=== PATIENT | male | born 1980 | race Caucasian/White ===

== ENCOUNTER 2018-01-02 22:52 | Observation (INO) | payer SELFPAY ==
[2018-01-02 22:53] VITALS: BP 136/82; PULSE 120; RESP 26; TEMP 35.8; O2SAT 98; BMI 26.6
[2018-01-02 23:03] VITALS: BP 132/86; PULSE 119; RESP 18; O2SAT 100
[2018-01-02 23:06] LABS: Bedside Glucose 116 mg/dL (70-110)
--- NOTE | 2018-01-02 23:07 | CT_ITS ---
STUDY: CT BRAIN WITHOUT CONTRAST REASON FOR EXAM: Male, 37 years old. Weakness, shaking blurred vision. Elevated blood pressure RADIATION DOSAGE (If Supplied By Facility): CTDIvol = ( 44.99 ) mGy, DLP = ( 779.24 ) mGycm TECHNIQUE: Transaxial CT imaging of the brain was performed without administration of intravenous contrast material. Individualized dose optimization techniques were used for this CT. COMPARISON: July 02, 2008 FINDINGS: Normal calvarium. There are scattered scalp trichilemmal cysts that have increased in size and number since the prior examination. Normal size ventricles and extra-axial spaces for the patient's age. Normal white matter tracts of the cerebral hemispheres. Normal basal ganglia and thalami. Normal brainstem. Normal cerebellum. There is no intracranial hemorrhage. There are no findings of an acute ischemic infarction. Normal visualized paranasal sinuses. CT/Brain/Head without Contrast IMPRESSION: No acute intracranial process. N.B. : The above information has been verbally conveyed by Mary Lawler MD to Paola Zhang, Referring Physician, on 01/02/2018 23:36:14 (ET). Electronically Signed: Mary Lawler MD at 23:36 EDT Tel , Service support , N.B. : The above information has been verbally conveyed by Mary Lawler MD to Paola Zhang, Referring Physician, on 01/02/2018 23:36:14 (ET).
--- NOTE | 2018-01-02 23:07 | EKG12_ITS ---
Test Reason : NEURO S/SX Blood Pressure : / mmHG Vent. Rate : 098 BPM Atrial Rate : 098 BPM P-R Int : 156 ms QRS Dur : 088 ms QT Int : 292 ms P-R-T Axes : 047 042 013 degrees QTc Int : 372 ms Normal sinus rhythm Normal ECG Confirmed by MARYANA GRIDER, APRUL ([id number]), commissioning editor KENNETH EGAN ([id number] on 01/04/2018 3:19:43 PM Referred By: SABINO Confirmed By:PARUL MIJARES MD
--- NOTE | 2018-01-02 23:07 | RAD_ITS ---
STUDY: X-RAY CHEST REASON FOR EXAM: Male, 37 years old. Neurological abnormalities TECHNIQUE: Single AP portable view of the chest. COMPARISON: Previous study of 11/07/2014 FINDINGS: air sampling and monitoring leads are present. The lungs are clear and expanded. There is no demonstrated pleural abnormality. Normal size heart. Normal mediastinum and beryl. Normal visualized pulmonary arteries. Normal visualized aortic arch and descending thoracic aorta. Normal visualized thoracic spine. Normal visualized ribs, clavicles, and shoulders. There is no demonstrated abnormality of the visualized soft tissue structures of the upper abdomen. RAD/Chest 1 View (Portable) IMPRESSION: Normal x-ray examination of the chest. Electronically Signed: Antonio Page MD at 23:46 EDT , Service support ,
--- NOTE | 2018-01-02 23:12 | ED.VISSUMM ---
- ER Visit Summary Date of Service: 01/02/18 Chief Complaint: Confusion, difficulty with speech. History of Present Illness: The patient is a 37 M presenting with speech difficulty and confusion. Patient states he knew what he wanted to say but was unable to get words out. This started approximately 1 hour ago. His speech is improving. He also notes blurry vision right greater than left. He states before this started he had an aura. He denies headache. He feels weak all over. He has nausea with no vomiting. He has shortness of breath. Denies chest pain. Denies fever. Denies recent illness. Denies drug use. Physical Examination: Vitals are stable. Patient is afebrile. Alert no acute distress. HEENT exam is unremarkable. Neck is supple. No meningismus Lungs are clear and equal bilaterally. Heart is regular and tachycardic Abdomen is soft nontender nondistended. Extremities are unremarkable. Skin is warm and dry. NIH for 1 LOC questions Remainder of exam is unremarkable. Emergency Department Course and Treatment: EKG is sinus rhythm rate of 98 with no acute ischemic changes. Chest x-ray shows no acute process. CT head shows no acute process. CBC, chemistries unremarkable other than creatinine 1.45. Troponin is negative. Alcohol is negative. Urine tox is pending. Patient given IV fluids. Ativan was ordered. Patient does have a history of headaches and anxiety. This may be a TIA versus atypical migraine versus anxiety. Discussed with Dr. Cuenca and Dr Portillo. Patient will be admitted. Disposition: Admission Impression: TIA versus atypical migraine This note was generated with [employer] dictation software. It may contain incorrect words, spelling, and punctuation that were not noted in review of the chart prior to signing ED Disposition - Plan for ED Patient: Chief Complaint: Neuro S/Sx Referrals: Thiago Li MD [Primary Care Provider] -
[2018-01-02 23:15] LABS: Absolute Lymphocyte Count 5.46 X10^3/ul (0.83-4.51); Absolute Neutrophil Count 3.8 X10^3/uL (2.0-7.7); Basophil# 0.03 X10^3/uL; Basophil% 0.3 % (0-1); Eosinophil# 0.59 X10^3/uL; Eosinophils% 5.6 % (0-5); Hematocrit 46.3 % (40-54); Hemoglobin 16.6 g/dl (13.0-16.5); Lymphocyte # 5.46 X10^3/ul (4.0); Lymphocyte % 51.4 % (19-41); Mean Corp Hgb Conc 35.9 g/gl (32-36); Mean Corpuscular Hgb 31.8 pg (27.0-32.0); Mean Corpuscular Volume 88.7 fL (80-94); Mean Platelet Vol. 9.7 fl (6.2-12.0); Monocyte# 0.73 X10^3/uL; Monocyte% 6.9 % (0-10); Neutrophil # 3.79 X10^3/uL (2.7-7.7); Neutrophil % 35.6 % (47-70); Platelet Count 277 K/mm3 (150-450); RBC Distribution Width SD 38.8 fl (35.1-43.9); Red Blood Count 5.22 M/mm3 (4.6-6.2); White Blood Count 10.6 K/mm3 (4.4-11.0)
[2018-01-02 23:16] LABS: Differential Indicated SCAN CRITERIA MET; POSITIVE COUNT NO; POSITIVE DIFFERENTIAL YES; POSITIVE MORPHOLOGY NO
[2018-01-02 23:35] LABS: Differential Comment SCANNED
[2018-01-02] MEDS: Ondansetron 4 MG/2 ML Vial IV (23:35)
[2018-01-02 23:39] LABS: Alcohol, Blood (Medical)-Serum < 3.0 mg/dL
[2018-01-02 23:41] LABS: Anion Gap 10 (5-15); BUN 15 mg/dL (7-18); BUN/Creat Ratio 10.3 RATIO (10-20); Calcium,Total 8.5 mg/dL (8.5-10.1); Chloride 106 mmol/L (98-107); Creatinine, Serum 1.45 mg/dL (0.70-1.30); EST Glomerular Filtration Rate 59 mL/min (>60); Est Glom Filt Rate - Afr Amer 71 mL/min (>60); Estimated Creatinine Clearance 66.48 ml/min; Glucose 125 mg/dL (74-106); Potassium 3.8 mmol/L (3.5-5.1); Sodium Level 139 mmol/L (136-145)
--- NOTE | 2018-01-02 23:49 | PCM.HP.STD ---
Problem List (1) Sinus arrhythmia Status: Chronic (2) Asthma Status: Chronic Qualifiers: Asthma severity: unspecified severity Asthma persistence: unspecified Asthma complication type: unspecified Qualified Code(s): J45.909 - Unspecified asthma, uncomplicated (3) TIA versus Complex migraine Status: Acute (4) Chronic headaches Status: Chronic Qualifiers: Headache type: unspecified Intractability: not intractable Qualified Code(s): R51 - Headache History of Present Illness Date of Admission: 01/02/18 Chief Complaint: Aphasia, weakness, parethesias, blurred vision R eye. The patient is a 37 y/o M w/ PMHx: Asthma, Sinus arrhythmia, Chronic headaches who presents to the [facility] ED on 01/02/18 with ~ 1 hour prior to arrival onset initial aura followed by expressive aphasia, generalized weakness without focal deficit and R>L blurry vision w/ onset while in the ED of throbbing BL temporal headache similar to his usual with associated photophobia and phonophobia. While in the ED having NIH scale performed patient upon confusion became extremely distressed and anxious and ativan was administered. In the ED work-up included T 98.8, HR 90s, BP 136/75, RR 18, 97% on RA, CBC w/ WBC 10.6, Hgb 16.6, Plts 277 with L increased lymph, eos, BMP w/ BUN/Cr 15/1.45 (prior Cr 1.2), glucose 125, trop < 0.02, unremarkable UTox, unremarkable UA, EtOH unremarkable, CT head unremarkable, CXR unremarkable, EKG w/ SR without acute evidence of ischemia. In the ED patient administered NS, zofran, ativan. Neurology, Dr. Cuenca made aware of patient per ED and he requested work-up for stroke to be continued prior to assess for intractable migraine. Past Medical History Past Medical History (Chronic Problems): Chronic Problems Sinus arrhythmia (Chronic) Asthma (Chronic) Chronic headaches (Chronic) Allergies Penicillins Allergy (Verified 11/07/14 19:02) Unknown Sulfa (Sulfonamide Antibiotics) Allergy (Verified 11/07/14 19:02) Unknown Home Medications: Ambulatory Orders Medication Instructions Recorded Metoprolol Tartrate [Lopressor 50 mg PO BID 01/02/18 (beta alden)] Surgical History: - - T+A Psychiatric History: No pertinent psych hx Lives: Spouse/ Significant Other, With Family Smoking Status: Never smoker Alcohol: None Drugs: None - *Family History Maternal History Items: - - Mother w/ MS. Paternal History Items: Hypertension Review of Systems Constitutional: Reports: Malaise, Weakness, Fatigue. Denies: Chills, Fever, Weight Change HEENT: Reports: Head Aches, Visual Changes. Denies: Sinus Congestion, Sinus Drainage Cardiovascular: Denies: Chest Pain, Palpitations Respiratory: Denies: Cough, Shortness of breath at rest, Sputum production Gastrointestinal: Denies: Abdominal Pain, Nausea, Vomiting Genitourinary: Denies: Dysuria Musculoskeletal: Denies: Joint Pain, Joint Tenderness Skin: Denies: Rash, Wounds Neurological: Reports: Confusion, Headaches. Denies: Focal weakness, Numbness, Tingling Psychiatric: Denies: Anxiety, Depression, Homicidal Ideations, Suicidal Ideations Hematologic/ Lymphatic: Denies: Easy Bruising, Easy Bleeding VTE Information - Inpt Only VTE Present on Admission: No VTE Mechan Device Prophylaxis: SCD's VTE Pharm Prophylaxis ordered?: Yes Patient Problems: Active and Suspected Problems TIA versus Complex migraine (Acute) Subjective: Seated upright in the ED bed, NAD, notes sxs improving. Objective: Physical Examination: General: awake, alert, oriented x 3 and cooperative, seated upright in the ED bed, NAD, uncomfortable appearing, strained. Skin: normal color, turgor, no icterus, cyanosis. HEENT: AT/NC, EOMI, PERRLA, mildly dry MM, scleral injection noted, peripheral vision intact, no carotid bruits or JVD noted. Lungs: CTA bilaterally, moderate effort, mild decrease BL bases, no rales, ronchi or wheezing. Heart: Regular rate and rhythm; no gallop, rub audible. Abdomen: soft, NTTP, ND, normal BS, no HSM. Extremities: no cyanosis, clubbing, or edema. Neurological: patient awake, alert, oriented x 3; cognitive function intact; pupils equally reactive to light and accomodation; cranial nerves II-XII grossly normal, moving all 4 extremities, no focal deficits, strength moderately globally decreased secondary to acute presentation, sensation intact, FTN, HTN intact, peripheral vision intact, negative babinski. Psychiatric: affect appears fatigued, strained, normal, no acute evidence of depressive or anxiety feelings. - Physical Exam Vital Signs Temp Pulse Resp BP Pulse Ox 96.5 F L 119 H 18 132/86 H 100 01/02/18 22:53 01/02/18 23:03 01/02/18 23:03 01/02/18 23:03 01/02/18 23:03 Oxygen Delivery Method Room Air Weight: 170 lb Body Mass Index (BMI) 26.6 Finger Stick Blood Glucose 116 Laboratory Tests Past 24 Hrs 01/02/18 01/02/18 01/02/18 23:05 23:05 23:05 WBC 10.6 RBC 5.22 Hgb 16.6 H Hct 46.3 MCV 88.7 MCH 31.8 MCHC 35.9 RDW 12.0 RDW Differential 38.8 Plt Count 277 MPV 9.7 Immature Gran % (Auto) 0.200 Neut % (Auto) 35.6 L Lymph % (Auto) 51.4 H Warren % (Auto) 6.9 Eos % (Auto) 5.6 H Baso % (Auto) 0.3 Absolute Neuts (auto) 3.8 Absolute Lymphs (auto) 5.46 H Total Counted Not Reportable Differential Comment SCANNED Sodium 139 Potassium 3.8 Chloride 106 Carbon Dioxide 23.0 Anion Gap 10 BUN 15 Creatinine 1.45 H Estim Creat Clear Calc 66.48 Est GFR (MDRD) Af Amer 71 Est GFR (MDRD) Non-Af 59 L BUN/Creatinine Ratio 10.3 Glucose 125 H Calcium 8.5 Troponin I < 0.02 Ethyl Alcohol < 3.0 POC Glucose 01/02/18 22:58 POC Glucose 116 H Assessment/Plan Active and Suspected Problems TIA versus Complex migraine (Acute) The patient is a 37 y/o M w/ PMHx: Asthma, Sinus arrhythmia, Chronic headaches who presents to the [facility] ED on 01/02/18 with ~ 1 hour prior to arrival onset initial aura followed by expressive aphasia, generalized weakness without focal deficit and R>L blurry vision w/ onset while in the ED of throbbing BL temporal headache similar to his usual with associated photophobia and phonophobia. (1) Expressive aphasia, generalized weakness without focal deficit and R>L blurry vision and concurrent Acute on Chronic Headache concerning for Complex Migraine, Less Likely TIA/CVA: In the ED work-up included T 98.8, HR 90s, BP 136/75, RR 18, 97% on RA, CBC w/ WBC 10.6, Hgb 16.6, Plts 277 with L increased lymph, eos, BMP w/ BUN/Cr 15/1.45 (prior Cr 1.2), glucose 125, trop < 0.02, unremarkable UTox, unremarkable UA, EtOH unremarkable, CT head unremarkable, CXR unremarkable, EKG w/ SR without acute evidence of ischemia. Neurology, Dr. Cuenca made aware of patient per ED and he requested work-up for stroke to be continued prior to assess for intractable migraine. Will admit to PCU, will obtain MRI Brain, MRA Head and Neck, ECHO, PT/OT/Speech/Nutrition evaluation per protocol. Will continue consult with Neurology for evaluation. Will maintain on asa, statin w/ AM FLP, fall precautions. Mag, TSH pending. If MRI negative and ongoing sxs with headaches would plan to initiated intractable migraine regimen w/ IV VPA 500mg Q6 hours, IV Decadron 4mg Q6 hours, IV Toradol 30mg Q6 hours prn and PO Neurontin 100mg TID with meals unless otherwise dictated per Neurology. (2) Chronic Asthma: Maintain on HOB, IS, PRN albuterol regimen, primarily childhood. (3) Sinus Arrhythmia: Maintain on telemetry, continue home metoprolol regimen. (4) Mild Renal Insufficiency: Admission BUN/Cr 15/1.45, baseline prior 1.2-1.4, unclear if chronic renal disease, gently hydrating, repeat BMP in AM. (5) DVT Prophylaxis: SCDs, heparin. Code Visit OBSV E&M: 37997 Initial observation care L3
--- NOTE | 2018-01-02 23:52 | HP.PCM_ITS ---
Problem List (1) Sinus arrhythmia Status: Chronic (2) Asthma Status: Chronic Qualifiers: Asthma severity: unspecified severity Asthma persistence: unspecified Asthma complication type: unspecified Qualified Code(s): J45.909 - Unspecified asthma, uncomplicated (3) TIA versus Complex migraine Status: Acute (4) Chronic headaches Status: Chronic Qualifiers: Headache type: unspecified Intractability: not intractable Qualified Code (s): R51 - Headache History of Present Illness Date of Admission: 01/02/18 Chief Complaint: Aphasia, weakness, parethesias, blurred vision R eye. The patient is a 37 y/o M w/ PMHx: Asthma, Sinus arrhythmia, Chronic headaches who presents to the [facility] ED on 01/02/18 with ~ 1 hour prior to arrival onset initial aura followed by expressive aphasia, generalized weakness without focal deficit and R>L blurry vision w/ onset while in the ED of throbbing BL temporal headache similar to his usual with associated photophobia and phonophobia. While in the ED having NIH scale performed patient upon confusion became extremely distressed and anxious and ativan was administered. In the ED work-up included T 98.8, HR 90s, BP 136/75, RR 18, 97% on RA, CBC w/ WBC 10.6, Hgb 16.6 , Plts 277 with L increased lymph, eos, BMP w/ BUN/Cr 15/1.45 (prior Cr 1.2), glucose 125, trop < 0.02, unremarkable UTox, unremarkable UA, EtOH unremarkable , CT head unremarkable, CXR unremarkable, EKG w/ SR without acute evidence of ischemia. In the ED patient administered NS, zofran, ativan. Neurology, Dr. Cuenca made aware of patient per ED and he requested work-up for stroke to be continued prior to assess for intractable migraine. Past Medical History Past Medical History (Chronic Problems): Chronic Problems Sinus arrhythmia (Chronic) Asthma (Chronic) Chronic headaches (Chronic) Allergies Penicillins Allergy (Verified 11/07/14 19:02) Unknown Sulfa (Sulfonamide Antibiotics) Allergy (Verified 11/07/14 19:02) Unknown Home Medications: Ambulatory Orders Medication Instructions Recorded Metoprolol Tartrate [Lopressor 50 mg PO BID 01/02/18 (beta alden)] Surgical History: - - T+A Psychiatric History: No pertinent psych hx Lives: Spouse/ Significant Other, With Family Smoking Status: Never smoker Alcohol: None Drugs: None - *Family History Maternal History Items: - - Mother w/ MS. Paternal History Items: Hypertension Review of Systems Constitutional: Reports: Malaise, Weakness, Fatigue. Denies: Chills, Fever, Weight Change HEENT: Reports: Head Aches, Visual Changes. Denies: Sinus Congestion, Sinus Drainage Cardiovascular: Denies: Chest Pain, Palpitations Respiratory: Denies: Cough, Shortness of breath at rest, Sputum production Gastrointestinal: Denies: Abdominal Pain, Nausea, Vomiting Genitourinary: Denies: Dysuria Musculoskeletal: Denies: Joint Pain, Joint Tenderness Skin: Denies: Rash, Wounds Neurological: Reports: Confusion, Headaches. Denies: Focal weakness, Numbness, Tingling Psychiatric: Denies: Anxiety, Depression, Homicidal Ideations, Suicidal Ideations Hematologic/ Lymphatic: Denies: Easy Bruising, Easy Bleeding VTE Information - Inpt Only VTE Present on Admission: No VTE Mechan Device Prophylaxis: SCD's VTE Pharm Prophylaxis ordered?: Yes Patient Problems: Active and Suspected Problems TIA versus Complex migraine (Acute) Subjective: Seated upright in the ED bed, NAD, notes sxs improving. Objective: Physical Examination: General: awake, alert, oriented x 3 and cooperative, seated upright in the ED bed, NAD, uncomfortable appearing, strained. Skin: normal color, turgor, no icterus, cyanosis. HEENT: AT/NC, EOMI, PERRLA, mildly dry MM, scleral injection noted, peripheral vision intact, no carotid bruits or JVD noted. Lungs: CTA bilaterally, moderate effort, mild decrease BL bases, no rales, ronchi or wheezing. Heart: Regular rate and rhythm; no gallop, rub audible. Abdomen: soft, NTTP, ND, normal BS, no HSM. Extremities: no cyanosis, clubbing, or edema. Neurological: patient awake, alert, oriented x 3; cognitive function intact; pupils equally reactive to light and accomodation; cranial nerves II-XII grossly normal, moving all 4 extremities, no focal deficits, strength moderately globally decreased secondary to acute presentation, sensation intact , FTN, HTN intact, peripheral vision intact, negative babinski. Psychiatric: affect appears fatigued, strained, normal, no acute evidence of depressive or anxiety feelings. - Physical Exam Vital Signs Temp Pulse Resp BP Pulse Ox 96.5 F L 119 H 18 132/86 H 100 01/02/18 22:53 01/02/18 23:03 01/02/18 23:03 01/02/18 23:03 01/02/18 23:03 Oxygen Delivery Method Room Air Weight: 170 lb Body Mass Index (BMI) 26.6 Finger Stick Blood Glucose 116 Laboratory Tests Past 24 Hrs 01/02/18 01/02/18 01/02/18 23:05 23:05 23:05 WBC 10.6 RBC 5.22 Hgb 16.6 H Hct 46.3 MCV 88.7 MCH 31.8 MCHC 35.9 RDW 12.0 RDW Differential 38.8 Plt Count 277 MPV 9.7 Immature Gran % (Auto) 0.200 Neut % (Auto) 35.6 L Lymph % (Auto) 51.4 H Bowman % (Auto) 6.9 Eos % (Auto) 5.6 H Baso % (Auto) 0.3 Absolute Neuts (auto) 3.8 Absolute Lymphs (auto) 5.46 H Total Counted Not Reportable Differential Comment SCANNED Sodium 139 Potassium 3.8 Chloride 106 Carbon Dioxide 23.0 Anion Gap 10 BUN 15 Creatinine 1.45 H Estim Creat Clear Calc 66.48 Est GFR (MDRD) Af Amer 71 Est GFR (MDRD) Non-Af 59 L BUN/Creatinine Ratio 10.3 Glucose 125 H Calcium 8.5 Troponin I < 0.02 Ethyl Alcohol < 3.0 POC Glucose 01/02/18 22:58 POC Glucose 116 H Assessment/Plan Active and Suspected Problems TIA versus Complex migraine (Acute) The patient is a 37 y/o M w/ PMHx: Asthma, Sinus arrhythmia, Chronic headaches who presents to the [facility] ED on 01/02/18 with ~ 1 hour prior to arrival onset initial aura followed by expressive aphasia, generalized weakness without focal deficit and R>L blurry vision w/ onset while in the ED of throbbing BL temporal headache similar to his usual with associated photophobia and phonophobia. (1) Expressive aphasia, generalized weakness without focal deficit and R>L blurry vision and concurrent Acute on Chronic Headache concerning for Complex Migraine, Less Likely TIA/CVA: In the ED work-up included T 98.8, HR 90s, BP 136 /75, RR 18, 97% on RA, CBC w/ WBC 10.6, Hgb 16.6, Plts 277 with L increased lymph, eos, BMP w/ BUN/Cr 15/1.45 (prior Cr 1.2), glucose 125, trop < 0.02, unremarkable UTox, unremarkable UA, EtOH unremarkable, CT head unremarkable, CXR unremarkable, EKG w/ SR without acute evidence of ischemia. Neurology, Dr. Cuenca made aware of patient per ED and he requested work-up for stroke to be continued prior to assess for intractable migraine. Will admit to PCU, will obtain MRI Brain, MRA Head and Neck, ECHO, PT/OT/Speech/Nutrition evaluation per protocol. Will continue consult with Neurology for evaluation. Will maintain on asa, statin w/ AM FLP, fall precautions. Mag, TSH pending. If MRI negative and ongoing sxs with headaches would plan to initiated intractable migraine regimen w/ IV VPA 500mg Q6 hours, IV Decadron 4mg Q6 hours, IV Toradol 30mg Q6 hours prn and PO Neurontin 100mg TID with meals unless otherwise dictated per Neurology. (2) Chronic Asthma: Maintain on HOB, IS, PRN albuterol regimen, primarily childhood. (3) Sinus Arrhythmia: Maintain on telemetry, continue home metoprolol regimen. (4) Mild Renal Insufficiency: Admission BUN/Cr 15/1.45, baseline prior 1.2-1.4, unclear if chronic renal disease, gently hydrating, repeat BMP in AM. (5) DVT Prophylaxis: SCDs, heparin. Code Visit OBSV E&M: 23289 Initial observation care L3
[2018-01-03] VITALS (11 sets, daily range): BP systolic 94–142; BP diastolic 53–83; PULSE 69–103; RESP 12–22; TEMP 35.9–37.2; O2SAT 96–98; BMI 27.8
[2018-01-03] MEDS: LORazepam 2 MG/ML Syringe 1 MG IV (00:08)
[2018-01-03 00:19] LABS: Bacteria 0 SEEN /hpf (None Seen); Mucous, Urine 0 SEEN /hpf (<or=2+); Red Blood Cells-Urine 0 SEEN /hpf (0-5); Squamous Epithelial Cells - UA 0 SEEN /hpf (0-5); White Blood Cells 0 SEEN /hpf (0-5)
[2018-01-03 00:25] LABS: Color, Urine Yellow (Yellow); Glucose, Dipstick Normal (Normal); Ketone-Dipstick Negative (Negative); Leukocyte Esterase-Dipstick Negative /ul (Negative); Nitrite-Dipstick Negative (Negative); Occult Blood-Urine Negative /ul (Negative); Protein-Dipstick Negative (Negative); Urine Bilirubin Dipstick Negative (Negative); Urine Clarity Clear (Clear); Urine Urobilinogen Normal (Normal)
[2018-01-03 00:41] LABS: Amphetamine Urine VISTA NEGATIVE (<1000 ng/mL); Barbiturate Urine VISTA NEGATIVE (< 200 ng/mL); Benzodiazepine Urine VISTA NEGATIVE (< 200 ng/mL); Cocaine Urine VISTA NEGATIVE (< 300 ng/mL); Ecstacy Urine VISTA NEGATIVE (< 500 ng/mL); Methadone Urine VISTA NEGATIVE (< 300 ng/mL); PCP Urine VISTA NEGATIVE (< 25 ng/mL); THC Urine VISTA NEGATIVE (< 50 ng/mL); Vista UDS pH Range 7
[2018-01-03] MEDS: Metoprolol Tartrate 50 MG Tablet PO ×2 (01:36→09:10)
[2018-01-03] MEDS: 0.9% Normal Saline 1,000 ML 999 ML IV (01:37)
[2018-01-03] MEDS: 0.9% NaCl Peripheral Flush Adult/Peds IV (01:54)
[2018-01-03] MEDS: 0.9% Normal Saline 1,000 ML 125 ML IV (02:00)
[2018-01-03 02:03] LABS: Magnesium 2.1 mg/dL (1.6-2.6); Thyroid Stim Hormone (TSH) 1.49 uIU/mL (0.358-3.74)
[2018-01-03 04:27] LABS: Hematocrit 41.4 % (40-54); Hemoglobin 14.4 g/dl (13.0-16.5); Mean Corp Hgb Conc 34.8 g/gl (32-36); Mean Corpuscular Hgb 31.4 pg (27.0-32.0); Mean Corpuscular Volume 90.4 fL (80-94); Mean Platelet Vol. 10.1 fl (6.2-12.0); Platelet Count 197 K/mm3 (150-450); RBC Distribution Width CV 12.2 % (11.6-14.6); RBC Distribution Width SD 39.8 fl (35.1-43.9); Red Blood Count 4.58 M/mm3 (4.6-6.2); White Blood Count 10.5 K/mm3 (4.4-11.0)
[2018-01-03 04:28] LABS: Scan Indicated on CBC? Y/N NO
[2018-01-03 05:47] LABS: BUN 12 mg/dL (7-18); Creatinine, Serum 1.13 mg/dL (0.70-1.30); Estimated Creatinine Clearance 85.31 ml/min; Glucose 91 mg/dL (74-106)
[2018-01-03 05:48] LABS: Anion Gap 9 (5-15); BUN/Creat Ratio 10.6 RATIO (10-20); Calcium,Total 7.6 mg/dL (8.5-10.1); Chloride 111 mmol/L (98-107); Cholesterol 138 mg/dL (200); EST Glomerular Filtration Rate 78 mL/min (>60); Est Glom Filt Rate - Afr Amer 95 mL/min (>60); High Density Lipoprotein 26 mg/dL; Sodium Level 144 mmol/L (136-145); Triglycerides 176 mg/dL; Very Low Density Lipoprotein 35 mg/dL (5-40)
--- NOTE | 2018-01-03 07:34 | PN_ITS ---
Patient Problems: Active and Suspected Problems TIA versus Complex migraine (Acute) Subjective: Patient was seen and examined. His was in the room. States his speech is almost back to normal except he has word finding difficulty and somehow slowness of his speech. He still has a headache, has daily headaches. States that most of the symptoms that he came in with yesterday resolved. Vitals have been reviewed and are stable. He is going for MRI this morning Vitals/I&O's: Vital Signs Temp Pulse Resp BP Pulse Ox 98.2 F 70 12 94/53 L 98 01/03/18 05:00 01/03/18 05:00 01/03/18 05:00 01/03/18 05:00 01/03/18 05:00 Oxygen Delivery Method Room Air Weight: 80.5 kg Body Mass Index (BMI) 27.8 Intake and Output for Last 24 Hours 01/01/18 01/02/18 01/03/18 23:59 23:59 23:59 Intake Total 1545 / 1545 Output Total 1025 / 1025 Balance 520 / 520 General: Alert, Oriented x3, Cooperative, No apparent distress HEENT: Atraumatic, PERRLA, EOMI, Normocephalic Oral: Moist Mucosa Neck: Supple Lungs: Clear to auscultation, Normal air movement Cardiovascular: Regular rate, Regular Rhythm, Normal S1, Normal S2, No murmurs Abdomen: Bowel Sounds Present, Soft, Non Tender, Non-Distended, No Hepato- splenomegaly Extremities: No edema Skin: No rashes, No breakdown Musculoskeletal: No Tenderness to Palpation of Joints or Extremities Lymphatic: No Cervical, Supraclavicular, or Inguinal Adenopathy Neurological: Cranial nerves II-XII grossly intact, Neuro grossly intact, Motor Exam 5/5 strength throughout Psych/Mental Status: Normal Affect, Appropriate Laboratory Results 01/03/18 00:05: Urine Color Yellow, Urine Clarity Clear, Urine pH 7.0, Ur Specific [place] 1.010, Urine Protein Negative, Urine Glucose (UA) Normal, Urine Ketones Negative, Urine Occult Blood Negative, Urine Nitrite Negative, Urine Bilirubin Negative, Urine Urobilinogen Normal, Ur Leukocyte Esterase Negative, Urine RBC 0 SEEN, Urine WBC 0 SEEN, Ur Squamous Epith Cells 0 SEEN, Urine Bacteria 0 SEEN, Urine Mucus 0 SEEN 01/03/18 00:05: Urine Opiates Screen NEGATIVE, Urine Methadone Screen NEGATIVE, Ur Barbiturates Screen NEGATIVE, Ur Phencyclidine Scrn NEGATIVE, Ur Amphetamines Screen NEGATIVE, U Methamphetamin-MDMA NEGATIVE, U Benzodiazepines Scrn NEGATIVE, Urine Cocaine Screen NEGATIVE, U Cannabinoids Screen NEGATIVE, Ur Drug Screen Comment 01/03/18 01:15: Magnesium Cancelled 01/03/18 01:15: TSH Cancelled 01/03/18 04:20: WBC 10.5, RBC 4.58 L, Hgb 14.4, Hct 41.4, MCV 90.4, MCH 31.4, MCHC 34.8, RDW 12.2, RDW Differential 39.8, Plt Count 197, MPV 10.1 01/03/18 04:20: Sodium Cancelled, Potassium Cancelled, Chloride Cancelled, Carbon Dioxide Cancelled, Anion Gap Cancelled, BUN Cancelled, Creatinine Cancelled, Estim Creat Clear Calc Cancelled, Est GFR (MDRD) Af Amer Cancelled, Est GFR (MDRD) Non-Af Cancelled, BUN/Creatinine Ratio Cancelled, Glucose Cancelled, Calcium Cancelled, Triglycerides Cancelled, Cholesterol Cancelled, LDL Cholesterol Cancelled, VLDL Cholesterol Cancelled, HDL Cholesterol Cancelled 01/03/18 05:15: Sodium 144, Potassium 4.0, Chloride 111 H, Carbon Dioxide 24.0, Anion Gap 9, BUN 12, Creatinine 1.13, Estim Creat Clear Calc 85.31, Est GFR ( MDRD) Af Amer 95, Est GFR (MDRD) Non-Af 78, BUN/Creatinine Ratio 10.6, Glucose 91, Calcium 7.6 L, Triglycerides 176, Cholesterol 138, LDL Cholesterol 77, VLDL Cholesterol 35, HDL Cholesterol 26 L Current Medications Acetaminophen (Tylenol) 650 mg PO Q4H PRN PRN PRN Reason: Headache/Temp>99F Acetaminophen (Tylenol) 650 mg RECTAL Q4H PRN PRN PRN Reason: Headache/Temp>99F Acetaminophen (Tylenol Liquid) 650 mg NG Q4H PRN PRN PRN Reason: Headache/Temp>99F Hydrocodone Bitart/Acetaminophen ([place] 5mg-325mg) 1 - 2 tablet PO Q6H PRN PRN PRN Reason: Moderate-severe pain Al Hydroxide/Mg Hydroxide (Mylanta Ii) 30 ml PO Q6H PRN PRN PRN Reason: Gastric burning Albuterol Sulfate (Ventolin Aerosols) 2.5 mg INHALATION Q2H PRN PRN PRN Reason: dyspnea, wheezing Aspirin (Aspirin, Baby) 81 mg PO DAILY@0800 [facility] Atorvastatin Calcium (Lipitor) 80 mg PO QHS [facility] Famotidine (Pepcid) 20 mg PO BID [facility] Heparin Sodium (Porcine) (Heparin Na) 5,000 unit SC BID [facility] Sodium Chloride () 1,000 mls @ 125 mls/hr IV .Q8H [facility] Last Admin: 01/03/18 02:00 Dose: 125 mls/hr Magnesium Hydroxide (Milk Of Magnesia) 30 ml PO DAILY PRN PRN Reason: Constipation Metoprolol Tartrate (Lopressor (Beta Teresa)) 50 mg PO BID [facility] Last Admin: 01/03/18 01:36 Dose: 50 mg Morphine Sulfate () 1 - 2 mg IV Q4H PRN PRN PRN Reason: PAIN Last Admin: 01/03/18 01:54 Dose: 1 mg Ondansetron HCl (Zofran) 4 mg IV Q8H PRN PRN PRN Reason: NAUSEA Promethazine HCl (Phenergan (Ll)) 12.5 mg IV Q6H PRN PRN PRN Reason: NAUSEA/VOMITING Sodium Chloride () 5 - 30 ml IV UD PRN PRN Reason: SALINE FLUSH Last Admin: 01/03/18 01:54 Dose: 10 ml Medical Necessity - Tobacco Use Smoking Status: Never smoker Tobacco Use: Non-smoker Assessment/Plan Active and Suspected Problems TIA versus Complex migraine (Acute) 37-year-old male with history of asthma, chronic daily headaches admitted on with expressive aphasia and blurred vision as well as photophobia and phonophobia. 1. Acute onset of expressive aphasia, blurred vision, photophobia and phonophobia, likely related to aura with migraine, less likely due to TIA, CT scan of the brain has been negative, vitals have remained normal. Lipid profile shows slightly elevation in triglycerides of 176, low HDL of 26, otherwise normal cholesterol panel, neurology consulted, MRI of the brain, MRA head and neck pending, on aspirin and statin for now. Follow-up on results 2. Chronic daily headaches, not on any maintenance medication, neurology consulted, will follow up on recommendations for options for prophylaxis 3. Asthma, stable, on as needed breathing treatment 4. History of sinus arrhythmia, on metoprolol, will continue same 5. Renal insufficiency, mild, improved, at baseline now, will DC IV fluids as patient is able to take a look by mouth. 6. DVT prophylaxis with heparin subcu Code Visit OBSV E&M: 88996 Subsequent observation care L3
[2018-01-03] MEDS: Aspirin 81 MG TAB.CHEW PO (08:28)
[2018-01-03] MEDS: Famotidine 20 MG Tablet PO (09:11)
--- NOTE | 2018-01-03 09:52 | PCM.CONS.GEN ---
Reason for Consult Date of Consultation: 01/03/18 Reason for Consultation: headache History of Present Illness: The patient is a 37 year old M who presented last night with symptoms beginning at 930pm described as flashing lights, similar to migraine aura which he has had x1 in the past although has had frequent migraines for 20 yrs. last night symptoms evolved to language difficulty described as couldnt put together a sentence followed by headache. now has a headache and feels slower than normal. also describes visual distortion described as people having uneven eyes. reports has headache daily, takes goodys powder because cant swallow pills. takes 1-5 packets of goodys powder/day. reports 15 yrs ago was prescribed a med that wasnt effective and caused weight gain. reports average daily headache is 4/10, currently 5/10, can get to 9/10 on a monthly basis. 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 per admit h&p:The patient is a 37 y/o M w/ PMHx: Asthma, Sinus arrhythmia, Chronic headaches who presents to the [facility] ED on 01/02/18 with ~ 1 hour prior to arrival onset initial aura followed by expressive aphasia, generalized weakness without focal deficit and R>L blurry vision w/ onset while in the ED of throbbing BL temporal headache similar to his usual with associated photophobia and phonophobia. While in the ED having NIH scale performed patient upon confusion became extremely distressed and anxious and ativan was administered. In the ED work-up included T 98.8, HR 90s, BP 136/75, RR 18, 97% on RA, CBC w/ WBC 10.6, Hgb 16.6, Plts 277 with L increased lymph, eos, BMP w/ BUN/Cr 15/1.45 (prior Cr 1.2), glucose 125, trop < 0.02, unremarkable UTox, unremarkable UA, EtOH unremarkable, CT head unremarkable, CXR unremarkable, EKG w/ SR without acute evidence of ischemia. In the ED patient administered NS, zofran, ativan. Neurology, Dr. Cuenca made aware of patient per ED and he requested work-up for stroke to be continued prior to assess for intractable migraine. Past Medical History Past Medical History (Chronic Problems): Chronic Problems Sinus arrhythmia (Chronic) Asthma (Chronic) Chronic headaches (Chronic) Allergies Penicillins Allergy (Verified 11/07/14 19:02) Unknown Sulfa (Sulfonamide Antibiotics) Allergy (Verified 11/07/14 19:02) Unknown Home Medications: Ambulatory Orders Medication Instructions Recorded Metoprolol Tartrate [Lopressor 50 mg PO BID 01/02/18 (beta teresa)] Surgical History: - - T+A Psychiatric History: No pertinent psych hx Lives: Spouse/ Significant Other, With Family Smoking Status: Never smoker Alcohol: None Drugs: None - *Family History Maternal History Items: - - Mother w/ MS. Paternal History Items: Hypertension Review of Systems Constitutional: Denies: Chills, Fever, Weight Change HEENT: Denies: Head Aches, Sinus Congestion, Sinus Drainage Cardiovascular: Denies: Chest Pain, Palpitations Respiratory: Denies: Cough, Shortness of breath at rest, Sputum production Gastrointestinal: Denies: Abdominal Pain, Nausea, Vomiting Genitourinary: Denies: Dysuria Musculoskeletal: Denies: Joint Pain, Joint Tenderness Skin: Denies: Rash, Wounds Neurological: Denies: Numbness, Tingling, Focal weakness Psychiatric: Denies: Anxiety, Depression, Homicidal Ideations, Suicidal Ideations Hematologic/ Lymphatic: Denies: Easy Bruising, Easy Bleeding Patient Problems: Active and Suspected Problems TIA versus Complex migraine (Acute) - Physical Exam General: Alert, Oriented x3, Cooperative HEENT: Atraumatic, PERRLA, EOMI, Normocephalic Neck: Supple, No JVD, Negative Carotid Bruits Lungs: Clear to auscultation, Normal air movement Cardiovascular: Regular rate, No murmurs Abdomen: Bowel Sounds Present, Soft, Non Tender Extremities: No edema, Capillary Refill Less than 3 Seconds Skin: No rashes, No breakdown Musculoskeletal: No Tenderness to Palpation of Joints or Extremities Neurological: Cranial nerves II-XII grossly intact Psych/Mental Status: Normal Affect, Appropriate Vital Signs Temp Pulse Resp BP Pulse Ox 35.9 C L 70 13 103/64 96 01/03/18 08:24 01/03/18 09:10 01/03/18 08:24 01/03/18 08:24 01/03/18 08:24 Oxygen Delivery Method Room Air Weight: 80.5 kg Body Mass Index (BMI) 27.8 Intake and Output for Last 24 Hours 01/01/18 01/02/18 01/03/18 23:59 23:59 23:59 Intake Total 1545 / 1545 Output Total 1025 / 1025 Balance 520 / 520 Laboratory Tests Past 24 Hrs 01/03/18 01/03/18 01/03/18 00:05 00:05 01:15 WBC RBC Hgb Hct MCV MCH MCHC RDW RDW Differential Plt Count MPV Sodium Potassium Chloride Carbon Dioxide Anion Gap BUN Creatinine Estim Creat Clear Calc Est GFR (MDRD) Af Amer Est GFR (MDRD) Non-Af BUN/Creatinine Ratio Glucose Calcium Magnesium Cancelled Triglycerides Cholesterol LDL Cholesterol VLDL Cholesterol HDL Cholesterol TSH Urine Color Yellow Urine Clarity Clear Urine pH 7.0 Ur Specific [place] 1.010 Urine Protein Negative Urine Glucose (UA) Normal Urine Ketones Negative Urine Occult Blood Negative Urine Nitrite Negative Urine Bilirubin Negative Urine Urobilinogen Normal Ur Leukocyte Esterase Negative Urine RBC 0 SEEN Urine WBC 0 SEEN Ur Squamous Epith Cells 0 SEEN Urine Bacteria 0 SEEN Urine Mucus 0 SEEN Urine Opiates Screen NEGATIVE Urine Methadone Screen NEGATIVE Ur Barbiturates Screen NEGATIVE Ur Phencyclidine Scrn NEGATIVE Ur Amphetamines Screen NEGATIVE U Methamphetamin-MDMA NEGATIVE U Benzodiazepines Scrn NEGATIVE Urine Cocaine Screen NEGATIVE U Cannabinoids Screen NEGATIVE Ur Drug Screen Comment 01/03/18 01/03/18 01/03/18 01:15 04:20 04:20 WBC 10.5 RBC 4.58 L Hgb 14.4 Hct 41.4 MCV 90.4 MCH 31.4 MCHC 34.8 RDW 12.2 RDW Differential 39.8 Plt Count 197 MPV 10.1 Sodium Cancelled Potassium Cancelled Chloride Cancelled Carbon Dioxide Cancelled Anion Gap Cancelled BUN Cancelled Creatinine Cancelled Estim Creat Clear Calc Cancelled Est GFR (MDRD) Af Amer Cancelled Est GFR (MDRD) Non-Af Cancelled BUN/Creatinine Ratio Cancelled Glucose Cancelled Calcium Cancelled Magnesium Triglycerides Cancelled Cholesterol Cancelled LDL Cholesterol Cancelled VLDL Cholesterol Cancelled HDL Cholesterol Cancelled TSH Cancelled Urine Color Urine Clarity Urine pH Ur Specific [place] Urine Protein Urine Glucose (UA) Urine Ketones Urine Occult Blood Urine Nitrite Urine Bilirubin Urine Urobilinogen Ur Leukocyte Esterase Urine RBC Urine WBC Ur Squamous Epith Cells Urine Bacteria Urine Mucus Urine Opiates Screen Urine Methadone Screen Ur Barbiturates Screen Ur Phencyclidine Scrn Ur Amphetamines Screen U Methamphetamin-MDMA U Benzodiazepines Scrn Urine Cocaine Screen U Cannabinoids Screen Ur Drug Screen Comment 03/19/18 05:15 WBC RBC Hgb Hct MCV MCH MCHC RDW RDW Differential Plt Count MPV Sodium 144 Potassium 4.0 Chloride 111 H Carbon Dioxide 24.0 Anion Gap 9 BUN 12 Creatinine 1.13 Estim Creat Clear Calc 85.31 Est GFR (MDRD) Af Amer 95 Est GFR (MDRD) Non-Af 78 BUN/Creatinine Ratio 10.6 Glucose 91 Calcium 7.6 L Magnesium Triglycerides 176 Cholesterol 138 LDL Cholesterol 77 VLDL Cholesterol 35 HDL Cholesterol 26 L TSH Urine Color Urine Clarity Urine pH Ur Specific [place] Urine Protein Urine Glucose (UA) Urine Ketones Urine Occult Blood Urine Nitrite Urine Bilirubin Urine Urobilinogen Ur Leukocyte Esterase Urine RBC Urine WBC Ur Squamous Epith Cells Urine Bacteria Urine Mucus Urine Opiates Screen Urine Methadone Screen Ur Barbiturates Screen Ur Phencyclidine Scrn Ur Amphetamines Screen U Methamphetamin-MDMA U Benzodiazepines Scrn Urine Cocaine Screen U Cannabinoids Screen Ur Drug Screen Comment Current Home Med List Medication Instructions Recorded Confirmed Type Metoprolol Tartrate [Lopressor 50 mg PO BID 01/02/18 01/02/18 History (beta teresa)] Current Medications Generic Name Dose Route Start Last Admin Trade Name Freq PRN Reason Stop Dose Admin Acetaminophen 650 mg 01/03/18 01:01 Tylenol PO Q4H PRN PRN Headache/Temp>99F Acetaminophen 650 mg 01/03/18 01:01 Tylenol RECTAL Q4H PRN PRN Headache/Temp>99F Acetaminophen 650 mg 01/03/18 01:01 Tylenol Liquid NG Q4H PRN PRN Headache/Temp>99F Hydrocodone Bitart/Acetaminophen 1 - 2 tablet 01/03/18 01:01 [place] 5mg-325mg PO Q6H PRN PRN Moderate-severe pain Al Hydroxide/Mg Hydroxide 30 ml 01/03/18 01:01 Mylanta Ii PO Q6H PRN PRN Gastric burning Albuterol Sulfate 2.5 mg 01/03/18 01:01 Ventolin Aerosols INHALATION Q2H PRN PRN dyspnea, wheezing Aspirin 81 mg 01/03/18 08:00 01/03/18 08:28 Aspirin, Baby PO 81 mg DAILY@0800 [facility] Administration Atorvastatin Calcium 80 mg 01/03/18 22:00 Lipitor PO QHS RAVI Famotidine 20 mg 01/03/18 10:00 01/03/18 09:11 Pepcid PO 20 mg BID RAVI Administration Heparin Sodium (Porcine) 5,000 unit 01/03/18 10:00 01/03/18 09:14 Heparin Na SC 5,000 u BID RAVI Administration Sodium Chloride 1,000 mls @ 125 mls/hr 01/03/18 01:01 01/03/18 02:00 IV 125 mls/hr .Q8H RAVI Administration Magnesium Hydroxide 30 ml 01/03/18 01:01 Milk Of Magnesia PO DAILY PRN Constipation Metoprolol Tartrate 50 mg 01/03/18 01:01 01/03/18 09:10 Lopressor (Beta Teresa) PO 50 mg BID RAVI Administration Morphine Sulfate 1 - 2 mg 01/03/18 01:01 01/03/18 01:54 IV 1 mg Q4H PRN PRN Administration PAIN Ondansetron HCl 4 mg 01/03/18 01:01 Zofran IV Q8H PRN PRN NAUSEA Promethazine HCl 12.5 mg 01/03/18 01:01 Phenergan (Ll) IV Q6H PRN PRN NAUSEA/VOMITING Sodium Chloride 5 - 30 ml 01/03/18 00:43 01/03/18 01:54 IV 10 ml UD PRN Administration SALINE FLUSH mri/a head and neck reviewed, normal Assessment/Plan Active and Suspected Problems TIA versus Complex migraine (Acute) 1. complex migraine, resolved 2. chronic daily headache sleep deprived stress: try ssri 3. rebound headache: recommend discontinue use of goodys and other nsaids ok to dc follow up as op
[2018-01-03] MEDS: Escitalopram Oxalate 10 MG Tablet PO (13:14)
--- NOTE | 2018-01-03 13:39 | PCM.DC ---
- Discharge Diagnoses Current Active Problems: Current Active and Chronic Problems Sinus arrhythmia (Chronic) Asthma (Chronic) TIA versus Complex migraine (Acute) Chronic headaches (Chronic) Reason(s) for Visit for Discharge Instructions: Blurred vision, expressive aphasia You will use the following diet at home:: Regular Your food should be the consistency of: Regular Your liquids should be the consistency of: Regular/Thin Discharge Activity: Return to Normal Activity Additional Instructions: Discontinue use of goodys and other NSAIDS. the neurologist recommended Lexapro. Follow-up with him within 2 weeks with a headache diary noting frequency of headaches and associated symptoms, and factors that seem to trigger the headaches. Allergies/Adverse Reactions: Allergies Penicillins Allergy (Verified 11/07/14 19:02) Unknown Sulfa (Sulfonamide Antibiotics) Allergy (Verified 11/07/14 19:02) Unknown Medications to take at Discharge Metoprolol Tartrate [Lopressor (beta alden)] 50 mg PO BID 01/02/18 Escitalopram Oxalate [Lexapro] 10 mg PO DAILY #30 tab 01/03/18 Tadalafil [Cialis] 10 mg PO PRN 01/03/18 The following prescriptions were given: Escitalopram Oxalate [Lexapro] 10 mg PO DAILY #30 tab Primary Care Physician: Thiago Li MD [Primary Care Provider] - Please follow up with your Primary Care Physician in: within 2 weeks Please Follow Up With: Dalton Cuenca MD When: within 2 weeks Proposed Discharge Date: 01/03/18
--- NOTE | 2018-01-03 13:42 | PCM.DC.SUM ---
Discharge Date and Diagnosis - Problem List Patient Problems: Active and Suspected Problems TIA versus Complex migraine (Acute) Date of Admission: 01/02/18 Date of Discharge: 01/03/18 - Primary Discharge Diagnosis Active and Suspected Problems TIA versus Complex migraine (Acute) - Secondary Discharge Diagnosis Chronic Problems Sinus arrhythmia (Chronic) Asthma (Chronic) Chronic headaches (Chronic) Hospital Course and Treatment Imaging Results: 01/03/18 23:57 Brain without Contrast [MRI] Stat MRA Head ONLY without Contrast [MRI] Stat MRA Neck without Contrast [MRI] Stat Neurology - Dr. Cuenca Operations: None Procedures: 2-D Echocardiogram Summary of Care Provided: 37-year-old male with history of asthma, chronic daily headaches admitted on 01/02/2018 with expressive aphasia and blurred vision as well as photophobia and phonophobia. 1. Acute onset of expressive aphasia, blurred vision, photophobia and phonophobia, secondary to migraine with aura, TIA/CVA was ruled out. CT scan of the brain, MRI and MRA of the head and neck were negative, neurology consulted, advised patient to stop taking Goody's, started on Lexapro and will need to follow-up in the outpatient with neurology 2. Asthma, stable, no signs of acute exacerbation 3. History of sinus arrhythmia, on metoprolol 4. Renal insufficiency, resolved with hydration Discharge Diet: No Restrictions Discharge Activity: Return to Normal Activity Home Medications: Medications to take at Discharge Metoprolol Tartrate [Lopressor (beta alden)] 50 mg PO BID 01/02/18 Escitalopram Oxalate [Lexapro] 10 mg PO DAILY #30 tab 01/03/18 Tadalafil [Cialis] 10 mg PO PRN 01/03/18 Following Prescrptions Were Given to Patient: Escitalopram Oxalate [Lexapro] 10 mg PO DAILY #30 tab Primary Care Physician: Thiago Li MD [Primary Care Provider] - Please follow up with your Primary Care Physician in: within 2 weeks Please Follow Up With: Dalton Cuenca MD When: within 2 weeks Disposition: Home Minutes spent on discharge:: 25 Patient Condition:: Stable Medical Necessity - Tobacco Use Smoking Status: Never smoker Tobacco Use: Non-smoker Meaningful Use Info Meaningful Use Diagnoses (Choose all that apply): None applicable Code Visit OBSV E&M: 49280 Observation care discharge
--- NOTE | 2018-01-03 14:00 | CASEMGMT ---
SW spoke w/pt in room, as pt is self pay. Pt states he does not think he will qualify for Medicaid, did not want the application. SW did give pt information on [employer], [facility] assist, [facility], prescription assist, and food nelson. No further needs at this time, pt will go home today. JOSE Holman, MEDICAL RECORDS ANALYST
--- NOTE | 2018-01-03 23:57 | MRI_ITS ---
STUDY: MRA NECK WITHOUT CONTRAST REASON FOR EXAM: Male, 37 years old. expressive aphasia, blurred vision R>L headaches. TECHNIQUE: Source images were obtained, MIPs were performed. The study was performed unenhanced. COMPARISON: None. FINDINGS: RIGHT CAROTID ARTERIES: Normal right common carotid artery (CCA). Normal right common carotid bulb. Normal origin of the right internal carotid (ICA) artery without a hemodynamically significant stenosis. Normal visualized cervical portion of the right internal carotid artery. Normal origin of the right external carotid artery (ECA). LEFT CAROTID ARTERIES: Normal left common carotid artery (CCA). Normal left common carotid bulb. Normal origin of the left internal carotid (ICA) artery without a hemodynamically significant stenosis. Normal visualized cervical portion of the left internal carotid artery. Normal origin of the left external carotid artery (ECA). VERTEBRAL ARTERIES: Normal antegrade flow within the bilateral vertebral artery without a hemodynamically significant stenosis. MRI/MRA Neck without Contrast IMPRESSION: Unremarkable bilateral cervical carotid and vertebral arteries. Electronically Signed: Rosy Hung MD at 14:21 EDT Tel , Service support ,
--- NOTE | 2018-01-03 23:57 | MRI_ITS ---
STUDY: MRI BRAIN WITHOUT CONTRAST REASON FOR EXAM: Male, 37 years old. cva, expressive aphasia, blurred vision, numbness. TECHNIQUE: Standardized multiplanar fat and water weighted pulse sequences were obtained. COMPARISON: None. FINDINGS: Normal size of the ventricles and extra-axial spaces for the patient's age. Normal white matter tracts of the supratentorial brain. Normal bilateral basal ganglia. Normal thalami. There is no extra-axial fluid accumulation. Normal flow voids within the major intracranial circulation suggesting patency by spin echo criteria. Normal sella turcica, pituitary gland, infundibular stalk, optic chiasm and hypothalamus. Normal tectal plate and pineal gland. Normal midbrain, martir and medulla. There is mild tonsillar ectopia, which is within normal limits, and without distortion of the brainstem. Normal basal cisterns. Normal bilateral temporal bones. Normal bilateral internal auditory canals. No demonstrated orbital abnormality, within the constraints of a routine brain study. Normal visualized paranasal sinuses. There are multiple subcutaneous nodules. Normal visualized soft tissue structures. Normal visualized upper cervical spine. MRI/Brain without Contrast IMPRESSION: No acute intracranial abnormality. Electronically Signed: Rosy Hung MD at 11:56 EDT Tel , Service support ,
--- NOTE | 2018-01-03 23:57 | MRI_ITS ---
STUDY: MRA OF THE HEAD WITHOUT CONTRAST REASON FOR EXAM: Male, 37 years old. cva, expressive aphasia, blurred vision, numbness TECHNIQUE: 3-D sglk-lu-gmeicm (TOF) imaging was performed with MIPs. The study was performed unenhanced. COMPARISON: None. FINDINGS: Normal bilateral petrous carotid arteries. Normal right cavernous carotid artery with a normal supraclinoid bifurcation. Normal left cavernous carotid artery with a normal supraclinoid bifurcation. Normal right A1 segments of the anterior cerebral artery. Normal left A1 segments of the anterior cerebral artery. Normal intact anterior communicating artery (ACOM). Normal bilateral A2 segments of the anterior cerebral arteries. Normal right M1 and M2 segments of the middle cerebral arteries, with a normal M1 bifurcation. Normal left M1 and M2 segments of the middle cerebral arteries, with a normal M1 bifurcation. Normal right posterior communicating artery (PCOM). There is non-visualization of the left posterior communicating artery (PCOM). Normal bilateral vertebral arteries. Normal basilar artery with a normal basilar bifurcation. The visualized bilateral superior cerebellar (SCA) arteries are normal. Normal bilateral P1, P2 and visualized P3 segments of the posterior cerebral arteries. There is no demonstrated aneurysm of the [place] of [place]. There is no major vessel occlusion or hemodynamically significant stenosis. There is no demonstrated abnormality of the visualized brain. MRI/MRA Head ONLY without Contrast IMPRESSION: Normal MRA of the head Electronically Signed: Rosy Hung MD at 12:07 EDT Tel , Service support ,
== END 2018-01-03 14:15 | disposition home or self-care (01) ==
LOC: ED 23:25 → ICU 01-03 00:07
PROVIDERS: Admitting Provider Family Medicine; Emergency Provider Emergency Medicine; Family Provider Family Medicine; PCP Family Medicine; Visit Provider Internal Medicine
DX: G43.109 Migraine with aura, not intractable, without status migrainosus (principal); J45.909 Unspecified asthma, uncomplicated; I49.8 Other specified cardiac arrhythmias; R47.01 Aphasia; H53.8 Other visual disturbances; N28.9 Disorder of kidney and ureter, unspecified; K21.9 Gastro-esophageal reflux disease without esophagitis; Z79.899 Other long term (current) drug therapy
CPT/HCPCS: 70450; 70544; 70547; 70551; 71045; 80048; 80061; 80307; 80320; 81001; 82962; 83735; 84443; 84484; 85025; 85027; 92523; 93005; 96361; 96372; 96374; 96375; 99218; 99282; J7030; J7040; A4216; G0378; G0480; J2405

== ENCOUNTER → 2018-02-03 11:22 | Outpatient (CLI) | payer OTHER, SELFPAY ==
--- NOTE | 2018-02-03 11:28 | RAD_ITS ---
STUDY: X-RAY - ABDOMEN/PELVIS REASON FOR EXAM: Male, 37 years old. Lower abdominal pain. TECHNIQUE: AP supine and upright views of the abdomen and pelvis. COMPARISON: None. FINDINGS: Normal visualized lung bases. There is a moderate amount of colonic fecal material. There is no demonstrated free abdominal air. The visualized liver, spleen and kidneys are grossly normal in size and morphology. There are calcified phleboliths in the pelvis. Normal visualized osseous structures. RAD/Abd Inc Decub and/or Erect IMPRESSION: Moderate amount of fecal material is seen in the colon. Electronically Signed: Aris Rajput MD at 12:28 EDT Tel [phone], Service support ,
== END ==
PROVIDERS: Family Provider Family Medicine; PCP Family Medicine; Visit Provider Family Medicine
DX: R10.30 Lower abdominal pain, unspecified (principal)
CPT/HCPCS: 74019

== ENCOUNTER 2018-03-02 07:27 | Day surgery (SDC) | payer OTHER, SELFPAY ==
[2018-03-02] VITALS (8 sets, daily range): BP systolic 76–118; BP diastolic 47–73; PULSE 80–101; RESP 14–18; TEMP 36.4–36.7; O2SAT 96–100; BMI 27.9
--- NOTE | 2018-03-02 08:45 | EGD_PTH ---
PATIENT: AURELIANO BAKER LOC: EN U#:[id number] AGE/SX: 37/M ROOM: RE03/02/[address]: Dr. Hudson Vazquez MD : 1980 BED: DIS: 03/02/2018 SPEC #: [id number] RECD: 03/02/18 13:00 STATUS: DAMIEN TONI #: [id number] AMOL: 03/02/18 08:[address]: Hudson Vazquez DEPT: SURGICAL PATHOLOGY RECD BY: Dexter Figueroa ENTERED: 03/02/18 13:14 SP TYPE: EGD BIOPSY FELIPA DR: Dr. Thiago Li MD Tissues: A - BOWEL BIOPSY B - COLON BIOPSY Procedures: Surgery Specimen Level IV HEADER OPERATION: EGD with biopsy and colonoscopy PRE-OP DIAGNOSIS: Nausea, epigastric pain with diarrhea TISSUE SUBMITTED: A. Small bowel biopsy, B. Random colon biopsies MICROSCOPIC DIAGNOSIS A. Small bowel, biopsy: Fragments of duodenal mucosa, no pathologic diagnosis. B. Colon, random biopsy: Fragments of colonic mucosa, no pathologic diagnosis. DEXTER:frances 03/03/18 MICROSCOPIC DESCRIPTION Slides are reviewed. GROSS DESCRIPTION A - Received in fixative is one container labeled with the patient's name and designated small bowel biopsy. The specimen consists of two irregular fragments of light duron soft tissue that in aggregate measure 0.4 x 0.3 x 0.1 cm. The specimen is totally submitted in one cassette. B - Received in fixative is one container labeled with the patient's name and designated random colonic biopsy. The specimen consists of multiple irregular fragments of light duron soft tissue that in aggregate measure 2 x 0.5 x 0.1 cm. The specimen is totally submitted in one cassette. / DEXTER:frances 03/02/18 TC:4 CPT: 71287 x2
--- NOTE | 2018-03-02 08:59 | PCM.OPRPT ---
Problem List (1) Nausea Status: Acute (2) Epigastric pain Status: Acute (3) Diarrhea Status: Acute Qualifiers: Diarrhea type: unspecified type Qualified Code(s): R19.7 - Diarrhea, unspecified Report of Operation Date of Procedure: 03/02/18 Pre-Operative Diagnosis: r11.0 nausea. r10.13 epigastric abdominal pain. r19.7 diarrhea unspecified Post-Operative Diagnosis: Same Surgery/Procedure Performed:: 28115 esophagogastroduodenoscopy with biopsies. 09053 colonoscopy with random colonic biopsies Type of Anesthesia:: MAC Anesthesiologist: Adrien Samuel Description of Procedure: Patient was brought into the endoscopy suite. Back of his throat was sprayed with Cetacaine spray. A bite-block was placed. He is placed in the left lateral decubitus position. Graded anesthesia was given. The scope was inserted into the back of the oropharynx and directed down through the esophagus into the stomach and into the duodenum without difficulty. Operative findings: 1. Duodenum: Normal appearance no mass lesions no ulcerations mucosa looked normal but I did obtain a biopsy for celiac sprue. There is no signs of bleeding. 2. Stomach: There was some antral gastritis no obvious ulcers or mass lesions were identified biopsy for H. pylori was obtained. The rest of the stomach did appear normal. Retroflexion did not reveal any signs of a hiatal hernia. 3. Esophagus: Normal appearance no mass lesions Z line was right at 40 cm and was normal there was no erythema or signs of esophagitis. Colonoscope was then inserted into the rectum directed through the sigmoid colon, descending colon, transverse colon, descending colon, to the cecum. Operative findings: 1. Cecum: Normal appearance no mass lesions normal ileocecal valve. 2. Ascending colon: Normal appearance no mass lesions. 3. Transverse colon: Normal appearance no mass lesions. 4. Descending colon: Normal appearance no mass lesions. 5. Sigmoid colon: Normal appearance no mass lesions. 6. Rectum: Normal appearance no mass lesions retroflexion really did not show any signs of significant hemorrhoidal disease there were no mass lesions identified. Random colonic biopsies were done about every 15-20 cm from the cecum all the way to the rectum. The mucosa throughout the colon looked entirely normal there was nothing about it that was suspicious for any signs of colitis. I will see the patient back in 1 week and discuss the pathology reports with him. In the meantime I believe he should be started on some [id number] proton pump inhibitors. - Admit VTE Documentation VTE Present on Admission: No VTE Mechan Device Prophylaxis: None VTE Pharm Prophylaxis ordered?: No Reason prophylaxis not ordered:: Treatment Not Indicated
--- NOTE | 2018-03-02 09:06 | OP.PCM_ITS ---
Problem List (1) Nausea Status: Acute (2) Epigastric pain Status: Acute (3) Diarrhea Status: Acute Qualifiers: Diarrhea type: unspecified type Qualified Code(s): R19.7 - Diarrhea, unspecified Report of Operation Date of Procedure: 03/02/18 Pre-Operative Diagnosis: r11.0 nausea. r10.13 epigastric abdominal pain. r19.7 diarrhea unspecified Post-Operative Diagnosis: Same Surgery/Procedure Performed:: 91257 esophagogastroduodenoscopy with biopsies. 98997 colonoscopy with random colonic biopsies Type of Anesthesia:: MAC Anesthesiologist: Adrien Samuel Description of Procedure: Patient was brought into the endoscopy suite. Back of his throat was sprayed with Cetacaine spray. A bite-block was placed. He is placed in the left lateral decubitus position. Graded anesthesia was given. The scope was inserted into the back of the oropharynx and directed down through the esophagus into the stomach and into the duodenum without difficulty. Operative findings: 1. Duodenum: Normal appearance no mass lesions no ulcerations mucosa looked normal but I did obtain a biopsy for celiac sprue. There is no signs of bleeding. 2. Stomach: There was some antral gastritis no obvious ulcers or mass lesions were identified biopsy for H. pylori was obtained. The rest of the stomach did appear normal. Retroflexion did not reveal any signs of a hiatal hernia. 3. Esophagus: Normal appearance no mass lesions Z line was right at 40 cm and was normal there was no erythema or signs of esophagitis. Colonoscope was then inserted into the rectum directed through the sigmoid colon , descending colon, transverse colon, descending colon, to the cecum. Operative findings: 1. Cecum: Normal appearance no mass lesions normal ileocecal valve. 2. Ascending colon: Normal appearance no mass lesions. 3. Transverse colon: Normal appearance no mass lesions. 4. Descending colon: Normal appearance no mass lesions. 5. Sigmoid colon: Normal appearance no mass lesions. 6. Rectum: Normal appearance no mass lesions retroflexion really did not show any signs of significant hemorrhoidal disease there were no mass lesions identified. Random colonic biopsies were done about every 15-20 cm from the cecum all the way to the rectum. The mucosa throughout the colon looked entirely normal there was nothing about it that was suspicious for any signs of colitis. I will see the patient back in 1 week and discuss the pathology reports with him. In the meantime I believe he should be started on some [id number]-lek-lwxjlli proton pump inhibitors. - Admit VTE Documentation VTE Present on Admission: No VTE Mechan Device Prophylaxis: None VTE Pharm Prophylaxis ordered?: No Reason prophylaxis not ordered:: Treatment Not Indicated
== END 2018-03-02 09:51 | disposition home or self-care (01) ==
LOC: EN 07:27 → AC 07:28
PROVIDERS: Family Provider Family Medicine; PCP Family Medicine; Visit Provider Surgery
PROC: 0DJD8ZZ Inspection of Lower Intestinal Tract, Via Natural or Artificial Opening Endoscopic (ICD-10-PCS; CPT 45378; principal; 2018-03-02 08:25)
DX: R11.0 Nausea (principal); R10.13 Epigastric pain; R19.7 Diarrhea, unspecified; L72.9 Follicular cyst of the skin and subcutaneous tissue, unspecified; Z87.19 Personal history of other diseases of the digestive system; K21.9 Gastro-esophageal reflux disease without esophagitis; I10 Essential (primary) hypertension; F41.9 Anxiety disorder, unspecified; M54.5 Low back pain; G89.29 Other chronic pain; K58.9 Irritable bowel syndrome, unspecified; Z87.891 Personal history of nicotine dependence; Z79.899 Other long term (current) drug therapy
CPT/HCPCS: 43239; 45380; 88305; J7120

== ENCOUNTER → 2018-07-18 09:22 | Outpatient (CLI) | payer OTHER, SELFPAY ==
--- NOTE | 2018-07-18 09:42 | MRI_ITS ---
STUDY: MRI BRAIN WITH AND WITHOUT CONTRAST REASON FOR EXAM: Male, 37 years old. seizure, h/a, MEMORY ISSUES. TECHNIQUE: Standardized multiplanar fat and water weighted pulse sequences were obtained. 17 ml of Dotarem contrast material was administered intravenously for the contrast portion of the examination. COMPARISON: January 03, 2018 FINDINGS: Normal size of the ventricles and extra-axial spaces for the patient's age. Normal white matter tracts of the supratentorial brain. Normal bilateral basal ganglia. Normal thalami. There is no extra-axial fluid accumulation. Normal flow voids within the major intracranial circulation suggesting patency by spin echo criteria. Normal venous enhancement. There is no enhancing intra-axial or extra-axial abnormality. Normal sella turcica, pituitary gland, infundibular stalk, optic chiasm and hypothalamus. Normal tectal plate and pineal gland. Normal midbrain, martir and medulla. Again noted is the mild tonsillar ectopia, which is within normal limits, and without distortion of the brainstem. The findings are not consistent with an Arnold-Chiari type I malformation. Normal basal cisterns. Normal bilateral temporal bones. Normal bilateral internal auditory canals. No demonstrated orbital abnormality, within the constraints of a routine brain study. Normal visualized paranasal sinuses. Normal calvarium and skull base. Normal visualized soft tissue structures. Normal visualized upper cervical spine. MRI/Brain W/WO Contrast IMPRESSION: No acute intracranial abnormality or masses. Stable tonsillar ectopia. Electronically Signed: Rosy Hung MD at 8:17 EDT Tel , Service support ,
--- NOTE | 2018-07-20 10:30 | EEG ---
- Electroencephalogram This is an 18 channel electroencephalogram performed with photic stimulation, hyperventilation and EKG reference leads utilizing the International 10-20 electrode placement protocol on this 37-year-old male with a history of seizures and headache as well as episodic memory loss and vision loss on the right side. Background activity is 10 Hz symmetrically with attenuates with eye-opening. Photic stimulation is performed with normal symmetric driving response in the posterior leads. EKG rhythm strip recording is normal sinus rhythm throughout the recording. Hyperventilation is performed for 2 minutes and 40 seconds with good effort with no lateralizing or epileptiform changes and the post hyperventilatory phase was unremarkable. The patient remained awake throughout the recording with no evidence of lateralizing or epileptiform changes. Impression: Normal awake electroencephalogram
== END ==
PROVIDERS: Family Provider Family Medicine; PCP Family Medicine; Referring Provider Psychiatry & Neurology Neurology; Visit Provider Psychiatry & Neurology Neurology
DX: R56.9 Unspecified convulsions (principal); R51 Headache
CPT/HCPCS: 70553

== ENCOUNTER → 2018-08-17 12:05 | Outpatient (CLI) | payer OTHER, SELFPAY ==
--- NOTE | 2018-08-17 12:07 | RAD_ITS ---
STUDY: X-RAY - LEFT HAND, ATTENTION THIRD FINGER REASON FOR EXAM: Male, 37 years old. Evaluate for foreign body TECHNIQUE: 3 view(s) of the finger were obtained. COMPARISON: None. FINDINGS: Normal metacarpal head. Normal metacarpophalangeal joint. Normal proximal phalanx. Normal middle phalanx. Normal distal phalanx. Normal proximal interphalangeal joint. Normal distal interphalangeal joint. No evidence of soft tissue foreign body RAD/Finger(s) Min 2 Views IMPRESSION: Normal x-ray examination of the finger. Electronically Signed: Chema Sotomayor DO at 11:00 EDT Tel , Service support ,
== END ==
PROVIDERS: Family Provider Family Medicine; PCP Family Medicine; Referring Provider Surgery; Visit Provider Surgery
DX: D49.2 Neoplasm of unspecified behavior of bone, soft tissue, and skin (principal); L92.3 Foreign body granuloma of the skin and subcutaneous tissue
CPT/HCPCS: 73140

== ENCOUNTER 2018-11-05 02:38 | Emergency (ER) | payer OTHER, SELFPAY ==
[2018-11-05 02:39] VITALS: BP 121/86; PULSE 74; RESP 16; TEMP 36.8; O2SAT 99; BMI 29.6
[2018-11-05] MEDS: Dicyclomine 10 MG Capsule 20 MG PO (03:03)
[2018-11-05 03:06] LABS: Bacteria 0 SEEN /hpf (None Seen); Mucous, Urine 0 SEEN /hpf (<or=2+); Red Blood Cells-Urine 0 SEEN /hpf (0-5); Squamous Epithelial Cells - UA 0 SEEN /hpf (0-5); White Blood Cells 0 SEEN /hpf (0-5)
[2018-11-05 03:07] LABS: Color, Urine Yellow (Yellow); Glucose, Dipstick Normal (Normal); Ketone-Dipstick Negative (Negative); Leukocyte Esterase-Dipstick Negative /ul (Negative); Nitrite-Dipstick Negative (Negative); Occult Blood-Urine Negative /ul (Negative); Protein-Dipstick Negative (Negative); Urine Bilirubin Dipstick Negative (Negative); Urine Clarity Clear (Clear); Urine Urobilinogen Normal (Normal)
[2018-11-05 03:10] LABS: Absolute Lymphocyte Count 4.34 X10^3/ul (0.83-4.51); Absolute Neutrophil Count 4.2 X10^3/uL (2.0-7.7); Basophil# 0.03 X10^3/uL; Basophil% 0.3 % (0-1); Eosinophil# 0.28 X10^3/uL; Eosinophils% 2.9 % (0-5); Hematocrit 47.2 % (40-54); Hemoglobin 16.8 g/dl (13.0-16.5); Lymphocyte # 4.34 X10^3/ul (4.0); Lymphocyte % 44.8 % (19-41); Mean Corp Hgb Conc 35.6 g/gl (32-36); Mean Corpuscular Hgb 31.7 pg (27.0-32.0); Mean Corpuscular Volume 89.1 fL (80-94); Mean Platelet Vol. 10.1 fl (6.2-12.0); Monocyte# 0.85 X10^3/uL; Monocyte% 8.8 % (0-10); Neutrophil # 4.18 X10^3/uL (2.7-7.7); Neutrophil % 43.1 % (47-70); POSITIVE COUNT NO; POSITIVE DIFFERENTIAL NO; POSITIVE MORPHOLOGY NO; Platelet Count 281 K/mm3 (150-450); RBC Distribution Width CV 12.2 % (11.6-14.6); RBC Distribution Width SD 39.9 fl (35.1-43.9); White Blood Count 9.7 K/mm3 (4.4-11.0)
[2018-11-05 03:23] LABS: ALB/GLOB Ratio 1.1 RATIO (0.9-2.4); AST(SGOT) 19 U/L (15-37); Alanine Aminotransfer ALT/SGPT 36 U/L (16-61); Albumin, Serum 3.8 g/dL (3.2-5.0); Alkaline Phosphatase 73 U/L (45-117); Anion Gap 8 (5-15); BUN 11 mg/dL (7-18); BUN/Creat Ratio 7.7 RATIO (10-20); Calcium,Total 8.9 mg/dL (8.5-10.1); Chloride 105 mmol/L (98-107); Creatinine, Serum 1.42 mg/dL (0.70-1.30); EST Glomerular Filtration Rate 60 mL/min (>60); Est Glom Filt Rate - Afr Amer 73 mL/min (>60); Estimated Creatinine Clearance 67.24 ml/min; Globulin 3.6 g/dL (2.2-4.2); Glucose 87 mg/dL (74-106); Lipase 207 U/L (73-393); Potassium 3.9 mmol/L (3.5-5.1); Protein, Total 7.4 g/dL (6.4-8.2); Sodium Level 142 mmol/L (136-145)
--- NOTE | 2018-11-05 03:49 | ED.DCSUM_ITS ---
- ER Visit Summary Date of Service: 11/05/18 Chief Complaint: Abdominal pain History of Present Illness: The patient is a 38 M who presents with abdominal pain for about 4-5 weeks. He describes it as dull aching and cramping. It is mostly in the lower abdomen. It began to radiate to the back over the last couple of days. His pain is increased over the last couple of days. He reports nausea for about a month but no vomiting. He had some diarrhea yesterday after taking a laxative as he has been having some chronic constipation as well. Otherwise well no fever chest pain trouble breathing. He has seen his primary care physician who attributed this to constipation about 3 weeks ago and he has been taking MiraLAX. He denies history of abdominal surgery. Physical Examination: Afebrile vitals are normal Moist mucous membranes Heart regular rate and rhythm Lungs are clear to auscultation Abdomen soft nondistended he does have some diffuse mild lower abdominal tenderness without guarding without rebound Test Results: CBC CMP lipase urinalysis unremarkable except creatinine of 1.42 but BUN is 11. Emergency Department Course and Treatment: Patient was given Bentyl for symptomatic relief. Workup as above notable for mild elevation of creatinine but BUN is normal I do not believe this is acute kidney injury or dehydration. He states he had a normal colonoscopy about 4 months ago. He was advised to [facility] as an outpatient. He understands to return for new or worsening symptoms. All questions answered bedside and patient discharged. Treatment Plan: [] Disposition: Discharge Impression: Abdominal pain This note was generated with [employer] dictation software. It may contain incorrect words, spelling, and punctuation that were not noted in review of the chart prior to signing ED Disposition - Plan for ED Patient: Chief Complaint: Abd Pain Referrals: Thiago Li MD [Primary Care Provider] -
--- NOTE | 2018-11-05 03:49 | ED.DEP ---
ED Disposition - Plan for ED Patient: Chief Complaint: Abd Pain Instructions: ED Abdominal Pain Unkn Cause Male Referrals: Thiago Li MD [Primary Care Provider] -
[2018-11-05 03:54] VITALS: BP 119/80; PULSE 75; RESP 16; O2SAT 97
--- OUTSIDE RECORDS SUMMARY | 2019-01-09 09:05 | XMS RPT_ITS ---
:1980 Author Organization OHIP Support Name Relationship Address Phone KRANATZ, AMMERIST Unavailable [address] + [place] [address] S Unavailable Unavailable Unavailable KRANATZ, AMMERIST Unavailable [address] + [place] [address] S Unavailable Unavailable Unavailable KRANATZ, AMMERIST Unavailable [address] + [place] [address] S Unavailable Unavailable Unavailable KRANATZ, AMMERIST Unavailable [address] + [place] [address] S Unavailable Unavailable Unavailable KRANATZ, AMMERIST Unavailable [address] + [place] [address] S Unavailable Unavailable Unavailable KRANATZ, AMMERIST Unavailable [address] + [place] [address] S Unavailable Unavailable Unavailable KRANATZ, AMMERIST Unavailable [address] + [place] [address] S Unavailable Unavailable Unavailable KRANATZ, AMMERIST Unavailable [address] + [place] [address] S Unavailable Unavailable Unavailable KRANATZ, AMMERIST Unavailable [address] + [place] [address] S Unavailable Unavailable Unavailable KRANATZ, AMMERIST Unavailable [address] + [place] [address] S Unavailable Unavailable Unavailable KRANATZ, AMMERIST Unavailable [address] + [place] [address] S Unavailable Unavailable Unavailable KRANATZ, AMMERIST Unavailable [address] + [place] [address] S Unavailable Unavailable Unavailable S Unavailable Unavailable Unavailable KRANATZ, AMMERIST Unavailable [address] + [place] [address] S Unavailable Unavailable Unavailable WAITKUNAS, ADELE Unavailable Unavailable + S Unavailable Unavailable Unavailable WAITKUNAS, AMMERIST Unavailable [address] + [place] [address] WAITKUNAS, ADELE Unavailable Unavailable + S Unavailable Unavailable Unavailable WAITKUNAS, AMMERIST Unavailable [address] + [place] [address] WAITKUNAS, ADELE Unavailable . + ., . . S Unavailable Unavailable Unavailable WAITKUNAS, AMMERIST Unavailable [address] + [place] [address] WAITKUNAS, ADELE Unavailable Unavailable + Care Team Providers Name Role Phone Li, Thiago Primary Care Unavailable Bar Toure Attending Unavailable KADE IRBY Attending Unavailable KADE IRBY Referring Unavailable Li, Thiago Primary Care Unavailable KADE IRBY Consulting Unavailable Li, Thiago Primary Care Unavailable White, Nenita Admitting Unavailable Cuenca, Dalton Consulting Unavailable Paintsil, Marion Attending Unavailable White, Nenita Admitting Unavailable White, Nenita Attending Unavailable Li, Thiago Primary Care Unavailable Cuenca, Dalton Consulting Unavailable White, Nenita Consulting Unavailable White, Nenita Admitting Unavailable Paintsil, Marion Attending Unavailable Li, Thiago Primary Care Unavailable Cuenca, Dalton Consulting Unavailable Paintsil, Marion Consulting Unavailable Li, Thiago Attending Unavailable Li, Thiago Referring Unavailable Li, Thiago Primary Care Unavailable GeorgeHudson Attending Unavailable Li, Thiago Referring Unavailable Li, Thiago Primary Care Unavailable [place], Hudson Attending Unavailable Li, Thiago Referring Unavailable George, Hudson Attending Unavailable [place], Hudson Referring Unavailable Li, Thiago Primary Care Unavailable George, Hudson Attending Unavailable George, Hudson Referring Unavailable Li, Thiago Primary Care Unavailable [place], Hudson Consulting Unavailable [place], Hudson Attending Unavailable Li, Thiago Referring Unavailable Il, Thiago Primary Care Unavailable George, Hudson Attending Unavailable Li, Thiago Referring Unavailable Terese Sol PA-C Attending Unavailable Li, Thiago Referring Unavailable Li, Thiago Primary Care Unavailable Cuenca, Dalton Attending Unavailable Cuenca, Dalton Referring Unavailable Li, Thiago Primary Care Unavailable Ronaldo Ochoa Attending Unavailable Li, Thiago Referring Unavailable Slaby Ronaldo Attending Unavailable Ronaldo Ochoa Referring Unavailable Thiago Li Primary Care Unavailable PROBLEMS PROBLEMS DATE TYPE CONDITION / CODE ATTENDING STATUS SOURCE 08/17/2018 Unknown D49.2 - Neoplasm Ronaldo Ochoa Active [place] of unspecified Community behavior of bone, Hospital soft tissue, and Repository skin / D49.2(ICD-10) 08/17/2018 Unknown L92.3 - Foreign Ronaldo Ochoa Active [place] body granuloma of Community the skin and Hospital subcutaneous Repository tissue / L92.3(ICD-10) 03/07/2018 Unknown L72.9 - Follicular Hudson Vazquez Active [place] cyst of the skin Community and subcutaneous Hospital tissue, Repository unspecified / L72.9(ICD-10) 03/07/2018 Unknown R10.13 - Hudson Vazquez Active [place] Epigastric pain / Community R10.13(ICD-10) Hospital Repository 02/03/2018 Unknown R10.30 - Lower Thiago Li Active [place] abdominal pain, Community unspecified / Hospital R10.30(ICD-10) Repository PROCEDURES PROCEDURES No Procedure Records FoundRESULTS RESULTS EMERGENCY DEPARTMENT Observed: 11/05/2018 Status: F Source: [place] SUMMARY 3:49 AM [facility] Medical Records Department [address] [place] [address] Emergency Department Summary 11/05/18 0347 MR#: [id number] Acct: [id number] Name: AURELIANO BAKER Rep #: [id number] : 1980 38 From: Bar Toure MD PCP: Thiago Li MD Status: REG ER - ER Visit Summary Date of Service: 11/05/18 Chief Complaint: Abdominal pain History of Present Illness: The patient is a 38 M who presents with abdominal pain for about 4-5 weeks. He describes it as dull aching and cramping. It is mostly in the lower abdomen. It began to radiate to the back over the last couple of days. His pain is increased over the last couple of days. He reports nausea for about a month but no vomiting. He had some diarrhea yesterday after taking a laxative as he has been having some chronic constipation as well. Otherwise well no fever chest pain trouble breathing. He has seen his primary care physician who attributed this to constipation about 3 weeks ago and he has been taking MiraLAX. He denies history of abdominal surgery. Physical Examination: Afebrile vitals are normal Moist mucous membranes Heart regular rate and rhythm Lungs are clear to auscultation Abdomen soft nondistended he does have some diffuse mild lower abdominal tenderness without guarding without rebound Test Results: CBC CMP lipase urinalysis unremarkable except creatinine of 1.42 but BUN is 11. Emergency Department Course and Treatment: Patient was given Bentyl for symptomatic relief. Workup as above notable for mild elevation of creatinine but BUN is normal I do not believe this is acute kidney injury or dehydration. He states he had a normal colonoscopy about 4 months ago. He was advised to follow-up as an outpatient. He understands to return for new or worsening symptoms. All questions answered bedside and patient discharged. Treatment Plan: [] Disposition: Discharge Impression: Abdominal pain This note was generated with [employer] dictation software. It may contain incorrect words, spelling, and punctuation that were not noted in review of the chart prior to signing ED Disposition - Plan for ED Patient: Chief Complaint: Abd Pain Referrals: Thiago Li MD [Primary Care Provider] - What to do if you have Problems For any increased pain, shortness of breath, bleeding, nausea or vomiting, chest pain, or any unexpected problems, contact your Primary Care Provider. Call [facility] ([phone]) or report to the closest Emergency Room. Call 911 if necessary. 11/05/18348 <Electronically signed by Bar Toure MD> Date Bar Toure MD Cosigner Signature (If Indicated): Date CC: Thiago Li MD DISCHARGE INSTRUCTION Observed: 11/05/2018 Status: F Source: [place] 3:49 AM [facility] Medical Records Department [address] [place] [address] Discharge Instruction 11/05/18348 MR#: [id number] Acct: [id number] Name: AURELIANO BAKER Rep #: [id number] : 1980 38 From: Bar Toure MD PCP: Thiago Li MD Status: REG ER ED Disposition - Plan for ED Patient: Chief Complaint: Abd Pain Instructions: ED Abdominal Pain Unkn Cause Male Referrals: Thiago Li MD [Primary Care Provider] - What to do if you have Problems For any increased pain, shortness of breath, bleeding, nausea or vomiting, chest pain, or any unexpected problems, contact your Primary Care Provider. Call [facility] ([phone]) or report to the closest Emergency Room. Call 911 if necessary. 11/05/18 0349 <Electronically signed by Bar Toure MD> Date Bar Toure MD Cosigner Signature (If Indicated): Date CC: Thiago Li MD URINALYSIS, COMPLETE Collected: 11/05/2018 Status: F Source: [place] 3:00 AM [facility] Order Comment: Order Date: 11/05/18 How was Urine Obtained? 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 DIPSTX 1.020 LAB L400.3550 5.0 - 8.0 pH UR Normal 6.0 LAB L400.3600 Negative mg/dl PROT Normal DIPSTX Negative LAB L400.3700 Normal mg/dl Normal UROBILI Normal LAB L400.3750 Negative Normal NITRITE UR Negative LAB L400.3780 Negative /ul Normal OCCULT BLOOD-UR Negative LAB L400.3800 Negative /ul LEUK Normal ESTERASE Negative LAB L400.4050 0-5 /hpf WBC 0 Normal SEEN LAB L400.4100 0-5 /hpf 0 Normal RBC-UA SEEN LAB L400.4150 0-5 /hpf SQUAM 0 Normal EPI SEEN LAB L400.4300 None Seen /hpf 0 Normal BACTERIA SEEN LAB L400.4350 <or=2+ /hpf 0 Normal MUCUS, URINE SEEN Performed By: #### L400.0001 #### [facility] [address] [place], [address] CBC W/DIFF, AUTOMATED Collected: 11/05/2018 Status: F Source: [place] 2:50 AM [facility] TYPE CODE TESTS RESULT OUT OF RANGE REFERENCE UNITS LAB L100.1000 4.4-11.0 K/mm3 Normal WBC 9.7 LAB L100.1200 4.6-6.2 M/mm3 Normal RBC 5.30 LAB L100.1300 13.0-16.5 g/dl High HGB 16.8 LAB L100.1400 40-54 % Normal HCT 47.2 LAB L100.1500 80-94 fL Normal MCV 89.1 LAB L100.1600 27.0-32.0 pg Normal MCH 31.7 LAB L100.1700 32-36 g/gl Normal MCHC 35.6 LAB L100.1810 11.6-14.6 % Normal RDW CV 12.2 LAB L100.1820 35.1-43.9 fl Normal RDW SD 39.9 LAB L100.1900 150-450 K/mm3 Normal PLT 281 LAB L100.2000 6.2-12.0 fl Normal MPV 10.1 LAB L100.2100 47-70 % Low NEUT% 43.1 LAB L100.2200 19-41 % High LY% 44.8 LAB L100.2300 0-10 % Normal MONO% 8.8 LAB L100.2400 0-5 % Normal EO% 2.9 LAB L100.2500 0-1 % Normal BASO% 0.3 LAB L100.2550 0.0-0.9 % Normal IM GRAN % 0.100 Result Comment: IG% - Immature Granulocytes (promyelocytes, myelocytes and metamyelocytes) > 1% indicates that a LEFT SHIFT is Present. LAB L100.2620 2.0-7.7 X10 3/uL Normal Absolute Neut 4.2 LAB L100.2720 0.83-4.51 X10 3/ul Normal Absolute Lymph 4.34 Performed By: #### L100.0100 #### [facility] [address] [place], [address] COMPREHENSIVE METABOLIC Collected: 11/05/2018 Status: F Source: [place]LL[place] 2:50 AM [facility] TYPE CODE TESTS RESULT OUT OF RANGE REFERENCE UNITS LAB L501.0100 74-106 mg/dL Normal GLU 87 Result Comment: Please note revised GLUCOSE reference range effective 2017. LAB L501.1000 7-18 mg/dL Normal BUN 11 LAB L501.1100 0.70-1.30 mg/dL High CREAT,SERUM 1.42 Result Comment: The validity of the calculated GFR AND GFRAA in patients over 70 years has not been determined. Clinical correlation is essential. LAB L501.1110 >60 mL/min Normal EST GFR 60 Result Comment: Non- GFR Calc LAB L501.1115 >60 mL/min Normal EST GFR - AA 73 Result Comment: GFR Calc LAB L501.1255 ml/min Normal Estimated CRCL 67.24 LAB L501.1300 10-20 RATIO Low BUN/CRE 7.7 LAB L501.1500 6.4-8. g/dL Normal 2 T PROT 7.4 LAB L501.1800 3.2-5. g/dL Normal 0 ALB 3.8 LAB L501.1950 2.2-4. g/dL Normal 2 GLOB 3.6 LAB L501.2000 0.9-2. RATIO Normal 4 A/G 1.1 LAB L501.2200 8.5-10 mg/dL Normal .1 CA 8.9 LAB L501.4100 15-37 U/L Normal AST 19 Result Comment: Slight Hemolysis, Result may be falsely increased. LAB L501.4305 45-117 U/L Normal ALK P 73 LAB L501.4405 16-61 U/L Normal ALT 36 LAB L501.4600 0.20-1.00 mg/dL Normal T BILI 0.50 LAB L501.5300 136-145 mmol/L Normal NA 142 LAB L501.5600 3.5-5.1 mmol/L Normal K 3.9 Result Comment: Slight Hemolysis, Result may be falsely increased. LAB L501.5900 98-107 mmol/L Normal CL 105 LAB L501.6100 21.0-32.0 mmol/L Normal CO2 29.0 LAB L501.6200 5-15 Normal 8 GAP Performed By: #### L500.4050, L501.2450 #### [facility] [address] [place], [address] LIPASE Collected: 11/05/2018 Status: F Source: [place] 2:50 AM [facility] TYPE CODE TESTS RESULT OUT OF RANGE REFERENCE UNITS LAB L501.2450 73-393 U/L Normal LIPASE 207 Performed By: #### L500.4050, L501.2450 #### [facility] [address] [place], [address] PLASTIC SURGERY Observed: 2018 Status: F Source: [place] VISIT REPORT 12:39 AM [facility] [address] [place] [address] OFFICE VISIT Date of Service: 08/17/18 MR#: [id number] Acct: [id number] Name: AURELIANO BAKER Rep #: [id number] : 1980 Provider: Ronaldo Ochoa MD Age/Sex: 37/M Location: [facility] Status: Signed Intake Vital Signs08/17/18 Height 5 ft 7 in 08/17/18 Weight: 186 lb 4 oz Intake Visit Reasons: evaluation painful foreign body granuloma lesion volar radial aspect left long finger tip Analysis Evaluator Required: No Accompanied by: None Is patient in pain?: Yes (LEFT LONGFINGER PAIN WHEN HE BUMPS IT - STINGING) Pain scale (1-10): 7 Allergies Penicillins Allergy (Verified 08/17/18 11:21) Unknown Sulfa (Sulfonamide Antibiotics) Allergy (Verified 08/17/18 11:21) Unknown Medications Metoprolol Tartrate [Lopressor (beta alden)] 50 mg PO BID 01/02/18 [History Confirmed 03/15/18] pantoprazole 20 mg tablet,delayed release 20 mg PO QDAY 02/10/18 [History Confirmed 03/15/18] tadalafil 10 mg tablet 20 mg PO PRN PRN tab 02/10/18 [History Confirmed 03/15/18] PFSH Medical History Abdominal pain (Acute) Anxiety and depression (Acute) Asthma (Acute) Back problem (Acute) Environmental allergies (Acute) Frequent headaches (Acute) GERD (gastroesophageal reflux disease) (Acute) Hearing problem (Acute) TIA (transient ischemic attack) (Acute) Hypertension (Chronic) Surgical History History of tonsillectomy (Acute) Multiple lipomas (Acute) Family History Sister Asthma Anxiety Father High cholesterol Alcohol abuse Hypertension Asthma Depression (emotion) Social History Smoking Status: Former smoker alcohol intake: current substance use type: former substance user Date of last use: several years ago, marijuana, crack/cocaine additional social history: DOES USE ASPIRIN DOES USE IBUPROFEN HPI evaluation painful foreign body granuloma lesion volar radial aspect left long finger tip: Details: HISTORY OF PRESENT ILLNESS 38 year old man presents with an enlarging painful lesion volar radial aspect left long finger tip that has increased in size over the last several months. He denies any trauma. He denies any fever. He denies any functional problems. Most of the discomfort occurs when he bumps the finger. He uses the computer keyboard a lot at work. He has not had an xray yet. Patient is right hand dominant. He presents at this time for further evaluation and treatment. REVIEW OF SYSTEMS General - Denies fever and weight loss. Has some fatigue. Eyes - Denies cataracts and glaucoma. ENT - Denies nasal congestion and sore throat. Has chronic sinus problems. Endocrine - Denies excessive thirst and urination. Skin - Denies skin cancer. He has a painful foreign body granuloma lesion volar radial aspect left long finger tip. Musculoskeletal - Denies joint pain, joint stiffness, and arthritis. Has weakness of muscles and joints and back pain. Neuro - Has headaches and lightheadedness. Cardiovascular - Denies chest pain and shortness of breath with exertion. Has fatigue and lightheadedness. Psych - Denies anxiety. Has depression. Respiratory - Denies chronic cough. Has shortness of breath. Patient is a former smoker. Gastrointestinal - Denies nausea, vomiting. Has diarrhea and constipation. Hematologic - Denies abnormal bruising and bleeding. Genitourinary - Denies hematuria and urinary frequency. PHYSICAL EXAMINATION General - Alert and Oriented. HEENT - PERRL. EOMI. Throat is clear. No suspicious lesions noted. Neck - Supple and nontender. No cervical adenopathy. No suspicious lesions noted. Lungs - Clear to auscultation. Heart - Regular rate and rhythm. Abdomen - Soft and nondistended. Extremities - Patient is right hand dominant. FROM. No axillary adenopathy. Radial pulses are palpable. On the volar radial aspect of the left long finger tip is a lesion that is nodular. Has irregular borders. Mild tenderness to deep palpation. Measures 6 mm. Some crustiness. No ulceration. Fingers are warm with good capillary refill. No sensory deficits. Neuro - CN II-XII grossly intact. Psych - Normal mood and affect. ASSESSMENT 1. 6 mm painful foreign body granuloma volar radial aspect left long finger tip. 2. Former smoker. PLAN Recommend excision of this nodular lesion and send it to Pathology for analysis to rule out carcinoma. I doubt it extends to the bone. If it does, a partial ostectomy may need to be done to evaluate for osteomyelitis. Will need an xray preoperatively to look for any bony abnormalities. After excision, can leave the wound open and then proceed with daily wound care with Silver dressing changes. Other option is wound closure with an advancement skin flap. Surgery can be done on an outpatient basis under local anesthesia with a digital tourniquet. Patient does not want sedation at this time and does not want general anesthesia either. He is leaning more toward the simpler procedure which is excision with leaving the wound open and starting daily Silver dressing changes. He likes the idea of not needing an IV and will order perioperative oral antibiotics the day of surgery. Patient was informed of the risks and complications of the procedure including alternatives to surgery. These were discussed with the patient personally. Patient voices understanding and wishes to proceed. Some of the risks and complications were included in a form from the [employer]. Assessment AND Plan Problems 1. Neoplasm of unspecified behavior of bone, soft tissue, and skin D49.2 2. Foreign body granuloma of skin and subcutaneous tissue L92.3 3. Former smoker Z87.891 Orders Orders: Coding Level of Care Code Off vis,new,level 3 Diagnoses Neoplasm of unspecified behavior of bone, soft tissue, and skin D49.2 Foreign body granuloma of skin and subcutaneous tissue L92.3 Former smoker Z87.891 08/20/18 0039 <Electronically signed by Ronaldo Ochoa MD> Date Ronaldo Ochoa MD Cosigner Signature: Date (if applicable) CC: Thiago Li MD FINGER(S) MIN 2 VIEWS Observed: 08/17/2018 Status: F Source: [place] 12:08 PM [facility] Imaging Services [address] [place] [address] Finger(s) Min 2 Views MR#: [id number] Acct: [id number] Name: AURELIANO BAKER Rep #: [id number] : 1980 M 37 From[facility] PCP: Thiago Li MD Status: REG CLI Study: Finger(s) Min 2 Views Date of Exam: 08/17/18 Exam# [id number] Ordering Dr: Ronaldo Ochoa MD STUDY: X-RAY - LEFT HAND, ATTENTION THIRD FINGER REASON FOR EXAM: Male, 37 years old. Evaluate for foreign body TECHNIQUE: 3 view(s) of the finger were obtained. COMPARISON: None. FINDINGS: Normal metacarpal head. Normal metacarpophalangeal joint. Normal proximal phalanx. Normal middle phalanx. Normal distal phalanx. Normal proximal interphalangeal joint. Normal distal interphalangeal joint. No evidence of soft tissue foreign body RAD/Finger(s) Min 2 Views IMPRESSION: Normal x-ray examination of the finger. Electronically Signed: Chemakeon oStomayorDO at 11:00 EDT Tel , Service support , CC: [place] Vazquez MD; Ronaldo Ochoa MD; Thiago Li MD District Engineer: Signed ELECTROENCEPHALOGRAM Observed: 07/20/2018 Status: F Source: [place] 10:44 AM [facility] Pulmonary Services/Neurology [address] [address] MR#: [id number] Acct: [id number] Name: AURELIANO BAKER Rep #: [id number] : 1980 37 From: Dalton Cuenca MD Referring Dr: Dalton Cuenca MD Status: REG CLI Ordering Dr: Date: Location: [facility] Sex: M C - Electroencephalogram This is an 18 channel electroencephalogram performed with photic stimulation, hyperventilation and EKG reference leads utilizing the International 10-20 electrode placement protocol on this 37-year-old male with a history of seizures and headache as well as episodic memory loss and vision loss on the right side. Background activity is 10 Hz symmetrically with attenuates with eye-opening. Photic stimulation is performed with normal symmetric driving response in the posterior leads. EKG rhythm strip recording is normal sinus rhythm throughout the recording. Hyperventilation is performed for 2 minutes and 40 seconds with good effort with no lateralizing or epileptiform changes and the post hyperventilatory phase was unremarkable. The patient remained awake throughout the recording with no evidence of lateralizing or epileptiform changes. Impression: Normal awake electroencephalogram 07/20/18 1044 <Electronically signed by Daltno Cuenca MD> Date Dalton Cuenca MD CC: Thiago Li MD; Dalton Cuenca MD Date Dictated: 07/20/181029 Date Transcribed: 07/20/181029 District Engineer: NF Signed BRAIN W/WO CONTRAST Observed: 07/18/2018 Status: F Source: [place] 9:42 AM [facility] Imaging Services [address] [place] [address] Brain W/WO Contrast MR#: [id number] Acct: [id number] Name: AURELIANO BAKER Rep #: [id number] : 1980 M 37 From: Rosy Hung PCP: Thiago Li MD Status: REG CLI Study: Brain W/WO Contrast Date of Exam: 07/18/18 Exam# [id number] Ordering Dr: Dalton Cuenca MD STUDY: MRI BRAIN WITH AND WITHOUT CONTRAST REASON FOR EXAM: Male, 37 years old. seizure, h/a, MEMORY ISSUES. TECHNIQUE: Standardized multiplanar fat and water weighted pulse sequences were obtained. 17 ml of Dotarem contrast material was administered intravenously for the contrast portion of the examination. COMPARISON: January 03, 2018 FINDINGS: Normal size of the ventricles and extra-axial spaces for the patient's age. Normal white matter tracts of the supratentorial brain. Normal bilateral basal ganglia. Normal thalami. There is no extra-axial fluid accumulation. Normal flow voids within the major intracranial circulation suggesting patency by spin echo criteria. Normal venous enhancement. There is no enhancing intra-axial or extra-axial abnormality. Normal sella turcica, pituitary gland, infundibular stalk, optic chiasm and hypothalamus. Normal tectal plate and pineal gland. Normal midbrain, martir and medulla. Again noted is the mild tonsillar ectopia, which is within normal limits, and without distortion of the brainstem. The findings are not consistent with an Arnold- Chiari type I malformation. Normal basal cisterns. Normal bilateral temporal bones. Normal bilateral internal auditory canals. No demonstrated orbital abnormality, within the constraints of a routine brain study. Normal visualized paranasal sinuses. Normal calvarium and skull base. Normal visualized soft tissue structures. Normal visualized upper cervical spine. MRI/Brain W/WO Contrast IMPRESSION: No acute intracranial abnormality or masses. Stable tonsillar ectopia. Electronically Signed: Rosy Hung MD at 8:17 EDT Tel , Service support , CC: Thiago Li MD; Dalton Cuenca MD District Engineer: Signed SURGERY VISIT REPORT Observed: 03/15/2018 Status: F Source: [place] 8:48 AM [facility] [address] [place] [address] OFFICE VISIT Date of Service: 03/15/18 MR#: [id number] Acct: [id number] Name: AURELIANO BAKER Rep #: [id number] : 1980 Provider: Terese Sol PA-C Age/Sex: 37/M Location: [facility] Status: Signed Intake Intake Visit Reasons: F/U Excision Scalp Cyst X 3 DP 03/07/18 Chief Complaint: visual disturbances, difficulty with speech Analysis Evaluator Required: No Is patient in pain?: No Allergies Penicillins Allergy (Verified 03/15/18 08:39) Unknown Sulfa (Sulfonamide Antibiotics) Allergy (Verified 03/15/18 08:39) Unknown Medications Metoprolol Tartrate [Lopressor (beta alden)] 50 mg PO BID 01/02/18 [History Confirmed 03/15/18] pantoprazole 20 mg tablet,delayed release 20 mg PO QDAY 02/10/18 [History Confirmed 03/15/18] tadalafil 10 mg tablet 20 mg PO PRN PRN tab 02/10/18 [History Confirmed 03/15/18] PFSH Medical History Abdominal pain (Acute) GERD (gastroesophageal reflux disease) (Acute) Hypertension (Chronic) Surgical History History of tonsillectomy (Acute) Family History Sister Asthma Father High cholesterol Social History Smoking Status: Former smoker alcohol intake: never substance use type: does not use HPI HPI HPI: AURELIANO BAKER, is a 37 M I am following for multiple scalp wens. Dr. Vazquez performed an excision and removal of scalp wens x 3 on 03/07/2018. Patient tolerated the procedure well. He denies pain/discomfort. He denies drainage. No pathology was obtained. Exam Const General: cooperative, healthy appearing, comfortable, no acute distress HENMT Other: Scalp- removed three sutures. No infection or signs of erythema noted. Assessment AND Plan Problems 1. 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 03/15/18 0848 <Electronically signed by Terese Sol PA-C> Date Terese Sol PA-C Cosigner Signature: Date (if applicable) CC: Thiago Li MD SURGERY VISIT REPORT Observed: 03/07/2018 Status: F Source: OTSE[place] 1:30 PM [facility] [address] [place] [address] [address] [place] [address] OFFICE VISIT Date of Service: 03/07/18 MR#: [id number] Acct: [id number] Name: AURELIANO BAKER Rep #: [id number] : 1980 Provider: Hudson Vazquez MD Age/Sex: 37/M Location: [facility] Status: Signed Intake Intake Visit Reasons: Excision Scalp Cyst X 3 Chief Complaint: visual disturbances, difficulty with speech Analysis Evaluator Required: No Is patient in pain?: No Allergies Penicillins Allergy (Verified 03/07/18 13:06) Unknown Sulfa (Sulfonamide Antibiotics) Allergy (Verified 03/07/18 13:06) Unknown Medications Metoprolol Tartrate [Lopressor (beta alden)] 50 mg PO BID 01/02/18 [History Confirmed 03/07/18] pantoprazole 20 mg tablet,delayed release 20 mg PO QDAY 02/10/18 [History Confirmed 03/07/18] tadalafil 10 mg tablet 20 mg PO PRN PRN tab 02/10/18 [History Confirmed 03/07/18] [facility] Medical History Abdominal pain (Acute) GERD (gastroesophageal reflux disease) (Acute) Hypertension (Chronic) Surgical History History of tonsillectomy (Acute) Family History Sister Asthma Father High cholesterol Social History Smoking Status: Former smoker alcohol intake: never substance use type: does not use HPI HPI HPI: AURELIANO BAKER, is a 37 M who presents to the office today for excision of 3 scalp cyst. I did an upper and lower endoscopy on him he was H. pylori negative his stomach looked entirely normal there is no signs of reflux. I did random colon biopsies on him and this too was negative. At this point I want him did randomly use proton pump inhibitors as he sees fit but at the present time there is no explanation for his occasional abdominal pain. Office Procedures Excision of Skin Provider Documentation Provider Documentation: Preoperative diagnosis: 1.1 cm scalp cyst 3 Postoperative diagnosis: The same Procedure: Excision of 3 1.1 cm scalp cysts Surgeon: George Procedure: The posterior scalp there were 2 scalp cysts each of these were prepped and draped in the usual sterile fashion. 1% lidocaine plain was injected. 1-1/2 cm incision was made. I dissected out the scalp cyst in its entirety I brought the skin together with a simple suture of 4-0 nylon. Just lateral to this was the other scalp cyst it was prepped and draped in the usual fashion. 1% lidocaine plain was injected. 1/2 cm incision was made. I remove the scalp cyst in its entirety. I brought the skin together with a simple suture of 4-0 nylon. On the lateral scalp on the right side cyst was identified. It was prepped and draped in the usual fashion. 1% lidocaine plain was injected. 1/2 cm incision was made. I remove the cyst in its entirety. About the skin together with a simple suture of 4-0 [place] [address] 3 Alert Access Spec Alert Billing: Yes H/F/N/S/G 81252 1.1-2.0cm ( 3) Procedure Time Out Time Out Informed consent given: Yes Consent signed: Yes Time out checklist: patient, procedure, site marked/identified, positioning of patient, supplies available, allergies confirmed, team agrees on procedure Time out staff in room: Yes Time out verified: Yes Time out date: 03/07/18 Time out time: 13:09 Assessment AND Plan Problems 1. Epigastric pain R10.13 Plan I remove 3 scalp cysts. I did not send them to pathology they were all benign appearing. With regards to his abdominal pain I have encouraged him to use proton pump inhibitors as needed but at the present time there is no obvious source of his epigastric abdominal discomfort. If this were to persist and it is not correctable by proton pump inhibitors we may need to do an EGD with 48 hour pH probe and work him up for reflux appropriately. Orders Orders: Coding Level of Care Code No Charge Diagnoses Epigastric pain R10.13 Additional Codes H/F/N/S/G - Benign H/F/N/S/ 1.1-2.0cm (22452) [place] [address] 3 03/07/18 1330 <Electronically signed by Hudson Vazquez MD> Date Hudson Vazquez MD Cosigner Signature: Date (if applicable) CC: Thiago Li MD OPERATIVE REPORT Observed: 03/02/2018 Status: F Source: [place] 9:06 AM [facility] Medical Records Department [address] [place] [id number] Operative Report 03/02/18 0859 MR#: [id number] Acct: [id number] Name: AURELIANO BAKER Rep #: [id number] : 1980 37 From: Hudson Vazquez MD PCP: Thiago Li MD Status: REG [facility] Location: [place] [address] Problem List (1) Nausea Status: Acute (2) Epigastric pain Status: Acute (3) Diarrhea Status: Acute Qualifiers: Diarrhea type: unspecified type Qualified Code(s): R19.7 - Diarrhea, unspecified Report of Operation Date of Procedure: 03/02/18 Pre-Operative Diagnosis: r11.0 nausea. r10.13 epigastric abdominal pain. r19.7 diarrhea unspecified Post-Operative Diagnosis: Same Surgery/Procedure Performed:: 28349 esophagogastroduodenoscopy with biopsies. 51858 colonoscopy with random colonic biopsies Type of Anesthesia:: MAC Anesthesiologist: Adrien Samuel Description of Procedure: Patient was brought into the endoscopy suite. Back of his throat was sprayed with Cetacaine spray. A bite-block was placed. He is placed in the left lateral decubitus position. Graded anesthesia was given. The scope was inserted into the back of the oropharynx and directed down through the esophagus into the stomach and into the duodenum without difficulty. Operative findings: 1. Duodenum: Normal appearance no mass lesions no ulcerations mucosa looked normal but I did obtain a biopsy for celiac sprue. There is no signs of bleeding. 2. Stomach: There was some antral gastritis no obvious ulcers or mass lesions were identified biopsy for H. pylori was obtained. The rest of the stomach did appear normal. Retroflexion did not reveal any signs of a hiatal hernia. 3. Esophagus: Normal appearance no mass lesions Z line was right at 40 cm and was normal there was no erythema or signs of esophagitis. Colonoscope was then inserted into the rectum directed through the sigmoid colon, descending colon, transverse colon, descending colon, to the cecum. Operative findings: 1. Cecum: Normal appearance no mass lesions normal ileocecal valve. 2. Ascending colon: Normal appearance no mass lesions. 3. Transverse colon: Normal appearance no mass lesions. 4. Descending colon: Normal appearance no mass lesions. 5. Sigmoid colon: Normal appearance no mass lesions. 6. Rectum: Normal appearance no mass lesions retroflexion really did not show any signs of significant hemorrhoidal disease there were no mass lesions identified. Random colonic biopsies were done about every 15-20 cm from the cecum all the way to the rectum. The mucosa throughout the colon looked entirely normal there was nothing about it that was suspicious for any signs of colitis. I will see the patient back in 1 week and discuss the pathology reports with him. In the meantime I believe he should be started on some [id number] proton pump inhibitors. - Admit VTE Documentation VTE Present on Admission: No VTE Mechan Device Prophylaxis: None VTE Pharm Prophylaxis ordered?: No Reason prophylaxis not ordered:: Treatment Not Indicated 03/02/18905 <Electronically signed by Hudson Vazquez MD> Date Hudson Vazquez MD CC: Hudson Vazquez MD; Thiago Li MD Signed EGD ([facility]) Observed: 03/02/2018 Status: F Source: [place] 8:45 AM [facility] Patient: AURELIANO BAKER : 1980 (37/M) Acct Num: [id number] Phys: George GRIDER,Hudson Unit Num: [id number] Loc: EN Specimen: Received: 03/02/18 - 1300 Spec Type: EGD BIOPSY TISSUES TISSUES: A. BOWEL BIOPSY B. COLON BIOPSY GROSS DESCRIPTION A - Received in fixative is one container labeled with the patient's name and designated small bowel biopsy. The specimen consists of two irregular fragments of light duron soft tissue that in aggregate measure 0.4 x 0.3 x 0.1 cm. The specimen is totally submitted in one cassette. B - Received in fixative is one container labeled with the patient's name and designated random colonic biopsy. The specimen consists of multiple irregular fragments of light duron soft tissue that in aggregate measure 2 x 0.5 x 0.1 cm. The specimen is totally submitted in one cassette. / SJ:frances 03/02/18 TC:4 CPT: 11853 x2 HEADER OPERATION: EGD with biopsy and colonoscopy PRE-OP DIAGNOSIS: Nausea, epigastric pain with diarrhea TISSUE SUBMITTED: A. Small bowel biopsy, B. Random colon biopsies MICROSCOPIC DESCRIPTION Slides are reviewed. MICROSCOPIC DIAGNOSIS A. Small bowel, biopsy: Fragments of duodenal mucosa, no pathologic diagnosis. B. Colon, random biopsy: Fragments of colonic mucosa, no pathologic diagnosis. DEXTER:frances 03/03/18 Signed Gabriele Greene 03/03/18 <signature on file> Performed By: #### PEGD #### [facility] [address] [place], [address] SURGERY VISIT REPORT Observed: 02/13/2018 Status: F Source: [place]Y 11:59 AM [facility] [address] [place] [address] OFFICE VISIT Date of Service: 02/10/18 MR#: [id number] Acct: [id number] Name: AURELIANO BAKER Rep #: [id number] : 1980 Provider: Hudson Vazquez MD Age/Sex: 37/M Location: [facility] Status: Signed Intake Vital Signs02/10/18 Height 5 ft 7 in 02/10/18 Weight: 181 lb Intake Visit Reasons: Lower abdominal pain, gerd,lipomas and scalp cysts Chief Complaint: visual disturbances, difficulty with speech Analysis Evaluator Required: No Is patient in pain?: No Allergies Penicillins Allergy (Verified 02/10/18 13:16) Unknown Sulfa (Sulfonamide Antibiotics) Allergy (Verified 02/10/18 13:16) Unknown Medications Metoprolol Tartrate [Lopressor (beta alden)] 50 mg PO BID 01/02/18 [History Confirmed 02/10/18] pantoprazole 20 mg tablet,delayed release 20 mg PO QDAY 02/10/18 [History Confirmed 02/10/18] tadalafil 10 mg tablet 20 mg PO PRN tab 02/10/18 [History Confirmed 02/10/18] PFSH Medical History Abdominal pain (Acute) GERD (gastroesophageal reflux disease) (Acute) Hypertension (Chronic) Surgical History History of tonsillectomy (Acute) Family History Sister Asthma Father High cholesterol Social History Smoking Status: Never smoker alcohol intake: never substance use type: does not use HPI HPI HPI: AURELIANO BAKER, is a 37 M who presents to the office today for evaluation of multiple complaints. Patient has 3 scalp cysts that are irritating to him when he underwood his hair and they have been getting larger. They have not been getting infected he is never had them removed in the past. In addition the patient has been noticing some significant nausea and diarrhea with crampy abdominal pains. Happens mostly when he is having fried chicken and occasionally posterior other fast foods. In addition the patient has been having problems with headaches and has been taking a significant amount of NSAIDs. Patient has had abdominal x-ray which was normal except for showing a moderate amount of fecal material seen throughout the colon. ROS General General: Yes fatigue; no weight change, appetite, colon cancer, breast cancer or weakness HEENT HEENT: No difficulty swallowing, eye injury, eye surgery, swollen glands or hoarseness Endo Endocrine: No thyroid disease, diabetes mellitus, thyroid cancer, Hair loss, heat intolerance or cold intolerance Skin Skin: No rash or changing moles Breast Breast: No left breast lump, right breast lump, nipple discharge, breast pain, abnormal mammogram, abnormal US or breast enlargement Musc Musculoskeletal: Yes back problems; no arthritis, rheumatoid arthritis, gout or joint pain Cardio Cardiovascular: Yes high blood pressure; no murmur, pacemaker, heart disease, atrial fibrillation, heart attack, heart stent, palpitations, shortness of breat with exertion or chest pain Psych Psychiatric: Yes depression and anxiety; no hearing voices Resp Respiratory: Yes shortness of breath, No sleep apnea, No cough, No COPD, No asthma, No emphysema, No wheezing Gastro Gastrointestinal: Yes abdominal pain, Yes nausea or vomiting, Yes diarrhea, Yes constipation, No blood in stool, Yes acid reflux, No hemorrhoids, No ulcers, No gallbladder problem, No black,tarry stools Pal Hematologic: No blood thinners, No blood disorders, No bleeding, No anemia, No blood clots Neuro Neurologic: No system reviewed and no additional complaints, except as docu, No as per HPI, No abnormal walking, No abnormal hearing, No abnormal movements, No abnormal speech, No behavioral changes, No burning sensations, No confusion, No seizure-like activity, No unsteadiness, No dizziness, No localized weakness, No frequent falls, No headache(s), No lack of coordination, No loss of vision, No memory loss, Yes numbness, No other visual disturbances, No radiating pain, No restless legs, No sensory deficit, No fainting, Yes tingling, No tremor(s), No weakness, No other (TIA) Exam Const General: well developed, no acute distress, well hydrated Orientation: oriented to person, oriented to place, oriented to time Other: Patient has 3 scalp cyst one on the left or right L1 on the right parietal area and then one on the left lateral aspect of the scalp. They all measure approximately 1 cm in size. There is no cellulitis associated with this. There is no discomfort associated with this. [facility] Head: normocephalic, atraumatic Ears: external ears normal Mouth: moist mucous membranes Eyes Sclera: sclerae normal Pupils: normal by confrontation Neck Neck: no lymphadenopathy noted Neck mass: No Thyroid: symmetrical, thyroid normal Chest Chest palpation AND inspection: normal inspection of the chest Breast Palpation: No nipple discharge Resp Effort AND Inspection: normal respiratory effort Auscultation: clear to auscultation bilaterally Percussion: percussion normal Cardio Rate: regular rate Rhythm: regular rhythm Heart Sounds: no murmurs GI Palpation: soft, no masses, no hepatosplenomegaly, nontender Rectal Exam: other Other: Rectal exam deferred. Extrem General: no clubbing, cyanosis or edema, normal to inspection Assessment AND Plan Problems 1. Scalp cyst L72.9 2. Nausea R11.0 3. Epigastric pain R10.13 4. Diarrhea, unspecified type R19.7 Plan I have discussed the above with the patient. I have offered the patient colonoscopy as well as an esophagogastroduodenoscopy For evaluation. I have explained the risks/benefits of the procedure and described the procedure. I have discussed the risks with the patient, including but not limited to: infection, bleeding, perforation of the GI tract requiring emergency surgery, inability to complete the procedure, injury to any internal organs, complications of anesthesia, etc. - the patient understands and agrees to proceed. I have answered all the patient's questions to the patient's satisfaction and the patient has no further questions. The patient has been given instructions for the colon cleansing preparation. In addition we will remove 3 scalp cysts after we have completed his workup. Medications Discontinued: Coding Level of Care Code Off vis,new,level 3 Diagnoses Scalp cyst L72.9 Nausea R11.0 Epigastric pain R10.13 Diarrhea, unspecified type R19.7 Diarrhea type: unspecified type 02/13/18 1159 <Electronically signed by Hudson Vazquez MD> Date Hudson Vazquez MD Cosigner Signature: Date (if applicable) CC: Thiago Li MD ABD INC DECUB Observed: 02/03/2018 Status: F Source: RANDY AND/OR ERECT 11:28 AM [facility] Imaging Services [address] [place] [address] Abd Inc Decub and/or Erect MR#: [id number] Acct: [id number] Name: AURELIANO BAKER Rep #: [id number] : 1980 M 37 From: Aris Rajput MD PCP: Thiago Li MD Status: REG CLI Study: Abd Inc Decub and/or Erect Date of Exam: 02/03/18 Exam# [id number] Ordering Dr: Thiago Li MD STUDY: X-RAY - ABDOMEN/PELVIS REASON FOR EXAM: Male, 37 years old. Lower abdominal pain. TECHNIQUE: AP supine and upright views of the abdomen and pelvis. COMPARISON: None. FINDINGS: Normal visualized lung bases. There is a moderate amount of colonic fecal material. There is no demonstrated free abdominal air. The visualized liver, spleen and kidneys are grossly normal in size and morphology. There are calcified phleboliths in the pelvis. Normal visualized osseous structures. RAD/Abd Inc Decub and/or Erect IMPRESSION: Moderate amount of fecal material is seen in the colon. Electronically Signed: Aris Rajput MD at 12:28 EDT Tel [phone], Service support , CC: Thiago Li MD District Engineer: Signed CONSULTATION Observed: 01/05/2018 Status: F Source: RANDY 9:20 AM [facility] Medical Records Department [address] [place] [address] Consultation 01/03/18 0952 MR#: [id number] Acct: [id number] Name: AURELIANO BAKER Rep #: [id number] : 1980 37 From: Dalton Cuenca MD PCP: Thiago Li MD Status: DIS DEXTER Y Location: ICU [id number] Reason for Consult Date of Consultation: 01/03/18 Reason for Consultation: headache History of Present Illness: The patient is a 37 year old M who presented last night with symptoms beginning at 930pm described as flashing lights, similar to migraine aura which he has had x1 in the past although has had frequent migraines for 20 yrs. last night symptoms evolved to language difficulty described as couldnt put together a sentence followed by headache. now has a headache and feels slower than normal. also describes visual distortion described as people having uneven eyes. reports has headache daily, takes goodys powder because cant swallow pills. takes 1-5 packets of goodys powder/day. reports 15 yrs ago was prescribed a med that wasnt effective and caused weight gain. reports average daily headache is 4/10, currently 5/10, can get to 9/10 on a monthly basis. 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 per admit h AND p:The patient is a 37 y/o M w/ PMHx: Asthma, Sinus arrhythmia, Chronic headaches who presents to the [facility] ED on 01/02/18 with 1 hour prior to arrival onset initial aura followed by expressive aphasia, generalized weakness without focal deficit and R>L blurry vision w/ onset while in the ED of throbbing BL temporal headache similar to his usual with associated photophobia and phonophobia. While in the ED having NIH scale performed patient upon confusion became extremely distressed and anxious and ativan was administered. In the ED work-up included T 98.8, HR 90s, BP 136/75, RR 18, 97% on RA, CBC w/ WBC 10.6, Hgb 16.6, Plts 277 with L increased lymph, eos, BMP w/ BUN/Cr 15/1.45 (prior Cr 1.2), glucose 125, trop < 0.02, unremarkable UTox, unremarkable UA, EtOH unremarkable, CT head unremarkable, CXR unremarkable, EKG w/ SR without acute evidence of ischemia. In the ED patient administered NS, zofran, ativan. Neurology, Dr. Cuenca made aware of patient per ED and he requested work-up for stroke to be continued prior to assess for intractable migraine. Past Medical History Past Medical History (Chronic Problems): Chronic Problems Sinus arrhythmia (Chronic) Asthma (Chronic) Chronic headaches (Chronic) Allergies Penicillins Allergy (Verified 11/07/14 19:02) Unknown Sulfa (Sulfonamide Antibiotics) Allergy (Verified 11/07/14 19:02) Unknown Home Medications: Ambulatory Orders Medication Instructions Recorded Metoprolol Tartrate [Lopressor 50 mg PO BID 01/02/18 (beta alden)] Surgical History: - - T+A Psychiatric History: No pertinent psych hx Lives: Spouse/ Significant Other, With Family Smoking Status: Never smoker Alcohol: None Drugs: None - *Family History Maternal History Items: - - Mother w/ MS. Paternal History Items: Hypertension Review of Systems Constitutional: Denies: Chills, Fever, Weight Change HEENT: Denies: Head Aches, Sinus Congestion, Sinus Drainage Cardiovascular: Denies: Chest Pain, Palpitations Respiratory: Denies: Cough, Shortness of breath at rest, Sputum production Gastrointestinal: Denies: Abdominal Pain, Nausea, Vomiting Genitourinary: Denies: Dysuria Musculoskeletal: Denies: Joint Pain, Joint Tenderness Skin: Denies: Rash, Wounds Neurological: Denies: Numbness, Tingling, Focal weakness Psychiatric: Denies: Anxiety, Depression, Homicidal Ideations, Suicidal Ideations Hematologic/ Lymphatic: Denies: Easy Bruising, Easy Bleeding Patient Problems: Active and Suspected Problems TIA versus Complex migraine (Acute) - Physical Exam General: Alert, Oriented x3, Cooperative HEENT: Atraumatic, PERRLA, EOMI, Normocephalic Neck: Supple, No JVD, Negative Carotid Bruits Lungs: Clear to auscultation, Normal air movement Cardiovascular: Regular rate, No murmurs Abdomen: Bowel Sounds Present, Soft, Non Tender Extremities: No edema, Capillary Refill Less than 3 Seconds Skin: No rashes, No breakdown Musculoskeletal: No Tenderness to Palpation of Joints or Extremities Neurological: Cranial nerves II-XII grossly intact Psych/Mental Status: Normal Affect, Appropriate Vital Signs Temp Pulse Resp BP Pulse Ox 35.9 C L 70 13 103/64 96 01/03/18 08:24 01/03/18 09:10 01/03/18 08:24 01/03/18 08:24 01/03/18 08:24 Oxygen Delivery Method Room Air Weight: 80.5 kg Body Mass Index (BMI) 27.8 Intake and Output for Last 24 Hours Intake Total 1545 / 1545 Output Total 1025 / 1025 Balance 520 / 520 Laboratory Tests Past 24 Hrs WBC RBC Hgb Hct MCV MCH MCHC RDW RDW Differential Plt Count MPV Sodium WBC 10.5 RBC 4.58 L Hgb 14.4 Hct 41.4 MCV 90.4 MCH 31.4 MCHC 34.8 RDW 12.2 RDW Differential 39.8 Plt Count 197 WBC RBC Hgb Hct MCV MCH MCHC RDW RDW Differential Current Home Med List Medication Instructions Recorded Confirmed Type Metoprolol Tartrate [Lopressor 50 mg PO BID 01/02/18 01/02/18 History (beta alden)] Current Medications Generic Name Dose Route Start Last Admin mri/a head and neck reviewed, normal Assessment/Plan Active and Suspected Problems TIA versus Complex migraine (Acute) 1. complex migraine, resolved 2. chronic daily headache sleep deprived stress: try ssri 3. rebound headache: recommend discontinue use of goodys and other nsaids ok to dc follow up as op 01/05/18 0920 <Electronically signed by Dalton Cuenca MD> Date Dalton Cuenca MD Cosigner Signature (if applicable): Date CC: Thiago Li MD; Dalton Cuenca MD Signed 12 LEAD ELECTROCARDIOGRAM Observed: 01/04/2018 Status: F Source: [place] 3:19 PM [facility] [place] [facility] Cardiovascular Services [address] [place] [address] 12 Lead EKG 01/02/18 2326 MR#: [id number] Acct: [id number] Name: AURELIANO BAKER Rep #: [id number] : 1980 37 From: Ramsey Kim MD Attending Dr: Demetria Singletary MD Status: DIS DEXTER Ordering Dr: Paola Zhang MD Date: 01/02/18 Location: ICU Sex: M C Admitted: 01/02/18 Test Reason : NEURO S/SX Blood Pressure : / mmHG Vent. Rate : 098 BPM Atrial Rate : 098 BPM P-R Int : 156 ms QRS Dur : 088 ms QT Int : 292 ms P-R-T Axes : 047 042 013 degrees QTc Int : 372 ms Normal sinus rhythm Normal ECG Confirmed by MARYANA GRIDER, RAMSEY ([id number]), news videotape editor KENNETH LI ([id number]) on 01/04/2018 3:19:43 PM Referred By: SABINO Confirmed By:RAMSEY KIM MD 01/04/18 1519 Date Ramsey Kim MD CC: Paola Zhang MD; Thiago Li MD Signed DISCHARGE SUMMARY Observed: 01/03/2018 Status: F Source: [place] 1:50 PM [facility] [place] [facility] Medical Records Department [address] [place] [address] Discharge Summary 01/03/18 1342 MR#: [id number] Acct: [id number] Name: AURELIANO BAKER Rep #: [id number] : 1980 37 From: Demetria Singletary MD PCP: Thiago Li MD Status: ADM DEXTER Y Location: ICU [id number] Discharge Date and Diagnosis - Problem List Patient Problems: Active and Suspected Problems TIA versus Complex migraine (Acute) Date of Admission: 01/02/18 Date of Discharge: 01/03/18 - Primary Discharge Diagnosis Active and Suspected Problems TIA versus Complex migraine (Acute) - Secondary Discharge Diagnosis Chronic Problems Sinus arrhythmia (Chronic) Asthma (Chronic) Chronic headaches (Chronic) Hospital Course and Treatment Imaging Results: 01/03/18 23:57 Brain without Contrast [MRI] Stat MRA Head ONLY without Contrast [MRI] Stat MRA Neck without Contrast [MRI] Stat Neurology - Dr. Cuenca Operations: None Procedures: 2-D Echocardiogram Summary of Care Provided: 37-year-old male with history of asthma, chronic daily headaches admitted on 01/02/2018 with expressive aphasia and blurred vision as well as photophobia and phonophobia. 1. Acute onset of expressive aphasia, blurred vision, photophobia and phonophobia, secondary to migraine with aura, TIA/CVA was ruled out. CT scan of the brain, MRI and MRA of the head and neck were negative, neurology consulted, advised patient to stop taking Goody's, started on Lexapro and will need to follow-up in the outpatient with neurology 2. Asthma, stable, no signs of acute exacerbation 3. History of sinus arrhythmia, on metoprolol 4. Renal insufficiency, resolved with hydration Discharge Diet: No Restrictions Discharge Activity: Return to Normal Activity Home Medications: Medications to take at Discharge Metoprolol Tartrate [Lopressor (beta alden)] 50 mg PO BID 01/02/18 Escitalopram Oxalate [Lexapro] 10 mg PO DAILY #30 tab 01/03/18 Tadalafil [Cialis] 10 mg PO PRN 01/03/18 Following Prescrptions Were Given to Patient: Escitalopram Oxalate [Lexapro] 10 mg PO DAILY #30 tab Primary Care Physician: Thiago Li MD [Primary Care Provider] - Please follow up with your Primary Care Physician in: within 2 weeks Please Follow Up With: Dalton Cuenca MD When: within 2 weeks Disposition: Home Minutes spent on discharge:: 25 Patient Condition:: Stable Medical Necessity - Tobacco Use Smoking Status: Never smoker Tobacco Use: Non-smoker Meaningful Use Info Meaningful Use Diagnoses (Choose all that apply): None applicable Code Visit OBSV E AND M: 84521 Observation care discharge 01/03/18 1350 <Electronically signed by Demetria Singletary MD> Date Demetria Singletary MD Cosigner Signature (if applicable): Date CC: Demetria Singletary MD; Thiago Li MD Signed DISCHARGE INSTRUCTION Observed: 01/03/2018 Status: F Source: [place] 1:42 PM [facility] [place] [facility] Medical Records Department [address] [place] [address] Instructions for Home/Discharge Instructions 01/03/18 1339 MR#: [id number] Acct: [id number] Name: AURELIANO BAKER Rep #: [id number] : 1980 37 From: Demetria Singletary MD PCP: Thiago Li MD Status: ADM DEXTER - Discharge Diagnoses Current Active Problems: Current Active and Chronic Problems Sinus arrhythmia (Chronic) Asthma (Chronic) TIA versus Complex migraine (Acute) Chronic headaches (Chronic) Reason(s) for Visit for Discharge Instructions: Blurred vision, expressive aphasia You will use the following diet at home:: Regular Your food should be the consistency of: Regular Your liquids should be the consistency of: Regular/Thin Discharge Activity: Return to Normal Activity Additional Instructions: Discontinue use of goodys and other NSAIDS. the neurologist recommended Lexapro. Follow-up with him within 2 weeks with a headache diary noting frequency of headaches and associated symptoms, and factors that seem to trigger the headaches. Allergies/Adverse Reactions: Allergies Penicillins Allergy (Verified 11/07/14 19:02) Unknown Sulfa (Sulfonamide Antibiotics) Allergy (Verified 11/07/14 19:02) Unknown Medications to take at Discharge Metoprolol Tartrate [Lopressor (beta alden)] 50 mg PO BID 01/02/18 Escitalopram Oxalate [Lexapro] 10 mg PO DAILY #30 tab 01/03/18 Tadalafil [Cialis] 10 mg PO PRN 01/03/18 The following prescriptions were given: Escitalopram Oxalate [Lexapro] 10 mg PO DAILY #30 tab Primary Care Physician: Thiago Li MD [Primary Care Provider] - Please follow up with your Primary Care Physician in: within 2 weeks Please Follow Up With: Dalton Cuenca MD When: within 2 weeks Proposed Discharge Date: 01/03/18 01/03/18 1342 <Electronically signed by Demetria Singletary MD> Date Demetria Singletary MD CC: Thiago Li MD; Dalton Cuenca MD BASIC METABOLIC Collected: 01/03/2018 Status: F Source: [place] PROFILE (BMP) 5:15 AM [facility] Order Comment: REDRAW. PREVIOUS SPECIMEN REJECTED DUE TO HEMOLYSIS. 01/03/18 0446 Lindsay Mckinney. TYPE CODE TESTS RESULT OUT OF RANGE REFERENCE UNITS LAB L501.0100 74-106 mg/dL Normal GLU 91 Result Comment: Please note revised GLUCOSE reference range effective 2017. LAB L501.1000 7-18 mg/dL Normal BUN 12 LAB L501.1100 0.70-1.30 mg/dL Normal CREAT,SERUM 1.13 Result Comment: The validity of the calculated GFR AND GFRAA in patients over 70 years has not been determined. Clinical correlation is essential. LAB L501.1110 >60 mL/min Normal EST GFR 78 Result Comment: Non- GFR Calc LAB L501.1115 >60 mL/min Normal EST GFR - AA 95 Result Comment: GFR Calc LAB L501.1255 ml/min Normal Estimated CRCL 85.31 LAB L501.1300 10-20 RATIO Normal BUN/CRE 10.6 LAB L501.2200 8.5-10 mg/dL Low .1 CA 7.6 LAB L501.5300 136-14 mmol/L Normal 5 NA 144 LAB L501.5600 3.5-5. mmol/L Normal 1 K 4.0 LAB L501.5900 98-107 mmol/L High CL 111 LAB L501.6100 21.0-3 mmol/L Normal 2.0 CO2 24.0 LAB L501.6200 5-15 Normal GAP 9 Performed By: #### L500.2500, L500.4100 #### [facility] [address] [place], [place], [id number] LIPID PROFILE Collected: 01/03/2018 Status: F Source: [place] 5:15 AM [facility] Order Comment: REDRAW. PREVIOUS SPECIMEN REJECTED DUE TO HEMOLYSIS. 01/03/18 0446 Lindsay Mckinney. TYPE CODE TESTS RESULT OUT OF RANGE REFERENCE UNITS LAB L501.4900 200 mg/dL Normal CHOL 138 Result Comment: <200 mg/dL Desirable 200-240 mg/dL Borderline >240 mg/dL High Risk LAB L501.5000 mg/dL Normal TRIG 176 Result Comment: The drugs N-Acetylcysteine and Metamizole may falsely depress this assay. Serum Triglycerides Reference Interval Normal <150 mg/dL Borderline high 150 - 199 mg/dL High 200 - 499 mg/dL Very High > or = 500 mg/dL LAB L501.6400 mg/dL Low HDL 26 Result Comment: The drugs N-Acetylcysteine and Metamizole may falsely depress this assay. Reference Range HDL <40 mg/dL Low HDL Cholesterol HDL >or= 60 mg/dL High HDL Cholesterol LAB L501.6500 0-130 mg/dL Normal LDL 77 LAB L501.6600 5-40 mg/dL Normal VLDL 35 Performed By: #### L500.2500, L500.4100 #### [facility] [address] [place], [address] CBC-COMPLETE BLOOD CNT Collected: 01/03/2018 Status: F Source: [place] NO DIFF 4:20 AM [facility] [facility] TYPE CODE TESTS RESULT OUT OF RANGE REFERENCE UNITS LAB L100.1000 4.4-11.0 K/mm3 Normal WBC 10.5 LAB L100.1200 4.6-6.2 M/mm3 Low RBC 4.58 LAB L100.1300 13.0-16.5 g/dl Normal HGB 14.4 LAB L100.1400 40-54 % Normal HCT 41.4 LAB L100.1500 80-94 fL Normal MCV 90.4 LAB L100.1600 27.0-32.0 pg Normal MCH 31.4 LAB L100.1700 32-36 g/gl Normal MCHC 34.8 LAB L100.1810 11.6-14.6 % Normal RDW CV 12.2 LAB L100.1820 35.1-43.9 fl Normal RDW SD 39.8 LAB L100.1900 150-450 K/mm3 Normal PLT 197 LAB L100.2000 6.2-12.0 fl Normal MPV 10.1 Performed By: #### L100.0500 #### [facility] [address] [place], [address] HISTORY AND PHYSICAL Observed: 01/03/2018 Status: F Source: [place] EXAM 2:44 AM [facility] [place] [facility] Medical Records Department [address] [place] [address] History and Physical 01/02/18 2349 MR#: [id number] Acct: [id number] Name: AURELIANO BAKER Rep #: [id number] : 1980 37 From: Nenita Portillo PCP: Thiago Li MD Status: ADM DEXTER Y Location: ICU [id number] Problem List (1) Sinus arrhythmia Status: Chronic (2) Asthma Status: Chronic Qualifiers: Asthma severity: unspecified severity Asthma persistence: unspecified Asthma complication type: unspecified Qualified Code(s): J45.909 - Unspecified asthma, uncomplicated (3) TIA versus Complex migraine Status: Acute (4) Chronic headaches Status: Chronic Qualifiers: Headache type: unspecified Intractability: not intractable Qualified Code(s): R51 - Headache History of Present Illness Date of Admission: 01/02/18 Chief Complaint: Aphasia, weakness, parethesias, blurred vision R eye. The patient is a 37 y/o M w/ PMHx: Asthma, Sinus arrhythmia, Chronic headaches who presents to the [facility] ED on 01/02/18 with 1 hour prior to arrival onset initial aura followed by expressive aphasia, generalized weakness without focal deficit and R>L blurry vision w/ onset while in the ED of throbbing BL temporal headache similar to his usual with associated photophobia and phonophobia. While in the ED having NIH scale performed patient upon confusion became extremely distressed and anxious and ativan was administered. In the ED work-up included T 98.8, HR 90s, BP 136/75, RR 18, 97% on RA, CBC w/ WBC 10.6, Hgb 16.6, Plts 277 with L increased lymph, eos, BMP w/ BUN/Cr 15/1.45 (prior Cr 1.2), glucose 125, trop < 0.02, unremarkable UTox, unremarkable UA, EtOH unremarkable, CT head unremarkable, CXR unremarkable, EKG w/ SR without acute evidence of ischemia. In the ED patient administered NS, zofran, ativan. Neurology, Dr. Cuenca made aware of patient per ED and he requested work-up for stroke to be continued prior to assess for intractable migraine. Past Medical History Past Medical History (Chronic Problems): Chronic Problems Sinus arrhythmia (Chronic) Asthma (Chronic) Chronic headaches (Chronic) Allergies Penicillins Allergy (Verified 11/07/14 19:02) Unknown Sulfa (Sulfonamide Antibiotics) Allergy (Verified 11/07/14 19:02) Unknown Home Medications: Ambulatory Orders Medication Instructions Recorded Metoprolol Tartrate [Lopressor 50 mg PO BID 01/02/18 (beta alden)] Surgical History: - - T+A Psychiatric History: No pertinent psych hx Lives: Spouse/ Significant Other, With Family Smoking Status: Never smoker Alcohol: None Drugs: None - *Family History Maternal History Items: - - Mother w/ MS. Paternal History Items: Hypertension Review of Systems Constitutional: Reports: Malaise, Weakness, Fatigue. Denies: Chills, Fever, Weight Change HEENT: Reports: Head Aches, Visual Changes. Denies: Sinus Congestion, Sinus Drainage Cardiovascular: Denies: Chest Pain, Palpitations Respiratory: Denies: Cough, Shortness of breath at rest, Sputum production Gastrointestinal: Denies: Abdominal Pain, Nausea, Vomiting Genitourinary: Denies: Dysuria Musculoskeletal: Denies: Joint Pain, Joint Tenderness Skin: Denies: Rash, Wounds Neurological: Reports: Confusion, Headaches. Denies: Focal weakness, Numbness, Tingling Psychiatric: Denies: Anxiety, Depression, Homicidal Ideations, Suicidal Ideations Hematologic/ Lymphatic: Denies: Easy Bruising, Easy Bleeding VTE Information - Inpt Only VTE Present on Admission: No VTE Mechan Device Prophylaxis: SCD's VTE Pharm Prophylaxis ordered?: Yes Patient Problems: Active and Suspected Problems TIA versus Complex migraine (Acute) Subjective: Seated upright in the ED bed, NAD, notes sxs improving. Objective: Physical Examination: General: awake, alert, oriented x 3 and cooperative, seated upright in the ED bed, NAD, uncomfortable appearing, strained. Skin: normal color, turgor, no icterus, cyanosis. HEENT: AT/NC, EOMI, PERRLA, mildly dry MM, scleral injection noted, peripheral vision intact, no carotid bruits or JVD noted. Lungs: CTA bilaterally, moderate effort, mild decrease BL bases, no rales, ronchi or wheezing. Heart: Regular rate and rhythm; no gallop, rub audible. Abdomen: soft, NTTP, ND, normal BS, no HSM. Extremities: no cyanosis, clubbing, or edema. Neurological: patient awake, alert, oriented x 3; cognitive function intact; pupils equally reactive to light and accomodation; cranial nerves II-XII grossly normal, moving all 4 extremities, no focal deficits, strength moderately globally decreased secondary to acute presentation, sensation intact, FTN, HTN intact, peripheral vision intact, negative babinski. Psychiatric: affect appears fatigued, strained, normal, no acute evidence of depressive or anxiety feelings. - Physical Exam Vital Signs Temp Pulse Resp BP Pulse Ox 96.5 F L 119 H 18 132/86 H 100 01/02/18 22:53 01/02/18 23:03 01/02/18 23:03 01/02/18 23:03 01/02/18 23:03 Oxygen Delivery Method Room Air Weight: 170 lb Body Mass Index (BMI) 26.6 Finger Stick Blood Glucose 116 Laboratory Tests Past 24 Hrs WBC 10.6 POC Glucose POC Glucose 116 H Assessment/Plan Active and Suspected Problems TIA versus Complex migraine (Acute) The patient is a 37 y/o M w/ PMHx: Asthma, Sinus arrhythmia, Chronic headaches who presents to the [facility] ED on 01/02/18 with 1 hour prior to arrival onset initial aura followed by expressive aphasia, generalized weakness without focal deficit and R>L blurry vision w/ onset while in the ED of throbbing BL temporal headache similar to his usual with associated photophobia and phonophobia. (1) Expressive aphasia, generalized weakness without focal deficit and R>L blurry vision and concurrent Acute on Chronic Headache concerning for Complex Migraine, Less Likely TIA/CVA: In the ED work-up included T 98.8, HR 90s, BP 136/75, RR 18, 97% on RA, CBC w/ WBC 10.6, Hgb 16.6, Plts 277 with L increased lymph, eos, BMP w/ BUN/Cr 15/1.45 (prior Cr 1.2), glucose 125, trop < 0.02, unremarkable UTox, unremarkable UA, EtOH unremarkable, CT head unremarkable, CXR unremarkable, EKG w/ SR without acute evidence of ischemia. Neurology, Dr. Cuenca made aware of patient per ED and he requested work-up for stroke to be continued prior to assess for intractable migraine. Will admit to PCU, will obtain MRI Brain, MRA Head and Neck, ECHO, PT/OT/Speech/Nutrition evaluation per protocol. Will continue consult with Neurology for evaluation. Will maintain on asa, statin w/ AM FLP, fall precautions. Mag, TSH pending. If MRI negative and ongoing sxs with headaches would plan to initiated intractable migraine regimen w/ IV VPA 500mg Q6 hours, IV Decadron 4mg Q6 hours, IV Toradol 30mg Q6 hours prn and PO Neurontin 100mg TID with meals unless otherwise dictated per Neurology. (2) Chronic Asthma: Maintain on HOB, IS, PRN albuterol regimen, primarily childhood. (3) Sinus Arrhythmia: Maintain on telemetry, continue home metoprolol regimen. (4) Mild Renal Insufficiency: Admission BUN/Cr 15/1.45, baseline prior 1.2-1.4, unclear if chronic renal disease, gently hydrating, repeat BMP in AM. (5) DVT Prophylaxis: SCDs, heparin. Code Visit OBSV E AND M: [id number] Initial observation care L3 01/03/18 0244 <Electronically signed by Nenita Portillo > Date Nenita Portillo Cosigner Signature: Date (if applicable) CC: Nenita Portillo; Thiago Li MD Signed BRAIN WITHOUT Observed: 01/03/2018 Status: F Source: [place] CONTRAST 1:01 AM [facility] [place] [facility] Imaging Services [facility] [place] [address] Brain without Contrast MR#: [id number] Acct: [id number] Name: AURELIANO BAKER Rep #: [id number] : 1980 M 37 From: Rosy Hung PCP: Thiago Li MD Status: ADM DEXTER Study: Brain without Contrast Date of Exam: 01/03/18 Exam# [id number] Ordering Dr: Nenita Portillo STUDY: MRI BRAIN WITHOUT CONTRAST REASON FOR EXAM: Male, 37 years old. cva, expressive aphasia, blurred vision, numbness. TECHNIQUE: Standardized multiplanar fat and water weighted pulse sequences were obtained. COMPARISON: None. FINDINGS: Normal size of the ventricles and extra-axial spaces for the patient's age. Normal white matter tracts of the supratentorial brain. Normal bilateral basal ganglia. Normal thalami. There is no extra-axial fluid accumulation. Normal flow voids within the major intracranial circulation suggesting patency by spin echo criteria. Normal sella turcica, pituitary gland, infundibular stalk, optic chiasm and hypothalamus. Normal tectal plate and pineal gland. Normal midbrain, martir and medulla. There is mild tonsillar ectopia, which is within normal limits, and without distortion of the brainstem. Normal basal cisterns. Normal bilateral temporal bones. Normal bilateral internal auditory canals. No demonstrated orbital abnormality, within the constraints of a routine brain study. Normal visualized paranasal sinuses. There are multiple subcutaneous nodules. Normal visualized soft tissue structures. Normal visualized upper cervical spine. MRI/Brain without Contrast IMPRESSION: No acute intracranial abnormality. Electronically Signed: Rosy Hung MD at 11:56 EDT Tel , Service support , CC: Nenita Portillo; Thiago Li MD District Engineer: Signed MRA HEAD ONLY WITHOUT Observed: 01/03/2018 Status: F Source: [place] CONTRAST 1:01 AM [facility] [place] [facility] Imaging Services [address] [place] [address] MRA Head ONLY without Contrast MR#: [id number] Acct: [id number] Name: AURELIANO BAKER Rep #: [id number] : 1980 M 37 From: Rosy Hung PCP: Thiago Li MD Status: ADM DEXTER Study: MRA Head ONLY without Contrast Date of Exam: 01/03/18 Exam# [id number] Ordering Dr: Nenita Portillo STUDY: MRA OF THE HEAD WITHOUT CONTRAST REASON FOR EXAM: Male, 37 years old. cva, expressive aphasia, blurred vision, numbness TECHNIQUE: 3-D [id number] (TOF) imaging was performed with MIPs. The study was performed unenhanced. COMPARISON: None. FINDINGS: Normal bilateral petrous carotid arteries. Normal right cavernous carotid artery with a normal supraclinoid bifurcation. Normal left cavernous carotid artery with a normal supraclinoid bifurcation. Normal right A1 segments of the anterior cerebral artery. Normal left A1 segments of the anterior cerebral artery. Normal intact anterior communicating artery (ACOM). Normal bilateral A2 segments of the anterior cerebral arteries. Normal right M1 and M2 segments of the middle cerebral arteries, with a normal M1 bifurcation. Normal left M1 and M2 segments of the middle cerebral arteries, with a normal M1 bifurcation. Normal right posterior communicating artery (PCOM). There is non-visualization of the left posterior communicating artery (PCOM). Normal bilateral vertebral arteries. Normal basilar artery with a normal basilar bifurcation. The visualized bilateral superior cerebellar (SCA) arteries are normal. Normal bilateral P1, P2 and visualized P3 segments of the posterior cerebral arteries. There is no demonstrated aneurysm of the [place]. There is no major vessel occlusion or hemodynamically significant stenosis. There is no demonstrated abnormality of the visualized brain. MRI/MRA Head ONLY without Contrast IMPRESSION: Normal MRA of the head Electronically Signed: Rosy Hung MD at 12:07 EDT Tel , Service support , CC: Nenita Portillo; Thiago Li MD District Engineer: Signed MRA NECK WITHOUT Observed: 01/03/2018 Status: F Source: [place] CONTRAST 1:01 AM [facility] [place] [facility] Imaging Services [address] [place] [address] MRA Neck without Contrast MR#: [id number] Acct: [id number] Name: AURELIANO BAKER Rep #: [id number] : 1980 M 37 From: Rosy Hung PCP: Thiago Li MD Status: ADM DEXTER Study: MRA Neck without Contrast Date of Exam: 01/03/18 Exam# [id number] Ordering Dr: Nenita Portillo STUDY: MRA NECK WITHOUT CONTRAST REASON FOR EXAM: Male, 37 years old. expressive aphasia, blurred vision R>L headaches. TECHNIQUE: Source images were obtained, MIPs were performed. The study was performed unenhanced. COMPARISON: None. FINDINGS: RIGHT CAROTID ARTERIES: Normal right common carotid artery (CCA). Normal right common carotid bulb. Normal origin of the right internal carotid (ICA) artery without a hemodynamically significant stenosis. Normal visualized cervical portion of the right internal carotid artery. Normal origin of the right external carotid artery (ECA). LEFT CAROTID ARTERIES: Normal left common carotid artery (CCA). Normal left common carotid bulb. Normal origin of the left internal carotid (ICA) artery without a hemodynamically significant stenosis. Normal visualized cervical portion of the left internal carotid artery. Normal origin of the left external carotid artery (ECA). VERTEBRAL ARTERIES: Normal antegrade flow within the bilateral vertebral artery without a hemodynamically significant stenosis. MRI/MRA Neck without Contrast IMPRESSION: Unremarkable bilateral cervical carotid and vertebral arteries. Electronically Signed: Rosy Hung MD at 14:21 EDT Tel , Service support , CC: Nenita Portillo; Thiago Li MD District Engineer: Signed EMERGENCY DEPARTMENT Observed: 01/03/2018 Status: F Source: [place] SUMMARY 12:33 AM [facility] [place] [facility] Medical Records Department [address] [place] [address] Emergency Department Summary 01/02/18 2312 MR#: [id number] Acct: [id number] Name: AURELIANO BAKER Rep #: [id number] : 1980 37 From: Paola Zhang MD PCP: Thiago Li MD Status: ADM DEXTER - ER Visit Summary Date of Service: 01/02/18 Chief Complaint: Confusion, difficulty with speech. History of Present Illness: The patient is a 37 M presenting with speech difficulty and confusion. Patient states he knew what he wanted to say but was unable to get words out. This started approximately 1 hour ago. His speech is improving. He also notes blurry vision right greater than left. He states before this started he had an aura. He denies headache. He feels weak all over. He has nausea with no vomiting. He has shortness of breath. Denies chest pain. Denies fever. Denies recent illness. Denies drug use. Physical Examination: Vitals are stable. Patient is afebrile. Alert no acute distress. HEENT exam is unremarkable. Neck is supple. No meningismus Lungs are clear and equal bilaterally. Heart is regular and tachycardic Abdomen is soft nontender nondistended. Extremities are unremarkable. Skin is warm and dry. NIH for 1 LOC questions Remainder of exam is unremarkable. Emergency Department Course and Treatment: EKG is sinus rhythm rate of 98 with no acute ischemic changes. Chest x-ray shows no acute process. CT head shows no acute process. CBC, chemistries unremarkable other than creatinine 1.45. Troponin is negative. Alcohol is negative. Urine tox is pending. Patient given IV fluids. Ativan was ordered. Patient does have a history of headaches and anxiety. This may be a TIA versus atypical migraine versus anxiety. Discussed with Dr. Cuenca and Dr Portillo. Patient will be admitted. Disposition: Admission Impression: TIA versus atypical migraine This note was generated with [employer] dictation software. It may contain incorrect words, spelling, and punctuation that were not noted in review of the chart prior to signing ED Disposition - Plan for ED Patient: Chief Complaint: Neuro S/Sx Referrals: Thiago Li MD [Primary Care Provider] - What to do if you have Problems For any increased pain, shortness of breath, bleeding, nausea or vomiting, chest pain, or any unexpected problems, contact your Primary Care Provider. Call [facility] ([phone]) or report to the closest Emergency Room. Call 911 if necessary. 01/03/18 0033 <Electronically signed by Paola Zhang MD> Date Paola Zhang MD Cosigner Signature (If Indicated): Date CC: Thiago Li MD URINE DRUG SCREEN Collected: 01/03/2018 Status: F Source: RANDY (VISTA) 12:05 AM [facility] [place] TYPE CODE TESTS RESULT OUT OF RANGE REFERENCE UNITS LAB L505.0075 TO BE Normal CONFIRMED Result Comment: CONFIRMATORY TESTING FOR ALL POSITIVE URINE DRUG SCREEN RESULTS WILL ONLY BE SENT OUT UPON PHYSICIAN ORDER. VISTA Urine Drug Screen methods provide only preliminary analytical test results. A more specific alternate chemical method must be used in order to obtain a confirmed analytical result. Gas chromatography/mass spectrometery (GC/MS) is the preferred confirmatory method. Clinical consideration and professional judgement should be applied to any drug of abuse test result, particularly when preliminary positive results are used. URINE TCA TESTING MUST BE ORDERED SEPARATELY. USE TEST MNEMONIC: [facility] LAB L505.5005 VISTA UDS PH 7 Normal LAB L505.5015 <1000 ng/mL AMPHETAMINES Normal NEGATIVE LAB L505.5025 < 200 ng/mL BARBITIURATES Normal NEGATIVE LAB L505.5035 < 200 ng/mL BENZODIAZIPINE Normal NEGATIVE LAB L505.5045 < 300 ng/mL COCAINE Normal NEGATIVE LAB L505.5055 < 500 ng/mL ECSTACY Normal NEGATIVE LAB L505.5065 < 300 ng/mL METHADONE Normal NEGATIVE LAB L505.5075 < 300 ng/mL OPIATES Normal NEGATIVE LAB L505.5085 < 25 ng/mL PCP Normal NEGATIVE LAB L505.5095 < 50 ng/mL THC Normal NEGATIVE Performed By: #### L505.5000 #### [facility] [address] [place], [address] URINALYSIS, COMPLETE Collected: 01/03/2018 Status: F Source: RANDY 12:05 AM [facility] [place] Order Comment: How was Urine Obtained? CLEAN CATCH TYPE CODE TESTS RESULT OUT OF RANGE REFERENCE UNITS LAB L400.3000 Yellow COLOR Normal Yellow LAB L400.3050 Clear Normal CLARITY Clear LAB L400.3200 Normal mg/dl Normal GLUCOSE, UR Normal LAB L400.3300 Negative mg/dL Normal BILIRUBIN URINE Negative LAB L400.3400 Negative mg/dl Normal KETONE UR Negative LAB L400.3465 1.002-1.030 Normal SP.GR. DIPSTX 1.010 LAB L400.3550 5.0 - 8.0 pH UR Normal 7.0 LAB L400.3600 Negative mg/dl PROT Normal DIPSTX Negative LAB L400.3700 Normal mg/dl Normal UROBILI Normal LAB L400.3750 Negative Normal NITRITE UR Negative LAB L400.3780 Negative /ul Normal OCCULT BLOOD-UR Negative LAB L400.3800 Negative /ul LEUK Normal ESTERASE Negative LAB L400.4050 0-5 /hpf WBC 0 Normal SEEN LAB L400.4100 0-5 /hpf 0 Normal RBC-UA SEEN LAB L400.4150 0-5 /hpf SQUAM 0 Normal EPI SEEN LAB L400.4300 None Seen /hpf 0 Normal BACTERIA SEEN LAB L400.4350 <or=2+ /hpf 0 Normal MUCUS, URINE SEEN Performed By: #### L400.0001 #### [facility] [address] [place], [place], [address] BRAIN/HEAD WITHOUT Observed: 01/02/2018 Status: F Source: RADNY CONTRAST 11:09 PM [facility] [place] [facility] Imaging Services [address] [place] [address] Brain/Head without Contrast MR#: [id number] Acct: [id number] Name: AURELIANO BAKER Rep #: [id number] : 1980 M 37 From: Mary Lawler MD PCP: Thiago Li MD Status: REG ER Study: Brain/Head without Contrast Date of Exam: 01/02/18 Exam# [id number] Ordering Dr: Paola Zhang MD STUDY: CT BRAIN WITHOUT CONTRAST REASON FOR EXAM: Male, 37 years old. Weakness, shaking blurred vision. Elevated blood pressure RADIATION DOSAGE (If Supplied By Facility): CTDIvol = ( 44.99 ) mGy, DLP = ( 779.24 ) mGycm TECHNIQUE: Transaxial CT imaging of the brain was performed without administration of intravenous contrast material. Individualized dose optimization techniques were used for this CT. COMPARISON: July 02, 2008 FINDINGS: Normal calvarium. There are scattered scalp trichilemmal cysts that have increased in size and number since the prior examination. Normal size ventricles and extra-axial spaces for the patient's age. Normal white matter tracts of the cerebral hemispheres. Normal basal ganglia and thalami. Normal brainstem. Normal cerebellum. There is no intracranial hemorrhage. There are no findings of an acute ischemic infarction. Normal visualized paranasal sinuses. CT/Brain/Head without Contrast IMPRESSION: No acute intracranial process. N.B. : The above information has been verbally conveyed by Mary Lawler MD to Paola Zhang, Referring Physician, on 01/02/2018 23:36:14 (ET). Electronically Signed: Mary Lawler MD at 23:36 EDT Tel , Service support , N.B. : The above information has been verbally conveyed by Mary Lawler MD to Paola Zhang, Referring Physician, on 01/02/2018 23:36:14 (ET). CC: Paola Zhang MD; Thiago Li MD District Engineer: Signed CHEST 1 VIEW Observed: 01/02/2018 Status: F Source: RANDY (PORTABLE) 11:09 PM [facility] [place] [facility] Imaging Services [address] [place] [place] [address] Chest 1 View (Portable) MR#: [id number] Acct: [id number] Name: AURELIANO BAKER Rep #: [id number] : 1980 M 37 From: Antonio Page MD PCP: Thiago Li MD Status: REG ER Study: Chest 1 View (Portable) Date of Exam: 01/02/18 Exam# [id number] Ordering Dr: Paola Zhang MD STUDY: X-RAY CHEST REASON FOR EXAM: Male, 37 years old. Neurological abnormalities TECHNIQUE: Single AP portable view of the chest. COMPARISON: Previous study of 11/07/2014 FINDINGS: environmental monitoring specialist leads are present. The lungs are clear and expanded. There is no demonstrated pleural abnormality. Normal size heart. Normal mediastinum and beryl. Normal visualized pulmonary arteries. Normal visualized aortic arch and descending thoracic aorta. Normal visualized thoracic spine. Normal visualized ribs, clavicles, and shoulders. There is no demonstrated abnormality of the visualized soft tissue structures of the upper abdomen. RAD/Chest 1 View (Portable) IMPRESSION: Normal x-ray examination of the chest. Electronically Signed: Antonio Page MD at 23:46 EDT , Service support , CC: Paola Zhang MD; Thiago Li MD District Engineer: Signed CBC W/DIFF, AUTOMATED Collected: 01/02/2018 Status: F Source: [place] 11:05 PM [facility] [place] TYPE CODE TESTS RESULT OUT OF RANGE REFERENCE UNITS LAB L100.1000 4.4-11.0 K/mm3 Normal WBC 10.6 LAB L100.1200 4.6-6.2 M/mm3 Normal RBC 5.22 LAB L100.1300 13.0-16.5 g/dl High HGB 16.6 LAB L100.1400 40-54 % Normal HCT 46.3 LAB L100.1500 80-94 fL Normal MCV 88.7 LAB L100.1600 27.0-32.0 pg Normal MCH 31.8 LAB L100.1700 32-36 g/gl Normal MCHC 35.9 LAB L100.1810 11.6-14.6 % Normal RDW CV 12.0 LAB L100.1820 35.1-43.9 fl Normal RDW SD 38.8 LAB L100.1900 150-450 K/mm3 Normal PLT 277 LAB L100.2000 6.2-12.0 fl Normal MPV 9.7 LAB L100.2100 47-70 % Low NEUT% 35.6 LAB L100.2200 19-41 % High LY% 51.4 LAB L100.2300 0-10 % Normal MONO% 6.9 LAB L100.2400 0-5 % High EO% 5.6 LAB L100.2500 0-1 % Normal BASO% 0.3 LAB L100.2550 0.0-0.9 % Normal IM GRAN % 0.200 Result Comment: IG% - Immature Granulocytes (promyelocytes, myelocytes and metamyelocytes) > 1% indicates that a LEFT SHIFT is Present. LAB L100.2620 2.0-7.7 X10 3/uL Normal Absolute Neut 3.8 LAB L100.2720 0.83-4.51 X10 3/ul High Absolute Lymph 5.46 LAB L100.4500 Normal SMEAR COMMENT SCANNED Result Comment: LYMPHOCYTOSIS NOTED Performed By: #### L100.0100 #### [facility] [address] [place], [address] ALCOHOL, BLOOD Collected: 01/02/2018 Status: F Source: OTSEGO (MEDICAL)-SERUM 11:05 PM [facility] [place] TYPE CODE TESTS RESULT OUT OF RANGE REFERENCE UNITS LAB L501.9100 mg/dL Normal SERUM < 3.0 ETOH Result Comment: The serum:whole blood ethanol ratio is approximately 1.14 and varies slightly with hematocrit. Medical Alcohol reference interval and critical value in non-tolerant individuals; 50 - 100 Impairment 100 Intoxication 100 - 250 Severe Poisoning 250 - 400 Deep/possible fatal coma Performed By: #### L501.9100 #### [facility] [address] [place], [place], [address] BASIC METABOLIC Collected: 01/02/2018 Status: F Source: RANDY PROFILE (BMP) 11:05 PM [facility] [place] Order Comment: 'TROP' Serial specimen #1, #2, #3, or #4: 1 TYPE CODE TESTS RESULT OUT OF RANGE REFERENCE UNITS LAB L501.0100 74-106 mg/dL High GLU 125 Result Comment: Fasting Glucose result from 100 to 125 mg/dL suggests IMPAIRED HOMEOSTASIS per A.D.A. criteria. Please note revised GLUCOSE reference range effective 2017. LAB L501.1000 7-18 mg/dL Normal BUN 15 LAB L501.1100 0.70-1.30 mg/dL High CREAT,SERUM 1.45 Result Comment: The validity of the calculated GFR AND GFRAA in patients over 70 years has not been determined. Clinical correlation is essential. LAB L501.1110 >60 mL/min Low EST GFR 59 Result Comment: Non- GFR Calc LAB L501.1115 >60 mL/min Normal EST GFR - AA 71 Result Comment: GFR Calc LAB L501.1255 ml/min Normal Estimated CRCL 66.48 LAB L501.1300 10-20 RATIO Normal BUN/CRE 10.3 LAB L501.2200 8.5-10 mg/dL Normal .1 CA 8.5 LAB L501.5300 136-14 mmol/L Normal 5 NA 139 LAB L501.5600 3.5-5. mmol/L Normal 1 K 3.8 Result Comment: Moderate Hemolysis, Result may be falsely increased. LAB L501.5900 98-107 mmol/L Normal CL 106 LAB L501.6100 21.0-32.0 mmol/L Normal CO2 23.0 LAB L501.6200 5-15 Normal GAP 10 Performed By: #### L500.2500, L501.4010 #### [facility] [address] [place], [address] TROPONIN-I Collected: 01/02/2018 Status: F Source: RANDY 11:05 PM [facility] [place] Order Comment: 'TROP' Serial specimen #1, #2, #3, or #4: 1 TYPE CODE TESTS RESULT OUT OF RANGE REFERENCE UNITS LAB L501.4010 <0.06 ng/mL Normal < 0.02 TROPONIN-I Result Comment: TROPONIN-I EXPECTED VALUES <0.05 NEGATIVE 0.06 - 0.59 AT RISK OF PR > OR = 0.60 SUGGEST PR Performed By: #### L500.2500, L501.4010 #### [facility] [address] [place], [address] MAGNESIUM Collected: 01/02/2018 Status: F Source: RANDY 11:05 PM [facility] [place] TYPE CODE TESTS RESULT OUT OF RANGE REFERENCE UNITS LAB L501.5200 1.6-2.6 mg/dL Normal MG 2.1 Result Comment: Please note revised Magnesium reference range effective 2017. Moderate Hemolysis, Result may be falsely increased. Performed By: #### L501.5200, L501.9520 #### [facility] [address] [place], [address] THYROID STIM HORMONE Collected: 01/02/2018 Status: F Source: RANDY (TSH) 11:05 PM [facility] [place] TYPE CODE TESTS RESULT OUT OF RANGE REFERENCE UNITS LAB L501.9520 0.358-3.74 uIU/mL Normal TSH 1.49 Performed By: #### L501.5200, L501.9520 #### [facility] [address] [place], [address] BEDSIDE GLUCOSE Collected: 01/02/2018 Status: F Source: RANDY 10:58 PM [facility] [place] TYPE CODE TESTS RESULT OUT OF REFERENCE UNITS RANGE LAB L501.080 70-110 mg/dL High BEDSIDE GLU 116 Result Comment: MANAGEMENT OF PATIENT CARE PER NURSING PROTOCOL Performed By: #### L501.080 #### [facility] Point of Care [address] [place] [address] ALLERGIES ALLERGIES DATE TYPE / CODE NAME / CODE REACTION SEVERITY SOURCE 08/17/2018 Drug Penicillins/F Unknown Unknown [facility] Allergy/4160 [id number](RXN [facility] 12882(SNOMED ORM) Repository CT) 08/17/2018 Drug Sulfa Unknown Unknown [facility] Allergy/4160 (Sulfon[facility] 66993(SNOMED Antibiotics)/ Repository CT) [id number](RX NORM) ENCOUNTERS ENCOUNTERS ADMIT/DISCHARGE ACCOUNT ADMITTING ENCOUNTER LOCATION SOURCE NUMBER CLASS 11/11/2018 [id number] Ambulatory Warren Randy [address] [facility] ing:SL Repository 11/05/2018/ [id number] Emergency Warren Warren [address] [facility] ing:ED Repository 08/17/2018 [id number] Ambulatory Warren Randy [address] [facility] ing:MTRAD Repository 08/17/2018/ [id number] Ambulatory BMSBuilding:B Warren [address] [facility] Repository 07/18/2018 [id number] Ambulatory Randy Randy [address] [facility] ing:PSN Repository 03/15/2018/ [id number] Ambulatory BMSBuilding:B Randy 8 9 MS.[facility] Repository 03/09/2018 [id number] Ambulatory BMSBuilding:B Randy 4 [facility] Repository 03/07/2018/ [id number] Ambulatory BMSBuilding:B Randy 8 1 MS.[facility] Repository 03/02/2018/ [id number] Ambulatory Randy Warren [address] [facility] ing:EN Repository 03/02/2018 [id number] Ambulatory BMSBuilding:B Randy 6 MS.[facility] Repository 02/26/2018 [id number] Ambulatory BMSBuilding:B Warren 0 MS.[facility] Repository 02/10/2018/ [id number] Ambulatory BMSBuilding:B Warren 8 2 [facility] Repository 02/03/2018 [id number] Ambulatory Warren Randy [address] [facility] ing:MTRAD Repository 01/02/2018/ [id number] Nenita Portillo Ambulatory Warren Warren [address] [facility] ing:ICURoom: Repository [id number]: 1 01/02/2018 [id number] Nenita Portillo Ambulatory [facility]:B [place] 5 [facility] Repository 01/02/2018 [id number] Bandar Nenita Ambulatory BMS[facility]:B [place] 9 [facility] Repository PAYERS PAYERS ENCOUNTER GUARANTOR PAYER SUBSCRIBER SOURCE 11/11/2018 AURELIANO T Primary AURELIANO T Randy [id number] Insurance:MEDICAL WAITKUNASDOB: [facility] [id number] Number: Repository [address]Vcb: 330 [id number] [phone] () Date:7842-02-30ZQ[address] [address]TZ: 11/11/2018 Secondary NOT GIVENUNK Randy Insurance:SELF PAY [facility] Number: Effective Repository Date:2018-11-04 11/05/2018 AURELIANO T Primary AURELIANO T Warren [id number] Insurance:MEDICAL WAITKUNASDOB: [facility] [id number] Number: Repository [address]Zrj: 330 [id number] [phone] () Date:8574-45-02CN[address] [address]N[place]: 11/05/2018 Secondary NOT GIVENUNK Warren Insurance:SELF PAY [facility] Number: Effective Repository Date:2018-11-05 08/17/2018 AURELIANO T Primary AURELIANO T Randy [id number] Insurance:MEDICAL WAITKUNASDOB: [facility] [id number] Number: Repository [address]Htp: 330 [id number] [phone] () Date:6799-35-15EK [address] [address]JR: 08/17/2018 Secondary NOT GIVENUNK Randy Insurance:SELF PAY [facility] Number: Effective Repository Date:2018-08-17 08/17/2018 AURELIANO T Primary AURELIANO T Randy [id number] Insurance:MEDICAL WAITKUNASDOB: [facility] [id number] Number: Repository [address]Cak: 330 [id number] [phone] (HP) Date:7071-26-10ZI [address] [address]WO: 08/17/2018 Secondary NOT GIVENUNK Warren Insurance:SELF PAY [facility] Number: Effective Repository Date:2018-08-17 07/18/2018 AURELIANO T Primary AURELIANO T Randy [id number] Insurance:MEDICAL WAITKUNASDOB: [facility] [id number] Number: Repository [address]Fjq: 330 [id number] [phone] (HP) Date:7338-48-03BO [address] [place] [address]BY: 07/18/2018 Secondary NOT GIVENUNK Warren Insurance:SELF PAY [facility] Number: Effective Repository Date:2018-07-07 03/15/2018 AURELIANO T Primary AURELIANO T Warren [id number] Insurance:MEDICAL WAITKUNASDOB: [facility] [id number] Number: Repository [address]Yec: 330 [id number] [phone] (HP) Date:9145-36-86TC [address] [address]ER: 03/15/2018 Secondary NOT GIVENUNK Warren Insurance:SELF PAY [facility] Number: Effective Repository Date:2018-03-15 03/09/2018 AURELIANO T Primary AURELIANO T Randy [id number] Insurance:MEDICAL WAITKUNASDOB: [facility] [id number] Number: Repository [address]Xdp: 330 [id number] [phone] (HP) Date:7880-37-59TC [address] [place] [address]IP: 03/09/2018 Secondary NOT GIVENUNK Randy Insurance:SELF PAY [facility] Number: Effective Repository Date:2018-03-03 03/07/2018 AURELIANO T Primary AURELIANO T Randy [id number] Insurance:MEDICAL WAITKUNASDOB: [facility] [id number] Number: Repository [address]Zbg: 330 [id number] [phone] (HP) Date:5849-38-71MX [address] [address]FD: 03/07/2018 Secondary NOT GIVENUNK Randy Insurance:SELF PAY [facility] Number: Effective Repository Date:2018-03-07 03/02/2018 AURELIANO T Primary AURELIANO T Randy [id number] Insurance:MEDICAL WAITKUNASDOB: [facility] [id number] Number: Repository [address]Uab: 330 [id number] [phone] () Date:3852-71-59YB[address] [address]VO: 03/02/2018 Secondary NOT GIVENUNK Warren Insurance:SELF PAY [facility] Number: Effective Repository Date:2018-02-10 03/02/2018 AURELIANO T Primary AURELIANO T Warren [id number] Insurance:MEDICAL WAITKUNASDOB: [facility] [id number] Number: Repository [address]Kdu: 330 [id number] [phone] (HP) Date:0167-20-72SQ [address] [address]EX: 03/02/2018 Secondary NOT GIVENUNK Randy Insurance:SELF PAY [facility] Number: Effective Repository Date:2018-03-02 02/26/2018 AURELIANO T Primary AURELIANO T Warren [id number] Insurance:MEDICAL WAITKUNASDOB: [facility] [id number], [place] Number: Repository [address]Vzi: 330 [id number] [phone] (HP) Date:7663-26-48WV [address] [address]QV: 02/26/2018 Secondary NOT GIVENUNK Warren Insurance:SELF PAY [facility] Number: Effective Repository Date:2018-02-10 02/10/2018 AURELIANO T Primary AURELIANO T Randy [id number] Insurance:MEDICAL WAITKUNASDOB: [facility] [id number] Number: Repository [address]Ddi: 330 [id number] [phone] (HP) Date:4755-73-54EY [address] [address]IJ: 02/10/2018 Secondary NOT GIVENUNK Warren Insurance:SELF PAY [facility] Number: Effective Repository Date:2018-02-10 02/03/2018 AURELIANO T Primary AURELIANO T Warren [id number] Insurance:MEDICAL WAITKUNASDOB: [facility] [id number] Number: Repository [address]Elu: 330 [id number] [phone] (HP) Date:7134-14-22ZC [address] [address]JB: 02/03/2018 Secondary NOT GIVENUNK Randy Insurance:SELF PAY [facility] Number: Effective Repository Date:2018-02-03 01/02/2018 Aureliano T Primary NOT GIVENUNK Warren [id number] Insurance:SELF PAY [place] Number: Effective Repository [phone]: 330) Date:2018-01-02 [phone] (HP) 01/02/2018 Aureliano T Primary NOT GIVENUNK Warren [id number] Insurance:SELF [place] Number: Effective Repository [phone]: (330) Date:2018-01-02 [phone] (HP) 01/02/2018 Aureliano Gupta Primary NOT GIVENUNK Randy [id number] Insurance:SELF [place] Number: Effective Repository [phone]: (330) Date:2018-01-02 [phone] ()
== END 2018-11-05 03:55 | disposition home or self-care (01) ==
LOC: ED 03:02
PROVIDERS: Emergency Provider Emergency Medicine; Family Provider Family Medicine; PCP Family Medicine
DX: R10.30 Lower abdominal pain, unspecified (principal); R11.0 Nausea; R19.7 Diarrhea, unspecified; K59.09 Other constipation; M54.9 Dorsalgia, unspecified; K21.9 Gastro-esophageal reflux disease without esophagitis
CPT/HCPCS: 80053; 81001; 83690; 85025; 99283; A4216

== ENCOUNTER → 2018-11-11 | Outpatient (CLI) | payer OTHER, SELFPAY | END | disposition home or self-care (01) | LOC: SL 02-20 15:46 | PROVIDERS: Family Provider Family Medicine; PCP Family Medicine | DX: R06.83 Snoring (principal) | CPT/HCPCS: 95806 ==

== ENCOUNTER → 2019-01-02 17:29 | Outpatient (CLI) | payer OTHER, SELFPAY ==
--- NOTE | 2019-01-02 17:34 | CT_ITS ---
STUDY: CT ABDOMEN AND PELVIS WITH CONTRAST REASON FOR EXAM: Male, 38 years old. Constipation, lower abdominal pain RADIATION DOSAGE (If Supplied By Facility): CTDIvol = ( 12.57 ) mGy, DLP = ( 816.15 ) mGycm TECHNIQUE: Transaxial images were obtained from the dome of the diaphragm to the symphysis pubis without oral contrast. Isovue 300 100cc IV/Oral was administered. Sagittal and coronal images were reconstructed. Individualized dose optimization techniques were used for this CT. COMPARISON: None. FINDINGS: The visualized lung bases are unremarkable. The visualized portions of the heart are within normal limits. Normal liver. Normal gallbladder and extrahepatic biliary system. Normal spleen. Normal pancreas. Normal bilateral adrenal glands. Normal right kidney. Normal left kidney. Normal visualized stomach. Normal small intestine. Normal colon. The appendix is visualized and appears normal. Normal abdominal aorta. Normal inferior vena cava. Normal retroperitoneum. Normal urinary bladder. Normal abdominal wall. Normal osseous structures. CT/Abdomen/Pelvis WITH Contrast IMPRESSION: Normal enhanced CT of the abdomen and pelvis. Electronically Signed: Hair Zamudio DO at 23:36 EDT Tel [phone], Service support ,
== END ==
PROVIDERS: Family Provider Family Medicine; PCP Family Medicine; Referring Provider Family Medicine; Visit Provider Family Medicine
DX: K59.09 Other constipation (principal)
CPT/HCPCS: 74177; Q9967

== ENCOUNTER → 2019-01-31 11:19 | Outpatient (CLI) | payer OTHER, SELFPAY ==
[2019-02-06 03:06] LABS: Beef <0.10 kU/L (Class 0); Clam <0.10 kU/L (Class 0); Codfish <0.10 kU/L (Class 0); Corn <0.10 kU/L (Class 0); Egg, White <0.10 kU/L (Class 0); Garlic <0.10 kU/L (Class 0); Gluten <0.10 kU/L (Class 0); Milk (Cow) <0.10 kU/L (Class 0); Oat <0.10 kU/L (Class 0); Peanut <0.10 kU/L (Class 0); Pork <0.10 kU/L (Class 0); Potato, White <0.10 kU/L (Class 0); SCALLOP <0.10 kU/L (Class 0); SESAME SEED <0.10 kU/L (Class 0); Shrimp <0.10 kU/L (Class 0); Soybean <0.10 kU/L (Class 0); Tomato <0.10 kU/L (Class 0); Walnut, (Food) <0.10 kU/L (Class 0); Wheat <0.10 kU/L (Class 0); Yeast <0.10 kU/L (Class 0)
[2019-02-06 11:13] LABS: Immunoglobulin E 16 IU/mL (6-495)
[2019-02-06 11:14] LABS: Onion <0.10 kU/L (Class 0)
== END ==
PROVIDERS: Family Provider Family Medicine; PCP Family Medicine; Referring Provider Otolaryngology Otolaryngology/Facial Plastic Surgery; Visit Provider Otolaryngology Otolaryngology/Facial Plastic Surgery
DX: T78.40XA Allergy, unspecified, initial encounter (principal)
CPT/HCPCS: 36415; 82785; 86003

== ENCOUNTER → 2019-02-15 | Outpatient (CLI) | payer OTHER, SELFPAY ==
[2019-02-15 09:15] LABS: Vitamin B12 745 pg/mL (211-911); Vitamin D,25 Hydroxy 22.6 ng/mL (29.95-100.01)
[2019-02-15 09:17] LABS: Anion Gap 6 (5-15); BUN 11 mg/dL (7-18); BUN/Creat Ratio 7.5 RATIO (10-20); Calcium,Total 8.8 mg/dL (8.5-10.1); Chloride 106 mmol/L (98-107); Cholesterol 205 mg/dL (200); Creatinine, Serum 1.47 mg/dL (0.70-1.30); EST Glomerular Filtration Rate 58 mL/min (>60); Est Glom Filt Rate - Afr Amer 70 mL/min (>60); Glucose 90 mg/dL (74-106); High Density Lipoprotein 34 mg/dL; Sodium Level 141 mmol/L (136-145); T4 Free Direct 0.86 ng/dL (0.76-1.46); Thyroid Stim Hormone (TSH) 0.82 uIU/mL (0.358-3.74); Triglycerides 254 mg/dL; Very Low Density Lipoprotein 51 mg/dL (5-40)
== END | disposition home or self-care (01) ==
LOC: LAB 07:17
PROVIDERS: Family Provider Family Medicine; PCP Family Medicine
DX: E55.9 Vitamin D deficiency, unspecified (principal); Z79.899 Other long term (current) drug therapy; R53.83 Other fatigue
CPT/HCPCS: 36415; 80048; 80061; 82306; 82607; 82746; 84439; 84443

== ENCOUNTER → 2019-04-12 | Outpatient (CLI) | payer OTHER, SELFPAY ==
[2019-04-15 14:06] LABS: Testosterone, Free 6.34 ng/dL (5.00-21.00)
[2019-04-16 14:12] LABS: Testosterone, % Free 3.56 % (1.50-4.20); Testosterone, Total 178 ng/dL (264-916)
== END | disposition home or self-care (01) ==
LOC: LAB 13:07
PROVIDERS: Family Provider Family Medicine; PCP Family Medicine
DX: Z79.899 Other long term (current) drug therapy (principal)
CPT/HCPCS: 36415; 84402; 84403

== ENCOUNTER → 2019-04-26 | Outpatient (CLI) | payer OTHER, SELFPAY ==
[2019-04-26 10:26] LABS: Anion Gap 4 (5-15); BUN 10 mg/dL (7-18); BUN/Creat Ratio 6.6 RATIO (10-20); Calcium,Total 8.8 mg/dL (8.5-10.1); Chloride 106 mmol/L (98-107); Cholesterol 215 mg/dL (200); Creatinine, Serum 1.51 mg/dL (0.70-1.30); EST Glomerular Filtration Rate 56 mL/min (>60); Est Glom Filt Rate - Afr Amer 67 mL/min (>60); Glucose 85 mg/dL (74-106); High Density Lipoprotein 36 mg/dL; Potassium 3.9 mmol/L (3.5-5.1); Sodium Level 140 mmol/L (136-145); Triglycerides 271 mg/dL; Very Low Density Lipoprotein 54 mg/dL (5-40)
== END | disposition home or self-care (01) ==
LOC: MTLAB 07:23
PROVIDERS: Family Provider Family Medicine; PCP Family Medicine; Referring Provider Family Medicine; Visit Provider Family Medicine
DX: E78.5 Hyperlipidemia, unspecified (principal); R10.30 Lower abdominal pain, unspecified
CPT/HCPCS: 36415; 80048; 80061

== ENCOUNTER → 2019-05-23 | Outpatient (CLI) | payer OTHER, SELFPAY ==
[2019-05-23 12:34] LABS: BUN 12 mg/dL (7-18)
[2019-05-23 14:00] LABS: EST Glomerular Filtration Rate 61 mL/min (>60); Est Glom Filt Rate - Afr Amer 73 mL/min (>60)
== END | disposition home or self-care (01) ==
PROVIDERS: Family Provider Family Medicine; PCP Family Medicine; Referring Provider Family Medicine; Visit Provider Family Medicine
DX: N18.2 Chronic kidney disease, stage 2 (mild) (principal); R79.89 Other specified abnormal findings of blood chemistry
CPT/HCPCS: 36415; 82565; 84403; 84520

== ENCOUNTER → 2019-06-20 | Outpatient (CLI) | payer OTHER, SELFPAY ==
[2019-06-20 08:49] LABS: Bacteria 0 SEEN /hpf (None Seen); Mucous, Urine 0 SEEN /hpf (<or=2+); Red Blood Cells-Urine 0 SEEN /hpf (0-5); Squamous Epithelial Cells - UA 0 SEEN /hpf (0-5); White Blood Cells 0 SEEN /hpf (0-5)
[2019-06-20 10:18] LABS: Color, Urine Yellow (Yellow); Glucose, Dipstick Normal (Normal); Ketone-Dipstick Negative (Negative); Leukocyte Esterase-Dipstick Negative /ul (Negative); Nitrite-Dipstick Negative (Negative); Occult Blood-Urine Negative /ul (Negative); Protein-Dipstick Negative (Negative); Urine Bilirubin Dipstick Negative (Negative); Urine Clarity Clear (Clear); Urine Urobilinogen Normal (Normal); Urine pH 6.5 (5.0 - 8.0)
[2019-06-20 10:22] LABS: Absolute Lymphocyte Count 2.51 X10^3/uL (0.83-4.51); Basophil# 0.05 X10^3/uL; Basophil% 0.8 % (0-1); Eosinophil# 0.33 X10^3/uL; Eosinophils% 5.2 % (0-5); Hematocrit 45.9 % (40-54); Hemoglobin 15.7 g/dL (13.0-16.5); Lymphocyte # 2.51 X10^3/ul (4.0); Lymphocyte % 39.7 % (19-41); Mean Corp Hgb Conc 34.2 g/dL (32-36); Mean Corpuscular Hgb 31.3 pg (27.0-32.0); Mean Corpuscular Volume 91.6 fL (80-94); Mean Platelet Vol. 10.1 fl (6.2-12.0); Monocyte# 0.46 X10^3/uL; Monocyte% 7.3 % (0-10); NRBC Flagged by Analyzer 0 % (0-5); Neutrophil # 2.97 X10^3/uL (2.7-7.7); Neutrophil % 46.8 % (47-70); Platelet Count 252 K/mm3 (150-450); RBC Distribution Width CV 12.4 % (11.6-14.6); RBC Distribution Width SD 41.1 fl (35.1-43.9); Red Blood Count 5.01 M/mm3 (4.6-6.2); White Blood Count 6.3 K/mm3 (4.4-11.0)
[2019-06-20 10:41] LABS: Vitamin B12 1041 pg/mL (211-911); Vitamin D,25 Hydroxy 37.3 ng/mL (29.95-100.01)
[2019-06-20 10:49] LABS: AST(SGOT) 16 U/L (15-37); Alanine Aminotransfer ALT/SGPT 35 U/L (16-61); Albumin, Serum 3.7 g/dL (3.2-5.0); Alkaline Phosphatase 74 U/L (45-117); Anion Gap 8 (5-15); BUN 8 mg/dL (7-18); BUN/Creat Ratio 5.4 RATIO (10-20); Calcium,Total 8.9 mg/dL (8.5-10.1); Chloride 108 mmol/L (98-107); Cholesterol 196 mg/dL (200); Creatinine, Serum 1.49 mg/dL (0.70-1.30); EST Glomerular Filtration Rate 57 mL/min (>60); Est Glom Filt Rate - Afr Amer 68 mL/min (>60); Globulin 3.7 g/dL (2.2-4.2); Glucose 93 mg/dL (74-106); High Density Lipoprotein 36 mg/dL; Potassium 3.9 mmol/L (3.5-5.1); Protein, Total 7.4 g/dL (6.4-8.2); Sodium Level 140 mmol/L (136-145); Thyroid Stim Hormone (TSH) 0.51 uIU/mL (0.358-3.74); Triglycerides 266 mg/dL; Very Low Density Lipoprotein 53 mg/dL (5-40)
[2019-06-23 09:36] LABS: Testosterone, Free 4.99 ng/dL (5.00-21.00)
[2019-06-23 12:09] LABS: Testosterone, % Free 2.87 % (1.50-4.20); Testosterone, Total 174 ng/dL (264-916)
== END | disposition home or self-care (01) ==
LOC: MFPLAB 08:46
PROVIDERS: Family Provider Family Medicine; PCP Family Medicine; Referring Provider Family Medicine; Visit Provider Family Medicine
DX: R53.83 Other fatigue (principal); E55.9 Vitamin D deficiency, unspecified; L65.9 Nonscarring hair loss, unspecified; E78.5 Hyperlipidemia, unspecified; E34.9 Endocrine disorder, unspecified
CPT/HCPCS: 80053; 80061; 81001; 82306; 82607; 84402; 84403; 84439; 84443; 85025

== ENCOUNTER → 2019-07-18 08:44 | Outpatient (CLI) | payer OTHER, SELFPAY ==
--- NOTE | 2019-07-18 08:46 | RDU_ITS ---
Reason For Study: CKD Right Renal Artery Left Renal Artery Right renal artery ostium 86.1/24.6 Left renal artery ostium 88.2/31.2 RSV/EDV. PSV/EDV. Right renal artery proximal Left renal artery proximal PSV/EDV 112.4/42.1 PSV/EDV. 92.6/31.2 . Right renal artery mid 102.4/39.3 Left renal artery mid 105.8/31.2 PSV/EDV. PSV/EDV . Right renal artery distal 116/50.9 Left renal artery distal 136.5/37.7 PSV/EDV. PSV/EDV. Right Renal Parenchyma Left Renal Parenchyma Upper Pole Medula 40.2/13.3 Left upper pole medulla 30.2/13.0 PSV/EDV. PSV/EDV . Right upper pole medulla EDR .33 . Left upper pole medulla EDR .43 . Right upper pole medulla R.I. .67 . Left upper pole medulla R.I. .57 . Upper Arvind Cortx 18.8/8.4 PSV/EDV. UP Cortex 14.9/6.9 PSV/EDV. Right upper pole cortex EDR .44 . Left upper pole cortex EDR .46 . Right upper pole cortex R.I. .56 . Left upper pole cortex R.I. .54 . Right lower Pole medulla 28.1/11.7 Left lower Pole medulla 24.1/12.4 PSV/EDV . PSV/EDV . Right lower pole medulla EDR .41 . Left lower pole medulla EDR .52 . Right lower pole medulla R.I. .59 . Left lower pole medulla R.I. .48 . Lower Pole Cortex 19.9/10.0 Lower Pole Cortx 18.5/7.5 PSV/EDV. PSV/EDV. Left lower pole cortex EDR .4 . Right lower pole cortex EDR .5 . Left lower pole cortex R.I. .6 . Right lower pole cortex R.I. .5 . Left Renal Hilar Right Renal Hilar LT Hilar avg 27.1/813.6 PSV/EDV . Right Hilar avg 43.7/17.9 PSV/EDV. Left hilar acceleration time 40.0 Right hilar acceleration time 40.0 m/sec. m/sec. Left Renal Dimensions Right Renal Dimensions Left kidney size 10.6 cm . Right kidney size 11.5 cm . Left cortical dimension 1.19 cm . Right cortical dimension 1.84 cm . Aorta Proximal abdominal aorta 1.02 x 1.04 cm . Distal abdominal aorta 1.24 x 1.13 cm . Proximal abdominal aorta peak systolic velocity is 109.3 cm/sec . Distal abdominal aorta peak systolic velocity is 111.9 cm/sec . Normal renal veins bilat. Interpretation Summary Dimensions of the intra-abdominal aorta appear normal, without evidence of aneurysmal dilatation. Renal artery velocities are bilaterally normal. Acceleration times are normal bilaterally. There is no evidence of hemodynamically significant renal artery stenosis on either side. Renovascular resistance appears to be bilaterally normal . The right cortical dimension is increased. The left cortical dimension is normal. Kidneys appear normal in size bilaterally. Ordering Physician: Thiago Richter Performed By: João Marsh RVT
--- NOTE | 2019-07-18 09:24 | US_ITS ---
STUDY: RENAL ULTRASOUND - COMPLETE REASON FOR EXAM: Male, 38 years old. Chronic kidney disease TECHNIQUE: Ultrasound evaluation of the kidneys was performed with real-time and static crespo-scale imaging. COMPARISON: None available. FINDINGS: RIGHT KIDNEY: Normal location of the right kidney, which is normal in size. The right kidney measures 10.5 cm. There is a normal cortex of the right kidney. There is no right renal mass or cyst. There are no right renal calculi. There is no right hydronephrosis. DISTAL RIGHT URETER: There is non-visualization of the distal right ureter. There is no demonstrated right ureterovesical junction calculus. There is a visualized right ureteral jet. LEFT KIDNEY: Normal location of the left kidney, which is normal in size. The left kidney measures 10.7 cm. There is a normal cortex of the left kidney. There is no left renal mass or cyst. There are no left renal calculi. There is no left hydronephrosis. DISTAL LEFT URETER: There is non-visualization of the distal left ureter. There is no demonstrated left ureterovesical junction calculus. There is a visualized left ureteral jet. BLADDER: The urinary bladder is partially distended and appears unremarkable. US/Kidney and Bladder IMPRESSION: Normal ultrasound of the kidneys and urinary bladder. Electronically Signed: Seb Aguilar, at 17:07 EDT Tel , Service support ,
== END ==
PROVIDERS: Family Provider Family Medicine; PCP Family Medicine; Referring Provider Family Medicine; Visit Provider Family Medicine
DX: N18.9 Chronic kidney disease, unspecified (principal)
CPT/HCPCS: 76770; 93975

== ENCOUNTER → 2019-07-25 09:36 | Outpatient (CLI) | payer OTHER, SELFPAY ==
[2019-07-25 12:45] LABS: Anion Gap 4 (5-15); BUN 8 mg/dL (7-18); BUN/Creat Ratio 6.2 RATIO (10-20); Calcium,Total 9.2 mg/dL (8.5-10.1); Chloride 104 mmol/L (98-107); EST Glomerular Filtration Rate 66 mL/min (>60); Est Glom Filt Rate - Afr Amer 80 mL/min (>60); Glucose 71 mg/dL (74-106); Potassium 3.8 mmol/L (3.5-5.1); Sodium Level 137 mmol/L (136-145)
== END ==
PROVIDERS: Family Provider Family Medicine; PCP Family Medicine; Referring Provider Family Medicine; Visit Provider Family Medicine
DX: N18.2 Chronic kidney disease, stage 2 (mild) (principal)
CPT/HCPCS: 36415; 80048

== ENCOUNTER → 2019-11-20 08:25 | Outpatient (CLI) | payer OTHER, SELFPAY ==
[2019-11-20 10:29] LABS: Hematocrit 46.2 % (40-54); Hemoglobin 15.9 g/dL (13.0-16.5); Mean Corp Hgb Conc 34.4 g/dL (32-36); Mean Corpuscular Hgb 30.8 pg (27.0-32.0); Mean Corpuscular Volume 89.5 fL (80-94); Mean Platelet Vol. 9.7 fl (6.2-12.0); Platelet Count 269 K/mm3 (150-450); RBC Distribution Width CV 12.1 % (11.6-14.6); RBC Distribution Width SD 39.8 fl (35.1-43.9); Red Blood Count 5.16 M/mm3 (4.6-6.2); White Blood Count 7.5 K/mm3 (4.4-11.0)
[2019-11-20 10:46] LABS: Hemoglobin A1c 5.1 % (4.2-6.3)
[2019-11-20 11:02] LABS: AST(SGOT) 21 U/L (15-37); Alanine Aminotransfer ALT/SGPT 42 U/L (16-61); Anion Gap 6 (5-15); BUN 11 mg/dL (7-18); BUN/Creat Ratio 7.3 RATIO (10-20); Calcium,Total 9.1 mg/dL (8.5-10.1); Chloride 105 mmol/L (98-107); Cholesterol 233 mg/dL (200); EST Glomerular Filtration Rate 56 mL/min (>60); Est Glom Filt Rate - Afr Amer 68 mL/min (>60); Glucose 91 mg/dL (74-106); High Density Lipoprotein 35 mg/dL; Potassium 3.8 mmol/L (3.5-5.1); Sodium Level 139 mmol/L (136-145); Thyroid Stim Hormone (TSH) 0.64 uIU/mL (0.358-3.74); Triglycerides 367 mg/dL; Very Low Density Lipoprotein 73 mg/dL (5-40)
== END ==
PROVIDERS: PCP Family Medicine
DX: Z79.899 Other long term (current) drug therapy (principal)
CPT/HCPCS: 36415; 80048; 80061; 83036; 84443; 84450; 84460; 85027

== ENCOUNTER → 2020-04-15 13:20 | Outpatient (CLI) | payer OTHER, SELFPAY ==
[2020-04-15 16:02] LABS: Absolute Lymphocyte Count 2.94 X10^3/uL (0.83-4.51); Absolute Neutrophil Count 3.2 X10^3/uL (2.0-7.7); Basophil# 0.07 X10^3/uL; Eosinophil# 0.43 X10^3/uL; Hematocrit 46.1 % (40-54); Hemoglobin 15.9 g/dL (13.0-16.5); Lymphocyte # 2.94 X10^3/ul (4.0); Lymphocyte % 40.7 % (19-41); Mean Corp Hgb Conc 34.5 g/dL (32-36); Mean Corpuscular Hgb 31.6 pg (27.0-32.0); Mean Corpuscular Volume 91.7 fL (80-94); Monocyte# 0.53 X10^3/uL; Monocyte% 7.3 % (0-10); NRBC Flagged by Analyzer 0 % (0-5); Neutrophil # 3.23 X10^3/uL (2.7-7.7); Neutrophil % 44.7 % (47-70); Platelet Count 252 K/mm3 (150-450); RBC Distribution Width CV 12.1 % (11.6-14.6); RBC Distribution Width SD 40.2 fl (35.1-43.9); Red Blood Count 5.03 M/mm3 (4.6-6.2); White Blood Count 7.2 K/mm3 (4.4-11.0)
[2020-04-15 16:09] LABS: Vitamin B12 565 pg/mL (211-911); Vitamin D,25 Hydroxy 40.2 ng/mL
[2020-04-15 16:39] LABS: ALB/GLOB Ratio 1.1 RATIO (0.9-2.4); AST(SGOT) 24 U/L (15-37); Alanine Aminotransfer ALT/SGPT 40 U/L (16-61); Albumin, Serum 3.7 g/dL (3.2-5.0); Alkaline Phosphatase 80 U/L (45-117); Anion Gap 8 (5-15); BUN 11 mg/dL (7-18); CPK Total, Creatine Kinase 130 U/L (39-308); Calcium,Total 8.7 mg/dL (8.5-10.1); Chloride 106 mmol/L (98-107); Creatinine, Serum 1.38 mg/dL (0.70-1.30); EST Glomerular Filtration Rate 61 mL/min (>60); Est Glom Filt Rate - Afr Amer 74 mL/min (>60); Ferritin 52 ng/mL (26-388); Globulin 3.5 g/dL (2.2-4.2); Glucose 100 mg/dL (74-106); Magnesium 2.1 mg/dL (1.6-2.6); Potassium 3.5 mmol/L (3.5-5.1); Protein, Total 7.2 g/dL (6.4-8.2); Sodium Level 139 mmol/L (136-145)
[2020-04-15 17:24] LABS: Erythrocyte Sedimentation Rate 13 mm/hr (0-15)
[2020-04-20 17:47] LABS: ANTINUCLEAR ANTIBODIES DIRECT Negative (Negative)
== END ==
PROVIDERS: PCP Family Medicine; Referring Provider Family Medicine; Visit Provider Family Medicine
DX: R10.9 Unspecified abdominal pain (principal); R25.2 Cramp and spasm; R53.83 Other fatigue
CPT/HCPCS: 80053; 82306; 82550; 82607; 82728; 83735; 85025; 85652; 86038

== ENCOUNTER → 2020-05-30 10:56 | Outpatient (CLI) | payer OTHER, SELFPAY ==
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
== END ==
PROVIDERS: PCP Family Medicine; Referring Provider Family Medicine; Visit Provider Family Medicine
DX: R07.81 Pleurodynia (principal)
CPT/HCPCS: 71101

== ENCOUNTER → 2020-06-17 10:28 | Outpatient (CLI) | payer OTHER, SELFPAY ==
[2020-06-17 10:31] LABS: Bacteria 0 SEEN /hpf (None Seen); Mucous, Urine 0 SEEN /hpf (<or=2+); Red Blood Cells-Urine 0 SEEN /hpf (0-5); Squamous Epithelial Cells - UA 0 SEEN /hpf (0-5); White Blood Cells 0 SEEN /hpf (0-5)
[2020-06-17 12:05] LABS: Color, Urine Straw (Yellow); Glucose, Dipstick Normal (Normal); Ketone-Dipstick Negative (Negative); Leukocyte Esterase-Dipstick Negative /ul (Negative); Nitrite-Dipstick Negative (Negative); Occult Blood-Urine Negative /ul (Negative); Protein-Dipstick Negative (Negative); Specific Gravity, Urine 1.005 (1.002-1.030); Urine Bilirubin Dipstick Negative (Negative); Urine Clarity Clear (Clear); Urine Urobilinogen Normal (Normal)
[2020-06-17 12:22] LABS: Hemoglobin A1c 5.2 % (3.8-5.6)
[2020-06-17 12:26] LABS: ALB/GLOB Ratio 0.9 RATIO (0.9-2.4); AST(SGOT) 25 U/L (15-37); Alanine Aminotransfer ALT/SGPT 42 U/L (16-61); Albumin, Serum 3.6 g/dL (3.2-5.0); Alkaline Phosphatase 117 U/L (45-117); Anion Gap 4 (5-15); BUN 11 mg/dL (7-18); BUN/Creat Ratio 7.2 RATIO (10-20); Calcium,Total 8.5 mg/dL (8.5-10.1); Chloride 104 mmol/L (98-107); Creatinine, Serum 1.53 mg/dL (0.70-1.30); EST Glomerular Filtration Rate 55 mL/min (>60); Est Glom Filt Rate - Afr Amer 66 mL/min (>60); Globulin 3.8 g/dL (2.2-4.2); Glucose 87 mg/dL (74-106); Potassium 4.3 mmol/L (3.5-5.1); Protein, Total 7.4 g/dL (6.4-8.2); Sodium Level 137 mmol/L (136-145); Thyroid Stim Hormone (TSH) 0.69 uIU/mL (0.358-3.74)
== END ==
PROVIDERS: PCP Family Medicine; Referring Provider Family Medicine; Visit Provider Family Medicine
DX: R63.5 Abnormal weight gain (principal); R63.1 Polydipsia
CPT/HCPCS: 36415; 80053; 81001; 83036; 84443

== ENCOUNTER → 2020-09-11 | Outpatient (CLI) | payer OTHER, SELFPAY | END | disposition home or self-care (01) | LOC: LABSPEC 09-13 08:30 | PROVIDERS: PCP Family Medicine; Referring Provider Otolaryngology; Visit Provider Otolaryngology | DX: U07.1 COVID-19 (principal) | CPT/HCPCS: 87635; C9803; U0003 ==

== ENCOUNTER → 2020-11-22 08:35 | Outpatient (CLI) | payer OTHER, SELFPAY ==
[2020-11-22 10:39] LABS: Absolute Lymphocyte Count 2.71 X10^3/uL (0.83-4.51); Absolute Neutrophil Count 3.4 X10^3/uL (2.0-7.7); Basophil# 0.04 X10^3/uL; Basophil% 0.6 % (0-1); Color, Urine Yellow (Yellow); Eosinophil# 0.41 X10^3/uL; Eosinophils% 5.8 % (0-5); Glucose, Dipstick Normal (Normal); Hematocrit 49.1 % (40-54); Hemoglobin 16.2 g/dL (13.0-16.5); Ketone-Dipstick Negative (Negative); Leukocyte Esterase-Dipstick Negative /ul (Negative); Lymphocyte # 2.71 X10^3/ul (4.0); Lymphocyte % 38.3 % (19-41); Mean Corpuscular Hgb 30.2 pg (27.0-32.0); Mean Corpuscular Volume 91.6 fL (80-94); Mean Platelet Vol. 10.2 fl (6.2-12.0); Monocyte# 0.49 X10^3/uL; Monocyte% 6.9 % (0-10); NRBC Flagged by Analyzer 0 % (0-5); Neutrophil # 3.41 X10^3/uL (2.7-7.7); Neutrophil % 48.3 % (47-70); Nitrite-Dipstick Negative (Negative); Occult Blood-Urine Negative /ul (Negative); Platelet Count 286 K/mm3 (150-450); Protein-Dipstick Negative (Negative); RBC Distribution Width CV 12.2 % (11.6-14.6); RBC Distribution Width SD 41.2 fl (35.1-43.9); Red Blood Count 5.36 M/mm3 (4.6-6.2); Urine Bilirubin Dipstick Negative (Negative); Urine Clarity Clear (Clear); Urine Urobilinogen Normal (Normal); White Blood Count 7.1 K/mm3 (4.4-11.0)
[2020-11-22 10:53] LABS: Albumin, Serum 3.8 g/dL (3.2-5.0); BUN 9 mg/dL (7-18); BUN/Creat Ratio 6.1 RATIO (10-20); Calcium,Total 9.1 mg/dL (8.5-10.1); Chloride 107 mmol/L (98-107); Creatinine, Serum 1.48 mg/dL (0.70-1.30); EST Glomerular Filtration Rate 57 mL/min (>60); Est Glom Filt Rate - Afr Amer 68 mL/min (>60); Ferritin 57 ng/mL (26-388); Glucose 81 mg/dL (74-106); Iron 72 ug/dL (65-175); Iron Binding Capacity,Total 346 ug/dL (250-450); PERCENT IRON SATURATION 20.8 % (15.0-55.0); Phosphorus 2.4 mg/dL (2.5-4.9); Potassium 3.9 mmol/L (3.5-5.1); Rheumatoid Factor < 10.0 IU/mL (<15); Sodium Level 141 mmol/L (136-145); Uric Acid 7.7 mg/dL (3.5-7.2)
[2020-11-22 10:54] LABS: Vitamin D,25 Hydroxy 29.2 ng/mL
[2020-11-22 10:57] LABS: Protein, Urine (Random) < 6.0 mg/dL (<11.9)
[2020-11-24 14:52] LABS: ANTINUCLEAR ANTIBODIES DIRECT Negative (Negative)
[2020-11-25 20:07] LABS: Cytoplasmic Ab (C-ANCA) <1:20 titer (Neg:<1:20); Immunoglobulin A 253 mg/dL (90-386); Immunoglobulin G 954 mg/dL (603-1613); Immunoglobulin M 59 mg/dL (20-172); PROEL- A/G Ratio 1.2 (0.7-1.7); PROEL- Albumin 3.7 g/dL (2.9-4.4); PROEL- Alpha-1 Globulin 0.2 g/dL (0.0-0.4); PROEL- Alpha-2 Globulin 0.7 g/dL (0.4-1.0); PROEL- Beta Globulin 1.2 g/dL (0.7-1.3); PROEL- Gamma Globulin 0.9 g/dL (0.4-1.8); PROEL- Globulin, Total 3.1 g/dL (2.2-3.9); PROEL- TOTAL PROTEIN 6.8 g/dL (6.0-8.5)
[2020-11-25 21:44] LABS: Complement C3 131 mg/dL (82-167); Perinuclear Ab (P-ANCA) <1:20 titer (Neg:<1:20)
== END ==
PROVIDERS: PCP Family Medicine; Referring Provider Internal Medicine Nephrology; Visit Provider Internal Medicine Nephrology
DX: N18.31 Chronic kidney disease, stage 3a (principal)
CPT/HCPCS: 36415; 80069; 81002; 82306; 82570; 82728; 82784; 83540; 83550; 84156; 84165; 84550; 85025; 86038; 86160; 86256; 86334; 86431

== ENCOUNTER → 2021-02-05 09:18 | Outpatient (CLI) | payer OTHER, SELFPAY ==
[2021-02-05 10:12] LABS: Absolute Lymphocyte Count 2.52 X10^3/uL (0.83-4.51); Absolute Neutrophil Count 3.1 X10^3/uL (2.0-7.7); Basophil# 0.05 X10^3/uL; Basophil% 0.8 % (0-1); Eosinophils% 6.1 % (0-5); Hematocrit 46.7 % (40-54); Lymphocyte # 2.52 X10^3/ul (0.83-4.51); Lymphocyte % 38.2 % (19-41); Mean Corp Hgb Conc 34.3 g/dL (32-36); Mean Corpuscular Hgb 31.1 pg (27.0-32.0); Mean Corpuscular Volume 90.7 fL (80-94); Mean Platelet Vol. 9.6 fl (6.2-12.0); Monocyte% 7.6 % (0-10); NRBC Flagged by Analyzer 0 % (0-5); Neutrophil # 3.11 X10^3/uL (2.7-7.7); Platelet Count 278 K/mm3 (150-450); RBC Distribution Width CV 11.9 % (11.6-14.6); RBC Distribution Width SD 39.6 fl (35.1-43.9); Red Blood Count 5.15 M/mm3 (4.6-6.2); White Blood Count 6.6 K/mm3 (4.4-11.0)
[2021-02-05 10:54] LABS: ALB/GLOB Ratio 1.1 RATIO (0.9-2.4); AST(SGOT) 18 U/L (15-37); Alanine Aminotransfer ALT/SGPT 36 U/L (16-61); Albumin, Serum 3.8 g/dL (3.2-5.0); Alkaline Phosphatase 86 U/L (45-117); Anion Gap 4 (5-15); BUN 12 mg/dL (7-18); BUN/Creat Ratio 8.8 RATIO (10-20); Calcium,Total 9.3 mg/dL (8.5-10.1); Chloride 105 mmol/L (98-107); Creatinine, Serum 1.37 mg/dL (0.70-1.30); EST Glomerular Filtration Rate 62 mL/min (>60); Est Glom Filt Rate - Afr Amer 75 mL/min (>60); Globulin 3.6 g/dL (2.2-4.2); Glucose 87 mg/dL (74-106); Protein, Total 7.4 g/dL (6.4-8.2); Sodium Level 138 mmol/L (136-145)
== END ==
PROVIDERS: PCP Family Medicine; Visit Provider Family Medicine
DX: R41.0 Disorientation, unspecified (principal)
CPT/HCPCS: 36415; 80053; 82140; 85025

== ENCOUNTER → 2021-03-20 | Outpatient (CLI) | payer OTHER, SELFPAY ==
[2021-03-20 14:10] LABS: Chlamydia Trachomatis by PCR Negative (Negative); Neisserai gonorrhoeae by PCR Negative (Negative); Probe Check PASS; Sample Adequacy Control PASS; Specimen Processing Control PASS
== END | disposition home or self-care (01) ==
LOC: LABSPEC 10:41
PROVIDERS: Visit Provider Urology
DX: R36.1 Hematospermia (principal)
CPT/HCPCS: 87491; 87591

== ENCOUNTER → 2021-06-30 07:08 | Outpatient (CLI) | payer OTHER, SELFPAY ==
[2021-06-30 10:38] LABS: Absolute Lymphocyte Count 3.43 X10^3/uL (0.83-4.51); Absolute Neutrophil Count 3.9 X10^3/uL (2.0-7.7); Basophil# 0.09 X10^3/uL; Eosinophil# 0.53 X10^3/uL; Eosinophils% 6.1 % (0-5); Hematocrit 46.8 % (40-54); Hemoglobin 15.9 g/dL (13.0-16.5); Lymphocyte # 3.43 X10^3/ul (0.83-4.51); Lymphocyte % 39.7 % (19-41); Mean Corpuscular Hgb 30.7 pg (27.0-32.0); Mean Corpuscular Volume 90.3 fL (80-94); Mean Platelet Vol. 10.2 fl (6.2-12.0); Monocyte# 0.66 X10^3/uL; Monocyte% 7.6 % (0-10); NRBC Flagged by Analyzer 0 % (0-5); Neutrophil # 3.93 X10^3/uL (2.7-7.7); Neutrophil % 45.5 % (47-70); Platelet Count 301 K/mm3 (150-450); RBC Distribution Width CV 11.9 % (11.6-14.6); RBC Distribution Width SD 39.7 fl (35.1-43.9); Red Blood Count 5.18 M/mm3 (4.6-6.2); White Blood Count 8.7 K/mm3 (4.4-11.0)
[2021-06-30 10:49] LABS: PTHIN 53.5 pg/mL (18.4-80.1)
[2021-06-30 10:54] LABS: Protein, Urine (Random) 10.6 mg/dL (<11.9); Protein:Creat Ratio 85 mg/g CRE (0-200)
[2021-06-30 10:56] LABS: Color, Urine Yellow (Yellow); Glucose, Dipstick Normal (Normal); Ketone-Dipstick Negative (Negative); Leukocyte Esterase-Dipstick Negative /ul (Negative); Nitrite-Dipstick Negative (Negative); Occult Blood-Urine Negative /ul (Negative); Protein-Dipstick Negative (Negative); Specific Gravity, Urine 1.015 (1.002-1.030); Urine Bilirubin Dipstick Negative (Negative); Urine Clarity Clear (Clear); Urine Urobilinogen Normal (Normal)
[2021-06-30 11:05] LABS: Albumin, Serum 3.7 g/dL (3.2-5.0); BUN 11 mg/dL (7-18); BUN/Creat Ratio 7.6 RATIO (10-20); Calcium,Total 9.3 mg/dL (8.5-10.1); Chloride 104 mmol/L (98-107); Creatinine, Serum 1.45 mg/dL (0.70-1.30); EST Glomerular Filtration Rate 58 mL/min (>60); Est Glom Filt Rate - Afr Amer 70 mL/min (>60); Ferritin 86 ng/mL (26-388); Glucose 90 mg/dL (74-106); Iron 74 ug/dL (65-175); Iron Binding Capacity,Total 322 ug/dL (250-450); Phosphorus 3.2 mg/dL (2.5-4.9); Potassium 3.9 mmol/L (3.5-5.1); Sodium Level 140 mmol/L (136-145); Uric Acid 7.1 mg/dL (3.5-7.2)
== END ==
PROVIDERS: PCP Family Medicine; Referring Provider Internal Medicine Nephrology; Visit Provider Internal Medicine Nephrology
DX: N18.31 Chronic kidney disease, stage 3a (principal); D63.1 Anemia in chronic kidney disease
CPT/HCPCS: 36415; 80069; 81002; 82570; 82728; 83540; 83550; 83970; 84156; 84550; 85025

== ENCOUNTER → 2022-04-02 | Outpatient (CLI) | payer OTHER, SELFPAY ==
[2022-04-02 12:20] LABS: Absolute Lymphocyte Count 2.88 X10^3/uL (0.83-4.51); Absolute Neutrophil Count 3.3 X10^3/uL (2.0-7.7); Basophil# 0.05 X10^3/uL; Basophil% 0.7 % (0-1); Eosinophil# 0.43 X10^3/uL; Eosinophils% 5.9 % (0-5); Lymphocyte # 2.88 X10^3/ul (0.83-4.51); Lymphocyte % 39.6 % (19-41); Mean Corpuscular Hgb 31.5 pg (27.0-32.0); Mean Corpuscular Volume 92.5 fL (80-94); Mean Platelet Vol. 9.8 fl (6.2-12.0); Monocyte% 8.2 % (0-10); NRBC Flagged by Analyzer 0 % (0-5); Neutrophil % 45.3 % (47-70); Platelet Count 280 K/mm3 (150-450); RBC Distribution Width CV 11.9 % (11.6-14.6); RBC Distribution Width SD 40.7 fl (35.1-43.9); Red Blood Count 5.08 M/mm3 (4.6-6.2); White Blood Count 7.3 K/mm3 (4.4-11.0)
[2022-04-02 12:49] LABS: ALB/GLOB Ratio 1.1 RATIO (0.9-2.4); AST(SGOT) 21 U/L (15-37); Alanine Aminotransfer ALT/SGPT 41 U/L (16-61); Albumin, Serum 3.8 g/dL (3.2-5.0); Alkaline Phosphatase 75 U/L (45-117); Anion Gap 4 (5-15); BUN 10 mg/dL (7-18); BUN/Creat Ratio 6.8 RATIO (10-20); Calcium,Total 9.2 mg/dL (8.5-10.1); Chloride 109 mmol/L (98-107); Cholesterol 206 mg/dL (200); Creatinine, Serum 1.47 mg/dL (0.70-1.30); EST Glomerular Filtration Rate 57 mL/min (>60); Est Glom Filt Rate - Afr Amer 68 mL/min (>60); Globulin 3.5 g/dL (2.2-4.2); Glucose 85 mg/dL (74-106); High Density Lipoprotein 35 mg/dL; Potassium 4.3 mmol/L (3.5-5.1); Protein, Total 7.3 g/dL (6.4-8.2); Sodium Level 138 mmol/L (136-145); Triglycerides 369 mg/dL; Very Low Density Lipoprotein 74 mg/dL (5-40)
== END | disposition home or self-care (01) ==
LOC: MFPLAB 10:33
PROVIDERS: PCP Family Medicine; Referring Provider Family Medicine; Visit Provider Family Medicine
DX: R07.9 Chest pain, unspecified (principal)
CPT/HCPCS: 36415; 80053; 80061; 85025

== ENCOUNTER → 2022-04-22 | Outpatient (CLI) | payer OTHER, SELFPAY ==
--- NOTE | 2022-04-22 09:52 | EKG12_ITS ---
Test Reason : CHEST PAIN Blood Pressure : / mmHG Vent. Rate : 083 BPM Atrial Rate : 083 BPM P-R Int : 158 ms QRS Dur : 082 ms QT Int : 342 ms P-R-T Axes : 037 024 029 degrees QTc Int : 401 ms Normal sinus rhythm Normal ECG Confirmed by DONTRELL GRIDER, FAISAL ([id number]), supervising film or videotape editor CARMELO FRANK ([id number]) on 04/23/2022 9:11:17 AM Referred By: Thiago Richter Confirmed By:FAISAL JON MD
--- NOTE | 2022-04-22 13:29 | STRESSREP_ITS ---
Stress Test Report Date: 04-22-2022 Procedure: Exercise tolerance test Indications: Chest pain Consent: Per the patient Procedure: The patient exercised on a Jose Luis protocol for 9 minutes completing stage III achieving a peak heart rate of 187 bpm (103% predicted maximal heart rate) with a peak blood pressure 154/76 mmHg and a peak MET capacity of approximately 10 MET's. The baseline ECG demonstrated normal sinus rhythm. The peak exercise ECG demonstrated no obvious ECG changes. There were no cardiac dysrhythmias pretest, during exercise, or recovery. The functional capacity was considered good. The patient had no complaint of chest discomfort during exercise or recovery. The examination was discontinued secondary to fatigue. Impression: 1. Technically adequate (percent predicted maximal heart rate greater than 85%) exercise tolerance test 2. Peak exercise ECG with no obvious ECG changes 3. There were no cardiac dysrhythmias during exercise or recovery This note was generated with [employer] software. It may contain incorrect words, spelling, and punctuation that were not noted in checking the note before signing.
== END | disposition home or self-care (01) ==
LOC: PSN 09:50
PROVIDERS: PCP Family Medicine; Referring Provider Family Medicine; Visit Provider Family Medicine
DX: R07.9 Chest pain, unspecified (principal)
CPT/HCPCS: 93005; 93017

== ENCOUNTER 2022-05-18 10:48 | Outpatient (CLI) | payer OTHER, SELFPAY ==
[2022-05-21 20:34] LABS: Gluten <0.10 kU/L (Class 0); Potato, White <0.10 kU/L (Class 0)
== END 2022-05-18 23:59 | disposition home or self-care (01) ==
PROVIDERS: PCP Family Medicine; Referring Provider Otolaryngology; Visit Provider Otolaryngology
DX: T78.40XA Allergy, unspecified, initial encounter (principal)
CPT/HCPCS: 36415; 86003

== ENCOUNTER → 2022-08-03 | Outpatient (CLI) | payer OTHER, SELFPAY ==
[2022-08-03 15:10] LABS: Absolute Lymphocyte Count 2.57 X10^3/uL (0.83-4.51); Absolute Neutrophil Count 4.8 X10^3/uL (2.0-7.7); Basophil# 0.06 X10^3/uL; Basophil% 0.7 % (0-1); Eosinophil# 0.39 X10^3/uL; Eosinophils% 4.7 % (0-5); Hematocrit 47.2 % (40-54); Hemoglobin 16.2 g/dL (13.0-16.5); Lymphocyte # 2.57 X10^3/ul (0.83-4.51); Lymphocyte % 30.7 % (19-41); Mean Corp Hgb Conc 34.3 g/dL (32-36); Mean Corpuscular Volume 90.4 fL (80-94); Mean Platelet Vol. 9.8 fl (6.2-12.0); Monocyte# 0.56 X10^3/uL; Monocyte% 6.7 % (0-10); NRBC Flagged by Analyzer 0 % (0-5); Neutrophil # 4.77 X10^3/uL (2.7-7.7); Platelet Count 296 K/mm3 (150-450); RBC Distribution Width CV 12.1 % (11.6-14.6); RBC Distribution Width SD 39.9 fl (35.1-43.9); Red Blood Count 5.22 M/mm3 (4.6-6.2); White Blood Count 8.4 K/mm3 (4.4-11.0)
[2022-08-03 15:27] LABS: Anion Gap 6 (5-15); BUN 12 mg/dL (7-18); BUN/Creat Ratio 8.5 RATIO (10-20); Calcium,Total 9.4 mg/dL (8.5-10.1); Chloride 104 mmol/L (98-107); Creatinine, Serum 1.42 mg/dL (0.70-1.30); EST Glomerular Filtration Rate 59 mL/min (>60); Est Glom Filt Rate - Afr Amer 71 mL/min (>60); Glucose 88 mg/dL (74-106); Sodium Level 137 mmol/L (136-145); Thyroid Stim Hormone (TSH) 0.63 uIU/mL (0.358-3.74)
== END | disposition home or self-care (01) ==
LOC: MFPLAB 12:23
PROVIDERS: PCP Family Medicine; Referring Provider Family Medicine; Visit Provider Family Medicine
DX: R53.83 Other fatigue (principal)
CPT/HCPCS: 36415; 80048; 84403; 84443; 85025

== ENCOUNTER → 2022-10-22 | Outpatient (CLI) | payer OTHER, SELFPAY ==
[2022-10-22 08:19] LABS: Bacteria 0 SEEN /hpf (None Seen); Mucous, Urine 0 SEEN /hpf (<or=2+); Red Blood Cells-Urine 0 SEEN /hpf (0-5); Squamous Epithelial Cells - UA 0 SEEN /hpf (0-5)
[2022-10-22 10:26] LABS: Absolute Lymphocyte Count 2.59 X10^3/uL (0.83-4.51); Absolute Neutrophil Count 3.3 X10^3/uL (2.0-7.7); Basophil# 0.05 X10^3/uL; Basophil% 0.7 % (0-1); Eosinophil# 0.31 X10^3/uL; Eosinophils% 4.6 % (0-5); Hematocrit 47.1 % (40-54); Hemoglobin 16.3 g/dL (13.0-16.5); Lymphocyte # 2.59 X10^3/ul (0.83-4.51); Lymphocyte % 38.1 % (19-41); Mean Corp Hgb Conc 34.6 g/dL (32-36); Mean Corpuscular Volume 89.5 fL (80-94); Mean Platelet Vol. 9.9 fl (6.2-12.0); Monocyte# 0.55 X10^3/uL; Monocyte% 8.1 % (0-10); NRBC Flagged by Analyzer 0 % (0-5); Neutrophil # 3.28 X10^3/uL (2.7-7.7); Neutrophil % 48.4 % (47-70); Platelet Count 283 K/mm3 (150-450); RBC Distribution Width SD 39.2 fl (35.1-43.9); Red Blood Count 5.26 M/mm3 (4.6-6.2); White Blood Count 6.8 K/mm3 (4.4-11.0)
[2022-10-22 10:42] LABS: Color, Urine Yellow (Yellow); Glucose, Dipstick Normal (Normal); Ketone-Dipstick Negative (Negative); Leukocyte Esterase-Dipstick 25 /ul (Negative); Nitrite-Dipstick Negative (Negative); Occult Blood-Urine Negative /ul (Negative); Protein-Dipstick 15 mg/dl (Negative); Specific Gravity, Urine 1.015 (1.002-1.030); Urine Bilirubin Dipstick Negative (Negative); Urine Clarity Clear (Clear); Urine Urobilinogen Normal (Normal); Urine pH 6.5 (5.0 - 8.0)
[2022-10-22 10:48] LABS: Anion Gap 7 (5-15); BUN 11 mg/dL (7-18); BUN/Creat Ratio 7.6 RATIO (10-20); Calcium,Total 9.1 mg/dL (8.5-10.1); Chloride 105 mmol/L (98-107); Creatinine, Serum 1.44 mg/dL (0.70-1.30); EST Glomerular Filtration Rate 58 mL/min (>60); Est Glom Filt Rate - Afr Amer 70 mL/min (>60); Glucose 94 mg/dL (74-106); Potassium 4.2 mmol/L (3.5-5.1); Sodium Level 139 mmol/L (136-145)
[2022-10-22 10:55] LABS: Protein, Urine (Random) 14.9 mg/dL (<11.9); Protein:Creat Ratio 63 mg/g CRE (0-200)
[2022-10-22 11:20] LABS: White Blood Cells 0 SEEN /hpf (0-5)
== END | disposition home or self-care (01) ==
LOC: MFPLAB 08:16
PROVIDERS: PCP Family Medicine; Visit Provider Family Medicine
DX: N18.2 Chronic kidney disease, stage 2 (mild) (principal)
CPT/HCPCS: 36415; 80048; 81001; 82570; 84156; 85025

== ENCOUNTER → 2022-11-17 | Outpatient (CLI) | payer OTHER, SELFPAY ==
--- NOTE | 2022-11-17 08:00 | MRI_ITS ---
STUDY: MRI BRAIN WITH AND WITHOUT CONTRAST REASON FOR EXAM: Male, 42 years old. WORST H/A OF LIFE Pt has history of temporal H/As. New onset of H/A''s on top of head and different feel x 1-2 months TECHNIQUE: Standardized multiplanar fat and water weighted pulse sequences were obtained. 19ml Clariscan via IV was administered for the contrast portion of the examination. COMPARISON: MRI of the brain dated July 18, 2018 FINDINGS: Normal size of the ventricles and extra-axial spaces for the patient''s age. Normal white matter tracts of the supratentorial brain. There is no evidence for recent intracranial ischemia or other cause of cytotoxic edema on diffusion weighted imaging (DWI). Normal T2* images of the brain without demonstrated susceptibility artifact. There is no demonstrated hemosiderin stain. There are no white matter hyperintensities. Specifically, there are no focal areas of white matter gliosis which are occasionally associated with vasospastic migraine headaches. No parenchymal masses or abnormally enhancing lesions are present. There is no abnormal thickening or enhancement of meninges or dura. Normal bilateral basal ganglia. Normal thalami. There is no extra-axial fluid accumulation. Normal flow voids within the major intracranial circulation suggesting patency by spin echo criteria. Normal venous enhancement. There is no enhancing intra-axial or extra-axial abnormality. Normal sella turcica, pituitary gland, infundibular stalk, optic chiasm and hypothalamus. Normal tectal plate and pineal gland. Normal midbrain, martir and medulla. Normal cerebellum. Normal basal cisterns. Normal bilateral temporal bones. Normal bilateral internal auditory canals. No demonstrated orbital abnormality, within the constraints of a routine brain study. Normal visualized paranasal sinuses. Normal calvarium and skull base. Normal visualized soft tissue structures. Normal visualized upper cervical spine. MRI/Brain W/WO Contrast IMPRESSION: 1. Normal unenhanced and enhanced MRI of the brain. 2. No parenchymal masses or abnormally enhancing lesions are present. There is no abnormal thickening or enhancement of meninges or dura. Electronically Signed: Manoj Bush MD at 14:53 EST ,
== END | disposition home or self-care (01) ==
PROVIDERS: PCP Family Medicine; Referring Provider Family Medicine; Visit Provider Family Medicine
DX: R51.9 Headache, unspecified (principal)
CPT/HCPCS: 70553; A9575

== ENCOUNTER → 2023-02-04 | Outpatient (CLI) | payer OTHER, SELFPAY ==
[2023-02-04 17:32] LABS: Chlamydia Trachomatis by PCR Negative (Negative); Neisserai gonorrhoeae by PCR Negative (Negative); Probe Check PASS; Sample Adequacy Control PASS; Specimen Processing Control PASS
== END | disposition home or self-care (01) ==
LOC: MFPLAB 11:39
PROVIDERS: PCP Family Medicine; Visit Provider Family Medicine
DX: N45.1 Epididymitis (principal); N50.819 Testicular pain, unspecified; N53.12 Painful ejaculation; E34.9 Endocrine disorder, unspecified
CPT/HCPCS: 87086; 87491; 87591

== ENCOUNTER → 2023-02-08 | Outpatient (CLI) | payer OTHER, SELFPAY ==
--- NOTE | 2023-02-08 11:24 | US_ITS ---
INDICATION: PAIN EXAMINATION: Ultrasound US Scrotum (Contents) TECHNIQUE: Realtime ultrasound of the testicles was performed with grayscale, Color Doppler and spectral Doppler analysis. COMPARISON: None. FINDINGS: RIGHT: TESTIS: 4.2 x 2.7 x 2.2 cm. Normal in size and echotexture, without focal lesion. COLOR DOPPLER: Normal arterial flow present in the testicle with monophasic waveforms. EPIDIDYMIS: Normal in size and echotexture, without focal lesion. [Normal color Doppler flow pattern in the epididymis. HYDROCELE: Small VARICOCELE: None. LEFT: TESTIS: 3.7 x 3.1 x 2.0 cm. Normal in size and echotexture, without focal lesion. COLOR DOPPLER: Normal arterial flow present in the testicle with monophasic waveforms. EPIDIDYMIS: Normal in size and echotexture, without focal lesion. [Normal color Doppler flow pattern in the epididymis. HYDROCELE: Small VARICOCELE: None. US/Testicular with Arterial Flow IMPRESSION: Small bilateral hydroceles. Electronically Signed: Home Santos MD, BIRD at 19:00 EDT ,
== END | disposition home or self-care (01) ==
LOC: US 11:22
PROVIDERS: PCP Family Medicine; Referring Provider Family Medicine; Visit Provider Family Medicine
DX: N50.819 Testicular pain, unspecified (principal)
CPT/HCPCS: 76870; 93976

== ENCOUNTER → 2023-02-19 | Outpatient (CLI) | payer OTHER, SELFPAY ==
[2023-02-19 08:25] LABS: Bacteria 0 SEEN /hpf (None Seen); Mucous, Urine 0 SEEN /hpf (<or=2+); Red Blood Cells-Urine 0 SEEN /hpf (0-5); Squamous Epithelial Cells - UA 0 SEEN /hpf (0-5); White Blood Cells 0 SEEN /hpf (0-5)
[2023-02-19 10:19] LABS: Absolute Lymphocyte Count 2.43 X10^3/uL (0.83-4.51); Absolute Neutrophil Count 3.8 X10^3/uL (2.0-7.7); Basophil# 0.05 X10^3/uL; Basophil% 0.7 % (0-1); Eosinophil# 0.32 X10^3/uL; Eosinophils% 4.4 % (0-5); Hematocrit 48.4 % (40-54); Lymphocyte # 2.43 X10^3/ul (0.83-4.51); Lymphocyte % 33.8 % (19-41); Mean Corp Hgb Conc 33.1 g/dL (32-36); Mean Corpuscular Hgb 30.3 pg (27.0-32.0); Mean Corpuscular Volume 91.7 fL (80-94); Monocyte# 0.58 X10^3/uL; Monocyte% 8.1 % (0-10); NRBC Flagged by Analyzer 0 % (0-5); Neutrophil % 52.7 % (47-70); Platelet Count 288 K/mm3 (150-450); RBC Distribution Width CV 12.1 % (11.6-14.6); RBC Distribution Width SD 40.6 fl (35.1-43.9); Red Blood Count 5.28 M/mm3 (4.6-6.2); White Blood Count 7.2 K/mm3 (4.4-11.0)
[2023-02-19 10:22] LABS: Color, Urine Yellow (Yellow); Glucose, Dipstick Normal (Normal); Ketone-Dipstick Negative (Negative); Leukocyte Esterase-Dipstick Negative /ul (Negative); Nitrite-Dipstick Negative (Negative); Occult Blood-Urine Negative /ul (Negative); Protein-Dipstick Negative (Negative); Specific Gravity, Urine 1.015 (1.002-1.030); Urine Bilirubin Dipstick Negative (Negative); Urine Clarity Clear (Clear); Urine Urobilinogen Normal (Normal)
[2023-02-19 10:35] LABS: Protein, Urine (Random) 6.6 mg/dL (<11.9); Protein:Creat Ratio 86 mg/g CRE (0-200)
[2023-02-19 10:38] LABS: ALB/GLOB Ratio 1.1 RATIO (0.9-2.4); AST(SGOT) 16 U/L (15-37); Alanine Aminotransfer ALT/SGPT 40 U/L (16-61); Albumin, Serum 3.9 g/dL (3.2-5.0); Alkaline Phosphatase 77 U/L (45-117); Anion Gap 6 (5-15); BUN 9 mg/dL (7-18); BUN/Creat Ratio 6.4 RATIO (10-20); Chloride 106 mmol/L (98-107); EST Glomerular Filtration Rate 60 mL/min (>60); Est Glom Filt Rate - Afr Amer 72 mL/min (>60); Globulin 3.6 g/dL (2.2-4.2); Glucose 81 mg/dL (74-106); Protein, Total 7.5 g/dL (6.4-8.2); Sodium Level 141 mmol/L (136-145)
== END | disposition home or self-care (01) ==
LOC: MTLAB 08:19
PROVIDERS: PCP Family Medicine; Referring Provider Family Medicine; Visit Provider Family Medicine
DX: N18.2 Chronic kidney disease, stage 2 (mild) (principal)
CPT/HCPCS: 36415; 80053; 81001; 82570; 84156; 85025

== ENCOUNTER → 2023-07-21 | Outpatient (CLI) | payer OTHER, SELFPAY ==
[2023-07-21 12:33] LABS: Absolute Lymphocyte Count 2.13 X10^3/uL (0.83-4.51); Absolute Neutrophil Count 3.7 X10^3/uL (2.0-7.7); Basophil# 0.05 X10^3/uL; Basophil% 0.7 % (0-1); Eosinophil# 0.35 X10^3/uL; Eosinophils% 5.1 % (0-5); Hematocrit 46.1 % (40-54); Hemoglobin 15.5 g/dL (13.0-16.5); Lymphocyte # 2.13 X10^3/ul (0.83-4.51); Lymphocyte % 31.1 % (19-41); Mean Corp Hgb Conc 33.6 g/dL (32-36); Mean Corpuscular Hgb 31.1 pg (27.0-32.0); Mean Corpuscular Volume 92.6 fL (80-94); Mean Platelet Vol. 9.8 fl (6.2-12.0); Monocyte# 0.58 X10^3/uL; Monocyte% 8.5 % (0-10); NRBC Flagged by Analyzer 0 % (0-5); Neutrophil # 3.71 X10^3/uL (2.7-7.7); Neutrophil % 54.3 % (47-70); Platelet Count 338 K/mm3 (150-450); RBC Distribution Width SD 41.2 fl (35.1-43.9); Red Blood Count 4.98 M/mm3 (4.6-6.2); White Blood Count 6.8 K/mm3 (4.4-11.0)
[2023-07-21 13:41] LABS: ALB/GLOB Ratio 1.2 RATIO (0.9-2.4); AST(SGOT) 16 U/L (15-37); Alanine Aminotransfer ALT/SGPT 29 U/L (16-61); Alkaline Phosphatase 68 U/L (45-117); Anion Gap 6 (5-15); BUN 9 mg/dL (7-18); BUN/Creat Ratio 7.3 RATIO (10-20); Chloride 104 mmol/L (98-107); Creatinine, Serum 1.24 mg/dL (0.70-1.30); EST Glomerular Filtration Rate 68 mL/min (>60); Est Glom Filt Rate - Afr Amer 83 mL/min (>60); Globulin 3.3 g/dL (2.2-4.2); Glucose 87 mg/dL (74-106); Potassium 4.3 mmol/L (3.5-5.1); Protein, Total 7.3 g/dL (6.4-8.2); Sodium Level 135 mmol/L (136-145); Thyroid Stim Hormone (TSH) 0.34 uIU/mL (0.358-3.74)
== END | disposition home or self-care (01) ==
LOC: MFPLAB 10:06
PROVIDERS: PCP Family Medicine; Visit Provider Family Medicine
DX: N18.2 Chronic kidney disease, stage 2 (mild) (principal); F41.9 Anxiety disorder, unspecified
CPT/HCPCS: 36415; 80053; 84439; 84443; 85025

== ENCOUNTER → 2023-11-02 | Outpatient (CLI) | payer OTHER, SELFPAY ==
--- NOTE | 2023-11-02 10:55 | RAD_ITS ---
STUDY: X-RAY - ABDOMEN/PELVIS REASON FOR EXAM: Male, 43 years old. Change in bowel habit TECHNIQUE: Single AP view of the abdomen / pelvis. COMPARISON: None. FINDINGS: Normal visualized lung bases. There is an abundance of fecal material throughout the colon. There is no demonstrated free abdominal air. The visualized liver, spleen and kidneys are grossly normal in size and morphology. Normal soft tissue structures. Normal visualized osseous structures. RAD/Abd Inc Decub and/or Erect IMPRESSION: Large amount of fecal material is seen in the colon. Electronically Signed: Aris Rajput MD at 14:57 EST ,
== END | disposition home or self-care (01) ==
LOC: MTRAD 10:52
PROVIDERS: PCP Family Medicine; Referring Provider Internal Medicine; Visit Provider Internal Medicine
DX: R19.4 Change in bowel habit (principal); R10.84 Generalized abdominal pain
CPT/HCPCS: 74019

== ENCOUNTER → 2023-11-12 | Outpatient (CLI) | payer OTHER, SELFPAY ==
--- OUTSIDE RECORDS SUMMARY | 2023-11-12 12:58 | XMS RPT_ITS | CCD ---
Author Name Unknown Address [address] [place] [address] Organization [facility] Care Team Providers Care Forensic Document Examiner Name Role Phone Mandy CASING BLOWERKaylynn DIAS Primary Care Provider KAYLYNN GALVAN Primary Care Unavailable HUDSON VAZQUEZ Referring Unavailable HUDSON VAZQUEZ Referring Unavailable KAYLYNN GALVAN Primary Care Unavailable HUDSON VAZQUEZ Attending Unavailable KAYLYNN GALVAN Primary Care Unavailable HUDSON VAZQUEZ Attending Unavailable Allergies Allergy Classification Reported Allergen(s) Allergy Type Date of Onset Reaction(s) Facility (3 sources) Cephalosporins (Antibiotic); Translations: [CEPHALOSPORINS] Propensity to adverse reactions 8 [facility] (3 sources) Erythromycin; Translations: [ERYTHROMYCIN] Drug Allergy 8 [facility] (3 sources) Penicillins; Translations: [PENICILLINS] Propensity to adverse reactions 8 [facility] Medications Completed/Discontinued Medications Medication Drug Class(es) Dates Sig (Normalized) Sig (Original) ondansetron 8 mg oral tablet (2 sources) Serotonin-3 Receptor Antagonist take 1 tablet by mouth every eight hours as needed ondansetron (ZOFRAN) 8 mg tablet Take 8 mg by mouth every 8 hours as needed for nausea/vomiting. 0 Active Problems Active Problems Problem Classification Problem Date Documented Da te Episodic/Chronic Other aftercare (1 source) Removal of sutures done; Translations: [Encounter for removal of sutures] Episodic Other aftercare (1 source) Encounter for removal of sutures; Translations: [Visit for suture removal] Onset: 02-16-2023 Episodic Other and unspecified benign neoplasm (1 source) Benign lipomatous neoplasm of skin and subcutaneous tissue of right arm; Translations: [Lipoma of right upper extremity] Onset: 02-09-2023 Episodic Other and unspecified benign neoplasm (1 source) Benign lipomatous neoplasm of skin and subcutaneous tissue of head, face and neck; Translations: [Lipoma of scalp] Onset: 02-09-2023 Episodic Other skin disorders (1 source) Disorder of subcutaneous tissue; Translations: [Disorder of the skin and subcutaneous tissue, unspecified] Episodic Other skin disorders (1 source) Cyst of scalp; Translations: [Follicular cyst of the skin and subcutaneous tissue, unspecified] Episodic Past or Other Problems Problem Classification Problem Date Documented Da te Episodic/Chronic Other and unspecified benign neoplasm (2 sources) Lipoma of skin and subcutaneous tissue; Translations: [Benign lipomatous neoplasm of skin and subcutaneous tissue of unspecified sites] Onset: 09-18-2015 09-18-2015 Episodic Other skin disorders (2 sources) Sebaceous cyst of skin; Translations: [Sebaceous cyst] Onset: 09-26-2015 09-26-2015 Episodic Results Test Name Value Interpretation Reference Range Facil ity Vital Signs Date Time Vital Sign Value Performing Clinician Faci lity 01-29-2023 09:18-0400 Body height 170.2 cm Hudson Vazquez MD Work Phone: [facility] 01-29-2023 09:18-0400 Body temperature 98.2 [degF] Hudson Vazquez MD Work Phone: [facility] 01-29-2023 09:18-0400 Body weight 95.17 kg Hudson Vazquez MD Work Phone: [facility] 01-29-2023 09:18-0400 Diastolic blood pressure 80 mm[Hg] Hudson Vazquez MD Work Phone: [facility] 01-29-2023 09:18-0400 Heart rate 91 /min Hudson Vazquez MD Work Phone: [facility] 01-29-2023 09:18-0400 SaO2% (BldA) [Mass fraction] 96 % Hudson Vazquez MD Work Phone: [facility] 01-29-2023 09:18-0400 Systolic blood pressure 122 mm[Hg] Hudson Vazquez MD Work Phone: [facility] Encounters Encounter Date Encounter Type Care Provider Facility Start: 02-16-2023 End: 02-17-2023 ambulatory KAYLYNN MANDY Facility:[facility] Start: 02-16-2023 End: 02-16-2023 Nursing evaluation of patient and report Nurse [facility] Work Phone: General Surgery Plan of Treatment Date Care Activity Detail Author Start: 06-18-2023 Influenza vaccination INFLUENZA (Sea son Ended) [facility] Start: 10-18-2022 DEPRESSION ASSESSMENT DEPRESSION ASS ESSMENT [facility] Start: 2017 LIPID SCREEN LIPID SCREEN [facility] Start: 2000 HEPATITIS C SCREENING HEPATITIS C SC REENING [facility] Start: 2000 HIV SCREENING HIV SCREENING [facility] Start: 1993 Urine microalbumin profile DTAP,TDAP ,TD (5 - Tdap) [facility] Start: 02-17-1983 COVID-19 VACCINE (#1) COVID-19 VACCI NE (#1) [facility] Start: 1982 HEPATITIS B (1 of 3 - 3-dose series) HEPATITIS B (1 of 3 - 3-dose series) [facility] Immunizations Immunization Date Immunization Notes Care Provider Fa cility 08-24-1985 haemophilus influenz ae type b vaccine, HbOC conjugate Hudson Vazquez MD Work Phone: [facility] 03-09-1984 diphtheria, tetanus toxoids and acellular pertussis vaccine Hudson Vazquez MD Work Phone: [facility] 03-09-1984 trivalent poliovirus vaccine, live, oral Hudson Vazquez MD Work Phone: [facility] 12-18-1983 measles, mumps and rubella virus vaccine Hudson Vazquez MD Work Phone: [facility] 02-17-1983 diphtheria, tetanus toxoids and acellular pertussis vaccine Hudson Vazquez MD Work Phone: [facility] 1982 diphtheria, tetanus toxoids and acellular pertussis vaccine Hudson Vazquez MD Work Phone: [facility] 1982 trivalent poliovirus vaccine, live, oral Hudson Vazquez MD Work Phone: [facility] 1982 diphtheria, tetanus toxoids and acellular pertussis vaccine Hudson Vazquez MD Work Phone: [facility] 1982 trivalent poliovirus vaccine, live, oral Hudson Vazquez MD Work Phone: [facility] Payers Date Payer Category Payer Unknown MMO MMO [employer] PPO [id number] 2022-Present [phone] [address] [place] [address] PPO [id number] 2022 Unknown [id number] Social History Date Type Detail Facility Start: 01-29-2023 Tobacco smoking stat [facility] Ex-smoker [facility] End: 10-18-2005 History of tobacco use Current smoker [facility] End: 10-18-2005 History of tobacco use Cigarette Smoker [facility] Start: 01-29-2023 Cigarettes smoked cu rrent (pack per day) - Reported 1 [facility] Start: 01-29-2023 Tobacco use and exposure Smoke less tobacco non-user [facility] Start: 01-29-2023 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 The wound is well healed without signs of infection. One suture removed. Dr. Vazquez reviewed Path report which was benign. This Nurse communicated that to the patient. He voiced understanding and had no further questions.Yisel Grant RN documented in this encounter [facility] Progress note 02-09-2023 Note Date & Type Note Facility 02-09-2023 Note HNO ID: [id number] Author: Hudson Vazquez MD Service: ? Author Type: Physician Type: Progress Notes Filed: 02/09/2023 4:53 PM Note Text: Preoperative diagnosis: 2-1/2 cm subcutaneous lesion to right arm, to wind cyst to scalp Postoperative diagnosis: The same Procedure: Excision of a 2-1/2 cm subcutaneous lesion to right arm, excision of two 7 mm scalp cyst Surgeon: George Procedure: Posterior arm was sterilely prepped and draped in usual fashion. 1% lidocaine plain was injected. Incision was made. Dissection was carried down. A 2-1/2 cm subcutaneous fatty lesion was removed. It was sent to pathology for permanent sectioning. Deep dermal sutures of 3-0 Vicryl were then placed. Steri-Strips were applied. Sterile dressings were applied. Patient tolerated the procedure well. Anterior scalp was sterilely prepped and draped in usual fashion. 1% lidocaine plain was injected. 2 cm incision was made. Dissection was carried down to 7 mm scalp cyst were removed in their entirety. A single suture of 5-0 nylon was placed into the scalp. The patient got slightly lightheaded I did not want to do any further removal of scalp cyst at that time. We will get him rescheduled to remove further scalp cyst in the near future. [facility] Progress note 01-29-2023 Note Date & Type Note Facility 01-29-2023 Note HNO ID: [id number] Author: Hudson Vazquez MD Service: ? Author Type: Physician Type: Progress Notes Filed: 01/29/2023 9:52 AM Note Text: HISTORY AND PHYSICAL Aureliano Walsh 1980 REFERRING PHYSICIAN: Kaylynn Galvan APRN.MALACHI CHIEF COMPLAINT: Consult (Reeval for lipomas) HPI: The patient is a 42 year old male with a complaint of 4 scalp cysts that have gradually becoming larger. And a painful subcutaneous lesion on his right posterior arm. The wound on his right posterior arm has gradually gotten larger he is noticing it more when he has been working out or having pressure put on it. He has not been complaining of any numbness or tingling.. The patient is being seen by me today at the request of Dr. Kaylynn Galvan APRN.CNP for my opinion and advice regarding Lesion of subcutaneous tissue (primary encounter diagnosis) Scalp cyst. PAST MEDICAL HISTORY Diagnosis Date Anxiety disorder in conditions classified elsewhere Headache(784.0) Lipoma of unspecified site multiple Malaise and fatigue PAST SURGICAL HISTORY Procedure Laterality Date PAST SURGICAL HISTORY OF FOREHEAD LUMP/CYST TONSILLECTOMY HX 01/2015 Current Outpatient Medications Medication Sig vortioxetine (TRINTELLIX) 10 mg tablet Take 10 mg by mouth once daily. ondansetron (ZOFRAN) 8 mg tablet Take 8 mg by mouth every 8 hours as needed for nausea/vomiting. Tadalafil 5 mg tablet Take 5 mg by mouth. No current facility-administered medications for this visit. ALLERGIES: Cephalosporins, Erythromycin, and Penicillins PERSONAL HISTORY: Social History Tobacco Use Smoking status: Former Packs/day: 1.00 Years: 7.00 Pack years: 7.00 Types: Cigarettes Quit date: 10/18/2005 Years since quittin.2 Smokeless tobacco: Never Tobacco comments: 2004 Vaping Use Vaping Use: Never used Substance Use Topics Alcohol use: No Drug use: No FAMILY HISTORY: FAMILY HISTORY Problem Relation Age of Onset Asthma Sister Arthritis Mother Genetic Paternal Grandfather Allergies Father Allergies Sister REVIEW OF SYMPTOMS: The review of systems data was entered by the nurse and reviewed by tn Nursing Notes: Vidhi Jeffery LPN 01/29/2023 9:28 AM Signed REVIEW OF SYSTEMS: General: The patient NOTES fatigue, denies weight loss, NOTES weight gain, NOTES feeling hot, and denies feelings of cold. Eyes: The patient denies glaucoma, denies eye injury/surgery, wears glasses or contacts. Ear/Nose/Throat: The patient denies allergies, denies hayfever, denies ear infections, and denies bloody noses. Cardiovascular: The patient denies chest pain, denies heart disease, denies high blood pressure,denies cardiac stent, denies prior heart attack, denies irregular heart beat, denies high cholesterol, denies poor circulation, denies heart failure, other cardiac issues, denies claudication, NOTES cold feet, denies peripheral arterial stent. Respiratory: The patient denies tuberculosis, denies pneumonia, denies frequent cough, denies pulmonary embolism, NOTES shortness of breath, and denies coughing up blood. Gastrointestinal: The patient denies difficulty swallowing, denies acid reflux, denies ulcers, denies vomiting, denies jaundice/hepatitis, denies gallbladder problems, denies black or tarry stools, denies hemorrhoids, denies bleeding from rectum, denies diverticulitis, NOTES constipation, denies diarrhea, denies loss of stool control, and denies hernias. Kidney/Bladder: The patient denies kidney stones, denies urine infections, and denies bloody urine. Skin: The patient denies a history of skin cancer, denies bleeding/changing moles, and denies a history of skin rash. Neurologic: The patient denies a history of epilepsy/convulsions, NOTES headaches, denies head/spinal injuries, and NOTES stroke/TIA. Psychiatric: The patient NOTES psychiatric medications, NOTES depression, and denies voices, denies substance abuse. Endocrine: The patient denies thyroid disorders, denies diabetes, and denies hormonal problems. Hematologic: The patient denies a history of bruising, denies bleeding, and denies anemia, denies blood clots. Infections: The patient denies a history of measles and mumps, denies rheumatic fever, and denies sexually transmitted diseases. Musculoskeletal: The patient denies back pain/injury, NOTES back problems, denies sciatica, NOTES knee/foot trouble, denies arthritis, or denies gout. When was patient's last Mammogram screening? N/A Last Colonoscopy: NO PRIOR Vidhi Jeffery LPN PHYSICAL EXAMINATION: General: The patient is 42 year old male, well nourished, well hydrated in no acute distress. The patient is oriented to time, place, and person. VITALS: Blood pressure 122/80, pulse 91, temperature 36.8 ?C (98.2 ?F), height 170.2 cm (5' 7 ), weight 95.2 kg (209 lb 12.8 oz), SpO2 96 %. HEENT: Normal cephalic, ataumatic, pupils are equally round, sclera are anicteric, (more content not included)... [facility] History of Present illness Narrative 01-29-2023 Hudson Vazquez MD - 01/29/2023 9:45 AM EDT Note Date & Type Note Facility 01-29-2023 History of Presen t illness Narrative HISTORY AND PHYSICAL Aureliano Walsh 1980 REFERRING PHYSICIAN: Kaylynn Galvan APRN.CNP CHIEF COMPLAINT: Consult (Reeval for lipomas) HPI: The patient is a 42 year old male with a complaint of 4 scalp cysts that have gradually becoming larger. And a painful subcutaneous lesion on his right posterior arm. The wound on his right posterior arm has gradually gotten larger he is noticing it more when he has been working out or having pressure put on it. He has not been complaining of any numbness or tingling.. The patient is being seen by me today at the request of Dr. Kaylynn Galvan APRN.CNP for my opinion and advice regarding Lesion of subcutaneous tissue (primary encounter diagnosis) Scalp cyst. PAST MEDICAL HISTORY Diagnosis Date Anxiety disorder in conditions classified elsewhere Headache(784.0) Lipoma of unspecified site multiple Malaise and fatigue PAST SURGICAL HISTORY Procedure Laterality Date PAST SURGICAL HISTORY OF FOREHEAD LUMP/CYST TONSILLECTOMY HX 01/2015 Current Outpatient Medications Medication Sig vortioxetine (TRINTELLIX) 10 mg tablet Take 10 mg by mouth once daily. ondansetron (ZOFRAN) 8 mg tablet Take 8 mg by mouth every 8 hours as needed for nausea/vomiting. Tadalafil 5 mg tablet Take 5 mg by mouth. No current facility-administered medications for this visit. ALLERGIES: Cephalosporins, Erythromycin, and Penicillins PERSONAL HISTORY: Social History Tobacco Use Smoking status: Former Packs/day: 1.00 Years: 7.00 Pack years: 7.00 Types: Cigarettes Quit date: 10/18/2005 Years since quittin.2 Smokeless tobacco: Never Tobacco comments: 2004 Vaping Use Vaping Use: Never used Substance Use Topics Alcohol use: No Drug use: No FAMILY HISTORY: FAMILY HISTORY Problem Relation Age of Onset Asthma Sister Arthritis Mother Genetic Paternal Grandfather Allergies Father Allergies Sister REVIEW OF SYMPTOMS: The review of systems data was entered by the nurse and reviewed by me Nursing Notes: Vidhi Jeffery LPN 01/29/2023 9:28 AM Signed REVIEW OF SYSTEMS: General: The patient NOTES fatigue, denies weight loss, NOTES weight gain, NOTES feeling hot, and denies feelings of cold. Eyes: The patient denies glaucoma, denies eye injury/surgery, wears glasses or contacts. Ear/Nose/Throat: The patient denies allergies, denies hayfever, denies ear infections, and denies bloody noses. Cardiovascular: The patient denies chest pain, denies heart disease, denies high blood pressure,denies cardiac stent, denies prior heart attack, denies irregular heart beat, denies high cholesterol, denies poor circulation, denies heart failure, other cardiac issues, denies claudication, NOTES cold feet, denies peripheral arterial stent. Respiratory: The patient denies tuberculosis, denies pneumonia, denies frequent cough, denies pulmonary embolism, NOTES shortness of breath, and denies coughing up blood. Gastrointestinal: The patient denies difficulty swallowing, denies acid reflux, denies ulcers, denies vomiting, denies jaundice/hepatitis, denies gallbladder problems, denies black or tarry stools, denies hemorrhoids, denies bleeding from rectum, denies diverticulitis, NOTES constipation, denies diarrhea, denies loss of stool control, and denies hernias. Kidney/Bladder: The patient denies kidney stones, denies urine infections, and denies bloody urine. Skin: The patient denies a history of skin cancer, denies bleeding/changing moles, and denies a history of skin rash. Neurologic: The patient denies a history of epilepsy/convulsions, NOTES headaches, denies head/spinal injuries, and NOTES stroke/TIA. Psychiatric: The patient NOTES psychiatric medications, NOTES depression, and denies voices, denies substance abuse. Endocrine: The patient denies thyroid disorders, denies diabetes, and denies hormonal problems. Hematologic: The patient denies a history of bruising, denies bleeding, and denies anemia, denies blood clots. Infections: The patient denies a history of measles and mumps, denies rheumatic fever, and denies sexually transmitted diseases. Musculoskeletal: The patient denies back pain/injury, NOTES back problems, denies sciatica, NOTES knee/foot trouble, denies arthritis, or denies gout. When was patient's last Mammogram screening? N/A Last Colonoscopy: NO PRIOR Vidhi Jeffery LPN PHYSICAL EXAMINATION: General: The patient is 42 year old male, well nourished, well hydrated in no acute distress. The patient is oriented to time, place, and person. VITALS: Blood pressure 122/80, pulse 91, temperature 36.8 C (98.2 F), height 170.2 cm (5' 7 ), weight 95.2 kg (209 lb 12.8 oz), SpO2 96 %. HEENT: Normal cephalic, ataumatic, pupils are equally round, sclera are anicteric, mucous membranes are moist, oropharynx is clear. Neck has no masses, asymmetry or lymphadenopathy. Thyroid is unremarkable. 3 subcutaneous wind cyst of scalp. 2 are larger than a centimeter and a half 1 is approximately a centimeter in size. None of them appear to be infected. Right posterior arm shows a 2-1/2 cm subcutaneous lesion that is soft most likely going to be a lipoma extremities: no clubbing, cyanosis or edema. No adenopathy. Other: LABORATORY VALUES: As Noted RADIOLOGIC STUDIES: As Noted Assessment IMPRESSION: Lesion of subcutaneous tissue (primary encounter diagnosis) Scalp cyst PLAN: I am going to remove the wind cyst in the office as well as the subcutaneous lesion in the office. Diagnoses: (L98.9) Lesion of subcutaneous tissue (primary encounter diagnosis) (L72.9) Scalp cyst A letter was sent to Dr. Kaylynn Galvan APRN.DESK ASSISTANT indicating the above finding for this patient. Return to Clinic: The patient is instructed to follow-up with me 1 week post operatively. Hudson Vazquez III, MD documented in this encounter [facility] Nurse Note 01-29-2023 Vidhi IBETH Jeffery - 01/29/2023 9:26 AM EDT Note Date & Type Note Facility 01-29-2023 Nurse Note REVIEW OF SYSTEMS: General: The patient NOTES fatigue, denies weight loss, NOTES weight gain, NOTES feeling hot, and denies feelings of cold. Eyes: The patient denies glaucoma, denies eye injury/surgery, wears glasses or contacts. Ear/Nose/Throat: The patient denies allergies, denies hayfever, denies ear infections, and denies bloody noses. Cardiovascular: The patient denies chest pain, denies heart disease, denies high blood pressure,denies cardiac stent, denies prior heart attack, denies irregular heart beat, denies high cholesterol, denies poor circulation, denies heart failure, other cardiac issues, denies claudication, NOTES cold feet, denies peripheral arterial stent. Respiratory: The patient denies tuberculosis, denies pneumonia, denies frequent cough, denies pulmonary embolism, NOTES shortness of breath, and denies coughing up blood. Gastrointestinal: The patient denies difficulty swallowing, denies acid reflux, denies ulcers, denies vomiting, denies jaundice/hepatitis, denies gallbladder problems, denies black or tarry stools, denies hemorrhoids, denies bleeding from rectum, denies diverticulitis, NOTES constipation, denies diarrhea, denies loss of stool control, and denies hernias. Kidney/Bladder: The patient denies kidney stones, denies urine infections, and denies bloody urine. Skin: The patient denies a history of skin cancer, denies bleeding/changing moles, and denies a history of skin rash. Neurologic: The patient denies a history of epilepsy/convulsions, NOTES headaches, denies head/spinal injuries, and NOTES stroke/TIA. Psychiatric: The patient NOTES psychiatric medications, NOTES depression, and denies voices, denies substance abuse. Endocrine: The patient denies thyroid disorders, denies diabetes, and denies hormonal problems. Hematologic: The patient denies a history of bruising, denies bleeding, and denies anemia, denies blood clots. Infections: The patient denies a history of measles and mumps, denies rheumatic fever, and denies sexually transmitted diseases. Musculoskeletal: The patient denies back pain/injury, NOTES back problems, denies sciatica, NOTES knee/foot trouble, denies arthritis, or denies gout. When was patient's last Mammogram screening? N/A Last Colonoscopy: NO PRIOR Vidhi Jeffery LPN documented in this encounter [facility] Evaluation note Note Date & Type Note Facility documented in this encounter [facility] Evaluation note Note Date & Type Note Facility documented in this encounter [facility] Summary Purpose Family History No Family History Records Found Advance Directives No Advanced Directives Records Found Additional Source Comments Source Comments (unrecognize d section and content) In the event this informatio n is protected by the Federal Confidentiality of Alcohol and Drug Abuse Patient Records regulations: The Federal rules restrict any use of the information to criminally investigate or prosecute any alcohol or drug abuse patient.[facility] the event this information is protected by the Federal Confidentiality of Alcohol and Drug Abuse Patient Records regulations: The Federal rules restrict any use of the information to criminally investigate or prosecute any alcohol or drug abuse patient.[facility] Reason for Visit (unrecogniz ed section and content) Care Teams (unrecognized sec tion and content) Forensic Document Examiner Relationship Specialty Start Date End Date Kaylynn Galvan APRN.DESK ASSISTANT [address] [facility] [address] [address] [place] [address] PCP - General 01/28/23 (unrecognized sect ion and content) No Status Records Found INFORMATION SOURCE (unrecogn ized section and content) FOR RECORDS PERTAINING TO PATIENTS WHO ARE OR HAVE BEEN ENROLLED IN A CHEMICAL DEPENDENCY/SUBSTANCEABUSE PROGRAM, SOME INFORMATION MAY BE OMITTED. This clinical summary was aggregated from multiple sources. Caution should be exercised in using it in the provision of clinical care. This summary normalizes information from multiple sources, and as a consequence, information in this document may materially change the coding, format and clinical context of patient data. In addition, data may be omitted in some cases. CLINICAL DECISIONS SHOULD BE BASED ON THE PRIMARY CLINICAL RECORDS. [facility]. provides no warranty or guarantee of the accuracy or completeness of information in this document.
[2023-11-12 15:21] LABS: Absolute Lymphocyte Count 3.04 X10^3/uL (0.83-4.51); Absolute Neutrophil Count 5.3 X10^3/uL (2.0-7.7); Basophil# 0.06 X10^3/uL; Basophil% 0.6 % (0-1); Eosinophil# 0.27 X10^3/uL; Eosinophils% 2.9 % (0-5); Hematocrit 46.8 % (40-54); Hemoglobin 15.9 g/dL (13.0-16.5); Lymphocyte # 3.04 X10^3/ul (0.83-4.51); Lymphocyte % 32.4 % (19-41); Mean Corpuscular Hgb 30.5 pg (27.0-32.0); Mean Corpuscular Volume 89.8 fL (80-94); Mean Platelet Vol. 9.4 fl (6.2-12.0); Monocyte# 0.68 X10^3/uL; Monocyte% 7.2 % (0-10); NRBC Flagged by Analyzer 0 % (0-5); Neutrophil # 5.31 X10^3/uL (2.7-7.7); Neutrophil % 56.7 % (47-70); Platelet Count 339 K/mm3 (150-450); RBC Distribution Width CV 12.3 % (11.6-14.6); RBC Distribution Width SD 39.8 fl (35.1-43.9); Red Blood Count 5.21 M/mm3 (4.6-6.2); White Blood Count 9.4 K/mm3 (4.4-11.0)
[2023-11-12 15:50] LABS: Anion Gap 5 (5-15); BUN 10 mg/dL (7-18); BUN/Creat Ratio 8.1 RATIO (10-20); Calcium,Total 9.2 mg/dL (8.5-10.1); Chloride 103 mmol/L (98-107); Creatinine, Serum 1.23 mg/dL (0.70-1.30); EST Glomerular Filtration Rate 69 mL/min (>60); Est Glom Filt Rate - Afr Amer 83 mL/min (>60); Glucose 86 mg/dL (74-106); Sodium Level 136 mmol/L (136-145)
== END | disposition home or self-care (01) ==
LOC: MTLAB 12:44
PROVIDERS: PCP Family Medicine; Referring Provider Family Medicine; Visit Provider Family Medicine
DX: R00.0 Tachycardia, unspecified (principal)
CPT/HCPCS: 36415; 80048; 85025

== ENCOUNTER → 2024-02-04 | Outpatient (CLI) | payer OTHER, SELFPAY ==
[2024-02-04 11:41] LABS: Hemoglobin A1c 4.9 % (3.8-5.6)
[2024-02-04 11:46] LABS: Vitamin B12 1202 pg/mL (211-911); Vitamin D,25 Hydroxy 41.9 ng/mL
[2024-02-04 12:15] LABS: ALB/GLOB Ratio 1.2 RATIO (0.9-2.4); AST(SGOT) 19 U/L (15-37); Alanine Aminotransfer ALT/SGPT 30 U/L (16-61); Albumin, Serum 4.2 g/dL (3.2-5.0); Alkaline Phosphatase 65 U/L (45-117); Anion Gap 4 (5-15); BUN 9 mg/dL (7-18); BUN/Creat Ratio 6.8 RATIO (10-20); CRP, High Sensitivity Cardiac 0.53 mg/L; Calcium,Total 9.4 mg/dL (8.5-10.1); Chloride 104 mmol/L (98-107); Cholesterol 178 mg/dL (200); Creatinine, Serum 1.33 mg/dL (0.70-1.30); EST Glomerular Filtration Rate 63 mL/min (>60); Est Glom Filt Rate - Afr Amer 76 mL/min (>60); Free T3 2.8 pg/mL (2.18-3.98); Globulin 3.5 g/dL (2.2-4.2); Glucose 92 mg/dL (74-106); High Density Lipoprotein 41 mg/dL; Magnesium 2.2 mg/dL (1.6-2.6); Potassium 4.6 mmol/L (3.5-5.1); Protein, Total 7.7 g/dL (6.4-8.2); Sodium Level 137 mmol/L (136-145); T4 Free Direct 0.93 ng/dL (0.76-1.46); Thyroid Stim Hormone (TSH) 0.55 uIU/mL (0.358-3.74); Triglycerides 181 mg/dL; Very Low Density Lipoprotein 36 mg/dL (5-40)
[2024-02-11 09:09] LABS: Testosterone, % Free 2.96 % (1.50-4.20); Testosterone, Free 14.21 ng/dL (5.00-21.00); Testosterone, Total 480 ng/dL (264-916)
== END | disposition home or self-care (01) ==
LOC: MTLAB 08:23
PROVIDERS: PCP Family Medicine
DX: R53.83 Other fatigue (principal)
CPT/HCPCS: 36415; 80053; 80061; 82306; 82607; 82746; 83036; 83735; 84402; 84403; 84439; 84443; 84481; 84630; 86141

== ENCOUNTER → 2024-02-05 | Outpatient (CLI) | payer OTHER, SELFPAY | END | disposition home or self-care (01) | PROVIDERS: PCP Family Medicine | DX: R53.83 Other fatigue (principal) ==

== ENCOUNTER → 2024-05-05 | Outpatient (CLI) | payer OTHER, SELFPAY ==
--- NOTE | 2024-05-05 09:14 | RAD_ITS ---
INDICATION: hip -- bilateral EXAMINATION/TECHNIQUE: X-RAY - XR Hips Bilateral with Pelvis when performed; 2 Views COMPARISON: No relevant prior comparison study available FINDINGS: PELVIC BONES: No displaced fracture, destructive or sclerotic lesions. Note that overlapping bowel shadows may however obscure fine detail. Sacroiliac joints are unremarkable. No widening of the pubic symphysis. HIPS: The articular structures are unremarkable. No displaced fracture seen in this frontal view. SOFT TISSUES: No soft tissue swelling or gas. RAD/Hips B/L min 2 views w/ Pelvis IMPRESSION: No evidence of displaced pelvic or hip fracture. Electronically Signed: Aris Rajput MD at 13:59 EDT ,
--- NOTE | 2024-05-05 09:20 | RAD_ITS ---
STUDY: X-RAY - LUMBAR SPINE REASON FOR EXAM: Male, 43 years old. Back pain TECHNIQUE: 5 view(s) of the lumbar spine were obtained including oblique views. COMPARISON: None FINDINGS: Normal lumbar lordosis. There is no substantial scoliosis. There is a normal alignment of the vertebrae. Minimal anterior spondylosis at the L1-L2 and L2-L3 levels. Normal disc space heights. Moderate amount of fecal material is seen in the colon. RAD/L/S Spine Min 4 Views IMPRESSION: Degenerative changes of the spine, as detailed above. Electronically Signed: Aris Rajput MD at 14:00 EDT ,
== END | disposition home or self-care (01) ==
LOC: MTRAD 09:14
PROVIDERS: PCP Family Medicine; Referring Provider Family Medicine; Visit Provider Family Medicine
DX: M25.552 Pain in left hip (principal); M54.9 Dorsalgia, unspecified
CPT/HCPCS: 72110; 73521

== ENCOUNTER → 2024-05-19 | Outpatient (CLI) | payer OTHER, SELFPAY ==
[2024-05-19 12:18] LABS: Absolute Lymphocyte Count 1.98 X10^3/uL (0.83-4.51); Absolute Neutrophil Count 3.5 X10^3/uL (2.0-7.7); Basophil# 0.04 X10^3/uL; Basophil% 0.6 % (0-1); Eosinophil# 0.18 X10^3/uL; Eosinophils% 2.9 % (0-5); Hematocrit 46.1 % (40-54); Hemoglobin 15.8 g/dL (13.0-16.5); Lymphocyte # 1.98 X10^3/ul (0.83-4.51); Lymphocyte % 31.4 % (19-41); Mean Corp Hgb Conc 34.3 g/dL (32-36); Mean Corpuscular Hgb 31.5 pg (27.0-32.0); Mean Corpuscular Volume 91.8 fL (80-94); Mean Platelet Vol. 9.6 fl (6.2-12.0); Monocyte# 0.57 X10^3/uL; NRBC Flagged by Analyzer 0 % (0-5); Neutrophil # 3.52 X10^3/uL (2.7-7.7); Neutrophil % 55.9 % (47-70); Platelet Count 262 K/mm3 (150-450); RBC Distribution Width CV 12.3 % (11.6-14.6); RBC Distribution Width SD 41.4 fl (35.1-43.9); Red Blood Count 5.02 M/mm3 (4.6-6.2); White Blood Count 6.3 K/mm3 (4.4-11.0)
[2024-05-19 12:45] LABS: Vitamin D,25 Hydroxy 49.2 ng/mL
[2024-05-19 12:51] LABS: ALB/GLOB Ratio 1.4 RATIO (0.9-2.4); AST(SGOT) 20 U/L (15-37); Alanine Aminotransfer ALT/SGPT 27 U/L (16-61); Albumin, Serum 4.3 g/dL (3.2-5.0); Alkaline Phosphatase 67 U/L (45-117); Anion Gap 5 (5-15); BUN 9 mg/dL (7-18); BUN/Creat Ratio 7.3 RATIO (10-20); Calcium,Total 9.4 mg/dL (8.5-10.1); Chloride 101 mmol/L (98-107); Creatinine, Serum 1.23 mg/dL (0.70-1.30); EST Glomerular Filtration Rate 69 mL/min (>60); Est Glom Filt Rate - Afr Amer 83 mL/min (>60); Globulin 3.1 g/dL (2.2-4.2); Glucose 88 mg/dL (74-106); Potassium 4.6 mmol/L (3.5-5.1); Protein, Total 7.4 g/dL (6.4-8.2); Sodium Level 133 mmol/L (136-145)
== END | disposition home or self-care (01) ==
LOC: MTLAB 11:17
PROVIDERS: PCP Family Medicine; Referring Provider Family Medicine; Visit Provider Family Medicine
DX: N18.2 Chronic kidney disease, stage 2 (mild) (principal)
CPT/HCPCS: 36415; 80053; 82306; 85025

== ENCOUNTER → 2024-07-19 | Outpatient (CLI) | payer OTHER, SELFPAY ==
[2024-07-19 10:22] LABS: Hematocrit 44.8 % (40-54); Hemoglobin 15.1 g/dL (13.0-16.5); Mean Corp Hgb Conc 33.7 g/dL (32-36); Mean Corpuscular Hgb 31.1 pg (27.0-32.0); Mean Corpuscular Volume 92.2 fL (80-94); Mean Platelet Vol. 9.7 fl (6.2-12.0); Platelet Count 273 K/mm3 (150-450); RBC Distribution Width CV 12.2 % (11.6-14.6); RBC Distribution Width SD 41.2 fl (35.1-43.9); Red Blood Count 4.86 M/mm3 (4.6-6.2); White Blood Count 9.5 K/mm3 (4.4-11.0)
[2024-07-19 10:36] LABS: Vitamin B12 1099 pg/mL (211-911)
[2024-07-19 11:13] LABS: ALB/GLOB Ratio 1.1 RATIO (0.9-2.4); AST(SGOT) 17 U/L (15-37); Alanine Aminotransfer ALT/SGPT 33 U/L (16-61); Albumin, Serum 3.9 g/dL (3.2-5.0); Alkaline Phosphatase 64 U/L (45-117); Anion Gap 4 (5-15); BUN 8 mg/dL (7-18); BUN/Creat Ratio 5.7 RATIO (10-20); Calcium,Total 9.1 mg/dL (8.5-10.1); Chloride 105 mmol/L (98-107); EST Glomerular Filtration Rate 59 mL/min (>60); Est Glom Filt Rate - Afr Amer 72 mL/min (>60); Ferritin 61 ng/mL (26-388); Globulin 3.5 g/dL (2.2-4.2); Glucose 94 mg/dL (74-106); Iron 63 ug/dL (65-175); Iron Binding Capacity,Total 358 ug/dL (250-450); PERCENT IRON SATURATION 17.6 % (15.0-55.0); Potassium 4.1 mmol/L (3.5-5.1); Protein, Total 7.4 g/dL (6.4-8.2); Sodium Level 137 mmol/L (136-145); T4 Free Direct 0.85 ng/dL (0.76-1.46); Thyroid Stim Hormone (TSH) 0.728 uIU/mL (0.358-3.740)
[2024-07-21 16:11] LABS: Zinc, Plasma or Serum 68 ug/dL (44-115)
== END | disposition home or self-care (01) ==
LOC: MTLAB 08:27
PROVIDERS: PCP Family Medicine; Referring Provider Internal Medicine; Visit Provider Internal Medicine
DX: D64.9 Anemia, unspecified (principal); R53.83 Other fatigue; E87.8 Other disorders of electrolyte and fluid balance, not elsewhere classified
CPT/HCPCS: 36415; 80053; 82607; 82728; 82746; 83540; 83550; 83735; 84439; 84443; 84630; 85027

== ENCOUNTER → 2024-08-28 | Outpatient (CLI) | payer OTHER, SELFPAY | END | disposition home or self-care (01) | LOC: LABSPEC 15:07 | PROVIDERS: PCP Family Medicine; Referring Provider Otolaryngology; Visit Provider Otolaryngology | DX: L72.9 Follicular cyst of the skin and subcutaneous tissue, unspecified (principal) | CPT/HCPCS: 88304 ==

== ENCOUNTER → 2024-09-06 | Outpatient (CLI) | payer OTHER, SELFPAY ==
--- NOTE | 2024-09-06 08:58 | US_ITS ---
STUDY: ABDOMINAL ULTRASOUND - RIGHT UPPER QUADRANT REASON FOR VISIT: Male, 44 years old right upper quadrant pain/bloating. TECHNIQUE: Ultrasound evaluation of the right upper quadrant was performed with real-time and static sanders-scale imaging. TECHNICAL QUALITY: Adequate. COMPARISON: None. FINDINGS: Liver: The liver measures 12 cm. There is normal echogenicity of the liver. The bile ducts are within normal limits. There is hepatic color flow. The direction of portal flow is hepatopetal. There is no demonstrated mass lesion. Gallbladder: Normal distended gallbladder. The gallbladder wall measures 1.6 mm. There is a negative sonographic Matthews''s sign. There is no pericholecystic fluid. There are no gallstones. Common Bile Duct (C.B.D.): The common bile duct measures 3.0 mm. Pancreas: Normal size of the head, body and tail of the pancreas. There is normal echogenicity of the pancreas. There is no demonstrated pancreatic mass or cyst. Right Kidney: Normal size of the right kidney. The right kidney measures 10.8 cm x 4.9 cm x 4.4 cm. Normal renal cortex. The right cortex measures 1.4 cm. There is no demonstrated renal mass or cyst. There is no right hydronephrosis. US/Abdomen Limited IMPRESSION: Normal right upper quadrant ultrasound examination. Electronically Signed: Aris Rajput MD at 11:50 EST ,
== END | disposition home or self-care (01) ==
LOC: US 08:49
PROVIDERS: PCP Family Medicine; Referring Provider Registered Nurse; Visit Provider Registered Nurse
DX: K21.9 Gastro-esophageal reflux disease without esophagitis (principal); K27.9 Peptic ulcer, site unspecified, unspecified as acute or chronic, without hemorrhage or perforation; K59.00 Constipation, unspecified; E61.1 Iron deficiency; R14.0 Abdominal distension (gaseous); R10.84 Generalized abdominal pain; R11.0 Nausea
CPT/HCPCS: 76705

== ENCOUNTER → 2024-09-12 | Outpatient (CLI) | payer OTHER, SELFPAY ==
[2024-09-12 08:22] LABS: Bacteria 0 SEEN /hpf (None Seen); Mucous, Urine 0 SEEN /hpf (<or=2+); Red Blood Cells-Urine 0 SEEN /hpf (0-5); Squamous Epithelial Cells - UA 0 SEEN /hpf (0-5); White Blood Cells 0 SEEN /hpf (0-5)
[2024-09-12 09:51] LABS: Color, Urine Straw (Yellow); Glucose, Dipstick Normal (Normal); Ketone-Dipstick Negative (Negative); Leukocyte Esterase-Dipstick Negative /ul (Negative); Nitrite-Dipstick Negative (Negative); Occult Blood-Urine Negative /ul (Negative); Protein-Dipstick Negative (Negative); Specific Gravity, Urine 1.005 (1.002-1.030); Urine Bilirubin Dipstick Negative (Negative); Urine Clarity Clear (Clear); Urine Urobilinogen Normal (Normal); Urine pH 6.5 (5.0 - 8.0)
[2024-09-12 10:03] LABS: Protein, Urine (Random) < 6.0 mg/dL (<11.9)
[2024-09-12 10:06] LABS: Absolute Lymphocyte Count 2.49 X10^3/uL (0.83-4.51); Absolute Neutrophil Count 10.6 X10^3/uL (2.0-7.7); Basophil# 0.07 X10^3/uL; Basophil% 0.5 % (0-1); Eosinophil# 0.26 X10^3/uL; Eosinophils% 1.8 % (0-5); Hematocrit 46.3 % (40-54); Hemoglobin 15.7 g/dL (13.0-16.5); Lymphocyte # 2.49 X10^3/ul (0.83-4.51); Lymphocyte % 17.4 % (19-41); Mean Corp Hgb Conc 33.9 g/dL (32-36); Mean Corpuscular Hgb 31.5 pg (27.0-32.0); Mean Corpuscular Volume 92.8 fL (80-94); Mean Platelet Vol. 9.7 fl (6.2-12.0); Monocyte# 0.82 X10^3/uL; Monocyte% 5.7 % (0-10); NRBC Flagged by Analyzer 0 % (0-5); Neutrophil # 10.58 X10^3/uL (2.7-7.7); Neutrophil % 74.2 % (47-70); Platelet Count 309 K/mm3 (150-450); RBC Distribution Width CV 12.1 % (11.6-14.6); RBC Distribution Width SD 41.6 fl (35.1-43.9); Red Blood Count 4.99 M/mm3 (4.6-6.2); White Blood Count 14.3 K/mm3 (4.4-11.0)
[2024-09-12 10:23] LABS: PTHIN 35.6 pg/mL (18.4-80.1)
[2024-09-12 10:27] LABS: Vitamin D,25 Hydroxy 36.6 ng/mL
[2024-09-12 10:37] LABS: AST(SGOT) 14 U/L (15-37); Alanine Aminotransfer ALT/SGPT 27 U/L (16-61); Albumin, Serum 3.8 g/dL (3.2-5.0); Alkaline Phosphatase 78 U/L (45-117); Anion Gap 3 (5-15); BUN 14 mg/dL (7-18); BUN/Creat Ratio 11.5 RATIO (10-20); Calcium,Total 9.1 mg/dL (8.5-10.1); Chloride 106 mmol/L (98-107); Cholesterol 169 mg/dL (200); Creatinine, Serum 1.22 mg/dL (0.70-1.30); EST Glomerular Filtration Rate 69 mL/min (>60); Est Glom Filt Rate - Afr Amer 84 mL/min (>60); Globulin 3.7 g/dL (2.2-4.2); Glucose 82 mg/dL (74-106); High Density Lipoprotein 42 mg/dL; Potassium 4.6 mmol/L (3.5-5.1); Protein, Total 7.5 g/dL (6.4-8.2); Sodium Level 136 mmol/L (136-145); Thyroid Stim Hormone (TSH) 0.575 uIU/mL (0.358-3.740); Triglycerides 214 mg/dL; Very Low Density Lipoprotein 43 mg/dL (5-40)
== END | disposition home or self-care (01) ==
LOC: MFPLAB 08:15
PROVIDERS: PCP Family Medicine; Visit Provider Family Medicine
DX: N18.2 Chronic kidney disease, stage 2 (mild) (principal); R07.9 Chest pain, unspecified; K59.09 Other constipation
CPT/HCPCS: 36415; 80053; 80061; 81001; 82306; 82570; 83970; 84156; 84443; 85025

== ENCOUNTER → 2024-11-13 | Outpatient (CLI) | payer OTHER, SELFPAY ==
[2024-11-13 15:57] LABS: Ferritin 86 ng/mL (26-388); Iron 104 ug/dL (65-175); Iron Binding Capacity,Total 329 ug/dL (250-450)
[2024-11-14 14:44] LABS: PERCENT IRON SATURATION 31.6 % (15.0-55.0)
== END | disposition home or self-care (01) ==
LOC: MTLAB 12:56
PROVIDERS: PCP Family Medicine; Referring Provider Registered Nurse; Visit Provider Registered Nurse
DX: R14.0 Abdominal distension (gaseous) (principal); R10.84 Generalized abdominal pain; R11.0 Nausea; K21.9 Gastro-esophageal reflux disease without esophagitis; K27.9 Peptic ulcer, site unspecified, unspecified as acute or chronic, without hemorrhage or perforation; K59.00 Constipation, unspecified; E61.1 Iron deficiency
CPT/HCPCS: 36415; 82728; 83540; 83550

== ENCOUNTER → 2024-11-15 | Outpatient (CLI) | payer OTHER, SELFPAY ==
--- NOTE | 2024-11-15 09:46 | STE_ITS ---
Reason For Study: Chest Pain Stress Results Protocol: Jose Luis Protocol Maximum Predicted HR: 178 bpm Target HR: 151 bpm % Maximum Predicted HR: 108 % DurationHeart Rate Stage (mm:ss) (bpm) BP Comment Baseline 79 118/80Mild Chest Pressure Jose Luis Protocol Stage I 3:00 105 130/72Mild Chest Pressure Jose Luis Protocol Stage II 3:00 133 144/82Mild Chest Pressure Jose Luis Protocol Stage III 3:00 160 150/80Less Chest Pressure Jose Luis Protocol Stage IV 2:00 193 170/72Less Chest Pressure Recovery 109 124/70No Chest Pain Stress Duration: 11:00 mm:ss Maximum Stress HR: 193 bpm METS: 13 Baseline Echocardiogram Findings The left ventricular ejection fraction is 65 %. Post stress LVEF is estimated at more than 75%. Stress Echo Wall motion Data Resting WM Intermediate WM Stress WM Resting Wall Motion Wall Motion Stress No regional wall motion All segments Hyperkinetic. abnormalities noted. EKG Data Normal baseline electrocardiogram. Stress ECG showed sinus tachycardia with no ischemic changes. ECHO/Stress Test Echo w/o Contrast Interpretation Summary The left ventricular ejection fraction is 65 %. Stress ECG showed sinus tachycardia with no ischemic changes. Patient exercised on the treadmill for 11 minutes achieving 108% of the maximum age-predicted heart rate. 13.4 METS. R are PVC in recovery. Mild chest discomfort reported at baseline. No change during exercise. Peak stress echo images showed hyperdynamic LV wall segments with no regional w all motion abnormality. Negative exercise stress echocardiogram. Ordering Physician: Shiv Rajan Referring Physician: Shiv Rajan Performed By: Mey Tang RDCS
== END | disposition home or self-care (01) ==
LOC: CVS 09:44
PROVIDERS: PCP Family Medicine; Referring Provider Internal Medicine Cardiovascular Disease; Visit Provider Internal Medicine Cardiovascular Disease
DX: R07.89 Other chest pain (principal)
CPT/HCPCS: 93017; 93350

== ENCOUNTER → 2024-11-16 | Outpatient (CLI) | payer OTHER, SELFPAY ==
[2024-11-16 15:32] LABS: Absolute Lymphocyte Count 2.03 X10^3/uL (0.83-4.51); Basophil# 0.04 X10^3/uL; Basophil% 0.5 % (0-1); Eosinophil# 0.22 X10^3/uL; Eosinophils% 2.8 % (0-5); Hemoglobin 15.8 g/dL (13.0-16.5); Lymphocyte # 2.03 X10^3/ul (0.83-4.51); Lymphocyte % 26.1 % (19-41); Mean Corp Hgb Conc 35.1 g/dL (32-36); Mean Corpuscular Hgb 31.5 pg (27.0-32.0); Mean Corpuscular Volume 89.6 fL (80-94); Mean Platelet Vol. 9.6 fl (6.2-12.0); Monocyte# 0.51 X10^3/uL; Monocyte% 6.6 % (0-10); NRBC Flagged by Analyzer 0 % (0-5); Neutrophil # 4.95 X10^3/uL (2.7-7.7); Neutrophil % 63.7 % (47-70); Platelet Count 311 K/mm3 (150-450); Red Blood Count 5.02 M/mm3 (4.6-6.2); White Blood Count 7.8 K/mm3 (4.4-11.0)
== END | disposition home or self-care (01) ==
LOC: MTLAB 11:21
PROVIDERS: PCP Family Medicine; Referring Provider Registered Nurse; Visit Provider Registered Nurse
DX: R14.0 Abdominal distension (gaseous) (principal); R10.84 Generalized abdominal pain; R11.0 Nausea; K21.9 Gastro-esophageal reflux disease without esophagitis; K27.9 Peptic ulcer, site unspecified, unspecified as acute or chronic, without hemorrhage or perforation; K59.00 Constipation, unspecified; E61.1 Iron deficiency
CPT/HCPCS: 85025

== ENCOUNTER → 2024-11-17 | Outpatient (CLI) | payer OTHER, SELFPAY ==
--- NOTE | 2024-11-17 08:53 | ECHOD_ITS ---
Reason For Study: CHEST PAIN Procedure This was a 2D Doppler, Color Flow transthoracic echocardiogram. Exam performed in department. Left Ventricle Normal size and thickness. Apical false tendon noted. The left ventricular ejection fraction is 65 %. Normal diastololic function. Right Ventricle Normal right ventricle. Atria The left and right atria are normal. Mitral Valve Mild (1+) mitral valve insufficiency. Tricuspid Valve Trivial tricuspid valve insufficiency. Normal pulmonary artery pressure. Aortic Valve Trisinus/trileaflet aortic valve. Pulmonic Valve The pulmonic valve is not well visualized. Trivial pulmonic valve insufficiency. Great Vessels Normal sized aortic root. Pericardium/Pleural No pericardial effusion. MMode/2D Measurements & Calculations LVIDd: 4.3 cm IVSd: 1.0 cm Ao root diam: 3.1 cm LVIDs: 2.9 cm LVPWd: 0.89 cm RVDd: 3.2 cm FS: 32.1 % _ LAV(MOD-bp): 21.7 ml LVAd ap4: 23.6 cm2 SV(MOD-sp4): 38.6 ml LAV(MOD-bp) Indexed: 11.6 ml/m2 LVLd ap4: 7.8 cm SI(MOD-sp4): 20.7 ml/m2 LAV(MOD-sp2): 21.3 ml EDV(MOD-sp4): 61.7 ml LAV(MOD-sp4): 22.3 ml EDV(sp4-el): 60.6 ml LVAs ap4: 13.3 cm2 LVLs ap4: 6.8 cm ESV(MOD-sp4): 23.1 ml ESV(sp4-el): 22.1 ml EF(MOD-sp4): 62.6 % EF(sp4-el): 63.6 % _ SV(sp4-el): 38.5 ml LA A4 area: 10.9 cm2 LA dimension(2D): 3.0 cm _ RA A4 area: 11.6 cm2 TAPSE: 1.9 cm Time Measurements MV dec time: 0.19 sec Doppler Measurements & Calculations MV E max tesfaye: 58.4 cm/sec Lat Peak E' Tesfaye: 15.0 cm/sec Med Peak E' Tesfaye: 13.3 cm/sec MV A max tesfaye: 40.9 cm/sec E/E' lat: 3.9 E/E' med: 4.4 MV E/A: 1.4 _ Ao V2 max: 99.8 cm/sec LV V1 max: 83.1 cm/sec PA V2 max: 88.1 cm/sec Ao max P.0 mmHg LV V1 max P.8 mmHg _ TR max tesfaye: 225.3 cm/sec TR max P.3 mmHg ECHO/Echo Complete Interpretation Summary The left ventricular ejection fraction is 65 %. Mild (1+) mitral valve insufficiency. Ordering Physician: Shiv Rajan Referring Physician: DANIEL ROB Performed By: Shruthi Saldana RDCS
== END | disposition home or self-care (01) ==
LOC: CVS 08:52
PROVIDERS: PCP Family Medicine; Referring Provider Internal Medicine Cardiovascular Disease; Visit Provider Internal Medicine Cardiovascular Disease
DX: R07.89 Other chest pain (principal); R00.1 Bradycardia, unspecified; I49.9 Cardiac arrhythmia, unspecified
CPT/HCPCS: 93306

== ENCOUNTER → 2024-12-15 | Outpatient (CLI) | payer OTHER, SELFPAY ==
--- NOTE | 2024-12-15 11:40 | RAD_ITS ---
PROCEDURE: ABD INC DECUB AND/OR ERECT REASON FOR EXAM: Pain TECHNIQUE: Single view abdomen. COMPARISON: 11/02/2023 FINDINGS: Bowel gas pattern is normal. No evidence of bowel obstruction. No suspicious calcifications. The bones are unremarkable. RAD/Abd Inc Decub and/or Erect IMPRESSION: Nonspecific bowel gas pattern. Reading Location: [id number]
== END | disposition home or self-care (01) ==
LOC: MTRAD 11:34
PROVIDERS: PCP Family Medicine; Referring Provider Registered Nurse; Visit Provider Registered Nurse
DX: K21.9 Gastro-esophageal reflux disease without esophagitis (principal); R11.0 Nausea; R10.13 Epigastric pain; R10.32 Left lower quadrant pain; K59.00 Constipation, unspecified; K22.2 Esophageal obstruction; K31.5 Obstruction of duodenum
CPT/HCPCS: 74019

== ENCOUNTER → 2024-12-20 | Outpatient (CLI) | payer OTHER, SELFPAY ==
--- NOTE | 2024-12-20 10:21 | CT_ITS ---
PROCEDURE: ABDOMEN/PELVIS WITH CONTRAST REASON FOR EXAM: Left lower quadrant pain. Nausea. Stage 3 kidney disease. TECHNIQUE: Abdomen and pelvis CT with intravenous contrast. IV CONTRAST: 100 cc of Isovue-300. COMPARISON: None. FINDINGS: Lung bases: Clear Liver: Unremarkable. Gallbladder: Unremarkable. Spleen: Unremarkable. Pancreas: Unremarkable. Adrenals: Unremarkable. Kidneys: Unremarkable. Bladder: Unremarkable. Reproductive Organs: Unremarkable. Bowel: Diverticulosis of the descending colon and sigmoid colon. No evidence of diverticulitis. Appendix: Normal. Lymph nodes: No suspicious lymph node enlargement. Vasculature: Major vascular structures are unremarkable. Peritoneum / Retroperitoneum: No ascites. No free air. Bones: Unremarkable. CT/Abdomen/Pelvis WITH Contrast IMPRESSION: Colonic diverticulosis. No evidence of diverticulitis. One or more dose reduction techniques were used (e.g., Automated exposure contr ol, adjustment of the mA and/or kV according to patient size, use of iterative reconstruction technique). Reading Location: [id number]
[2024-12-20 12:41] LABS: CREATININE FINGERSTICK < 1.0 mg/dL (0.70-1.30); EGFR FINGERSTICK > 60.0000 mL/min (>60)
== END | disposition home or self-care (01) ==
LOC: CT 10:19
PROVIDERS: PCP Family Medicine; Referring Provider Internal Medicine; Visit Provider Internal Medicine
DX: R10.9 Unspecified abdominal pain (principal)
CPT/HCPCS: 74177; Q9967

== ENCOUNTER → 2025-02-13 | Outpatient (CLI) | payer OTHER, SELFPAY ==
[2025-02-13 15:49] LABS: Anion Gap 10 (5-15); BUN 11 mg/dL (4-19); BUN/Creat Ratio 9.7 RATIO (10-20); Calcium,Total 9.7 mg/dL (7.6-11.0); Carbon Dioxide 24.7 mmol/L (21.0-32.0); Chloride 99 mmol/L (98-108); Creatinine, Serum 1.16 mg/dL (0.70-1.20); EST Glomerular Filtration Rate 81 (>60); Glucose 83 mg/dL (70-99); Potassium 4.7 mmol/L (3.3-5.1); Sodium Level 135 mmol/L (133-145)
[2025-02-13 16:05] LABS: Protein, Urine (Random) < 6.0 mg/dL (0.0-12.0); Protein:Creat Ratio UNABLE TO CALCULATE mg/g CRE (0-200)
== END | disposition home or self-care (01) ==
LOC: MTLAB 10:49
PROVIDERS: PCP Family Medicine; Referring Provider Internal Medicine Nephrology; Visit Provider Internal Medicine Nephrology
DX: N18.2 Chronic kidney disease, stage 2 (mild) (principal)
CPT/HCPCS: 36415; 80048; 82570; 84156

== ENCOUNTER → 2025-03-02 | Outpatient (CLI) | payer OTHER, SELFPAY ==
--- NOTE | 2025-03-02 07:15 | NM_ITS ---
PROCEDURE: GASTRIC EMPTYING STUDY - 4 HR 03/02/2025 REASON FOR EXAM: GERD COMPARISON: None TECHNIQUE: The patient ingested a standard meal of 2 eggs, bread and 2 pieces of butter and water. There was no vomiting postprandially. Anterior and posterior planar images of the upper abdomen were obtained for 1 minute immediately following the meal at 1h, 2h and 4h if more than 10% of the activity persisted within the stomach. Regions of interest were drawn, and a geometric mean was used to calculate a [id number]. RADIOPHARMACEUTICAL: Sulfur colloid DOSE 1.2mCi FINDINGS: Percent activity remaining in stomach: 1 hour 80 % (normal 37-90%) 2 hours: 60 % (normal 30-60%) 4 hours: 28 % (normal 0-10%) NM/Gastric Emptying Study - 4 HR IMPRESSION: Delayed gastric emptying. Reading Location: [id number]
== END | disposition home or self-care (01) ==
LOC: NM 07:15
PROVIDERS: PCP Family Medicine; Referring Provider Registered Nurse; Visit Provider Registered Nurse
DX: K21.9 Gastro-esophageal reflux disease without esophagitis (principal); R11.0 Nausea; R14.0 Abdominal distension (gaseous); K59.00 Constipation, unspecified; K22.2 Esophageal obstruction; R07.9 Chest pain, unspecified; K27.9 Peptic ulcer, site unspecified, unspecified as acute or chronic, without hemorrhage or perforation; Z79.1 Long term (current) use of non-steroidal anti-inflammatories (NSAID)
CPT/HCPCS: 78264; A9541

== ENCOUNTER → 2025-05-16 | Outpatient (CLI) | payer OTHER, SELFPAY | END | disposition home or self-care (01) | LOC: PSN 08:43 | PROVIDERS: PCP Family Medicine; Referring Provider Nurse Practitioner Gerontology; Visit Provider Nurse Practitioner Gerontology | DX: R00.1 Bradycardia, unspecified (principal); R07.9 Chest pain, unspecified | CPT/HCPCS: 93225; 93226 ==

== ENCOUNTER → 2025-08-23 | Outpatient (CLI) | payer OTHER, SELFPAY ==
[2025-08-23 13:47] LABS: AST(SGOT) 24 U/L (<=37); Alanine Aminotransfer ALT/SGPT 32 U/L (<=46); Albumin, Serum 4.5 g/dL (3.5-5.0); Alkaline Phosphatase 78 U/L (40-129); Anion Gap 10 (5-15); BUN 7 mg/dL (4-19); BUN/Creat Ratio 6.7 RATIO (10-20); Calcium,Total 9.4 mg/dL (7.6-11.0); Carbon Dioxide 26.9 mmol/L (21.0-32.0); Chloride 96 mmol/L (98-108); Cholesterol 182 mg/dL (<=200); Globulin 2.7 g/dL (2.2-4.2); Glucose 79 mg/dL (70-99); Low Density Lipoprotein Calc. 97 mg/dL; Potassium 3.7 mmol/L (3.3-5.1); Triglycerides 189 mg/dL; Very Low Density Lipoprotein 38 mg/dL (5-40); Vitamin B12 822 pg/mL (180-914); Vitamin D,25 Hydroxy 32.9 ng/mL (30-100); cholesterol:hdl ratio screen 3.43
== END | disposition home or self-care (01) ==
LOC: MFPLAB 08:51
PROVIDERS: PCP Family Medicine; Visit Provider Family Medicine
DX: Z00.00 Encounter for general adult medical examination without abnormal findings (principal); R53.83 Other fatigue
CPT/HCPCS: 36415; 80053; 80061; 82306; 82607; 84439; 84443

== ENCOUNTER → 2025-10-13 | Outpatient (CLI) | payer OTHER, SELFPAY ==
--- OUTSIDE RECORDS SUMMARY | 2025-10-13 08:03 | XMS RPT_ITS | CCD ---
Author Organization [facility] Care Team Providers Care Compliance Technician Name Role Phone Dr. Daniel Rob Primary Care Provider Dr. Daniel Rob Referring Provider Dr. Daniel Rob Other Provider Dr. Oscar Spivey Attending Provider Janelle VICE PRESIDENT SUPPLY CHAINKaylynn DIAS Primary Care Provider [phone] DANIEL ROB Primary Care Unavailable STELLA SOLORZANO Attending Unavailable LUIS ANDRE Referring Unavailable LUIS ANDRE Attending Unavailable DANIEL ROB Primary Care Unavailable Dr. Daniel Rob MD Primary Care Provider [phone] Jamal RN NEW GRAD-C, Oren Attending Provider Jamal RN NEW GRAD-C, Oren Referring Provider Dr. Daniel Rob MD Attending Provider Dr. Daniel Rob MD Referring Provider Dr. Shiv Rajan MD Attending Provider Dr. Shiv Rajan MD Referring Provider [phone] Stella Solorzano MD Attending Provider [phone] Dr. Stella Solorzano MD Referring Provider [phone] Dr. Daniel Rob MD Primary Care Provider Jamal RN NEW GRAD-C, Ali Attending Provider Jamal RN NEW GRAD-C, Ali Referring Provider Dr. Shiv Rajan MD Attending Provider Michell GRIDER, Dr. Godoy Attending Provider Michell GRIDER, Dr. Godoy Referring Provider Neelam GRIDER, Dr. Daniel Pritchett Primary Care Provider Jamal RN NEW GRAD-COren Attending Provider [phone] Jamal RN NEW GRAD-C, Oren Referring Provider [phone] Neelam GRIDER, Dr. Daniel Pritchett Referring Provider [phone] Alex RN NEW GRAD-CSelena Attending Provider [phone] Alex RN NEW GRAD-C, Selena Referring Provider Dr. Shiv Rajan MD Attending Provider [phone] Schamalianer, Daniel E Primary Care Unavailable Satinder, Shiv Attending Unavailable Selena Johnson Referring Unavailable Schinner, Daniel E Primary Care Unavailable Shiv Rajan Attending Unavailable Schinner, Daniel E Primary Care Unavailable SatinderShiv Attending Unavailable Schinner, Daniel E Primary Care Unavailable Selena Johnson Referring Unavailable Selena Johnson Attending Unavailable Schinner, Daniel E Primary Care Unavailable Schinner, Daniel E Referring Unavailable Selena Johnson Attending Unavailable Schinner, Daniel E Primary Care Unavailable Schinner, Daniel E Referring Unavailable SatinderShiv Attending Unavailable Schinner, Daniel E Primary Care Unavailable Stella Solorzano Referring Unavailable Stella Solorzano Attending Unavailable Schinner, Daniel E Primary Care Unavailable Walt Galarza Referring Unavailable Walt Galarza Attending Unavailable Schinner, Daniel E Primary Care Unavailable Oren Berry Attending Unavailable Oren Berry Referring Unavailable Schinner, Daniel E Primary Care Unavailable Adal Lagos Attending Unavailable Adal Lagos Referring Unavailable Schinner, Daniel E Primary Care Unavailable Satinder, Shiv Referring Unavailable Satinder, Shiv Attending Unavailable Schinner, Daniel E Primary Care Unavailable Oren Berry Referring Unavailable Oren Berry Attending Unavailable Schinner, Daniel E Primary Care Unavailable Satinder, Shiv Referring Unavailable Satinder, Shiv Attending Unavailable Schinner, Daniel E Attending Unavailable Schinner, Daniel E Primary Care Unavailable Schinner, Daniel E Primary Care Unavailable Oren Berry Attending Unavailable Oren Berry Referring Unavailable JamalOren rosenbaum Referring Unavailable Jamal, Ali Attending Unavailable Daniel Rob Primary Care Unavailable Daniel Rob Attending Unavailable Daniel Rob Primary Care Unavailable Daniel Rob Primary Care Unavailable Oren Berry Attending Unavailable Oren Berry Referring Unavailable Allergies Allergy Classification Reported Allergen(s) Allergy Type Date of Onset Reaction(s) Facility (20 sources) Penicillins; Translations: [Penicillins] Allergy to substance 8 [facility] (18 sources) Sulfonamides (Antibiotic); Translations: [Sulfa (Sulfonamide Antibiotics)] Allergy to substance 8 Unknown [facility] (2 sources) Cephalosporins (Antibiotic) Propensity to adverse reactions 8 [facility] (7 sources) Erythromycin Drug Allergy 8 [facility] (5 sources) Cephalosporins (Antibiotic) Allergy to substance 5 [facility] (5 sources) Ciprofloxacin Drug Allergy 5 Calf Pain [facility] (5 sources) sildenafil Drug Allergy 5 flushing [facility] (5 sources) topiramate Drug Allergy 5 Anxiety [facility] (5 sources) Verapamil Drug Allergy 5 Drowsiness [facility] (6 sources) atogepant; Translations: [atogepant] Propensity to adverse reactions 5 dizziness [facility] (1 source) Cephalosporins (Antibiotic) Drug allergy (disorder) 5 [facility] (1 source) Ciprofloxacin Drug Allergy 5 [facility] (1 source) Erythromycin Drug Allergy 5 [facility] (1 source) sildenafil Drug Allergy 5 [facility] (1 source) topiramate Drug Allergy 5 [facility] (1 source) Verapamil Drug Allergy 5 [facility] Medications Current Medications Medication Drug Class(es) Dates Sig (Normalized) Sig (Original) ALPRAZolam 0.5 mg oral tablet (5 sources) Benzodiazepine Start: 10-04-2024 take 0.1 tablet by mouth once daily as needed Alprazolam 0.5 mg tablet Active 0.5 mg PO .1-3x Daily as needed October 04, 2024 1:00am busPIRone hydrochloride 15 mg oral tablet (5 sources) Start: 10-26-2024 take 1 tablet by mouth three times daily Buspirone 15 mg tablet Active 15 mg PO THREE TIMES A DAY October 26, 2024 1:00am DULoxetine 20 mg delayed release oral capsule (2 sources) Serotonin and Norepinephrine Reuptake Inhibitor Start: 05-07-2025 take 1 capsule by mouth once Duloxetine (Cymbalta) 20 mg capsule,delayed release(DR/EC) Active 20 mg PO ONCE May 07, 2025 12:00am linaclotide 0.29 mg oral capsule (5 sources) Guanylate Cyclase-C Agonist Start: 10-04-2024 take 1 capsule by mouth once daily Linaclotide (Linzess) 290 mcg capsule Active 290 ug PO daily October 04, 2024 1:00am omeprazole 40 mg delayed release oral capsule (5 sources) Proton Pump Inhibitor Start: 10-04-2024 take 1 capsule by mouth once daily Omeprazole 40 mg capsule,delayed release(DR/EC) Active 40 mg PO daily October 04, 2024 1:00am ondansetron 8 mg disintegrating oral tablet (9 sources) Serotonin-3 Receptor Antagonist Start: 10-04-2024 End: 05-07-2025 take 1 tablet by mouth every eight hours Ondansetron 8 mg tablet,disintegr ating Active 8 mg PO Q8H May 07, 2025 10:53am take 1 tablet by leatha th every eight hours as needed ondansetron (ZOFRAN) 8 mg tablet Take 8 mg by mouth every 8 hours as needed for nausea/vomiting. 0 Active Comment on above: Take 8 mg by mouth e very 8 hours as needed for nausea/vomiting. 24 hr propranolol hydrochloride 60 mg extended release oral capsule (10 sources) beta-Adrenergic Teresa Start: 10-26-19 take 1 capsule by mouth every twenty-four hours as needed Propranolol 60 mg capsule,extended release 24 hr Active 60 mg PO ONCE as needed October 26, 2024 10:32am Start: 10-26-2024 End: 10-26-2024 take 1 capsule by mouth once daily Propranolol 60 mg capsule,extended release 24 hr Discontinued 60 mg PO daily October 26, 2024 1:00am October 26, 2024 10:32am psyllium 3400 mg powder for oral suspension (5 sources) Start: 10-04-2024 Psyllium Husk (Metamucil) 3.4 gram/5.4 gram powder Active 1 tsp PO daily October 04, 2024 1:00am mix into at least 4 oz water or juice before administering tadalafil 10 mg oral tablet (20 sources) Phosphodiesterase 5 Inhibitor Start: 02-10-2018 Tadalafil Active 20 MG PO NEEDED February 10, 2018 1:17pm Start: 01-03-2018 End: 02-10-2018 Tadalafil 10 mg tablet Activ e 20 mg PO NEEDED as needed for erectile dysfunction February 10, 2018 1:17pm Tadalafil 5 mg t ablet Take 5 mg by mouth. 0 Active Comment on above: Take 5 mg by mouth. Completed/Discontinued Medications Medication Drug Class(es) Dates Sig (Normalized) Sig (Original) escitalopram 10 mg oral tablet (17 sources) Serotonin Reuptake Inhibitor Start: 01-03-2018 End: 02-10-2018 take 1 tablet by mouth once daily Escitalopram Oxalate 10 MG tablet Discontinued 10 mg PO DAILY 30 0 January 03, 2018 12:00am February 10, 2018 1:17pm pantoprazole 20 mg delayed release oral tablet (17 sources) Proton Pump Inhibitor Start: 02-10-2018 End: 10-04-2024 take 1 tablet by mouth once daily Pantoprazole (Protonix) 20 mg tablet,delayed release (DR/EC) Discontinued 20 mg PO daily February 10, 2018 12:00am October 04, 2024 4:39pm vortioxetine 10 mg oral tablet (2 sources) take 1 tablet by mouth once daily vortioxetine (TRINTELLIX) 10 mg tablet Take 10 mg by mouth once daily. 0 Active Comment on above: Take 10 mg by mouth once daily. Problems Active Problems Problem Classification Problem Date Documented Da te Episodic/Chronic Anxiety disorders (9 sources) Anxiety disorder; Translations: [Anxiety disorder, unspecified] Onset: 10-26-2024 10-26-2024 Chronic Asthma (17 sources) Asthma; Translations: [Unspecified asthma, uncomplicated] 03-02-2018 Chronic Cardiac dysrhythmias (18 sources) Sebastián rhythm disorder; Translations: [Other specified cardiac arrhythmias] Onset: 10-26-2024 03-02-2018 Chronic Chronic kidney disease (6 sources) Chronic kidney disease stage 2; Translations: [Chronic kidney disease, stage 2 (mild)] Onset: 02-19-2025 10-04-2024 Chronic Esophageal disorders (1 source) Gastro-esophageal reflux disease without esophagitis; Translations: [Gastro-esophageal reflux disease without esophagitis] Onset: 03-06-2025 Chronic Headache; including migraine (17 sources) Chronic headache disorder; Translations: [Chronic headache] 03-02-2018 Episodic Nausea and vomiting (17 sources) Nausea; Translations: [Nausea] 03-02-2018 Episodic Neoplasms of unspecified nature or uncertain behavior (17 sources) Neoplastic disease; Translations: [Neoplasm of unspecified behavior of bone, soft tissue, and skin] 08-17-2018 Episodic Comment on above: 6 mm lesion volar ra dial aspect left long finger tip Other aftercare (1 source) Removal of sutures done; Translations: [Encounter for removal of sutures] Episodic Other gastrointestinal disorders (7 sources) Irritable bowel syndrome; Translations: [Irritable bowel syndrome without diarrhea] 10-26-2024 Chronic Other gastrointestinal disorders (1 source) Irritable bowel syndrome without diarrhea; Translations: [Irritable bowel syndrome, unspecified] Onset: 10-26-2024 Chronic Other gastrointestinal disorders (17 sources) Diarrhea; Translations: [Diarrhea, unspecified] 03-02-2018 Episodic Other skin disorders (17 sources) Foreign body granuloma of skin; Translations: [Foreign body granuloma of the skin and subcutaneous tissue] 08-17-2018 Episodic Other skin disorders (1 source) Disorder of subcutaneous tissue; Translations: [Disorder of the skin and subcutaneous tissue, unspecified] Episodic Other skin disorders (1 source) Cyst of scalp; Translations: [Follicular cyst of the skin and subcutaneous tissue, unspecified] Episodic Screening and history of mental health and substance abuse codes (17 sources) Ex-smoker; Translations: [Personal history of nicotine dependence] 2018 Episodic Substance-related disorders (10 sources) Nicotine dependence; Translations: [Nicotine dependence, unspecified, uncomplicated] Onset: 10-26-2024 10-26-2024 Chronic Past or Other Problems Problem Classification Problem Date Documented Da te Episodic/Chronic Abdominal pain (18 sources) Epigastric pain; Translations: [Epigastric pain] Onset: 01-01-2025 03-02-2018 Episodic Cardiac dysrhythmias (8 sources) Bradycardia; Translations: [Bradycardia, unspecified] Onset: 05-24-2025 10-04-2024 Episodic Nonspecific chest pain (16 sources) Atypical chest pain; Translations: [Other chest pain] Onset: 12-06-2024 10-04-2024 Episodic Other and unspecified benign neoplasm (2 sources) Lipoma of skin and subcutaneous tissue; Translations: [Benign lipomatous neoplasm of skin and subcutaneous tissue of unspecified sites] Onset: 09-18-2015 09-18-2015 Episodic Other gastrointestinal disorders (1 source) Abdominal distension (gaseous); Translations: [Abdominal distension (gaseous)] Onset: 12-06-2024 Episodic Other skin disorders (2 sources) Sebaceous cyst of skin; Translations: [Sebaceous cyst] Onset: 09-26-2015 09-26-2015 Episodic Other skin disorders (1 source) Follicular cyst of the skin and subcutaneous tissue, unspecified; Translations: [Follicular cyst of the skin and subcutaneous tissue, unspecified] Onset: 09-25-2024 Episodic Unclassified (17 sources) TIA versus Complex migraine 07-29-2022 Results Test Name Value Interpretation Reference Range Facility Comprehensive Metabolic Prof [facility] 08-23-2025 Albumin [Mass/Vol] 4.5 g/dL Normal 3.5-5.0 [facility] Comment on above: Order Comment: Order Date: 08/23/25Order Info: [id number] - CMPOrder Info: [id number] - LIPIDOrder Info: [id number] - TSHOrder Info: [id number] - T4F Performed By: #### L 503.6075, L503.6030, L503.6550, L503.6150 #### [facility] [address] [place], [address] Albumin/Globulin [Mass ratio] 1.6 {ratio} Normal 0.9-2.4 [facility] Comment on above: Order Comment: Order Date: 08/23/25Order Info: [id number] - CMPOrder Info: [id number] - LIPIDOrder Info: [id number] - TSHOrder Info: [id number] - T4F Performed By: #### L 503.6075, L503.6030, L503.6550, L503.6150 #### [facility] [address] [place], [address] ALK PHOS 78 U/L Normal 40-129 [facility] Comment on above: Order Comment: Order Date: 08/23/25Order Info: 86-1 - CMPOrder Info: [id number] - LIPIDOrder Info: [id number] - TSHOrder Info: 7 - T4F Performed By: #### L 503.6075, L503.6030, L503.6550, L503.6150 #### [facility] [address] [place], [address] ALT [Catalytic activity/Vol] 32 U/L Normal <=46 [facility] Comment on above: Order Comment: Order Date: 08/23/25Order Info: [id number]- - CMPOrder Info: - LIPIDOrder Info: [id number] - TSHOrder Info: [id number] - T4F Performed By: #### L 503.6075, L503.6030, L503.6550, L503.6150 #### [facility] [address] [place], [address] AST [Catalytic activity/Vol] 24 U/L Normal <=37 [facility] Comment on above: Order Comment: Order Date: 08/23/25Order Info: [id number]- - CMPOrder Info: - LIPIDOrder Info: [id number] - TSHOrder Info: 7 - T4F Performed By: #### L 503.6075, L503.6030, L503.6550, L503.6150 #### [facility] [address] [place], [address] Bilirubin [Mass/Vol] 0.56 mg/dL Normal 0.00-1.30 [facility] Comment on above: Order Comment: Order Date: 08/23/25Order Info: [id number] - CMPOrder Info: [id number] - LIPIDOrder Info: [id number] - TSHOrder Info: [id number] - T4F Performed By: #### L 503.6075, L503.6030, L503.6550, L503.6150 #### [facility] [address] [place], [address] BUN/CRE 6.7 RATIO Low 10-20 [facility] Comment on above: Order Comment: Order Date: 08/23/25Order Info: [id number] - CMPOrder Info: [id number] - LIPIDOrder Info: 3 - TSHOrder Info: [id number] - T4F Performed By: #### L 503.6075, L503.6030, L503.6550, L503.6150 #### [facility] [address] [place], [address] Calcium [Mass/Vol] 9.4 mg/dL Normal 7.6-11.0 [facility] Comment on above: Order Comment: Order Date: 08/23/25Order Info: [id number] - CMPOrder Info: [id number] - LIPIDOrder Info: 3 - TSHOrder Info: [id number] - T4F Performed By: #### L 503.6075, L503.6030, L503.6550, L503.6150 #### [facility] [address] [place], [address] Chloride [Moles/Vol] 96 mmol/L Low 98-108 [facility] Comment on above: Order Comment: Order Date: 08/23/25Order Info: [id number] - CMPOrder Info: [id number] - LIPIDOrder Info: [id number] - TSHOrder Info: [id number] - T4F Performed By: #### L 503.6075, L503.6030, L503.6550, L503.6150 #### [facility] [address] [place], [address] CO2 [Moles/Vol] 26.9 mmol/L Normal 21.0-32.0 [facility] Comment on above: Order Comment: Order Date: 08/23/25Order Info: [id number] - CMPOrder Info: [id number] - LIPIDOrder Info: [id number] - TSHOrder Info: 3027 - T4F Performed By: #### L 503.6075, L503.6030, L503.6550, L503.6150 #### [facility] [address] [place], [address] Creatinine [Mass/Vol] 1.03 mg/dL Normal 0.70-1.20 [facility] Comment on above: Order Comment: Order Date: 08/23/25Order Info: 86-1 - CMPOrder Info: [id number] - LIPIDOrder Info: 3 - TSHOrder Info: 7 - T4F Performed By: #### L 503.6075, L503.6030, L503.6550, L503.6150 #### [facility] [address] [place], [address] GAP 10 Normal 5-15 [facility] Comment on above: Order Comment: Order Date: 08/23/25Order Info: [id number] - CMPOrder Info: [id number] - LIPIDOrder Info: 3 - TSHOrder Info: 7 - T4F Performed By: #### L 503.6075, L503.6030, L503.6550, L503.6150 #### [facility] [address] [place], [address] GFR/1.73 sq M.predicted among non-blacks MDRD (S/P/Bld) [Vol rate/Area] 92 mL/min/{1.73_m2} Normal >60 [facility] Comment on above: Order Comment: Order Date: 08/23/25Order Info: [id number] - CMPOrder Info: [id number] - LIPIDOrder Info: 6-3 - TSHOrder Info: [id number] - T4F Result Comment: mL/m in/1.73m2 CKD-EPI Creatinine Equation (2020) Performed By: #### L 503.6075, L503.6030, L503.6550, L503.6150 #### [facility] [address] [place], [address] Globulin (S) [Mass/Vol] 2.7 g/dL Normal 2.2-4.2 [facility] Comment on above: Order Comment: Order Date: 08/23/25Order Info: [id number] - CMPOrder Info: [id number] - LIPIDOrder Info: [id number] - TSHOrder Info: [id number] - T4F Performed By: #### L 503.6075, L503.6030, L503.6550, L503.6150 #### [facility] [address] [place], [address] Glucose [Mass/Vol] 79 mg/dL Normal 70-99 [facility] Comment on above: Order Comment: Order Date: 08/23/25Order Info: [id number] - CMPOrder Info: [id number] - LIPIDOrder Info: 6-3 - TSHOrder Info: [id number] - T4F Performed By: #### L 503.6075, L503.6030, L503.6550, L503.6150 #### [facility] [address] [place], [address] Potassium [Moles/Vol] 3.7 mmol/L Normal 3.3-5.1 [facility] Comment on above: Order Comment: Order Date: 08/23/25Order Info: [id number] - CMPOrder Info: [id number] - LIPIDOrder Info: [id number] - TSHOrder Info: [id number] - T4F Performed By: #### L 503.6075, L503.6030, L503.6550, L503.6150 #### [facility] [address] [place], [address] Sodium [Moles/Vol] 133 mmol/L Normal 133-145 [facility] Comment on above: Order Comment: Order Date: 08/23/25Order Info: 86-1 - CMPOrder Info: [id number] - LIPIDOrder Info: [id number] - TSHOrder Info: 7 - T4F Performed By: #### L 503.6075, L503.6030, L503.6550, L503.6150 #### [facility] [address] [place], [address] T PROT 7.3 g/dL Normal 5.9-8.4 [facility] Comment on above: Order Comment: Order Date: 08/23/25Order Info: 86-1 - CMPOrder Info: [id number] - LIPIDOrder Info: [id number] - TSHOrder Info: [id number] - T4F Performed By: #### L 503.6075, L503.6030, L503.6550, L503.6150 #### [facility] [address] [place], [address] Urea nitrogen [Mass/Vol] 7 mg/dL Normal 4-19 [facility] Comment on above: Order Comment: Order Date: 08/23/25Order Info: [id number] - CMPOrder Info: [id number] - LIPIDOrder Info: [id number] - TSHOrder Info: [id number] - T4F Performed By: #### L 503.6075, L503.6030, L503.6550, L503.6150 #### [facility] [address] [place], [address] Lipid Profileon 08-23-2025 CHOL:HDL 3.43 Normal [facility] Comment on above: Order Comment: Order Date: 08/23/25Order Info: 86-1 - CMPOrder Info: [id number] - LIPIDOrder Info: [id number] - TSHOrder Info: 7 - T4F Performed By: #### L 503.6075, L503.6030, L503.6550, L503.6150 #### [facility] [address] [place], [address] Cholesterol [Mass/Vol] 182 mg/dL Normal <=200 [facility] Comment on above: Order Comment: Order Date: 08/23/25Order Info: [id number] - CMPOrder Info: [id number] - LIPIDOrder Info: [id number] - TSHOrder Info: 3024-04 T4F Result Comment: Chol esterol level, Desirable <200 mg/dL Borderline high cholesterol 200-239 mg/dL High cholesterol >=240 mg/dL Recommendations of the NCEP Adult Treatment Panel for the following risk-cutoff thresholds for the [place] population. Performed By: #### L 503.6075, L503.6030, L503.6550, L503.6150 #### [facility] [address] [place], [place], [address] (388) Cholesterol in HDL [Mass/Vol] 53 mg/dL Normal [facility] Comment on above: Order Comment: Order Date: 08/23/25Order Info: [id number] - CMPOrder Info: - LIPIDOrder Info: [id number] - TSHOrder Info: [id number] T4 Result Comment: Saundra onal Cholesterol Education Program (NCEP) guidelines: <40 mg/dL: Low HDL-cholesterol (major risk factor for CHD) >= 60 mg/dL: High HDL-cholesterol (negative risk factor for CHD) HDL-cholesterol is affected by a number of factors, e.g. smoking, exercise, hormones, sex and age. Performed By: #### L 503.6075, L503.6030, L503.6550, L503.6150 #### [facility] [address] [place], [address] Cholesterol in LDL [Mass/Vol] 97 mg/dL Normal [facility] Comment on above: Order Comment: Order Date: 08/23/25Order Info: 07-1 - CMPOrder Info: [id number] - LIPIDOrder Info: [id number] - TSHOrder Info: 3024-04 T4F Result Comment: Bord tirocx=698-385 mg/dL Higher Hchi=084 mg/dL or greater Casas Equation 2020 for LDL-C Performed By: #### L 503.6075, L503.6030, L503.6550, L503.6150 #### [facility] [address] [place], [address] Cholesterol in VLDL [Mass/Vol] 38 mg/dL Normal 5-40 [facility] Comment on above: Order Comment: Order Date: 08/23/25Order Info: 86-1 - CMPOrder Info: [id number] - LIPIDOrder Info: 3 - TSHOrder Info: 7 - T4F Performed By: #### L 503.6075, L503.6030, L503.6550, L503.6150 #### [facility] [address] [place], [address] Triglyceride [Mass/Vol] 189 mg/dL Normal [facility] Comment on above: Order Comment: Order Date: 08/23/25Order Info: [id number]- - CMPOrder Info: - LIPIDOrder Info: [id number] - TSHOrder Info: [id number] - T4F Result Comment: The drugs N-Acetylcysteine and Metamizole may falsely depress this assay. Normal range: <150 mg/dL Borderline High: 150-199 mg/dL High: 200-499 mg/dL Very High: >500 mg/dL Performed By: #### L 503.6075, L503.6030, L503.6550, L503.6150 #### [facility] [address] [place], [address] T4 Free Directon 08-23-2025 T4 FREE DIRECT 1.50 ng/dL High 0.76-1.46 [facility] Comment on above: Order Comment: Order Date: 08/23/25Order Info: [id number] - CMPOrder Info: [id number] - LIPIDOrder Info: 3 - TSHOrder Info: 7 - T4F Performed By: #### L 503.6075, L503.6030, L503.6550, L503.6150 #### [facility] [address] [place], [address] Thyroid Stim Hormone (TSH)on 08-23-2025 TSH 0.813 uIU/mL Normal 0.300-4.20 0 [facility] Comment on above: Order Comment: Order Date: 08/23/25Order Info: 86-1 - CMPOrder Info: [id number] - LIPIDOrder Info: [id number] - TSHOrder Info: 7 - T4F Performed By: #### L 503.6075, L503.6036, L503.6550, L503.6150 #### [facility] [address] [place], [address] Vitamin B12on 08-23-2025 Cobalamin (Vitamin B12) [Mass/Vol] 822 pg/mL Normal 180-914 [facility] Comment on above: Order Comment: Order Date: 08/23/25 Order Info: [id number]- - CMP Order Info: - LIPID Order Info: 3 - TSH Order Info: [id number] - T4F Performed By: #### L 503.0106, L506.1001 #### [facility] [address] [place], [place], [id number] Vitamin D,25 Hydroxyon 08-23 Vitamin D 25-OH 32.9 ng/mL Normal 30-100 [facility] Comment on above: Order Comment: Order Date: 08/23/25 Order Info: [id number] - CMP Order Info: 13297-6 - LIPID Order Info: 3 - TSH Order Info: 7 - T4F Result Comment: Verito min D Status Deficiency: <20 ng/mL (50nmol/L) Insufficiency: 20-30 ng/mL (50-75 nmol/L) Sufficiency: 30-100 ng/mL (75-250 nmol/L) Toxicity: >100 ng/mL (>250 nmol/L) Performed By: #### L 503.0106, L506.1001 #### [facility] [address] [place], [place], [id number] Cardiology Visit Reporton Cardiology Visit Report [facility] [address] [place] [address] OFFICE VISIT Date of Service: 05/07/25 MR#: [id number] Acct: [id number] Name: AURELIANO WALSH Rep #: [id number] : 1980 Provider: CHARLENE sweeney Age/Sex: 44/M [place] [facility] [place] Signed HPI HPI History of Present Illness Details: This is a 44 year old gentleman who presents to the office for a cardiovascular follow-up visit. He has history of irritable bowel disease and anxiety disorder. He has been referred to us for evaluation of his chest discomfort. Per patient, for the last 1 year or so, he has been getting intermittent anterior chest discomfort. He perceives it as a pressure sensation. No radiation to the arm neck or jaw. No associated diaphoresis. No shortness of breath. He had per patient, it mostly occurs at rest. He has noticed that his heart rate usually is in the 60s when this happens. According to him, initially if he would get active, the chest discomfort will resolve. From a cardiac standpoint, the patient is doing well. He does have occasional palpitations- fluttering sensation. He does have an occasional midsternal chest pain with lower heart rates. He states this goes away when his heart rate increases. He denies chest pressure or heaviness. He denies SOB, Orthopnea, and PND. He does not have bleeding issues; no blood in urine, stool, or nosebleeds. He denies any decrease in energy level, myalgias, or claudication. He does not have edema, or sudden weight gain. He does acknowledge lightheadedness with quick positional changes. He denies dizziness, syncopal or near syncopal episodes, and headaches. 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: No Is patient in pain?: No Allergies Cephalosporins Allergy (Severe, Verified 05/07/25 12:18) Hives erythromycin base Allergy (Severe, Verified 05/07/25 12:18) Hives Penicillins Allergy (Verified 05/07/25 12:18) Unknown Sulfa (Sulfonamide Antibiotics) Allergy (Verified 05/07/25 12:18) Unknown ciprofloxacin (From Cipro) Adverse Reaction (Intermediate, Verified 05/07/25 12:18) Calf Pain atogepant (From Qulipta) Adverse Reaction (Mild, Verified 05/07/25 12:18) dizziness sildenafil (From Viagra) Adverse Reaction (Mild, Verified 05/07/25 12:18) flushing topiramate (From Topamax) Adverse Reaction (Mild, Verified 05/07/25 12:18) Anxiety verapamil Adverse Reaction (Mild, Verified 05/07/25 12:18) Drowsiness Medications ???Medication ???Instructions ???Recorded ???Confirmed ???Type tadalafil 10 mg tablet 20 mg PO PRN PRN erectile 02/10/18 05/07/25 History dysfunction alprazolam 0.5 mg tablet 0.5 mg PO .1-3x Daily PRN 10/04/24 05/07/25 History linaclotide 290 mcg capsule 290 mcg PO QDAY 10/04/24 05/07/25 History (Linzess) omeprazole 40 mg capsule,delayed 40 mg PO QDAY 10/04/24 05/07/25 Hi story release psyllium husk 3.4 gram/5.4 gram 1 tsp PO QDAY 10/04/24 05/07/25 Hi story oral powder (Metamucil) buspirone 15 mg tablet 15 mg PO TID 10/26/24 05/07/25 His tory propranolol 60 mg capsule,24 60 mg PO ONCE PRN 10/26/24 5 History hr,extended release duloxetine 20 mg capsule,delayed 20 mg PO ONCE 05/07/25 05/07/25 Hi story release (Cymbalta) ondansetron 8 mg disintegrating 8 mg PO Q8H 05/07/25 05/07/25 Hist ory tablet Ejection fraction %: 65 Have you fallen in the past year?: No PFSH Medical History Bradycardia Atypical chest pain Chest pain Chronic kidney disease, stage II (mild) Irritable bowel syndrome with constipation Chronic constipation TIA (transient ischemic attack) Hearing problem Frequent headaches Anxiety and depression Back problem Asthma Environmental allergies GERD (gastroesophageal reflux disease) Abdominal pain Hypertension TIA versus Complex migraine Surgical History History of esophagogastroduodenoscopy (EGD) H/O removal of cyst History of colonoscopy History of wisdom tooth extraction Multiple lipomas History of tonsillectomy Family History Sister Asthma Anxiety Father High cholesterol Alcohol abuse Hypertension Asthma Depression (emotion) Mother Multiple sclerosis Social History household members: spouse and children current occupational status: employed 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 Normal [facility] Gastric Emptying Study - 4 H Mohamud 03-02-2025 Gastric Emptying Study - 4 HR [facility] [address] [place] [address] [id number] Gastric Emptying Study - 4 HR MR#: [id number] Acct: [id number] Name: AURELIANO WALSH Rep #: [id number] : 1980 M 44 From: Aris chopra MD PCP: Dr. Daniel Rob MD Status: REG CLI Study: Gastric Emptying Study - 4 HR Date of Exam: Exam# [id number] Ordering Dr: Oren Berry RN NEW GRAD-C PROCEDURE: GASTRIC EMPTYING STUDY - 4 HR 03/02/2025 REASON FOR EXAM: GERD COMPARISON: None TECHNIQUE: The patient ingested a standard meal of 2 eggs, bread and 2 pieces of butter and water. There was no vomiting postprandially. Anterior and posterior planar images of the upper abdomen were obtained for 1 minute immediately following the meal at 1h, 2h and 4h if more than 10% of the activity persisted within the stomach. Regions of interest were drawn, and a geometric mean was used to calculate a [id number]-fvijd. RADIOPHARMACEUTICAL: Sulfur colloid DOSE 1.2mCi FINDINGS: Percent activity remaining in stomach: 1 hour 80 % (normal 37-90%) 2 hours: 60 % (normal 30-60%) 4 hours: 28 % (normal 0-10%) NM/Gastric Emptying Study - 4 HR IMPRESSION: Delayed gastric emptying. Reading Location: [id number] CC: CHARLENE Berry; Dr. Daniel Rob MD Department Specialist: Signed [facility] 36on 02-22-2025 36 Patient verbalized understanding. [facility] 36on 02-16-2025 36 Records reviewed wit provider, no identifiable surgical issue at present based upon work-up, recommendation is for the patient to seek a second GI opinion. Normal [facility] 36 Patient had contacte d office requesting an appointment with Dr. Stapleton for colon surgery. Patient c/o of lower abdominal pain, and constipation. Patient states his symptoms began about 10 months ago. States he is having to constantly be on laxatives, and stool softeners to have a bowel movement. States his last colonoscopy was normal, polyps removed & diverticulosis. Denies any fam h/o of colorectal cancer. Patient denies any rectal bleeding/blood in stool, rectal pain, or change in bowels. Patient states he currently follows up with GI. States he is a self referral, negative work up with GI. Patient would like to see a colon surgeon, informed patient I would need to obtain records, and review with provider. Patient verbalized understanding, and can be reached at [phone]. Normal [facility] L3410.9992on 02-15-2025 [facility] Misc. COMMENT Normal . [facility] Comment on above: Order Comment: [id number] 1CYSTATIN Result Comment: Test Ordered: [id number] Cystatin C Cystatin C 0.85 mg/L CB Reference Range: 0.60-1.00 Performed at: - [facility] [id number] Other Sales Support Worker: Evan Hickey PhD, Phone: [phone] Performed By: #### L 749.2804, V880.1639, I703.1436, L503.6836 #### [facility] [address] [place], [address] Anion gap in Serum or Plasma Ordered By: Walt Galarza on 02-13-2025 Anion gap [Moles/Vol] 10 mmol/L 5-15 [facility] BUN/creatinine ratioOrdered By: Walt Galarza on 02-13-2025 Urea nitrogen/Creatinine [Mass ratio] 9.7 mg/mg Low 10-20 [facility] Basic Metabolic Profile (BMP )on 02-13-2025 BUN/CRE 9.7 RATIO Low 10-20 [facility] Comment on above: Performed By: #### L 500.2500, L3410.9992, L501.0900 #### [facility] [address] [place], [address] Calcium [Mass/Vol] 9.7 mg/dL Normal 7.6-11.0 [facility] Comment on above: Performed By: #### L 500.2500, L3410.9992, L501.0900 #### [facility] [address] [place], [address] Chloride [Moles/Vol] 99 mmol/L Normal 98-108 [facility] Comment on above: Performed By: #### L 500.2500, L3410.9992, L501.0900 #### [facility] [address] [place], [address] CO2 [Moles/Vol] 24.7 mmol/L Normal 21.0-32.0 [facility] Comment on above: Performed By: #### L 500.2500, L3410.9992, L501.0900 #### [facility] [address] [place], [address] Creatinine [Mass/Vol] 1.16 mg/dL Normal 0.70-1.20 [facility] Comment on above: Performed By: #### L 500.2500, L3410.9992, L501.0900 #### [facility] [address] [place], [address] GAP 10 Normal 5-15 [facility] Comment on above: Performed By: #### L 500.2500, L3410.9992, L501.0900 #### [facility] [address] [place], [address] GFR/1.73 sq M.predicted among non-blacks MDRD (S/P/Bld) [Vol rate/Area] 81 mL/min/{1.73_m2} Normal >60 [facility] Comment on above: Result Comment: mL/m in/1.73m2 CKD-EPI Creatinine Equation (2020) Performed By: #### L 500.2500, L3410.9992, L501.0900 #### [facility] [address] [place], [address] Glucose [Mass/Vol] 83 mg/dL Normal 70-99 [facility] Comment on above: Performed By: #### L 500.2500, L3410.9992, L501.0900 #### [facility] [address] [place], [address] Potassium [Moles/Vol] 4.7 mmol/L Normal 3.3-5.1 [facility] Comment on above: Result Comment: Hemo lysis present, Results??could be affected. ?? Performed By: #### L 500.2500, L3410.9992, L501.0900 #### [facility] [address] [place], [address] Sodium [Moles/Vol] 135 mmol/L Normal 133-145 [facility] Comment on above: Performed By: #### L 500.2500, L3410.9992, L501.0900 #### [facility] [address] [place], [address] Urea nitrogen [Mass/Vol] 11 mg/dL Normal 4-19 [facility] Comment on above: Performed By: #### L 500.2500, L3410.9992, L501.0900 #### [facility] [address] [place], [address] Carbon dioxide, total [Moles /volume] in Central venous bloodOrdered By: Walt Galarza on 02-13-2025 CO2 [Moles/Vol] 24.7 mmol/L 21.0-32.0 [facility] Chloride assayOrdered By: Adán Galarza on 02-13-2025 Chloride [Moles/Vol] 99 mmol/L 98-108 [facility] Glomerular filtration rate ( GFR) estimation/1.73 sq m using serum, plasma, or whole bOrdered By: Walt Galarza on 02-13-2025 GFR/1.73 sq M.predicted among non-blacks MDRD (S/P/Bld) [Vol rate/Area] 81 mL/min/{1.73_m2} >60 [facility] Comment on above: mL/min/1.73m2 CKD-EP I Creatinine Equation (2020) Potassium measurement (mass/ volume)Ordered By: Walt Galarza on 02-13-2025 Potassium (Unsp spec) [Mass/Vol] 4.7 mmol/L 3.3-5.1 [facility] Comment on above: Hemolysis present, R esults could be affected. Protein+Creatinine Ratio,Uri neon 02-13-2025 PROT:CRE RATIO UNABLE TO CALCULATE Normal 0-200 [facility] Comment on above: Performed By: #### L 503.6075, L503.6030, L503.6550, L503.6150 #### [facility] [address] [place], [address] PROTEIN,UR.RAN. < 6.0 Normal 0.0-12.0 [facility] Comment on above: Performed By: #### L 503.6075, L503.6030, L503.6550, L503.6150 #### [facility] [address] [place], [place], [address] UR CREAT 24.00 mg/dL Low 39.00-259. 00 [facility] Comment on above: Performed By: #### L 503.6012, L503.6062, L503.0318, L503.5938 #### [facility] [address] [place], [place], [address] Random urine creatinine mine urement (mass/volume)Ordered By: Walt Galarza on 02-13-2025 Creatinine Unsp time (U) [Mass/Vol] 24.00 mg/dL Low 39.00-259. 00 [facility] Serum creatinine measurement (mass/volume)Ordered By: Walt Galarza on 02-13-2025 Creatinine [Mass/Vol] 1.16 mg/dL 0.70-1.20 [facility] Serum glucose measurement (m ass/volume)Ordered By: Walt Galarza on 02-13-2025 Glucose [Mass/Vol] 83 mg/dL 70-99 [facility] Serum or plasma calcium mine urement (mass/volume)Ordered By: Walt Galarza on 02-13-2025 Calcium [Mass/Vol] 9.7 mg/dL 7.6-11.0 [facility] Serum or plasma urea nitroge n measurement (mass/volume)Ordered By: Walt Galarza on 02-13-2025 Urea nitrogen [Mass/Vol] 11 mg/dL 4-19 [facility] Sodium levelOrdered By: Jarrell Galarza on 02-13-2025 Sodium [Moles/Vol] 135 mmol/L 133-145 [facility] Urine protein measurement (m ass/volume)Ordered By: Walt Galarza on 02-13-2025 Protein (U) [Mass/Vol] mg/dL 0.0-12.0 [facility] Urine protein/creatinine mas s ratioOrdered By: Walt Galarza on 02-13-2025 Protein/Creatinine (U) [Mass ratio] UNABLE TO CALCULATE mg/g CRE 0-200 [facility] Abdomen/Pelvis WITH Contrast on 12-20-2024 Abdomen/Pelvis WITH Contrast [facility] [address] [place], [place] [id number] Abdomen/Pelvis WITH Contrast MR#: [id number] Acct: [id number] Name: AURELIANO WALSH Rep #: [id number] : 1980 M 44 From: Aris chopra MD PCP: Dr. Daniel Rob MD Status: REG CLI Study: Abdomen/Pelvis WITH Contrast Date of Exam: 03/11 Exam# [id number] Ordering Dr: Stella Solorzano MD PROCEDURE: ABDOMEN/PELVIS WITH CONTRAST REASON FOR EXAM: Left lower quadrant pain. Nausea. Stage 3 kidney disease. TECHNIQUE: Abdomen and pelvis CT with intravenous contrast. IV CONTRAST: 100 cc of Isovue-300. COMPARISON: None. FINDINGS: Lung bases: Clear Liver: Unremarkable. Gallbladder: Unremarkable. Spleen: Unremarkable. Pancreas: Unremarkable. Adrenals: Unremarkable. Kidneys: Unremarkable. Bladder: Unremarkable. Reproductive Organs: Unremarkable. Bowel: Diverticulosis of the descending colon and sigmoid colon. No evidence of diverticulitis. Appendix: Normal. Lymph nodes: No suspicious lymph node enlargement. Vasculature: Major vascular structures are unremarkable. Peritoneum / Retroperitoneum: No ascites. No free air. Bones: Unremarkable. CT/Abdomen/Pelvis WITH Contrast IMPRESSION: Colonic diverticulosis. No evidence of diverticulitis. One or more dose reduction techniques were used (e.g., Automated exposure control, adjustment of the mA and/or kV according to patient size, use of iterative reconstruction technique). Reading Location: [id number] CC: Dr. Daniel Rob MD; Dr. Stella Solorzano MD Department Specialist: Signed Normal [facility] CREATININE FINGERSTICKon CREATININE WB < 1.0 Normal 0.70-1.30 [facility] Comment on above: Performed By: #### L 503.9330, L565.7570, L503.0028, L503.6747 #### [facility] [address] [place], [place], [address] EGFR WB > 60.0000 Normal >60 [facility] Comment on above: Performed By: #### L 503.6054, L503.4192, L503.8476, L503.1595 #### [facility] [address] [place], [place], [id number] Creatinine measurement at dsideOrdered By: Stella More on 12-20-2024 Bedside Creatinine < 1.0 mg/dL 0.70-1.30 [facility] EGFROrdered By: Stella More on 12-20-2024 Bedside Estimated GFR (eGFR) > 60.0000 mL/min >60 [facility] GFR/1.73 sq M.predicted among non-blacks MDRD (S/P/Bld) [Vol rate/Area] mL/min/{1.73_m2} >60 [facility] Abd Inc Decub and/or Erecton 12-15-2024 Abd Inc Decub and/or Erect [facility] [address] [place], [place] [address] Abd Inc Decub and/or Erect MR#: [id number] Acct: [id number] Name: AURELIANO WALSH Rep #: [id number] : 1980 M 44 From: Oscar Caceres MD PCP: Dr. Daniel Rob MD Status: REG CLI Study: Abd Inc Decub and/or Erect Date of Exam: 12/15 Exam# [id number] Ordering Dr: Oren Berry PROCEDURE: ABD INC DECUB AND/OR ERECT REASON FOR EXAM: Pain TECHNIQUE: Single view abdomen. COMPARISON: 11/02/2023 FINDINGS: Bowel gas pattern is normal. No evidence of bowel obstruction. No suspicious calcifications. The bones are unremarkable. RAD/Abd Inc Decub and/or Erect IMPRESSION: Nonspecific bowel gas pattern. Reading Location: [id number] CC: RN NEW GRAD-America Berry; Dr. Daniel Rob MD Department Specialist: Signed Normal [facility] LIPASEon 11-24-2024 Lipase [Catalytic activity/Vol] 44 U/L Normal 7-60 [facility] Comment on above: Order Comment: FASTI NG:NO FASTING: NO Performed By: #### 6 06 #### [facility] [address] [facility], [address] [place] [address] Air/Ocean Export Clerk: Elmo Alvarez MD Echo Completeon 11-17-2024 Echo Complete [facility] [address] [place] [address] Echo Complete 11/17/24 0904 MR#: [id number] Acct: [id number] Name: AURELIANO WALSH Rep #: [id number] : 1980 44 From: Shiv Rajan MD Attending Dr: Dr. Shiv Rajan MD Status: REG CLI Ordering Dr: Shiv Rajan MD Date: 11/17/24 Location: [facility] Sex: M C Admitted: Reason For Study: CHEST PAIN Procedure This was a 2D Doppler, Color Flow transthoracic echocardiogram. Exam performed in department. Left Ventricle Normal size and thickness. Apical false tendon noted. The left ventricular ejection fraction is 65 %. Normal diastololic function. Right Ventricle Normal right ventricle. Atria The left and right atria are normal. Mitral Valve Mild (1+) mitral valve insufficiency. Tricuspid Valve Trivial tricuspid valve insufficiency. Normal pulmonary artery pressure. Aortic Valve Trisinus/trileaflet aortic valve. Pulmonic Valve The pulmonic valve is not well visualized. Trivial pulmonic valve insufficiency. Great Vessels Normal sized aortic root. Pericardium/Pleural No pericardial effusion. MMode/2D Measurements Calculations LVIDd: 4.3 cm IVSd: 1.0 cm Ao root diam: 3.1 cm LVIDs: 2.9 cm LVPWd: 0.89 cm RVDd: 3.2 cm FS: 32.1 % LAV(MOD-bp): 21.7 ml LVAd ap4: 23.6 cm2 SV(MOD-sp4): 38.6 ml LAV(MOD-bp) Indexed: 11.6 ml/m2 LVLd ap4: 7.8 cm SI(MOD-sp4): 20.7 ml/m2 LAV(MOD-sp2): 21.3 ml EDV(MOD-sp4): 61.7 ml LAV(MOD-sp4): 22.3 ml EDV(sp4-el): 60.6 ml LVAs ap4: 13.3 cm2 LVLs ap4: 6.8 cm ESV(MOD-sp4): 23.1 ml ESV(sp4-el): 22.1 ml EF(MOD-sp4): 62.6 % EF(sp4-el): 63.6 % SV(sp4-el): 38.5 ml LA A4 area: 10.9 cm2 LA dimension(2D): 3.0 cm RA A4 area: 11.6 cm2 TAPSE: 1.9 cm Time Measurements MV dec time: 0.19 sec Doppler Measurements Calculations MV E max maria eugenia: 58.4 cm/sec Lat Peak E' Maria Eugenia: 15.0 cm/sec Med Peak E' Maria Eugenia: 13.3 cm/sec MV A max maria eugenia: 40.9 cm/sec E/E' lat: 3.9 E/E' med: 4.4 MV E/A: 1.4 Ao V2 max: 99.8 cm/sec LV V1 max: 83.1 cm/sec PA V2 max: 88.1 cm/sec Ao max P.0 mmHg LV V1 max P.8 mmHg TR max maria eugenia: 225.3 cm/sec TR max P.3 mmHg ECHO/Echo Complete Interpretation Summary The left ventricular ejection fraction is 65 %. Mild (1+) mitral valve insufficiency. Ordering Physician: Shiv Rajan Referring Physician: DANIEL ROB Performed By: Shruthi Saldana RDCS 11/20/24904 Date Shiv Rajan MD CC: Dr. Shiv Rajan MD; Dr. Daniel Rob MD Date Dictated: 11/17/24903 Date Transcribed: 11/20/24904 Department Specialist: Signed [facility] Absolute lymphocyte countOrd ered By: Oren Berry on 11-16-2024 Lymphocytes Auto (Unsp spec) [#/Vol] 2.03 10*3/uL 0.83-4.51 [facility] Absolute neutrophil countOrd ered By: Oren Berry on 11-16-2024 Neutrophils (Bld) [#/Vol] 5.0 10*3/uL 2.0-7.7 [facility] Automated lymphocyte count a s percentage of total leukocytesOrdered By: Oren Michaelsker on 11-16-2024 Lymphocytes/100 WBC Auto (Unsp spec) 26.1 % 19-41 [facility] Basophil percentageOrdered B y: Oren Berry on 11-16-2024 Basophils/100 WBC (Bld) 0.5 % 0-1 [facility] CBC W/Diff, Automatedon 10-20 Absolute Lymph 2.03 X10 3/uL Normal 0.83-4.51 [facility] Comment on above: Order Comment: REDRA W NO VRO CHARGE Performed By: #### L 503.6075, L503.6030, L503.6550, L503.6150 #### [facility] [address] [place], [address] Absolute Neut 5.0 X10 3/uL Normal 2.0-7.7 [facility] Comment on above: Order Comment: REDRA W NO VRO CHARGE Performed By: #### L 503.6075, L503.6030, L503.6550, L503.6150 #### [facility] [address] [place], [address] Basophils/100 WBC (Bld) 0.5 % Normal 0-1 [facility] Comment on above: Order Comment: REDRA W NO VRO CHARGE Performed By: #### L 503.6075, L503.6030, L503.6550, L503.6150 #### [facility] [address] [place], [address] Eosinophils/100 WBC (Bld) 2.8 % Normal 0-5 [facility] Comment on above: Order Comment: REDRA W NO VRO CHARGE Performed By: #### L 503.6075, L503.6030, L503.6550, L503.6150 #### [facility] [address] [place], [address] Erythrocyte distribution width (RBC) [Ratio] 12.0 % Normal 11.6-14.6 [facility] Comment on above: Order Comment: REDRA W NO VRO CHARGE Performed By: #### L 503.6075, L503.6030, L503.6550, L503.6150 #### [facility] [address] [place], [address] Hematocrit (Bld) [Volume fraction] 45.0 % Normal 40-54 [facility] Comment on above: Order Comment: REDRA W NO VRO CHARGE Performed By: #### L 503.6075, L503.6030, L503.6550, L503.6150 #### [facility] [address] [place], [address] Hemoglobin (Bld) [Mass/Vol] 15.8 g/dL Normal 13.0-16.5 [facility] Comment on above: Order Comment: REDRA W NO VRO CHARGE Performed By: #### L 503.6075, L503.6030, L503.6550, L503.6150 #### [facility] [address] [place], [address] IG% 0.300 Normal 0.0-0.9 [facility] Comment on above: Order Comment: REDRA W NO VRO CHARGE Result Comment: IG% - Immature Granulocytes (promyelocytes, myelocytes and metamyelocytes) > 1% indicates that a LEFT SHIFT is Present. Performed By: #### L 503.6075, L503.6030, L503.6550, L503.6150 #### [facility] [address] [place], [address] Lymphocytes/100 WBC (Bld) 26.1 % Normal 19-41 [facility] Comment on above: Order Comment: REDRA W NO VRO CHARGE Performed By: #### L 503.6075, L503.6030, L503.6550, L503.6150 #### [facility] [address] [place], [address] MCH (RBC) [Entitic mass] 31.5 pg Normal 27.0-32.0 [facility] Comment on above: Order Comment: REDRA W NO VRO CHARGE Performed By: #### L 503.6075, L503.6030, L503.6550, L503.6150 #### [facility] [address] [place], [address] MCHC (RBC) [Mass/Vol] 35.1 g/dL Normal 32-36 [facility] Comment on above: Order Comment: REDRA W NO VRO CHARGE Performed By: #### L 503.6075, L503.6030, L503.6550, L503.6150 #### [facility] [address] [place], [address] MCV (RBC) [Entitic vol] 89.6 fL Normal 80-94 [facility] Comment on above: Order Comment: REDRA W NO VRO CHARGE Performed By: #### L 503.6075, L503.6030, L503.6550, L503.6150 #### [facility] [address] [place], [address] Monocytes/100 WBC (Bld) 6.6 % Normal 0-10 [facility] Comment on above: Order Comment: REDRA W NO VRO CHARGE Performed By: #### L 503.6075, L503.6030, L503.6550, L503.6150 #### [facility] [address] [place], [address] Neutrophils/100 WBC (Bld) 63.7 % Normal 47-70 [facility] Comment on above: Order Comment: REDRA W NO VRO CHARGE Performed By: #### L 503.6075, L503.6030, L503.6550, L503.6150 #### [facility] [address] [place], [address] Nucleated RBC (Bld) [#/Vol] 0 10*3/uL Normal 0-5 [facility] Comment on above: Order Comment: REDRA W NO VRO CHARGE Performed By: #### L 503.6075, L503.6030, L503.6550, L503.6150 #### [facility] [address] [place], [address] Platelet mean volume (Bld) [Entitic vol] 9.6 fL Normal 6.2-12.0 [facility] Comment on above: Order Comment: REDRA W NO VRO CHARGE Performed By: #### L 503.6075, L503.6030, L503.6550, L503.6150 #### [facility] [address] [place], [address] Platelets (Bld) [#/Vol] 311 10*3/uL Normal 150-450 [facility] Comment on above: Order Comment: REDRA W NO VRO CHARGE Performed By: #### L 503.6075, L503.6030, L503.6550, L503.6150 #### [facility] [address] [place], [address] RBC (Bld) [#/Vol] 5.02 10*6/uL Normal 4.6-6.2 [facility] Comment on above: Order Comment: REDRA W NO VRO CHARGE Performed By: #### L 503.6075, L503.6030, L503.6550, L503.6150 #### [facility] [address] [place], [address] RDW SD 39.0 fl Normal 35.1-43.9 [facility] Comment on above: Order Comment: REDRA W NO VRO CHARGE Performed By: #### L 503.6075, L503.6030, L503.6550, L503.6150 #### [facility] [address] [place], [place], [address] (570) WBC (Bld) [#/Vol] 7.8 10*3/uL Normal 4.4-11.0 [facility] Comment on above: Order Comment: REDRA W NO VRO CHARGE Performed By: #### L 503.6075, L503.6030, L503.6550, L503.6150 #### [facility] [address] [place], [address] Eosinophil percentageOrdered By: Oren Berry on 11-16-2024 Eosinophils/100 WBC (Bld) 2.8 % 0-5 [facility] Erythrocyte distribution wid th ratioOrdered By: Oren Berry on 11-16-2024 Erythrocyte distribution width (RBC) [Ratio] 12.0 % 11.6-14.6 [facility] Erythrocyte distribution wid th standard deviationOrdered By: Oren Berry on 11-16-2024 Erythrocyte distribution width (RBC) [Entitic vol] 39.0 fL 35.1-43.9 [facility] Erythrocyte distribution width (RBC) [Ratio] 39.0 fl 35.1-43.9 [facility] Hematocrit Auto (Bld) [Volum e fraction]Ordered By: Oren Berry on 11-16-2024 Hematocrit (Bld) [Volume fraction] 45.0 % 40-54 [facility] Hemoglobin measurementOrdere d By: Oren Berry on 11-16-2024 Hemoglobin (Bld) [Mass/Vol] 15.8 g/dL 13.0-16.5 [facility] Immature granulocytes/100 WB C Auto (Bld)Ordered By: Oren Berry on 11-16-2024 Immature granulocytes/100 WBC (Bld) 0.300 % 0.0-0.9 [facility] Comment on above: IG% - Immature Granu locytes (promyelocytes, myelocytes and metamyelocytes) > 1% indicates that a LEFT SHIFT is Present. Lymphocytes Auto (Unsp spec) [#/Vol]Ordered By: Oren Berry on 11-16-2024 Lymphocytes (Bld) [#/Vol] 2.03 10*3/uL 0.83-4.51 [facility] Lymphocytes/100 WBC Auto (Un sp spec)Ordered By: Oren Berry on 11-16-2024 Lymphocytes/100 WBC (Bld) 26.1 % 19-41 [facility] MCV (mean corpuscular volume ) determinationOrdered By: Oren Berry on 11-16-2024 MCV (RBC) [Entitic vol] 89.6 fL 80-94 [facility] Mean corpuscular hemoglobin (MCH) determinationOrdered By: Oren Berry on 11-16-2024 MCH (RBC) [Entitic mass] 31.5 pg 27.0-32.0 [facility] Mean corpuscular hemoglobin concentration (MCHC) determinationOrdered By: Oren Berry on 11-16-2024 MCHC (RBC) [Mass/Vol] 35.1 g/dL 32-36 [facility] Mean platelet volume determi nationOrdered By: Oren Berry on 11-16-2024 Platelet mean volume (Bld) [Entitic vol] 9.6 fL 6.2-12.0 [facility] Monocyte percentageOrdered B y: Oren Berry on 11-16-2024 Monocytes/100 WBC (Bld) 6.6 % 0-10 [facility] Neutrophil percentageOrdered By: Oren Berry on 11-16-2024 Neutrophils/100 WBC (Bld) 63.7 % 47-70 [facility] Nucleated red blood cell per centageOrdered By: Oren Berry on 11-16-2024 Nucleated RBC/100 WBC (Bld) [Ratio] 0 % 0-5 [facility] Platelet countOrdered By: Choco Berry on 11-16-2024 Platelets (Bld) [#/Vol] 311 10*3/uL 150-450 [facility] RBC Auto (Bld) [#/Vol]Ordere d By: Oren Berry on 11-16-2024 RBC (Bld) [#/Vol] 5.02 10*6/uL 4.6-6.2 [facility] White blood cell (WBC) count Ordered By: Oren Berry on 11-16-2024 WBC (Bld) [#/Vol] 7.8 10*3/uL 4.4-11.0 [facility] Stress Test Echo w/o Contras ton 11-15-2024 Stress Test Echo w/o Contrast [facility] [address] [place] [address] Stress Test Echo w/o Contrast MR#: [id number] Acct: [id number] Name: AURELIANO WALSH Rep #: [id number] : 1980 44 From: Shiv Rajan MD Primary Care: Dr. Daniel Rob MD Status: REG I Ordering Dr: Shiv Rajan MD Sex: M C Reason For Study: Chest Pain Stress Results Protocol: Jose Luis Protocol Maximum Predicted HR: 178 bpm Target HR: 151 bpm % Maximum Predicted HR: 108 % DurationHeart Rate Stage (mm:ss) (bpm) BP Comment Baseline 79 118/80Mild Chest Pressure Jose Luis Protocol Stage I 3:00 105 130/72Mild Chest Pressure Jose Luis Protocol Stage II 3:00 133 144/82Mild Chest Pressure Jose Luis Protocol Stage III 3:00 160 150/80Less Chest Pressure Jose Luis Protocol Stage IV 2:00 193 170/72Less Chest Pressure Recovery 109 124/70No Chest Pain Stress Duration: 11:00 mm:ss Maximum Stress HR: 193 bpm METS: 13 Baseline Echocardiogram Findings The left ventricular ejection fraction is 65 %. Post stress LVEF is estimated at more than 75%. Stress Echo Wall motion Data Resting WM Intermediate WM Stress WM Resting Wall Motion Wall Motion Stress No regional wall motion All segments Hyperkinetic. abnormalities noted. EKG Data Normal baseline electrocardiogram. Stress ECG showed sinus tachycardia with no ischemic changes. ECHO/Stress Test Echo w/o Contrast Interpretation Summary The left ventricular ejection fraction is 65 %. Stress ECG showed sinus tachycardia with no ischemic changes. Patient exercised on the treadmill for 11 minutes achieving 108% of the maximum age-predicted heart rate. 13.4 METS. Rare PVC in recovery. Mild chest discomfort reported at baseline. No change during exercise. Peak stress echo images showed hyperdynamic LV wall segments with no regional wall motion abnormality. Negative exercise stress echocardiogram. Ordering Physician: Shiv Rajan Referring Physician: Shiv Rajan Performed By: Mey Tang RDCS 11/15/24 1156 Date Shiv Rajan MD CC: Dr. Shiv Rajan MD; Dr. Daniel Rob MD Date Dictated: 11/15/24953 Date Transcribed: 11/15/241155 Department Specialist: Signed Normal [facility] Iron+Iron Binding Capacityon 11-14-2024 IRON SATURATION 31.6 Normal 15.0-55.0 [facility] Comment on above: Performed By: #### L 503.6075, L503.6030, L503.6550, L503.6150 #### [facility] [address] [place], [address] Ferritin measurementOrdered By: Oren Berry on 11-13-2024 Ferritin [Mass/Vol] 86 ng/mL Normal 26-388 [facility] Comment on above: Performed By: #### L 503.6075, L503.6030, L503.6550, L503.6150 #### [facility] [address] [place], [address] Iron Binding Capacity,Totalo n 11-13-2024 TIBC 329 ug/dL Normal 250-450 [facility] Comment on above: Performed By: #### L 503.6075, L503.6030, L503.6550, L503.6150 #### [facility] [address] [place], [address] Iron measurement (mass/mass) Ordered By: Oren Berry on 11-13-2024 Iron [Mass/Vol] 104 ug/dL Normal 65-175 [facility] Comment on above: Performed By: #### L 503.6075, L503.6098, L503.6550, L503.6150 #### [facility] [address] [place], [address] Iron (Unsp spec) [Mass/Mass] 104 ug/dL 65-175 [facility] Iron saturation [Mass fracti on]Ordered By: Oren Berry on 11-13-2024 Iron Saturation 31.6 % 15.0-55.0 [facility] Serum or plasma iron saturat ion measurement (mass fraction)Ordered By: Oren Berry on 11-13-2024 Iron saturation [Mass fraction] 31.6 % 15.0-55.0 [facility] TIBCOrdered By: Oren Berry on 11-13-2024 Total Iron Binding Capacity 329 ug/dL 250-450 [facility] 12 Lead EKG performed by [facility] [place] on 10-26-2024 12 Lead EKG performed by [facility] [address] [place] [address] 12 Lead EKG performed by [facility] [place] 10/26/24 0834 MR#: [id number] Acct: [id number] Name: AURELIANO WALSH Rep #: [id number] : 1980 44 From: Shiv Rajan MD Attending Dr: Dr. Shiv Rajan MD Status: DEP AMB Ordering Dr: Shiv Rajan MD Date: 10/26/24 [place] [facility] [place] C Ad[place]: [facility] [place]/12 Lead EKG performed by [facility] [place] ECG Report Interpretation S inus Rhythm -Anterolateral ST-elevation -repolarization variant. PROBABLY NORMALElectronically signed on 11/13/2024 at 11:[address] Shiv Rajan [employer] Version 8610 11/13/24 1135 Date Shiv Rajan MD CC: Dr. Daniel Rob MD Date Dictated: 10/26/24833 Date Transcribed: 10/26/24833 Department Specialist: HELEN Signed Normal [facility] Cardiology Visit Reporton Cardiology Visit Report [facility] [address] [place] [address] OFFICE VISIT Date of Service: 10/26/24 MR#: [id number] Acct: [id number] Name: AURELIANO WALSH Rep #: [id number] : 1980 Provider: Dr. Shiv Rajan MD Age/Sex: 44/M Location: [facility] [place] Status: Signed HPI HPI History of Present Illness Details: This gentleman has history of irritable bowel disease and anxiety disorder. He has been referred to us for evaluation of his chest discomfort. Per patient, for the last 1 year or so, he has been getting intermittent anterior chest discomfort. He perceives it as a pressure sensation. No radiation to the arm neck or jaw. No associated di aphoresis. No shortness of breath. He had per patient, it mostly occurs at rest. He has noticed that his heart rate usually is in the 60s when this happens. According to him, initially if he would get active, the chest discomfort will resolve. However for the last 2 to 3 months, it does not resolve with activity. The discomfort lasts about 30 minutes and then resolve on its own. Again, patient denies any chest discomfort or shortness of breath with exertion. No orthopnea. No PND. No ankle edema. Denies any palpitations. No lightheadedness or dizziness. No syncope or presyncope. Intake Vital Signs 10/04/24 15:47 10/26/24 08:35 Height 5 ft 8.5 in 5 ft 8.5 in Weight: 165 lb 162 lb BMI 24.7 24.3 BP 121/79 H Blood Pressure Location Rt brachial Position Sitting Respiration 18 Pulse 77 Pulse Source NIBP Intake Visit Reasons: CP (NEELAM) Accompanied by: Significant Other Is patient in pain?: Yes (chest pressure) Allergies Cephalosporins Allergy (Severe, Verified 01/09/25 09:30) Hives erythromycin base Allergy (Severe, Verified 10/26/24 09:30) Hives Penicillins Allergy (Verified 10/26/24 09:30) Unknown Sulfa (Sulfonamide Antibiotics) Allergy (Verified 10/26/24 09:30) Unknown ciprofloxacin (From Cipro) Adverse Reaction (Intermediate, Verified 10/26/24 09:30) Calf Pain atogepant (From Qulipta) Adverse Reaction (Mild, Verified 10/26/24 09:30) dizziness sildenafil (From Viagra) Adverse Reaction (Mild, Verified 10/26/24 09:30) flushing topiramate (From Topamax) Adverse Reaction (Mild, Verified 10/26/24 09:30) Anxiety verapamil Adverse Reaction (Mild, Verified 10/26/24 09:30) Drowsiness Medications ???Medication ???Instructions ???Recorded ???Confirmed ???Type tadalafil 10 mg tablet 20 mg PO PRN PRN erectile 02/10/18 10/26/24 History dysfunction alprazolam 0.5 mg tablet 0.5 mg PO .1-3x Daily PRN 10/04/24 10/26/24 History linaclotide 290 mcg capsule 290 mcg PO QDAY 10/04/24 10/26/24 History (Linzess) omeprazole 40 mg capsule,delayed 40 mg PO QDAY 10/04/24 10/26/24 History release ondansetron 8 mg disintegrating 8 mg PO Q8H PRN 10/04/24 10/26/24 History tablet psyllium husk 3.4 gram/5.4 gram 1 tsp PO QDAY 10/04/24 10/26/24 History oral powder (Metamucil) buspirone 15 mg tablet 15 mg PO TID 10/26/24 10/26/24 History propranolol 60 mg capsule,24 60 mg PO ONCE PRN 10/26/24 10/26/24 History hr,extended release Have you fallen in the past year?: No PFSH Medical History (Updated 10/26/24 @ 09:[address] Shiv Rajan MD) Bradycardia Atypical chest pain Chest pain Chronic kidney disease, stage II (mild) Irritable bowel syndrome with constipation Chronic constipation TIA (transient ischemic attack) Hearing problem Frequent headaches Anxiety and depression Back problem Asthma Environmental allergies GERD (gastroesophageal reflux disease) Abdominal pain Hypertension TIA versus Complex migraine Surgical History (Updated 10/26/24 @ 09:33 by Hudson Jordan, RN) History of esophagogastroduodenoscopy (EGD) H/O removal of cyst History of colonoscopy History of wisdom tooth extraction Multiple lipomas History of tonsillectomy Family History Sister Asthma Anxiety Father High cholesterol Alcohol abuse Hypertension Asthma Depression (emotion) Mother Multiple sclerosis Social History household members: spouse and children current occupational status: employed and other 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 Normal [facility] 45-AP-Vaemzxm DOrdered By: Bhaskar Rob on 09-12-2024 Vitamin D 25-Hydroxy 36.6 ng/mL [facility] Comment on above: Vitamin D 25(OH) Sta tus Range Deficiency <20 ng/mL (50nmol/L) Insufficiency 20 - 30 ng/mL (50 - 75 nmol/L) Sufficiency 30 - 100 ng/mL (75 - 250 nmol/L) Toxicity >100 ng/mL (>250 nmol/L) Absolute neutrophil countOrd ered By: Daniel Rob on 09-12-2024 Neutrophils (Bld) [#/Vol] 10.6 10*3/uL High 2.0-7.7 [facility] Albumin to globulin ratioOrd ered By: Daniel Rob on 09-12-2024 Albumin/Globulin [Mass ratio] 1.0 {ratio} 0.9-2.4 [facility] Basophil percentageOrdered B y: Daniel Rob on 09-12-2024 Basophils/100 WBC (Bld) 0.5 % 0-1 [facility] Bilirubin Test strip Ql (U)O rdered By: Daniel Rob on 09-12-2024 Bilirubin Ql (U) Negative Negative [facility] Bilirubin, totalOrdered By: Daniel Rob on 09-12-2024 Bilirubin [Mass/Vol] 0.50 mg/dL 0.20-1.00 [facility] Comment on above: For patients on eltr ombopag therapy, use of Dim[facility] [place] TBIL is not recommended. Blood urea nitrogen (BUN)/cr eatinine ratioOrdered By: Daniel Rob on 09-12-2024 Urea nitrogen/Creatinine [Mass ratio] 11.5 mg/mg - [facility] CBC W/Diff, Automatedon 08-19 Absolute Lymph 2.49 X10 3/uL Normal 0.83-4.51 [facility] Comment on above: Order Comment: Order Date: 09/12/24Order Info: [id number] - CBCD Performed By: #### L 503.6075, L503.6030, L503.6550, L503.6150 #### [facility] [address] [place], [address] Absolute Neut 10.6 X10 3/uL High 2.0-7.7 [facility] Comment on above: Order Comment: Order Date: 09/12/24Order Info: 0184-1 - CBCD Performed By: #### L 503.6075, L503.6030, L503.6550, L503.6150 #### [facility] [address] [place], [address] Basophils/100 WBC (Bld) 0.5 % Normal 0-1 [facility] Comment on above: Order Comment: Order Date: 09/12/24Order Info: 0184-1 - CBCD Performed By: #### L 503.6075, L503.6030, L503.6550, L503.6150 #### [facility] [address] [place], [address] Eosinophils/100 WBC (Bld) 1.8 % Normal 0-5 [facility] Comment on above: Order Comment: Order Date: 09/12/24Order Info: 018- - CBCD Performed By: #### L 503.6075, L503.6030, L503.6550, L503.6150 #### [facility] [address] [place], [address] Erythrocyte distribution width (RBC) [Ratio] 12.1 % Normal 11.6-14.6 [facility] Comment on above: Order Comment: Order Date: 09/12/24Order Info: 018- - CBCD Performed By: #### L 503.6075, L503.6030, L503.6550, L503.6150 #### [facility] [address] [place], [address] Hematocrit (Bld) [Volume fraction] 46.3 % Normal 40-54 [facility] Comment on above: Order Comment: Order Date: 09/12/24Order Info: 018- - CBCD Performed By: #### L 503.6075, L503.6030, L503.6550, L503.6150 #### [facility] [address] [place], [address] Hemoglobin (Bld) [Mass/Vol] 15.7 g/dL Normal 13.0-16.5 [facility] Comment on above: Order Comment: Order Date: 09/12/24Order Info: 018- - CBCD Performed By: #### L 503.6075, L503.6030, L503.6550, L503.6150 #### [facility] [address] [place], [address] IG% 0.400 Normal 0.0-0.9 [facility] Comment on above: Order Comment: Order Date: 09/12/24Order Info: 018-1 - CBCD Result Comment: IG% - Immature Granulocytes (promyelocytes, myelocytes and metamyelocytes) > 1% indicates that a LEFT SHIFT is Present. Performed By: #### L 503.6075, L503.6030, L503.6550, L503.6150 #### [facility] [address] [place], [address] Lymphocytes/100 WBC (Bld) 17.4 % Low 19-41 [facility] Comment on above: Order Comment: Order Date: 09/12/24Order Info: 0184-1 - CBCD Performed By: #### L 503.6075, L503.6030, L503.6550, L503.6150 #### [facility] [address] [place], [address] MCH (RBC) [Entitic mass] 31.5 pg Normal 27.0-32.0 [facility] Comment on above: Order Comment: Order Date: 09/12/24Order Info: 018- - CBCD Performed By: #### L 503.6075, L503.6030, L503.6550, L503.6150 #### [facility] [address] [place], [address] MCHC (RBC) [Mass/Vol] 33.9 g/dL Normal 32-36 [facility] Comment on above: Order Comment: Order Date: 09/12/24Order Info: 018- - CBCD Performed By: #### L 503.6075, L503.6030, L503.6550, L503.6150 #### [facility] [address] [place], [address] MCV (RBC) [Entitic vol] 92.8 fL Normal 80-94 [facility] Comment on above: Order Comment: Order Date: 09/12/24Order Info: 0184-1 - CBCD Performed By: #### L 503.6075, L503.6030, L503.6550, L503.6150 #### [facility] [address] [place], [address] Monocytes/100 WBC (Bld) 5.7 % Normal 0-10 [facility] Comment on above: Order Comment: Order Date: 09/12/24Order Info: 0184-1 - CBCD Performed By: #### L 503.6075, L503.6030, L503.6550, L503.6150 #### [facility] [address] [place], [address] Neutrophils/100 WBC (Bld) 74.2 % High 47-70 [facility] Comment on above: Order Comment: Order Date: 09/12/24Order Info: 0184-1 - CBCD Performed By: #### L 503.6075, L503.6030, L503.6550, L503.6150 #### [facility] [address] [place], [address] Nucleated RBC (Bld) [#/Vol] 0 10*3/uL Normal 0-5 [facility] Comment on above: Order Comment: Order Date: 09/12/24Order Info: 018- - CBCD Performed By: #### L 503.6075, L503.6030, L503.6550, L503.6150 #### [facility] [address] [place], [address] Platelet mean volume (Bld) [Entitic vol] 9.7 fL Normal 6.2-12.0 [facility] Comment on above: Order Comment: Order Date: 09/12/24Order Info: 0184-1 - CBCD Performed By: #### L 503.6075, L503.6030, L503.6550, L503.6150 #### [facility] [address] [place], [address] Platelets (Bld) [#/Vol] 309 10*3/uL Normal 150-450 [facility] Comment on above: Order Comment: Order Date: 09/12/24Order Info: 0184-1 - CBCD Performed By: #### L 503.6075, L503.6030, L503.6550, L503.6150 #### [facility] [address] [place], [address] RBC (Bld) [#/Vol] 4.99 10*6/uL Normal 4.6-6.2 [facility] Comment on above: Order Comment: Order Date: 09/12/24Order Info: 018- - CBCD Performed By: #### L 503.6075, L503.6030, L503.6550, L503.6150 #### [facility] [address] [place], [address] RDW SD 41.6 fl Normal 35.1-43.9 [facility] Comment on above: Order Comment: Order Date: 09/12/24Order Info: 018- - CBCD Performed By: #### L 503.6075, L503.6030, L503.6550, L503.6150 #### [facility] [address] [place], [address] WBC (Bld) [#/Vol] 14.3 10*3/uL High 4.4-11.0 [facility] Comment on above: Order Comment: Order Date: 09/12/24Order Info: 018- - CBCD Performed By: #### L 503.6075, L503.6030, L503.6550, L503.6150 #### [facility] [address] [place], [address] Carbon dioxide measurementOr dered By: Daniel Rob on 09-12-2024 CO2 [Moles/Vol] 27.0 mmol/L 21.0-32.0 [facility] Chloride measurementOrdered By: Daniel Rob on 09-12-2024 Chloride [Moles/Vol] 106 mmol/L 98-107 [facility] Comprehensive Metabolic Prof ilon 09-12-2024 Albumin [Mass/Vol] 3.8 g/dL Normal 3.2-5.0 [facility] Comment on above: Order Comment: Order Date: 09/12/24Order Info: 86-1 - CMPOrder Info: [id number] - LIPIDOrder Info: [id number] - TSH Performed By: #### L 503.6075, L503.6030, L503.6550, L503.6150 #### [facility] [address] [place], [address] Albumin/Globulin [Mass ratio] 1.0 {ratio} Normal 0.9-2.4 [facility] Comment on above: Order Comment: Order Date: 09/12/24Order Info: [id number] - CMPOrder Info: [id number] - LIPIDOrder Info: [id number] - TSH Performed By: #### L 503.6075, L503.6030, L503.6550, L503.6150 #### [facility] [address] [place], [address] ALK P 78 U/L Normal 45-117 [facility] Comment on above: Order Comment: Order Date: 09/12/24Order Info: [id number] - CMPOrder Info: [id number] - LIPIDOrder Info: [id number] - TSH Performed By: #### L 503.6075, L503.6030, L503.6550, L503.6150 #### [facility] [address] [place], [address] ALT [Catalytic activity/Vol] 27 U/L Normal 16-61 [facility] Comment on above: Order Comment: Order Date: 09/12/24Order Info: [id number] - CMPOrder Info: [id number] - LIPIDOrder Info: [id number] - TSH Performed By: #### L 503.6075, L503.6030, L503.6550, L503.6150 #### [facility] [address] [place], [address] AST [Catalytic activity/Vol] 14 U/L Low 15-37 [facility] Comment on above: Order Comment: Order Date: 09/12/24Order Info: [id number] - CMPOrder Info: - LIPIDOrder Info: 3 - TSH Performed By: #### L 503.6075, L503.6030, L503.6550, L503.6150 #### [facility] [address] [place], [address] Bilirubin [Mass/Vol] 0.50 mg/dL Normal 0.20-1.00 [facility] Comment on above: Order Comment: Order Date: 09/12/24Order Info: [id number] - CMPOrder Info: [id number] - LIPIDOrder Info: [id number] - TSH Result Comment: For patients on eltrombopag therapy, use of [employer] [place] TBIL is not recommended. Performed By: #### L 503.6075, L503.6030, L503.6550, L503.6150 #### [facility] [address] [place], [address] BUN/CRE 11.5 RATIO Normal 10-20 [facility] Comment on above: Order Comment: Order Date: 09/12/24Order Info: [id number] - CMPOrder Info: - LIPIDOrder Info: [id number] - TSH Performed By: #### L 503.6075, L503.6030, L503.6550, L503.6150 #### [facility] [address] [place], [address] CA,Total 9.1 mg/dL Normal 8.5-10.1 [facility] Comment on above: Order Comment: Order Date: 09/12/24Order Info: [id number] - CMPOrder Info: [id number] - LIPIDOrder Info: [id number] - TSH Performed By: #### L 503.6075, L503.6030, L503.6550, L503.6150 #### [facility] [address] [place], [address] Chloride [Moles/Vol] 106 mmol/L Normal 98-107 [facility] Comment on above: Order Comment: Order Date: 09/12/24Order Info: [id number] - CMPOrder Info: [id number] - LIPIDOrder Info: [id number] - TSH Performed By: #### L 503.6075, L503.6030, L503.6550, L503.6150 #### [facility] [address] [place], [address] CO2 [Moles/Vol] 27.0 mmol/L Normal 21.0-32.0 [facility] Comment on above: Order Comment: Order Date: 09/12/24Order Info: [id number]- - CMPOrder Info: - LIPIDOrder Info: [id number] - TSH Performed By: #### L 503.6075, L503.6030, L503.6550, L503.6150 #### [facility] [address] [place], [address] Creatinine [Mass/Vol] 1.22 mg/dL Normal 0.70-1.30 [facility] Comment on above: Order Comment: Order Date: 09/12/24Order Info: [id number] - CMPOrder Info: - LIPIDOrder Info: [id number] - TSH Result Comment: The validity of the calculated GFR GFRAA in patients over 70 years has not been determined. Clinical correlation is essential. Performed By: #### L 503.6075, L503.6030, L503.6550, L503.6150 #### [facility] [address] [place], [address] EST GFR - AA 84 mL/min Normal >60 [facility] Comment on above: Order Comment: Order Date: 09/12/24Order Info: [id number] - CMPOrder Info: [id number] - LIPIDOrder Info: [id number] - TSH Result Comment: Afri can Cypriot GFR Calc Performed By: #### L 503.6075, L503.6030, L503.6550, L503.6150 #### [facility] [address] [place], [address] GAP 3 Low 5-15 [facility] Comment on above: Order Comment: Order Date: 09/12/24Order Info: [id number]- - CMPOrder Info: [id number] - LIPIDOrder Info: [id number] - TSH Performed By: #### L 503.6075, L503.6030, L503.6550, L503.6150 #### [facility] [address] [place], [address] GFR/1.73 sq M.predicted among non-blacks MDRD (S/P/Bld) [Vol rate/Area] 69 mL/min/{1.73_m2} Normal >60 [facility] Comment on above: Order Comment: Order Date: 09/12/24Order Info: [id number]- - CMPOrder Info: [id number] - LIPIDOrder Info: [id number] - TSH Result Comment: Non- GFR Calc Performed By: #### L 503.6075, L503.6030, L503.6550, L503.6150 #### [facility] [address] [place], [place], [address] Globulin (S) [Mass/Vol] 3.7 g/dL Normal 2.2-4.2 [facility] Comment on above: Order Comment: Order Date: 09/12/24Order Info: [id number]- - CMPOrder Info: [id number] - LIPIDOrder Info: [id number] - TSH Performed By: #### L 503.6075, L503.6030, L503.6550, L503.6150 #### [facility] [address] [place], [address] Glucose [Mass/Vol] 82 mg/dL Normal 74-106 [facility] Comment on above: Order Comment: Order Date: 09/12/24Order Info: [id number] - CMPOrder Info: [id number] - LIPIDOrder Info: [id number] - TSH Performed By: #### L 503.6075, L503.6030, L503.6550, L503.6150 #### [facility] [address] [place], [address] Potassium [Moles/Vol] 4.6 mmol/L Normal 3.5-5.1 [facility] Comment on above: Order Comment: Order Date: 09/12/24Order Info: [id number] - CMPOrder Info: [id number] - LIPIDOrder Info: 3 - TSH Performed By: #### L 503.6075, L503.6030, L503.6550, L503.6150 #### [facility] [address] [place], [address] Sodium [Moles/Vol] 136 mmol/L Normal 136-145 [facility] Comment on above: Order Comment: Order Date: 09/12/24Order Info: [id number] - CMPOrder Info: - LIPIDOrder Info: [id number] - TSH Performed By: #### L 503.6075, L503.6030, L503.6550, L503.6150 #### [facility] [address] [place], [address] T PROT 7.5 g/dL Normal 6.4-8.2 [facility] Comment on above: Order Comment: Order Date: 09/12/24Order Info: [id number] - CMPOrder Info: [id number] - LIPIDOrder Info: 3 - TSH Performed By: #### L 503.6075, L503.6030, L503.6550, L503.6150 #### [facility] [address] [place], [address] Urea nitrogen [Mass/Vol] 14 mg/dL Normal 7-18 [facility] Comment on above: Order Comment: Order Date: 09/12/24Order Info: 07-1 - CMPOrder Info: [id number] - LIPIDOrder Info: 3 - TSH Performed By: #### L 503.6075, L503.6030, L503.6550, L503.6150 #### [facility] [place], [address] Eosinophil percentageOrdered By: Daniel Rob on 09-12-2024 Eosinophils/100 WBC (Bld) 1.8 % 0-5 [facility] Epithelial cells.squamous LM Ql (Urine sed)Ordered By: Daniel Rob on 09-12-2024 Epithelial cells.squamous LM.HPF (Urine sed) [#/Area] 0 /[HPF] 0-5 [facility] Erythrocyte distribution wid th ratioOrdered By: Daniel Rob on 09-12-2024 Erythrocyte distribution width (RBC) [Ratio] 12.1 % 11.6-14.6 [facility] Erythrocyte distribution wid th standard deviationOrdered By: Daniel Rob on 09-12-2024 Erythrocyte distribution width (RBC) [Entitic vol] 41.6 fL 35.1-43.9 [facility] Estimated glomerular filtrat ion rate (GFR) AmericanOrdered By: Daniel Rob on 09-12-2024 Estimated GFR (MDRD) Amer 84 mL/min >60 [facility] Comment on above: GFR Calc Glomerular filtration rate ( GFR) estimationOrdered By: Daniel Rob on 09-12-2024 Estimated GFR (MDRD) Non-Af Amer 69 mL/min >60 [facility] Comment on above: Non- GFR Calc Glucose Ql (U)Ordered By: Amita Rob on 09-12-2024 Urine Glucose (UA) Normal mg/dl Normal [facility] Glucose measurementOrdered B y: Daniel Rob on 09-12-2024 Glucose [Mass/Vol] 82 mg/dL 74-106 [facility] Hematocrit Auto (Bld) [Volum e fraction]Ordered By: Daniel Rob on 09-12-2024 Hematocrit (Bld) [Volume fraction] 46.3 % 40-54 [facility] Hemoglobin measurementOrdere d By: Daniel Rob on 09-12-2024 Hemoglobin (Bld) [Mass/Vol] 15.7 g/dL 13.0-16.5 [facility] High density lipoprotein (HD L) measurementOrdered By: Daniel Rob on 09-12-2024 Cholesterol in HDL [Mass/Vol] 42 mg/dL >40 [facility] Comment on above: The drugs N-Acetylcy steine and Metamizole may falsely depress this assay. Reference Range HDL <40 mg/dL Low HDL Cholesterol HDL >or= 60 mg/dL High HDL Cholesterol Immature granulocytes/100 WB C Auto (Bld)Ordered By: Daniel Rob on 09-12-2024 Immature granulocytes/100 WBC (Bld) 0.400 % 0.0-0.9 [facility] Comment on above: IG% - Immature Granu locytes (promyelocytes, myelocytes and metamyelocytes) > 1% indicates that a LEFT SHIFT is Present. Intact parathyroid hormone ( iPTH) measurementOrdered By: Daniel Rob on 09-12-2024 Parathyroid Hormone (Intact) 35.6 pg/mL 18.4-80.1 [facility] Ketones Test strip Ql (U)Ord ered By: Daniel Rob on 09-12-2024 Ketones Ql (U) Negative Negative [facility] - Chemistry and C hemistry - challengeOrdered By: Daniel Rob on 09-12-2024 AST [Catalytic activity/Vol] 14 U/L Low 15-37 [facility] Lipid Profileon 09-12-2024 Cholesterol [Mass/Vol] 169 mg/dL Normal 200 [facility] Comment on above: Order Comment: Order Date: 09/12/24Order Info: [id number] - CMPOrder Info: [id number] - LIPIDOrder Info: [id number] - TSH Result Comment: <200 mg/dL Desirable 200-240 mg/dL Borderline >240 mg/dL High Risk Performed By: #### L 503.6075, L503.6030, L503.6550, L503.6150 #### [facility] [address] [place], [place], [id number] Cholesterol in HDL [Mass/Vol] 42 mg/dL Normal [facility] Comment on above: Order Comment: Order Date: 09/12/24Order Info: [id number] - CMPOrder Info: [id number] - LIPIDOrder Info: [id number] - TSH Result Comment: The drugs N-Acetylcysteine and Metamizole may falsely depress this assay. Reference Range HDL <40 mg/dL Low HDL Cholesterol HDL >or= 60 mg/dL High HDL Cholesterol Performed By: #### L 503.6075, L503.6030, L503.6550, L503.6150 #### [facility] [address] [place], [address] Cholesterol in LDL [Mass/Vol] 84 mg/dL Normal 0-130 [facility] Comment on above: Order Comment: Order Date: 09/12/24Order Info: [id number] - CMPOrder Info: [id number] - LIPIDOrder Info: [id number] - TSH Performed By: #### L 503.6075, L503.6030, L503.6550, L503.6150 #### [facility] [address] [place], [address] Cholesterol in VLDL [Mass/Vol] 43 mg/dL High 5-40 [facility] Comment on above: Order Comment: Order Date: 09/12/24Order Info: 07-1 - CMPOrder Info: [id number] - LIPIDOrder Info: [id number] - TSH Performed By: #### L 503.6075, L503.6030, L503.6550, L503.6150 #### [facility] [address] [place], [address] Triglyceride [Mass/Vol] 214 mg/dL High [facility] Comment on above: Order Comment: Order Date: 09/12/24Order Info: 07-1 - CMPOrder Info: [id number] - LIPIDOrder Info: [id number] - TSH Result Comment: The drugs N-Acetylcysteine and Metamizole may falsely depress this assay. Serum Triglycerides Reference Interval Normal <150 mg/dL Borderline high 150 - 199 mg/dL High 200 - 499 mg/dL Very High > or = 500 mg/dL Performed By: #### L 503.6075, L503.6030, L503.6550, L503.6150 #### [facility] [address] [place], [address] Low density lipoprotein (LDL ) cholesterol measurementOrdered By: Daniel Rob on 09-12-2024 Cholesterol in LDL [Mass/Vol] 84 mg/dL 0-130 [facility] Lymphocytes Auto (Unsp spec) [#/Vol]Ordered By: Daniel Rob on 09-12-2024 Lymphocytes (Bld) [#/Vol] 2.49 10*3/uL 0.83-4.51 [facility] Lymphocytes/100 WBC Auto (Un sp spec)Ordered By: Daniel Rob on 09-12-2024 Lymphocytes/100 WBC (Bld) 17.4 % Low 19-41 [facility] MCV (mean corpuscular volume ) determinationOrdered By: Daniel Rob on 09-12-2024 MCV (RBC) [Entitic vol] 92.8 fL 80-94 [facility] Mean corpuscular hemoglobin (MCH) determinationOrdered By: Daniel Rob on 09-12-2024 MCH (RBC) [Entitic mass] 31.5 pg 27.0-32.0 [facility] Mean corpuscular hemoglobin concentration (MCHC) determinationOrdered By: Daniel Rob on 09-12-2024 MCHC (RBC) [Mass/Vol] 33.9 g/dL 32-36 [facility] Mean platelet volume determi nationOrdered By: Daniel Rob on 09-12-2024 Platelet mean volume (Bld) [Entitic vol] 9.7 fL 6.2-12.0 [facility] Microscopic analysis of urin e for red blood cells (RBC)Ordered By: Daniel Rob on 09-12-2024 Urine RBC 0 SEEN /hpf 0-5 [facility] Monocyte percentageOrdered B y: Daniel Rob on 09-12-2024 Monocytes/100 WBC (Bld) 5.7 % 0-10 [facility] Mucus LM Ql (Urine sed)Order ed By: Daniel Rob on 09-12-2024 Mucus Ql (Urine sed) 0 SEEN /hpf [facility] Neutrophil percentageOrdered By: Daniel Rob on 09-12-2024 Neutrophils/100 WBC (Bld) 74.2 % High 47-70 [facility] Nitrite Test strip Ql (U)Ord ered By: Daniel Rob on 09-12-2024 Nitrite Ql (U) Negative Negative [facility] Nucleated red blood cell per centageOrdered By: Daniel Rob on 09-12-2024 Nucleated RBC/100 WBC (Bld) [Ratio] 0 % 0-5 [facility] PTHINon 09-12-2024 PTH 35.6 pg/mL Normal 18.4-80.1 [facility] Comment on above: Order Comment: Order Date: 09/12/24Order Info: [id number] - PTHIN Performed By: #### L 503.6028, L503.6036, L503.6524, L503.6150 #### [facility] [address] [place], [address] Platelet countOrdered By: Amita Rob on 09-12-2024 Platelets (Bld) [#/Vol] 309 10*3/uL 150-450 [facility] Potassium measurementOrdered By: Daniel Rob on 09-12-2024 Potassium [Moles/Vol] 4.6 mmol/L 3.5-5.1 [facility] Protein Test strip Ql (U)Ord ered By: Daniel Rob on 09-12-2024 Protein Ql (U) Negative Negative [facility] Protein+Creatinine Ratio,Uri neon 09-12-2024 PROT:CRE RATIO TNP Normal 0-200 [facility] Comment on above: Performed By: #### L 501.0900, L400.0001 #### [facility] [address] [place], [address] PROTEIN,UR.RAN. < 6.0 Normal <11.9 [facility] Comment on above: Performed By: #### L 501.0900, L400.0001 #### [facility] [address] [place], [address] UR CREAT 48.60 mg/dL Normal NO RANGE EST. [facility] Comment on above: Performed By: #### L 501.0900, L400.0001 #### [facility] [address] [place], [address] Protein/Creatinine (U) [Mass ratio]Ordered By: Daniel Rob on 09-12-2024 Urine Protein/Creatinine Ratio TNP [facility] Comment on above: Test not performed RBC Auto (Bld) [#/Vol]Ordere d By: Daniel Rob on 09-12-2024 RBC (Bld) [#/Vol] 4.99 10*6/uL 4.6-6.2 [facility] Random urine protein measure mentOrdered By: Daniel Rob on 09-12-2024 Urine Random Total Protein < 6.0 mg/dL 0.0-11.8 [facility] Serum anion gap measurementO rdered By: Daniel Rob on 09-12-2024 Anion gap [Moles/Vol] 3 mmol/L Low 5-15 [facility] Serum globulin measurementOr dered By: Daniel Rob on 09-12-2024 Globulin (S) [Mass/Vol] 3.7 g/dL 2.2-4.2 [facility] Serum or plasma alanine huizar otransferase (ALT) measurementOrdered By: Daniel Rob on 09-12-2024 ALT [Catalytic activity/Vol] 27 U/L 16-61 [facility] Serum or plasma albumin mine urement (mass/volume)Ordered By: Daniel Rob on 09-12-2024 Albumin [Mass/Vol] 3.8 g/dL 3.2-5.0 [facility] Serum or plasma alkaline eric sphatase measurementOrdered By: Daniel Rob on 09-12-2024 ALP [Catalytic activity/Vol] 78 U/L 45-117 [facility] Serum or plasma calcium mine urement (mass/volume)Ordered By: Daniel Rob on 09-12-2024 Calcium [Mass/Vol] 9.1 mg/dL 8.5-10.1 [facility] Serum or plasma cholesterol measurement (mass/volume)Ordered By: Daniel Rob on 09-12-2024 Cholesterol [Mass/Vol] 169 mg/dL <200 [facility] Comment on above: <200 mg/dL Desirable 200-240 mg/dL Borderline >240 mg/dL High Risk Serum or plasma creatinine m easurement (mass/volume)Ordered By: Daniel Rob on 09-12-2024 Creatinine [Mass/Vol] 1.22 mg/dL 0.70-1.30 [facility] Comment on above: The validity of the calculated GFR & GFRAA in patients over 70 years has not been determined. Clinical correlation is essential. Serum or plasma urea nitroge n measurement (mass/volume)Ordered By: Daniel Rob on 09-12-2024 Urea nitrogen [Mass/Vol] 14 mg/dL 7-18 [facility] Sodium levelOrdered By: Daniel Rob on 09-12-2024 Sodium [Moles/Vol] 136 mmol/L 136-145 [facility] TSH QnOrdered By: Daniel flores on 09-12-2024 Thyroid Stimulating Hormone (TSH) 0.575 uIU/mL 0.358-3.74 0 [facility] Thyroid Stim Hormone (TSH)on 09-12-2024 TSH 0.575 uIU/mL Normal 0.358-3.74 0 [facility] Comment on above: Order Comment: Order Date: 09/12/24Order Info: [id number] - CMPOrder Info: [id number] - LIPIDOrder Info: [id number] - TSH Performed By: #### L 503.6075, L503.6030, L503.6550, L503.6150 #### [facility] [address] [place], [place], [id number] Total proteinOrdered By: Fernando Rob on 09-12-2024 Protein [Mass/Vol] 7.5 g/dL 6.4-8.2 [facility] Triglycerides measurementOrd ered By: Daniel Rob on 09-12-2024 Triglyceride [Mass/Vol] 214 mg/dL High <199 [facility] Comment on above: The drugs N-Acetylcy steine and Metamizole may falsely depress this assay.Serum Triglycerides Reference Interval Normal <150 mg/dL Borderline high 150 - 199 mg/dL High 200 - 499 mg/dL Very High > or = 500 mg/dL Urinalysis, Completeon 09-12 BACTERIA 0 SEEN Normal None Seen [facility] Comment on above: Order Comment: CLEAN CATCH Performed By: #### L 501.0900, L400.0001 #### [facility] [address] [place], [address] EPI,SQUAMOUS 0 SEEN Normal 0-5 [facility] Comment on above: Order Comment: CLEAN CATCH Performed By: #### L 501.0900, L400.0001 #### [facility] [address] [place], [address] Mucus Ql (Urine sed) 0 SEEN Normal [facility] Comment on above: Order Comment: CLEAN CATCH Performed By: #### L 501.0900, L400.0001 #### [facility] [address] [place], [address] RBC 0 SEEN Normal 0-5 [facility] Comment on above: Order Comment: CLEAN CATCH Performed By: #### L 501.0900, L400.0001 #### [facility] [address] [place], [address] WBC 0 SEEN Normal [address] [place] [address] Comment on above: Order Comment: CLEAN CATCH Performed By: #### L 501.0900, L400.0001 #### [facility] [address] [place], [address] Urine blood detectionOrdered By: Daniel Rob on 09-12-2024 Urine Occult Blood Negative Negative [facility] Urine clarityOrdered By: Fernando Rob on 09-12-2024 Clarity (U) Clear Clear [facility] Urine color determinationOrd ered By: Daniel Rob on 09-12-2024 Color (U) Straw Yellow [facility] Urine creatinine measurement (mass/volume)Ordered By: Daniel Rob on 09-12-2024 Creatinine (U) [Mass/Vol] 48.60 mg/dL NO RANGE EST. [facility] Urine leukocyte esterase det ection by dipstickOrdered By: Daniel Rob on 09-12-2024 Leukocyte esterase Test strip Ql (U) Negative Negative [facility] Urine pHOrdered By: Daniel vela on 09-12-2024 pH (U) 6.5 [pH] 5.0 - 8.0 [facility] Urine sediment bacteria coun t by microscopy (number/high power field)Ordered By: Daniel Rob on 09-12-2024 Bacteria LM.HPF (Urine sed) [#/Area] 0 /[HPF] None Seen [facility] Urine specific gravity measu rementOrdered By: Daniel Rob on 09-12-2024 Specific gravity (U) [Rel density] 1.005 1.002-1.03 0 [facility] Urobilinogen Ql (U)Ordered B y: Daniel Rob on 09-12-2024 Urine Urobilinogen Normal mg/dl Normal [facility] Very low density lipoprotein (VLDL) cholesterol measurementOrdered By: Daniel Rob on 09-12-2024 VLDL Cholesterol 43 mg/dL High 5-40 [facility] Vitamin D,25 Hydroxyon 09-12 Vitamin D 25-OH 36.6 ng/mL Normal [facility] Comment on above: Order Comment: Order Date: 09/12/24Order Info: [id number] - [id number] Result Comment: Verito min D 25(OH) Status Range Deficiency <20 ng/mL (50nmol/L) Insufficiency 20 - 30 ng/mL (50 - 75 nmol/L) Sufficiency 30 - 100 ng/mL (75 - 250 nmol/L) Toxicity >100 ng/mL (>250 nmol/L) Performed By: #### L 503.6075, L503.6030, L503.6550, L503.6150 #### [facility] [address] [place], [address] White blood cell (WBC) count Ordered By: Daniel Rob on 09-12-2024 WBC (Bld) [#/Vol] 14.3 10*3/uL High 4.4-11.0 [facility] White blood cell countOrdere d By: Daniel Rob on 09-12-2024 Urine WBC 0 SEEN /hpf 0-5 [facility] Abdomen Limitedon 09-06-2024 Abdomen Limited [facility] [address] [place] [address] Abdomen Limited MR#: [id number] Acct: [id number] Name: AURELIANO WALSH Rep #: [id number] : 1980 M 44 From: Aris chopra MD PCP: Dr. Daniel Rob MD Status: REG CLI Study: Abdomen Limited Date of Exam: 09/06/24 Exam# [id number] Ordering Dr: Oren Berry RN NEW GRAD-C 2:[id number] STUDY: ABDOMINAL ULTRASOUND - RIGHT UPPER QUADRANT REASON FOR VISIT: Male, 44 years old right upper quadrant pain/bloating. TECHNIQUE: Ultrasound evaluation of the right upper quadrant was performed with real-time and static sanders-scale imaging. TECHNICAL QUALITY: Adequate. COMPARISON: None. FINDINGS: Liver: The liver measures 12 cm. There is normal echogenicity of the liver. The bile ducts are within normal limits. There is hepatic color flow. The direction of portal flow is hepatopetal. There is no demonstrated mass lesion. Gallbladder: Normal distended gallbladder. The gallbladder wall measures 1.6 mm. There is a negative sonographic Matthews''s sign. There is no pericholecystic fluid. There are no gallstones. Common Bile Duct (C.B.D.): The common bile duct measures 3.0 mm. Pancreas: Normal size of the head, body and tail of the pancreas. There is normal echogenicity of the pancreas. There is no demonstrated pancreatic mass or cyst. Right Kidney: Normal size of the right kidney. The right kidney measures 10.8 cm x 4.9 cm x 4.4 cm. Normal renal cortex. The right cortex measures 1.4 cm. There is no demonstrated renal mass or cyst. There is no right hydronephrosis. US/Abdomen Limited IMPRESSION: Normal right upper quadrant ultrasound examination. Electronically Signed: Aris Rajput MD at 11:50 EST , CC: CHARLENE Berry; Dr. Daniel Rob MD Department Specialist: Signed Normal [facility] Surgery Specimen Level IIIon 08-28-2024 Surgery Specimen Level III Patient Age/Sex Location Account Attending Physician AURELIANO WALSH 44/M LABSPEC [id number] Dr. Adal Lagos MD Specimen: [id number] Received: 08/28/24 Status: DAMIEN Jennie Num: [id number] Spec Type: Cyst Subm Dr: Dr. Adal Lagos MD HEADER OPERATION: Excision scalp lesions PRE-OP DIAGNOSIS: Other follicular cysts of the skin and subcutaneous tissue TISSUE SUBMITTED: A- Right frontal scalp cyst, B- Left frontal scalp cyst, C- Vertex scalp cyst, D- Left temporal scalp cyst MICROSCOPIC DIAGNOSIS A. Right frontal scalp cyst, excision: Trichilemmal cyst. B. Left frontal scalp cyst, excision: Trichilemmal cysts with focal calcifications. C. Vertex scalp cyst, excision: Trichilemmal cyst. D. Left evangelical scalp cyst, excision: Trichilemmal cysts with focal calcifications. 08/30/2024 MICROSCOPIC DESCRIPTION Slides are reviewed. GROSS DESCRIPTION A. Received in fixative is one container labeled with the patient's name and designated Right frontal scalp cyst. The specimen consists of a duron-white cystic nodule measuring 0.6 x 0.5 x 0.4cm. The specimen is bisected and submitted entirely in one cassette. B. Received in fixative is one container labeled with the patient's name and designated Left frontal scalp cyst. The specimen consists of a duron cystic nodule measuring 0.6 x 0.5 x 0.4cm. A piece of skin is also noted at one edge measuring 0.5 x 0.2cm. This piece is bisected. Also present in the container is a small duron cystic nodule measuring 0.3 x 0.3 x 0.2cm. This piece is also bisected. The entire specimen is submitted in one cassette. C. Received in fixative is one container labeled with the patient's name and designated Vertex scalp cyst. The specimen consists of a piece of skin with underlying cystic nodule. Skin piece measures 1.5 x 0.3cm and underlying cystic nodule measures 1.5 x 1.5 x 1.0cm. The specimen is serially sectioned. Sections reveal the cystic nodule is filled with sebum like material. Dough Molder Hand sections are submitted in one cassette. D. Received in fixative is one container labeled with the patient's name and designated Left evangelical scalp cyst. The specimen consists of a piece of skin measuring 0.5 x 0.3cm. Two cystic nodules are present underneath the skin piece measuring 0.5 and 0.7cm in greatest dimension. Both nodules are bisected. The cysts are filled with duron-white sebum like material. The entire specimen is submitted in one cassette. 08/29/2024 TC:5 CPT:17928m6 Patient Age/Sex Location Account Attending Physician AURELIANO WALSH 44/M LABSPEC [id number] Dr. Adal Lagos MD Signed (signature on file) Dr. Gabriele Greene MD 08/30/24 1105 Normal [facility] Comment on above: Performed By: #### L 503.6075, L503.6030, L503.6550, L503.6150 #### [facility] [address] [place], [address] CT ABD PELVIS W IV CONTRASTo n 07-04-2024 CT ABD PELVIS W IV CONTRAST CLINICAL INDICATIONS: Constipation, nausea and abdominal bloating. COMPARISON: No prior exams are available for comparison. TECHNIQUE: Helical axial CT images were acquired through the abdomen and pelvis with administration of 100 mL Isovue 300 nonionic intravenous contrast (dose above). Coronal reconstructions were performed. Automatic exposure control was used. FINDINGS: Visualized lungs are clear and there are no pleural or pericardial effusions. The liver and gallbladder and pancreas and spleen and stomach and adrenal glands and kidneys are normal. Caliber of the abdominal aorta is normal. The appendix is normal. There is diverticulosis of the sigmoid colon with no evidence of diverticulitis. There is no pericolonic or perienteric fatty infiltrative changes. The urinary bladder is normal. Prostate gland and seminal vesicles are normal. There are no enlarged abdominal or pelvic or inguinal lymph nodes, ascites or free intraperitoneal air. Osseous structures are intact. IMPRESSION: 1. No evidence of an acute intra-abdominal or pelvic process. 2. Minimal sigmoid diverticulosis without diverticulitis. This report was created using voice recognition software and/or free text entry. I have reviewed this report but may have inadvertently missed correcting erroneous or unusual [id number] words. Electronically signed by: Evan Mckinley MD 07/04/2024 11:04 AM EDT Technologist: MIAH Dictated By: EVAN MCKINLEY MD Signed By: EVAN MCKINLEY MD Signed Out: 07/04/24 11:04:18 Normal [facility] BUNon 06-21-2024 Urea nitrogen [Mass/Vol] 11 mg/dL Normal 9-23 [facility] Comment on above: Result Comment: - Ve nipuncture should occur prior to N-Acetyl Cysteine (NAC) or Metamizole (Sulpyrine) administration due to the potential for falsely depressed results. - Blood samples from some patients with monoclonal gammopathies may produce falsely elevated results Performed By: #### 1 [id number], [id number] #### [facility] [address] [place] [address] [employer] Clerk: MD Delfin Tang 06-21-2024 Creatinine [Mass/Vol] 1.2 mg/dL High 0.6-1.1 [facility] Comment on above: Performed By: #### 1 [id number], [id number] #### [facility] [address] [place] [address] [employer] Clerk: Cesar Schmid MD GFR AA >60 Normal [facility] Comment on above: Result Comment: Afri can Cypriot GFR Calc Medical judgement is necessary to interpret GFR. The calculated GFR may not accurately reflect renal status in patients >70 years, women, acutely ill hospitalized patients and patients with acute renal failure or known renal disease. The MDRD GFR formula is valid only for adults greater than 18 years of age. Note: Creatinine clearance (not GFR) should be used for drug dosing. Performed By: #### 1 [id number], [id number] #### [facility] [address] [place] [address] [employer] Clerk: Cesar Schmid MD Glomerular Filtration Rate >60 Normal [facility] Comment on above: Result Comment: Non- GFR Calc Medical judgement is necessary to interpret GFR. The calculated GFR may not accurately reflect renal status in patients >70 years, women, acutely ill hospitalized patients and patients with acute renal failure or known renal disease. The MDRD GFR formula is valid only for adults greater than 18 years of age. Note: Creatinine clearance (not GFR) should be used for drug dosing. Performed By: #### 1 [id number], [id number] #### [facility] [address] [place] [address] [employer] Clerk: Cesar Schmid MD HSV+VZV DNA SANJEEV+probe Ql (Un sp spec)on 03-01-2024 HSV 1 DNA SANJEEV+probe Ql (Unsp spec) Not detected Normal Not Detected [facility] Comment on above: Order Comment: Speci men Type: SWAB [facility] Address: [address], [place] [address] Performed By: #### 3 3027-4 #### [facility] CLIA [id number] [address] HSV 2 DNA SANJEEV+probe Ql (Unsp spec) Not detected Normal Not Detected [facility] Comment on above: Order Comment: Speci men Type: SWAB [facility] Address: [address], [place] [address] Performed By: #### 3 3027-4 #### [facility] CLIA [id number] [address] [facility] VZV DNA SANJEEV+probe Ql (Unsp spec) Detected Abnormal Not Detected [facility] Comment on above: Order Comment: Speci men Type: SWAB [facility] Address: [address], [place] [address] Performed By: #### 3 3027-4 #### [facility] CLIA [id number] [address] [place] [address] [place] Basophil percentageon 2023 Bilirubin [Mass/Vol] 0.70 mg/dL 0.20-1.00 [facility] Comment on above: For patients on eltr ombopag therapy, use of Dimension [place] TBIL is not recommended. Chloride [Moles/Vol] 104 mmol/L 98-107 [facility] Cholesterol [Mass/Vol] 178 mg/dL <200 [facility] Comment on above: <200 mg/dL Desirable 200-240 mg/dL Borderline >240 mg/dL High Risk Glucose [Mass/Vol] 92 mg/dL 74-106 [facility] Potassium [Moles/Vol] 4.6 mmol/L 3.5-5.1 [facility] Protein [Mass/Vol] 7.7 g/dL 6.4-8.2 [facility] Sodium [Moles/Vol] 137 mmol/L 136-145 [facility] Triglyceride [Mass/Vol] 181 mg/dL <199 [facility] Comment on above: The drugs N-Acetylcy steine and Metamizole may falsely depress this assay.Serum Triglycerides Reference Interval Normal <150 mg/dL Borderline high 150 - 199 mg/dL High 200 - 499 mg/dL Very High > or = 500 mg/dL Laboratory - Chemistry and C hemistry - challengeon 02-04-2024 Albumin/Globulin [Mass ratio] 1.2 {ratio} 0.9-2.4 [facility] ALP [Catalytic activity/Vol] 65 U/L 45-117 [facility] ALT [Catalytic activity/Vol] 30 U/L 16-61 [facility] Cholesterol in HDL [Mass/Vol] 41 mg/dL >40 [facility] Comment on above: The drugs N-Acetylcy steine and Metamizole may falsely depress this assay. Reference Range HDL <40 mg/dL Low HDL Cholesterol HDL >or= 60 mg/dL High HDL Cholesterol Cholesterol in LDL [Mass/Vol] 101 mg/dL 0-130 [facility] CO2 [Moles/Vol] 29.0 mmol/L 21.0-32.0 [facility] Cobalamin (Vitamin B12) [Mass/Vol] 1202 pg/mL 211-911 [facility] Globulin (S) [Mass/Vol] 3.5 g/dL 2.2-4.2 [facility] Magnesium [Mass/Vol] 2.2 mg/dL 1.6-2.6 [facility] Urea nitrogen/Creatinine [Mass ratio] 6.8 mg/mg 10-20 [facility] No Panel Informationon 02-03 C-Reactive Protein High Sensitivity 0.53 mg/L <3.00 [facility] Comment on above: Low Relative Risk of CVD <1.0 mg/L Average Relative Risk of CVD 1.0 - 3.0 mg/L High Relative Risk of CVD >3.0 mg/L Estimated GFR (MDRD) Amer 76 mL/min >60 [facility] Comment on above: GFR Calc Estimated GFR (MDRD) Non-Af Amer 63 mL/min >60 [facility] Comment on above: Non- GFR Calc Folate 12.70 ng/mL 3.1-55.4 [facility] Free Triiodothyronine (T3) pg/dL 2.8 pg/mL 2.18-3.98 [facility] Vitamin D 25-Hydroxy 41.9 ng/mL [facility] Comment on above: Vitamin D 25(OH) Sta tus Range Deficiency <20 ng/mL (50nmol/L) Insufficiency 20 - 30 ng/mL (50 - 75 nmol/L) Sufficiency 30 - 100 ng/mL (75 - 250 nmol/L) Toxicity >100 ng/mL (>250 nmol/L) VLDL Cholesterol 36 mg/dL 5-40 [facility] Serum or plasma calcium mine urement (mass/volume)on 02-04-2024 Calcium [Mass/Vol] 9.4 mg/dL 8.5-10.1 [facility] Serum or plasma creatinine m easurement (mass/volume)on 02-04-2024 Creatinine [Mass/Vol] 1.33 mg/dL 0.70-1.30 [facility] Comment on above: The validity of the calculated GFR & GFRAA in patients over 70 years has not been determined. Clinical correlation is essential. Serum or plasma thyroid stim ulating hormone (TSH) measurement (units/volume)on 02-04-2024 TSH Qn 0.55 uIU/mL 0.358-3.74 [facility] Serum or plasma urea nitroge n measurement (mass/volume)on 02-04-2024 Urea nitrogen [Mass/Vol] 9 mg/dL 7-18 [facility] Thin prep Papanicolaou smear with manual screeningon 02-04-2024 Thin prep Papanicolaou smear with manual screening 4.2 g/dL 3.2-5.0 [facility] Thin prep Papanicolaou smear with manual screening 19 U/L 15-37 [facility] Thin prep Papanicolaou smear with manual screening 4 5-15 [facility] Thin prep Papanicolaou smear with manual screening 0.93 ng/dL 0.76-1.46 [facility] Whole blood hemoglobin A1c/t otal hemoglobin ratio (mass fraction)on 02-04-2024 HbA1c (Bld) [Mass fraction] 4.9 % 3.8-5.6 [facility] Comment on above: Normal < 5.7 % Predi abetic 5.7 - 6.4 % Diabetic >or= 6.5 % Please note range changes. Absolute lymphocyte countOrd ered By: Daniel Rob on 11-12-2023 Lymphocytes Auto (Unsp spec) [#/Vol] 3.04 10*3/uL 0.83-4.51 [facility] Automated lymphocyte count a s percentage of total leukocytesOrdered By: Daniel Rob on 11-12-2023 Lymphocytes/100 WBC Auto (Unsp spec) 32.4 % 19-41 [facility] Basophil percentageOrdered B y: Daniel Rob on 11-12-2023 Basophils/100 WBC (Bld) 0.6 % 0-1 [facility] Chloride [Moles/Vol] 103 mmol/L 98-107 [facility] Eosinophils/100 WBC (Bld) 2.9 % 0-5 [facility] Glucose [Mass/Vol] 86 mg/dL 74-106 [facility] Hemoglobin (Bld) [Mass/Vol] 15.9 g/dL 13.0-16.5 [facility] Monocytes/100 WBC (Bld) 7.2 % 0-10 [facility] Neutrophils (Bld) [#/Vol] 5.3 10*3/uL 2.0-7.7 [facility] Neutrophils/100 WBC (Bld) 56.7 % 47-70 [facility] Potassium [Moles/Vol] 4.0 mmol/L 3.5-5.1 [facility] Sodium [Moles/Vol] 136 mmol/L 136-145 [facility] WBC (Bld) [#/Vol] 9.4 10*3/uL 4.4-11.0 [facility] Determination of erythrocyte mean corpuscular volume (MCV)Ordered By: Daniel Rob on 11-12-2023 MCV (RBC) [Entitic vol] 89.8 fL 80-94 [facility] Erythrocyte distribution wid th ratioOrdered By: Daniel Rbo on 11-12-2023 Erythrocyte distribution width (RBC) [Ratio] 12.3 % 11.6-14.6 [facility] Erythrocyte distribution wid th standard deviationOrdered By: Daniel Rob on 11-12-2023 Erythrocyte distribution width (RBC) [Entitic vol] 39.8 fL 35.1-43.9 [facility] Hematocrit Auto (Bld) [Volum e fraction]Ordered By: Daniel Rob on 11-12-2023 Hematocrit (Bld) [Volume fraction] 46.8 % 40-54 [facility] Immature granulocytes/100 WB C Auto (Bld)Ordered By: Daniel Rob on 11-12-2023 Immature granulocytes/100 WBC (Bld) 0.200 % 0.0-0.9 [facility] Comment on above: IG% - Immature Granu locytes (promyelocytes, myelocytes and metamyelocytes) > 1% indicates that a LEFT SHIFT is Present. Laboratory - Chemistry and C hemistry - challengeOrdered By: Daniel Rob on 11-12-2023 CO2 [Moles/Vol] 28.0 mmol/L 21.0-32.0 [facility] Urea nitrogen/Creatinine [Mass ratio] 8.1 mg/mg 10-20 [facility] Laboratory - Hematology and Cell countsOrdered By: Daniel Rob on 11-12-2023 MCH (RBC) [Entitic mass] 30.5 pg 27.0-32.0 [facility] MCHC (RBC) [Mass/Vol] 34.0 g/dL 32-36 [facility] Nucleated RBC/100 WBC (Bld) [Ratio] 0 % 0-5 [facility] Platelets (Bld) [#/Vol] 339 10*3/uL 150-450 [facility] No Panel InformationOrdered By: Daniel Rob on 11-12-2023 Estimated GFR (MDRD) Amer 83 mL/min >60 [facility] Comment on above: GFR Calc Estimated GFR (MDRD) Non-Af Amer 69 mL/min >60 [facility] Comment on above: Non- GFR Calc Platelet mean volume Marco-Ec ker (Bld) [Entitic vol]Ordered By: Daniel Rob on 11-12-2023 Platelet mean volume (Bld) [Entitic vol] 9.4 fL 6.2-12.0 [facility] RBC Auto (Bld) [#/Vol]Ordere d By: Daniel Rob on 11-12-2023 RBC (Bld) [#/Vol] 5.21 10*6/uL 4.6-6.2 [facility] Serum or plasma calcium mine urement (mass/volume)Ordered By: Daniel Rob on 11-12-2023 Calcium [Mass/Vol] 9.2 mg/dL 8.5-10.1 [facility] Serum or plasma creatinine m easurement (mass/volume)Ordered By: Daniel Rob on 11-12-2023 Creatinine [Mass/Vol] 1.23 mg/dL 0.70-1.30 [facility] Comment on above: The validity of the calculated GFR & GFRAA in patients over 70 years has not been determined. Clinical correlation is essential. Serum or plasma urea nitroge n measurement (mass/volume)Ordered By: Daniel Rob on 11-12-2023 Urea nitrogen [Mass/Vol] 10 mg/dL 7-18 [facility] Thin prep Papanicolaou smear with manual screeningOrdered By: Daniel Rob on 11-12-2023 Thin prep Papanicolaou smear with manual screening 5 5-15 [facility] Absolute lymphocyte countOrd ered By: Daniel Rob on 07-21-2023 Lymphocytes Auto (Unsp spec) [#/Vol] 2.13 10*3/uL 0.83-4.51 [facility] Basophil percentageOrdered B y: Daniel oRb on 07-21-2023 Basophils/100 WBC (Bld) 0.7 % 0-1 [facility] Bilirubin [Mass/Vol] 0.50 mg/dL 0.20-1.00 [facility] Comment on above: For patients on eltr ombopag therapy, use of Dimension [place] TBIL is not recommended. Chloride [Moles/Vol] 104 mmol/L 98-107 [facility] Eosinophils/100 WBC (Bld) 5.1 % 0-5 [facility] Glucose [Mass/Vol] 87 mg/dL 74-106 [facility] Neutrophils (Bld) [#/Vol] 3.7 10*3/uL 2.0-7.7 [facility] Neutrophils/100 WBC (Bld) 54.3 % 47-70 [facility] Potassium [Moles/Vol] 4.3 mmol/L 3.5-5.1 [facility] Protein [Mass/Vol] 7.3 g/dL 6.4-8.2 [facility] Sodium [Moles/Vol] 135 mmol/L 136-145 [facility] WBC (Bld) [#/Vol] 6.8 10*3/uL 4.4-11.0 [facility] Blood erythrocytes count (nu mber/volume)Ordered By: Daniel Rob on 07-21-2023 RBC (Bld) [#/Vol] 4.98 10*6/uL 4.6-6.2 [facility] Blood hemoglobin measurement (mass/volume)Ordered By: Daniel Rob on 07-21-2023 Hemoglobin (Bld) [Mass/Vol] 15.5 g/dL 13.0-16.5 [facility] Blood lymphocytes/100 leukoc ytesOrdered By: Daniel Rob on 07-21-2023 Lymphocytes/100 WBC (Bld) 31.1 % 19-41 [facility] Blood monocytes/100 leukocyt esOrdered By: Daniel Rob on 07-21-2023 Monocytes/100 WBC (Bld) 8.5 % 0-10 [facility] Blood platelet mean volumeOr dered By: Daniel Rob on 07-21-2023 Platelet mean volume (Bld) [Entitic vol] 9.8 fL 6.2-12.0 [facility] Determination of erythrocyte mean corpuscular volume (MCV)Ordered By: Daniel Rob on 07-21-2023 MCV (RBC) [Entitic vol] 92.6 fL 80-94 [facility] Hematocrit Auto (Bld) [Volum e fraction]Ordered By: Daniel Rob on 07-21-2023 Hematocrit (Bld) [Volume fraction] 46.1 % 40-54 [facility] Laboratory - Chemistry and C hemistry - challengeOrdered By: Daniel Rob on 07-21-2023 ALP [Catalytic activity/Vol] 68 U/L 45-117 [facility] ALT [Catalytic activity/Vol] 29 U/L 16-61 [facility] CO2 [Moles/Vol] 25.0 mmol/L 21.0-32.0 [facility] Free T4 [Mass/Vol] 1.00 ng/dL 0.76-1.46 [facility] Globulin (S) [Mass/Vol] 3.3 g/dL 2.2-4.2 [facility] Urea nitrogen/Creatinine [Mass ratio] 7.3 mg/mg 10-20 [facility] Laboratory - Hematology and Cell countsOrdered By: Daniel Rob on 07-21-2023 Erythrocyte distribution width (RBC) [Entitic vol] 41.2 fL 35.1-43.9 [facility] Erythrocyte distribution width (RBC) [Ratio] 12.0 % 11.6-14.6 [facility] Immature granulocytes/100 WBC (Bld) 0.300 % 0.0-0.9 [facility] Comment on above: IG% - Immature Granu locytes (promyelocytes, myelocytes and metamyelocytes) > 1% indicates that a LEFT SHIFT is Present. MCH (RBC) [Entitic mass] 31.1 pg 27.0-32.0 [facility] Nucleated RBC/100 WBC (Bld) [Ratio] 0 % 0-5 [facility] MCHC Auto (RBC) [Mass/Vol]Or dered By: Daniel Rob on 07-21-2023 MCHC (RBC) [Mass/Vol] 33.6 g/dL 32-36 [facility] No Panel InformationOrdered By: Daniel Rob on 07-21-2023 Estimated GFR (MDRD) Amer 83 mL/min >60 [facility] Comment on above: GFR Calc Estimated GFR (MDRD) Non-Af Amer 68 mL/min >60 [facility] Comment on above: Non- GFR Calc Thyroid Stimulating Hormone (TSH) 0.34 uIU/mL 0.358-3.74 [facility] Platelets bldOrdered By: Fernando Rob on 07-21-2023 Platelets (Bld) [#/Vol] 338 10*3/uL 150-450 [facility] Serum or plasma albumin mine urement (mass/volume)Ordered By: Daniel Rob on 07-21-2023 Albumin [Mass/Vol] 4.0 g/dL 3.2-5.0 [facility] Serum or plasma albumin/glob ulin mass ratioOrdered By: Daniel Rob on 07-21-2023 Albumin/Globulin [Mass ratio] 1.2 {ratio} 0.9-2.4 [facility] Serum or plasma calcium mine urement (mass/volume)Ordered By: Daniel Rob on 07-21-2023 Calcium [Mass/Vol] 9.0 mg/dL 8.5-10.1 [facility] Serum or plasma creatinine m easurement (mass/volume)Ordered By: Daniel Rob on 07-21-2023 Creatinine [Mass/Vol] 1.24 mg/dL 0.70-1.30 [facility] Comment on above: The validity of the calculated GFR & GFRAA in patients over 70 years has not been determined. Clinical correlation is essential. Serum or plasma urea nitroge n measurement (mass/volume)Ordered By: Daniel Rob on 07-21-2023 Urea nitrogen [Mass/Vol] 9 mg/dL 7-18 [facility] Thin prep Papanicolaou smear with manual screeningOrdered By: Daniel Rob on 07-21-2023 Thin prep Papanicolaou smear with manual screening 16 U/L 15-37 [facility] Thin prep Papanicolaou smear with manual screening 6 5-15 [facility] Absolute lymphocyte countOrd ered By: Dr. Rob on 02-19-2023 Lymphocytes Auto (Unsp spec) [#/Vol] 2.43 10*3/uL 0.83-4.51 [facility] Basophil percentageOrdered B y: Dr. Rob on 02-19-2023 Basophil percentage 0 SEEN /hpf 0-5 [facility] Basophils/100 WBC (Bld) 0.7 % 0-1 [facility] Bilirubin [Mass/Vol] 0.40 mg/dL 0.20-1.00 [facility] Comment on above: For patients on eltr ombopag therapy, use of Dimension [place] TBIL is not recommended. Chloride [Moles/Vol] 106 mmol/L 98-107 [facility] Eosinophils/100 WBC (Bld) 4.4 % 0-5 [facility] Glucose [Mass/Vol] 81 mg/dL 74-106 [facility] Neutrophils (Bld) [#/Vol] 3.8 10*3/uL 2.0-7.7 [facility] Neutrophils/100 WBC (Bld) 52.7 % 47-70 [facility] Potassium [Moles/Vol] 4.0 mmol/L 3.5-5.1 [facility] Protein [Mass/Vol] 7.5 g/dL 6.4-8.2 [facility] Sodium [Moles/Vol] 141 mmol/L 136-145 [facility] WBC (Bld) [#/Vol] 7.2 10*3/uL 4.4-11.0 [facility] Bilirubin Test strip Ql (U)O rdered By: Dr. Rob on 02-19-2023 Bilirubin Ql (U) Negative Negative [facility] Blood erythrocytes count (nu mber/volume)Ordered By: Dr. Rob on 02-19-2023 RBC (Bld) [#/Vol] 5.28 10*6/uL 4.6-6.2 [facility] Blood hemoglobin measurement (mass/volume)Ordered By: Dr. Rob on 02-19-2023 Hemoglobin (Bld) [Mass/Vol] 16.0 g/dL 13.0-16.5 [facility] Blood lymphocytes/100 leukoc ytesOrdered By: Dr. Rob on 02-19-2023 Lymphocytes/100 WBC (Bld) 33.8 % 19-41 [facility] Blood monocytes/100 leukocyt esOrdered By: Dr. Rob on 02-19-2023 Monocytes/100 WBC (Bld) 8.1 % 0-10 [facility] Blood platelet mean volumeOr dered By: Dr. Rob on 02-19-2023 Platelet mean volume (Bld) [Entitic vol] 10.0 fL 6.2-12.0 [facility] Determination of erythrocyte mean corpuscular volume (MCV)Ordered By: Dr. Rob on 02-19-2023 MCV (RBC) [Entitic vol] 91.7 fL 80-94 [facility] Hematocrit Auto (Bld) [Volum e fraction]Ordered By: Dr. Rob on 02-19-2023 Hematocrit (Bld) [Volume fraction] 48.4 % 40-54 [facility] Ketones Test strip Ql (U)Ord ered By: Dr. Rob on 05-05-2023 Ketones Ql (U) Negative Negative [facility] Laboratory - Chemistry and C hemistry - challengeOrdered By: Dr. Rob on 02-19-2023 ALP [Catalytic activity/Vol] 77 U/L 45-117 [facility] ALT [Catalytic activity/Vol] 40 U/L 16-61 [facility] CO2 [Moles/Vol] 29.0 mmol/L 21.0-32.0 [facility] Globulin (S) [Mass/Vol] 3.6 g/dL 2.2-4.2 [facility] Urea nitrogen/Creatinine [Mass ratio] 6.4 mg/mg 10-20 [facility] Laboratory - Hematology and Cell countsOrdered By: Dr. Rob on 02-19-2023 Erythrocyte distribution width (RBC) [Entitic vol] 40.6 fL 35.1-43.9 [facility] Erythrocyte distribution width (RBC) [Ratio] 12.1 % 11.6-14.6 [facility] Immature granulocytes/100 WBC (Bld) 0.300 % 0.0-0.9 [facility] Comment on above: IG% - Immature Granu locytes (promyelocytes, myelocytes and metamyelocytes) > 1% indicates that a LEFT SHIFT is Present. MCH (RBC) [Entitic mass] 30.3 pg 27.0-32.0 [facility] Nucleated RBC/100 WBC (Bld) [Ratio] 0 % 0-5 [facility] MCHC Auto (RBC) [Mass/Vol]Or dered By: Dr. Rob on 02-19-2023 MCHC (RBC) [Mass/Vol] 33.1 g/dL 32-36 [facility] Mucus LM Ql (Urine sed)Order ed By: Dr. Rob on 02-19-2023 Mucus Ql (Urine sed) 0 SEEN /hpf [facility] Nitrite Test strip Ql (U)Ord ered By: Dr. Rob on 02-19-2023 Nitrite Ql (U) Negative Negative [facility] No Panel InformationOrdered By: Dr. Rob on 02-19-2023 Estimated GFR (MDRD) Amer 72 mL/min >60 [facility] Comment on above: GFR Calc Estimated GFR (MDRD) Non-Af Amer 60 mL/min >60 [facility] Comment on above: Non- GFR Calc Platelets bldOrdered By: Dr. Rob on 02-19-2023 Platelets (Bld) [#/Vol] 288 10*3/uL 150-450 [facility] Protein Test strip Ql (U)Ord ered By: Dr. Rob on 02-19-2023 Protein Ql (U) Negative Negative [facility] Serum or plasma albumin mine urement (mass/volume)Ordered By: Dr. Rob on 02-19-2023 Albumin [Mass/Vol] 3.9 g/dL 3.2-5.0 [facility] Serum or plasma albumin/glob ulin mass ratioOrdered By: Dr. Rob on 02-19-2023 Albumin/Globulin [Mass ratio] 1.1 {ratio} 0.9-2.4 [facility] Serum or plasma calcium mine urement (mass/volume)Ordered By: Dr. Rob on 02-19-2023 Calcium [Mass/Vol] 9.0 mg/dL 8.5-10.1 [facility] Serum or plasma creatinine m easurement (mass/volume)Ordered By: Dr. Rob on 02-19-2023 Creatinine [Mass/Vol] 1.40 mg/dL 0.70-1.30 [facility] Comment on above: The validity of the calculated GFR & GFRAA in patients over 70 years has not been determined. Clinical correlation is essential. Serum or plasma urea nitroge n measurement (mass/volume)Ordered By: Dr. Rob on 02-19-2023 Urea nitrogen [Mass/Vol] 9 mg/dL 7-18 [facility] Squamous epithelial cells de tection in urine sediment by light microscopyOrdered By: Dr. Rob on 02-19-2023 Epithelial cells.squamous LM Ql (Urine sed) 0 SEEN /hpf 0-5 [facility] Thin prep Papanicolaou smear with manual screeningOrdered By: Dr. Rob on 02-19-2023 Thin prep Papanicolaou smear with manual screening 16 U/L 15-37 [facility] Thin prep Papanicolaou smear with manual screening 6 5-15 [facility] Urine blood detectionOrdered By: Dr. Rob on 02-19-2023 RBC Ql (U) Negative Negative [facility] RBC Ql (U) 0 SEEN /hpf 0-5 [facility] Urine clarityOrdered By: Dr. Rob on 02-19-2023 Clarity (U) Clear Clear [facility] Urine color determinationOrd ered By: Dr. Rob on 02-19-2023 Color (U) Yellow Yellow [facility] Urine creatinine measurement (mass/volume)Ordered By: Dr. Rob on 02-19-2023 Creatinine (U) [Mass/Vol] 76.60 mg/dL NO RANGE EST. [facility] Urine glucose detectionOrder ed By: Dr. Rob on 02-19-2023 Glucose Ql (U) Normal mg/dl Normal [facility] Urine leukocyte esterase det ection by dipstickOrdered By: Dr. Rob on 02-19-2023 Leukocyte esterase Test strip Ql (U) Negative Negative [facility] Urine pHOrdered By: Dr. Sheela brower on 02-19-2023 pH (U) 6.0 [pH] 5.0 - 8.0 [facility] Urine protein measurement (m ass/volume)Ordered By: Dr. Rob on 02-19-2023 Protein (U) [Mass/Vol] 6.6 mg/dL 0.0-11.8 [facility] Urine protein/creatinine mas s ratioOrdered By: Dr. Rob on 02-19-2023 Protein/Creatinine (U) [Mass ratio] 86 mg/g CRE 0-200 [facility] Urine sediment bacteria coun t by microscopy (number/high power field)Ordered By: Dr. Rob on 02-19-2023 Bacteria LM.HPF (Urine sed) [#/Area] 0 /[HPF] None Seen [facility] Urine specific gravity measu rementOrdered By: Dr. Rob on 02-19-2023 Specific gravity (U) [Rel density] 1.015 1.002-1.03 0 [facility] Urobilinogen Auto test strip Ql (U)Ordered By: Dr. Rob on 02-19-2023 Urobilinogen Ql (U) Normal mg/dl Normal [facility] Culture, urineOrdered By: Dr Ishan Rob on 02-06-2023 Bacteria identified Cx Nom (U) Culture exhibits no growth. [facility] Basophil percentageOrdered B y: Dr. Rob on 02-04-2023 C. trachomatis DNA SANJEEV+probe Ql (Unsp spec) Negative Negative [facility] Neisseria gonorrhoeae detect ion by PCROrdered By: Dr. Rob on 02-04-2023 N. gonorrhoeae DNA SANJEEV+probe Ql (Cervical mucus) Negative Negative [facility] Absolute lymphocyte countOrd ered By: Dr. Rob on 10-22-2022 Lymphocytes Auto (Unsp spec) [#/Vol] 2.59 10*3/uL 0.83-4.51 [facility] Basophil percentageOrdered B y: Dr. Rob on 10-22-2022 Basophil percentage 0 SEEN /hpf 0-5 [facility] Basophils/100 WBC (Bld) 0.7 % 0-1 [facility] Chloride [Moles/Vol] 105 mmol/L 98-107 [facility] Eosinophils/100 WBC (Bld) 4.6 % 0-5 [facility] Glucose [Mass/Vol] 94 mg/dL 74-106 [facility] Neutrophils (Bld) [#/Vol] 3.3 10*3/uL 2.0-7.7 [facility] Neutrophils/100 WBC (Bld) 48.4 % 47-70 [facility] Potassium [Moles/Vol] 4.2 mmol/L 3.5-5.1 [facility] Sodium [Moles/Vol] 139 mmol/L 136-145 [facility] WBC (Bld) [#/Vol] 6.8 10*3/uL 4.4-11.0 [facility] Bilirubin Test strip Ql (U)O rdered By: Dr. Rob on 10-22-2022 Bilirubin Ql (U) Negative Negative [facility] Blood erythrocytes count (nu mber/volume)Ordered By: Dr. Rob on 10-22-2022 RBC (Bld) [#/Vol] 5.26 10*6/uL 4.6-6.2 [facility] Blood hemoglobin measurement (mass/volume)Ordered By: Dr. Rob on 10-22-2022 Hemoglobin (Bld) [Mass/Vol] 16.3 g/dL 13.0-16.5 [facility] Blood lymphocytes/100 leukoc ytesOrdered By: Dr. Rob on 10-22-2022 Lymphocytes/100 WBC (Bld) 38.1 % 19-41 [facility] Blood monocytes/100 leukocyt esOrdered By: Dr. Rob on 10-22-2022 Monocytes/100 WBC (Bld) 8.1 % 0-10 [facility] Blood platelet mean volumeOr dered By: Dr. Rob on 10-22-2022 Platelet mean volume (Bld) [Entitic vol] 9.9 fL 6.2-12.0 [facility] Determination of erythrocyte mean corpuscular volume (MCV)Ordered By: Dr. Rbo on 10-22-2022 MCV (RBC) [Entitic vol] 89.5 fL 80-94 [facility] Hematocrit Auto (Bld) [Volum e fraction]Ordered By: Dr. Rob on 10-22-2022 Hematocrit (Bld) [Volume fraction] 47.1 % 40-54 [facility] Ketones Test strip Ql (U)Ord ered By: Dr. Rob on 10-22-2022 Ketones Ql (U) Negative Negative [facility] Laboratory - Chemistry and C hemistry - challengeOrdered By: Dr. Rob on 10-22-2022 CO2 [Moles/Vol] 27.0 mmol/L 21.0-32.0 [facility] Urea nitrogen/Creatinine [Mass ratio] 7.6 mg/mg 10-20 [facility] Laboratory - Hematology and Cell countsOrdered By: Dr. Rob on 10-22-2022 Erythrocyte distribution width (RBC) [Entitic vol] 39.2 fL 35.1-43.9 [facility] Erythrocyte distribution width (RBC) [Ratio] 12.0 % 11.6-14.6 [facility] Immature granulocytes/100 WBC (Bld) 0.100 % 0.0-0.9 [facility] Comment on above: IG% - Immature Granu locytes (promyelocytes, myelocytes and metamyelocytes) > 1% indicates that a LEFT SHIFT is Present. MCH (RBC) [Entitic mass] 31.0 pg 27.0-32.0 [facility] Nucleated RBC/100 WBC (Bld) [Ratio] 0 % 0-5 [facility] MCHC Auto (RBC) [Mass/Vol]Or dered By: Dr. Rob on 10-22-2022 MCHC (RBC) [Mass/Vol] 34.6 g/dL 32-36 [facility] Mucus LM Ql (Urine sed)Order ed By: Dr. Rob on 10-22-2022 Mucus Ql (Urine sed) 0 SEEN /hpf [facility] Nitrite Test strip Ql (U)Ord ered By: Dr. Rob on 10-22-2022 Nitrite Ql (U) Negative Negative [facility] No Panel InformationOrdered By: Dr. Rob on 10-22-2022 Estimated GFR (MDRD) Amer 70 mL/min >60 [facility] Comment on above: GFR Calc Estimated GFR (MDRD) Non-Af Amer 58 mL/min >60 [facility] Comment on above: Non- GFR Calc Platelets bldOrdered By: Dr. Rob on 10-22-2022 Platelets (Bld) [#/Vol] 283 10*3/uL 150-450 [facility] Protein Test strip Ql (U)Ord ered By: Dr. Rob on 10-22-2022 Protein Ql (U) 15 mg/dl Negative [facility] Serum or plasma calcium mine urement (mass/volume)Ordered By: Dr. Rob on 10-22-2022 Calcium [Mass/Vol] 9.1 mg/dL 8.5-10.1 [facility] Serum or plasma creatinine m easurement (mass/volume)Ordered By: Dr. Rob on 10-22-2022 Creatinine [Mass/Vol] 1.44 mg/dL 0.70-1.30 [facility] Comment on above: The validity of the calculated GFR & GFRAA in patients over 70 years has not been determined. Clinical correlation is essential. Serum or plasma urea nitroge n measurement (mass/volume)Ordered By: Dr. Rob on 10-22-2022 Urea nitrogen [Mass/Vol] 11 mg/dL 7-18 [facility] Squamous epithelial cells de tection in urine sediment by light microscopyOrdered By: Dr. Rob on 10-22-2022 Epithelial cells.squamous LM Ql (Urine sed) 0 SEEN /hpf 0-5 [facility] Thin prep Papanicolaou smear with manual screeningOrdered By: Dr. Rob on 10-22-2022 Thin prep Papanicolaou smear with manual screening 7 5-15 [facility] Urine blood detectionOrdered By: Dr. Rob on 10-22-2022 RBC Ql (U) Negative Negative [facility] RBC Ql (U) 0 SEEN /hpf 0-5 [facility] Urine clarityOrdered By: Dr. Rob on 10-22-2022 Clarity (U) Clear Clear [facility] Urine color determinationOrd ered By: Dr. Rob on 10-22-2022 Color (U) Yellow Yellow [facility] Urine creatinine measurement (mass/volume)Ordered By: Dr. Rob on 10-22-2022 Creatinine (U) [Mass/Vol] 235.00 mg/dL NO RANGE EST. [facility] Urine glucose detectionOrder ed By: Dr. Rob on 10-22-2022 Glucose Ql (U) Normal mg/dl Normal [facility] Urine leukocyte esterase det ection by dipstickOrdered By: Dr. Rob on 10-22-2022 Leukocyte esterase Test strip Ql (U) 25 /ul Negative [facility] Urine pHOrdered By: Dr. Sheela brower on 10-22-2022 pH (U) 6.5 [pH] 5.0 - 8.0 [facility] Urine protein measurement (m ass/volume)Ordered By: Dr. Rob on 10-22-2022 Protein (U) [Mass/Vol] 14.9 mg/dL 0.0-11.8 [facility] Urine protein/creatinine mas s ratioOrdered By: Dr. Rob on 10-22-2022 Protein/Creatinine (U) [Mass ratio] 63 mg/g CRE 0-200 [facility] Urine sediment bacteria coun t by microscopy (number/high power field)Ordered By: Dr. Rob on 10-22-2022 Bacteria LM.HPF (Urine sed) [#/Area] 0 /[HPF] None Seen [facility] Urine specific gravity measu rementOrdered By: Dr. Rob on 10-22-2022 Specific gravity (U) [Rel density] 1.015 1.002-1.03 0 [facility] Urobilinogen Auto test strip Ql (U)Ordered By: Dr. Rob on 10-22-2022 Urobilinogen Ql (U) Normal mg/dl Normal [facility] Absolute lymphocyte countOrd ered By: Dr. Darling on 08-03-2022 Lymphocytes Auto (Unsp spec) [#/Vol] 2.57 10*3/uL 0.83-4.51 [facility] Basophil percentageOrdered B y: Dr. Darling on 08-03-2022 Basophils/100 WBC (Bld) 0.7 % 0-1 [facility] Chloride [Moles/Vol] 104 mmol/L 98-107 [facility] Eosinophils/100 WBC (Bld) 4.7 % 0-5 [facility] Glucose [Mass/Vol] 88 mg/dL 74-106 [facility] Neutrophils (Bld) [#/Vol] 4.8 10*3/uL 2.0-7.7 [facility] Neutrophils/100 WBC (Bld) 57.0 % 47-70 [facility] Potassium [Moles/Vol] 4.0 mmol/L 3.5-5.1 [facility] Comment on above: Slight Hemolysis, Re sult may be falsely increased. Sodium [Moles/Vol] 137 mmol/L 136-145 [facility] Testosterone [Mass/Vol] 287.97 ng/dL [facility] Comment on above: CENTRAL 90% REFERENC E RANGES MALE AGE <50 197.44 - 669.58 ng/dL MALE AGE > or = 50 187.72 - 684.19 ng/dL FEMALE AGE <50 8.38 - 35.01 ng/dL FEMALE AGE > or = 50 <7.00 - 35.92 ng/dL Effective as of 05/13/21 WBC (Bld) [#/Vol] 8.4 10*3/uL 4.4-11.0 [facility] Blood erythrocytes count (nu mber/volume)Ordered By: Dr. Darling on 08-03-2022 RBC (Bld) [#/Vol] 5.22 10*6/uL 4.6-6.2 [facility] Blood hemoglobin measurement (mass/volume)Ordered By: Dr. Darling on 08-03-2022 Hemoglobin (Bld) [Mass/Vol] 16.2 g/dL 13.0-16.5 [facility] Blood lymphocytes/100 leukoc ytesOrdered By: Dr. Darling on 08-03-2022 Lymphocytes/100 WBC (Bld) 30.7 % 19-41 [facility] Blood monocytes/100 leukocyt esOrdered By: Dr. Darling on 08-03-2022 Monocytes/100 WBC (Bld) 6.7 % 0-10 [facility] Blood platelet mean volumeOr dered By: Dr. Darling on 08-03-2022 Platelet mean volume (Bld) [Entitic vol] 9.8 fL 6.2-12.0 [facility] Determination of erythrocyte mean corpuscular volume (MCV)Ordered By: Dr. Darling on 08-03-2022 MCV (RBC) [Entitic vol] 90.4 fL 80-94 [facility] Hematocrit Auto (Bld) [Volum e fraction]Ordered By: Dr. Darling on 08-03-2022 Hematocrit (Bld) [Volume fraction] 47.2 % 40-54 [facility] Laboratory - Chemistry and C hemistry - challengeOrdered By: Dr. Darling on 08-03-2022 CO2 [Moles/Vol] 27.0 mmol/L 21.0-32.0 [facility] Urea nitrogen/Creatinine [Mass ratio] 8.5 mg/mg 10-20 [facility] Laboratory - Hematology and Cell countsOrdered By: Dr. Darling on 08-03-2022 Erythrocyte distribution width (RBC) [Entitic vol] 39.9 fL 35.1-43.9 [facility] Erythrocyte distribution width (RBC) [Ratio] 12.1 % 11.6-14.6 [facility] Immature granulocytes/100 WBC (Bld) 0.200 % 0.0-0.9 [facility] Comment on above: IG% - Immature Granu locytes (promyelocytes, myelocytes and metamyelocytes) > 1% indicates that a LEFT SHIFT is Present. MCH (RBC) [Entitic mass] 31.0 pg 27.0-32.0 [facility] Nucleated RBC/100 WBC (Bld) [Ratio] 0 % 0-5 [facility] MCHC Auto (RBC) [Mass/Vol]Or dered By: Dr. Darling on 08-03-2022 MCHC (RBC) [Mass/Vol] 34.3 g/dL 32-36 [facility] No Panel InformationOrdered By: Dr. Darling on 08-03-2022 Estimated GFR (MDRD) Amer 71 mL/min >60 [facility] Comment on above: GFR Calc Estimated GFR (MDRD) Non-Af Amer 59 mL/min >60 [facility] Comment on above: Non- GFR Calc Thyroid Stimulating Hormone (TSH) 0.63 uIU/mL 0.358-3.74 [facility] Platelets bldOrdered By: Dr. Darling on 08-03-2022 Platelets (Bld) [#/Vol] 296 10*3/uL 150-450 [facility] Serum or plasma calcium mine urement (mass/volume)Ordered By: Dr. Darling on 08-03-2022 Calcium [Mass/Vol] 9.4 mg/dL 8.5-10.1 [facility] Serum or plasma creatinine m easurement (mass/volume)Ordered By: Dr. Darling on 08-03-2022 Creatinine [Mass/Vol] 1.42 mg/dL 0.70-1.30 [facility] Comment on above: The validity of the calculated GFR & GFRAA in patients over 70 years has not been determined. Clinical correlation is essential. Serum or plasma urea nitroge n measurement (mass/volume)Ordered By: Dr. Darling on 08-03-2022 Urea nitrogen [Mass/Vol] 12 mg/dL 7-18 [facility] Thin prep Papanicolaou smear with manual screeningOrdered By: Dr. Darling on 08-03-2022 Thin prep Papanicolaou smear with manual screening 6 5-15 [facility] No Panel Informationon 05-18 Miscellaneous Test See comment [facility] Work Phone: Comment on above: TEST RESULT LIMITSCl ass Description: Levels of Specific IgE Class Description of Class ----- < 0.10 0 Negative 0.10 - 0.31 0/I Equivocal/Low 0.32 - 0.55 I Low 0.56 - 1.40 II Moderate 1.41 - 3.90 III High 3.91 - 19.00 IV Very High19.01 - 100.00 V Very High >100.00 Very [id number] Clam <0.10 kU/L Class 0I722-RdB Codfish <0.10 kU/L Class 8H678-AdC [place] <0.10 kU/L Class 7X531-JzE Scallop <0.10 kU/L Class 0Q513-VzN Sesame Seed <0.10 kU/L Class 0E288-UnI Shrimp <0.10 kU/L Class 9J453-YkR Soybean <0.10 kU/L Class 5W643-HgH Wheat <0.10 kU/L Class 9M723-WxM Milk 0.12 Abnormal kU/L Class 0/KY790-ViT Egg White <0.10 kU/L Class 9W201-EwY Peanut <0.10 kU/L Class 0Y977-VlG Hazelnut ([place]) <0.10 kU/L Class 6F483-IkT [place] <0.10 kU/L Class 5Y392-JwW Cashew Nut <0.10 kU/L Class 2D580-FkY [place] Nut <0.10 kU/L Class 0*T585-SqN Macadamia Nut <0.10 kU/L Class 5C839-VbR Pecan Nut <0.10 kU/L Class 8M974-KsA Pistachio Nut <0.10 kU/L Class 9S411-HxX [place] <0.10 kU/L TESTING PERFORMED AT [facility]. ORIGINAL REPORT ON FILE IN LAB CONTAINS ADDITIONAL TEST SITE INFORMATION. Class 0 Serum gluten IgE antibody as say (units/volume)on 05-18-2022 Gluten IgE Qn (S) <0.10 kU/L Class 0 [facility] Work Phone: Comment on above: Levels of Specific I gE Class Description of Class ----- < 0.10 0 Negative 0.10 - 0.31 0/I Equivocal/Low 0.32 - 0.55 I Low 0.56 - 1.40 II Moderate 1.41 - 3.90 III High 3.91 - 19.00 IV Very High 19.01 - 100.00 V Very High >100.00 Very High Serum white potato specific IgE antibody assayon 05-18-2022 Potato IgE Qn (S) <0.10 kU/L Class 0 [facility] Work Phone: Comment on above: Performed at: [address] [id number] Director: Audie Tee MD, Phone: [phone] Absolute lymphocyte counton 04-02-2022 Lymphocytes Auto (Unsp spec) [#/Vol] 2.88 10*3/uL 0.83-4.51 [facility] Work Phone: Basophil percentageon 2021 Basophils/100 WBC (Bld) 0.7 % 0-1 [facility] Work Phone: [phone] Bilirubin [Mass/Vol] 0.40 mg/dL 0.20-1.00 [facility] Work Phone: Comment on above: For patients on eltr ombopag therapy, use of [employer] [place] TBIL is not recommended. Chloride [Moles/Vol] 109 mmol/L 98-107 [facility] Work Phone: Cholesterol [Mass/Vol] 206 mg/dL <200 [facility] Work Phone: Comment on above: <200 mg/dL Desirable 200-240 mg/dL Borderline >240 mg/dL High Risk Eosinophils/100 WBC (Bld) 5.9 % 0-5 [facility] Work Phone: Glucose [Mass/Vol] 85 mg/dL 74-106 [facility] Work Phone: Neutrophils (Bld) [#/Vol] 3.3 10*3/uL 2.0-7.7 [facility] Work Phone: Neutrophils/100 WBC (Bld) 45.3 % 47-70 [facility] Work Phone: Potassium [Moles/Vol] 4.3 mmol/L 3.5-5.1 [facility] Work Phone: Protein [Mass/Vol] 7.3 g/dL 6.4-8.2 [facility] Work Phone: Sodium [Moles/Vol] 138 mmol/L 136-145 [facility] Work Phone: Triglyceride [Mass/Vol] 369 mg/dL <199 [facility] Work Phone: Comment on above: The drugs N-Acetylcy steine and Metamizole may falsely depress this assay.Serum Triglycerides Reference Interval Normal <150 mg/dL Borderline high 150 - 199 mg/dL High 200 - 499 mg/dL Very High > or = 500 mg/dL WBC (Bld) [#/Vol] 7.3 10*3/uL 4.4-11.0 [facility] Work Phone: Blood erythrocytes count (nu mber/volume)on 04-02-2022 RBC (Bld) [#/Vol] 5.08 10*6/uL 4.6-6.2 [facility] Work Phone: Blood hemoglobin measurement (mass/volume)on 04-02-2022 Hemoglobin (Bld) [Mass/Vol] 16.0 g/dL 13.0-16.5 [facility] Work Phone: Blood lymphocytes/100 leukoc yteson 04-02-2022 Lymphocytes/100 WBC (Bld) 39.6 % 19-41 [facility] Work Phone: Blood monocytes/100 leukocyt eson 04-02-2022 Monocytes/100 WBC (Bld) 8.2 % 0-10 [facility] Work Phone: Blood platelet mean volumeon 04-02-2022 Platelet mean volume (Bld) [Entitic vol] 9.8 fL 6.2-12.0 [facility] Work Phone: Determination of erythrocyte mean corpuscular volume (MCV)on 04-02-2022 MCV (RBC) [Entitic vol] 92.5 fL 80-94 [facility] Work Phone: Hematocrit Auto (Bld) [Volum e fraction]on 04-02-2022 Hematocrit (Bld) [Volume fraction] 47.0 % 40-54 [facility] Work Phone: Laboratory - Chemistry and C hemistry - challengeon 04-02-2022 ALP [Catalytic activity/Vol] 75 U/L 45-117 [facility] Work Phone: ALT [Catalytic activity/Vol] 41 U/L 16-61 [facility] Work Phone: CO2 [Moles/Vol] 25.0 mmol/L 21.0-32.0 [facility] Work Phone: Globulin (S) [Mass/Vol] 3.5 g/dL 2.2-4.2 [facility] Work Phone: Urea nitrogen/Creatinine [Mass ratio] 6.8 mg/mg 10-20 [facility] Work Phone: Laboratory - Hematology and Cell countson 04-02-2022 Erythrocyte distribution width (RBC) [Entitic vol] 40.7 fL 35.1-43.9 [facility] Work Phone: Erythrocyte distribution width (RBC) [Ratio] 11.9 % 11.6-14.6 [facility] Work Phone: [phone] Immature granulocytes/100 WBC (Bld) 0.300 % 0.0-0.9 [facility] Work Phone: [phone] Comment on above: IG% - Immature Granu locytes (promyelocytes, myelocytes and metamyelocytes) > 1% indicates that a LEFT SHIFT is Present. MCH (RBC) [Entitic mass] 31.5 pg 27.0-32.0 [facility] Work Phone: [phone] Nucleated RBC/100 WBC (Bld) [Ratio] 0 % 0-5 [facility] Work Phone: [phone] MCHC Auto (RBC) [Mass/Vol]on 04-02-2022 MCHC (RBC) [Mass/Vol] 34.0 g/dL 32-36 [facility] Work Phone: [phone] No Panel Informationon 04-02 Estimated GFR (MDRD) Amer 68 mL/min >60 [facility] Work Phone: [phone] Comment on above: GFR Calc Estimated GFR (MDRD) Non-Af Amer 57 mL/min >60 [facility] Work Phone: [phone] Comment on above: Non- GFR Calc Platelets bldon 04-02-2022 Platelets (Bld) [#/Vol] 280 10*3/uL 150-450 [facility] Work Phone: [phone] Serum or plasma albumin mine urement (mass/volume)on 04-02-2022 Albumin [Mass/Vol] 3.8 g/dL 3.2-5.0 [facility] Work Phone: [phone] Serum or plasma albumin/glob ulin mass ratioon 04-02-2022 Albumin/Globulin [Mass ratio] 1.1 {ratio} 0.9-2.4 [facility] Work Phone: [phone] Serum or plasma calcium mine urement (mass/volume)on 04-02-2022 Calcium [Mass/Vol] 9.2 mg/dL 8.5-10.1 [facility] Work Phone: Serum or plasma cholesterol in HDL measurement (mass/volume)on 04-02-2022 Cholesterol in HDL [Mass/Vol] 35 mg/dL >40 [facility] Work Phone: Comment on above: The drugs N-Acetylcy steine and Metamizole may falsely depress this assay. Reference Range HDL <40 mg/dL Low HDL Cholesterol HDL >or= 60 mg/dL High HDL Cholesterol Serum or plasma cholesterol in VLDL measurement (mass/volume)on 04-02-2022 Cholesterol in VLDL [Mass/Vol] 74 mg/dL 5-40 [facility] Work Phone: Serum or plasma creatinine m easurement (mass/volume)on 04-02-2022 Creatinine [Mass/Vol] 1.47 mg/dL 0.70-1.30 [facility] Work Phone: Comment on above: The validity of the calculated GFR & GFRAA in patients over 70 years has not been determined. Clinical correlation is essential. Serum or plasma low density lipoprotein (LDL) cholesterol measurement (mass/volume)on 04-02-2022 Cholesterol in LDL [Mass/Vol] 97 mg/dL 0-130 [facility] Work Phone: Serum or plasma urea nitroge n measurement (mass/volume)on 04-02-2022 Urea nitrogen [Mass/Vol] 10 mg/dL 7-18 [facility] Work Phone: [phone] Thin prep Papanicolaou smear with manual screeningon 04-02-2022 Thin prep Papanicolaou smear with manual screening 21 U/L 15-37 [facility] Work Phone: [phone] Thin prep Papanicolaou smear with manual screening 4 5-15 [facility] Work Phone: [phone] Vital Signs Date Time Vital Sign Value Performing Clinician Quin ray 05-07-2025 07:23-0400 Body height 173.[address] Daniel Rob MD Work Phone: [facility] 05-07-2025 07:23-0400 Body mass index (BMI) [Ratio] 24.4 kg/m2 Dr. Daniel Rob MD Work Phone: [phone] [place] [address] 05-07-2025 07:23-0400 Body weight 73.[address] Daniel Rob MD Work Phone: [facility] 05-07-2025 07:23-0400 Diastolic blood pressure 81 mm[Hg] Dr. Daniel Rob MD Work Phone: [phone] [place] [address] 05-07-2025 07:23-0400 Heart rate 64 /min Dr. Daniel Rob MD Work Phone: [phone] [place] [address] 05-07-2025 07:23-0400 Respiratory rate 18 /min Dr. Daniel Rob MD Work Phone: [phone] [place] [address] 05-07-2025 07:23-0400 SaO2% (BldA) [Mass fraction] 99 % Dr. Daniel Rob MD Work Phone: [phone] [place] [address] 05-07-2025 07:23-0400 Systolic blood pressure 128 mm[Hg] Dr. Daniel Rob MD Work Phone: [phone] [place] [address] 10-26-2024 08:35-0500 Body height 173.[address] Daniel Rob MD Work Phone: [phone] [place] [address] 10-26-2024 08:35-0500 Body mass index (BMI) [Ratio] 24.3 kg/m2 Dr. Daniel Rob MD Work Phone: [phone] [place] [address] 10-26-2024 08:35-0500 Body weight 73.[address] Daniel Rob MD Work Phone: [phone] [place] [address] 10-26-2024 08:35-0500 Diastolic blood pressure 79 mm[Hg] Dr. Daniel Rob MD Work Phone: [phone] [place] [address] 10-26-2024 08:35-0500 Heart rate 77 /min Dr. Daniel Rob MD Work Phone: [phone] [place] [address] 10-26-2024 08:35-0500 Respiratory rate 18 /min Dr. Daniel Rob MD Work Phone: [facility] 10-26-2024 08:35-0500 Systolic blood pressure 121 mm[Hg] Dr. Daniel Rob MD Work Phone: [facility] 01-29-2023 09:18-0400 Body height 170.2 cm Hudson Vazquez MD Work Phone: [facility] 01-29-2023 09:18-0400 Body temperature 98.2 [degF] Hudson Vazquez MD Work Phone: [facility] 01-29-2023 09:18-0400 Body weight 95.17 kg Hudson Vazquez MD Work Phone: [facility] 01-29-2023 09:18-0400 Diastolic blood pressure 80 mm[Hg] Hudson Vazquez MD Work Phone: [facility] 01-29-2023 09:18-0400 Heart rate 91 /min Hudson Vazquez MD Work Phone: [facility] 01-29-2023 09:18-0400 SaO2% (BldA) [Mass fraction] 96 % Hudson Vazquez MD Work Phone: [facility] 01-29-2023 09:18-0400 Systolic blood pressure 122 mm[Hg] Hudson Vazquez MD Work Phone: [facility] Encounters Encounter Date Encounter Type Care Provider Facility Start: 08-23-2025 ambulatory Daniel Rob Facilit y:[facility] Start: 05-16-2025 Non-patient / Non-visit Dr. Shiv hyde MD -[facility] Work Phone: Start: 05-16-2025 End: 05-16-[address] Daniel Rob MD Work Phone: -Pulmonary Services/Neurology Start: 05-16-2025 End: 05-16-2025 Patient encounter procedure Selena CHANG -Pulmonary Services/Neurology Work Phone: Start: 05-16-2025 End: 05-16-2025 ambulatory Daniel Rob Facility:[facility] Start: 05-07-2025 End: 05-07-2025 Patient encounter procedure Selena CHANG -[facility] Work Phone: Start: 05-07-2025 End: 05-07-[address] Daniel Rob MD Work Phone: -[facility] Start: 03-02-2025 End: 03-02-[address] Daniel Rob MD Work Phone: [facility] Work Phone: Start: 03-02-2025 End: 03-02-2025 Patient encounter procedure Oren CHANG -Nuclear Medicine [facility] Work Phone: Start: 03-02-2025 End: 03-02-2025 ambulatory Daniel Rob Facility:[facility] Start: 02-13-2025 End: 02-13-[address] Walt Galarza MD -Laboratory [place] Work Phone: Start: 02-13-2025 End: 02-13-2025 ambulatory Daniel Rob Facility:[facility] Start: 12-20-2024 End: 12-20-[address] Daniel Rob MD Work Phone: [facility] Work Phone: Start: 12-20-2024 End: 12-20-[address] Stella Solorzano MD -Cat Scan, [facility] Work Phone: Start: 12-20-2024 End: 12-20-2024 ambulatory Daniel Rob Facility:[facility] Start: 12-15-2024 End: 12-15-[address] Daniel Rob MD Work Phone: [facility] Work Phone: Start: 12-15-2024 End: 12-15-2024 Patient encounter procedure Oren CHANG -Radiology, [place] Work Phone: Start: 12-15-2024 End: 12-15-2024 ambulatory Dnaiel Rob Facility:[facility] Start: 11-17-2024 ambulatory Daniel Rob Facilit y:[facility] Start: 11-17-2024 Non-patient / Non-visit Dr. Shiv hyde MD -[facility] Start: 11-17-2024 End: 11-17-[address] Shiv Rajan MD -Cardiovascular Services Work Phone: Start: 11-17-2024 End: 11-17-2024 ambulatory Daniel Rob Facility:[facility] Start: 11-16-2024 End: 11-16-2024 [facility] Work [facility] Start: 11-15-2024 End: 11-16-2024 ambulatory Daniel Rob Facility:[facility] Start: 11-15-2024 Non-patient / Non-visit Dr. Shiv hyde MD -[facility] Start: 11-15-2024 End: 11-15-[address] Shiv Rajan MD -Cardiovascular Services Work Phone: Start: 11-15-2024 End: 11-15-2024 ambulatory Daniel Rob Facility:[facility] Start: 11-13-2024 End: 11-13-2024 [facility] Work Phone: Start: 11-13-2024 End: 11-13-2024 ambulatory Daniel Rob Facility:[facility] Start: 10-26-2024 End: 10-26-[address] Shiv Rajan MD -[facility] Work Phone: Start: 10-26-2024 End: 10-26-2024 ambulatory Daniel Rob Facility[place] [place] Start: 09-12-2024 End: 09-12-[address] [facility] Start: 09-12-2024 End: 09-12-2024 ambulatory Daniel Rob Facility:[facility] Start: 09-06-2024 End: 09-06-2024 Patient encounter procedure Oren CHANG -Ultrasound, [facility] Work Phone: Start: 09-06-2024 End: 09-06-2024 ambulatory Oren Berry Facility:[facility] Start: 08-28-2024 End: 08-28-2024 ambulatory Daniel Rob Facility:[facility] Start: 07-04-2024 End: 07-04-2024 ambulatory LUIS BOWDEN Facility:[id number] Start: 06-21-2024 End: 06-21-2024 ambulatory DANIEL ROB Facility:[id number] Start: 02-05-2024 End: 02-05-2024 ambulatory [facility] Work Phone: Start: 02-05-2024 End: 02-05-2024 Patient encounter procedure [facility]-Laboratory Work Phone: Start: 02-04-2024 End: 02-04-2024 ambulatory [facility] Work Phone: Start: 02-04-2024 End: 02-04-2024 [facility] Work [facility]: Start: 11-12-2023 End: 11-12-2023 ambulatory [facility] Work Phone: Start: 11-12-2023 End: 11-12-2023 Patient encounter procedure [facility] Work Phone: Start: 11-02-2023 End: 11-02-2023 ambulatory [facility] Work Phone: Start: 11-02-2023 End: 11-02-2023 Patient encounter procedure [facility] Work Phone: Start: 07-21-2023 End: 07-21-2023 [facility] Start: 02-19-2023 End: 02-19-2023 ambulatory [facility] Work Phone: Start: 02-19-2023 End: 02-19-2023 Patient encounter procedure [facility] Start: 02-16-2023 End: 02-16-2023 Nursing evaluation of patient and report Nurse Donaldo [facility] Work Phone: General Surgery Comment on above: Visit for suture rem oval (Primary Dx) Start: 02-08-2023 End: 02-08-2023 ambulatory [facility] Work Phone: Start: 02-08-2023 End: 02-08-2023 Patient encounter procedure [facility]-Ultrasound, [facility] Start: 02-04-2023 End: 02-04-2023 ambulatory [facility] Work Phone: Start: 02-04-2023 End: 02-04-2023 Patient encounter procedure [facility] Start: 01-29-2023 End: 01-29-2023 Patient encounter procedure Hudson Vazquez MD Work Phone: General Surgery Comment on above: Lesion of subcutaneo us tissue (Primary Dx); Scalp cyst Start: 11-17-2022 End: 11-17-2022 ambulatory [facility] Work Phone: Start: 11-17-2022 End: 11-17-2022 Patient encounter procedure [facility]-MRI - [facility] Start: 10-22-2022 End: 10-22-2022 ambulatory [facility] Work Phone: Start: 10-22-2022 End: 10-22-2022 Patient encounter procedure [facility] Start: 08-03-2022 End: 08-03-2022 Patient encounter procedure [facility] Start: 05-18-2022 End: 05-18-[address] Daniel Rob Work Phone: [facility] Start: 04-22-2022 Non-patient / Non-visit Dr. Amita Rob Work Phone: [facility] Start: 04-22-2022 End: 04-22-[address] Daniel Rob Work Phone: [facility]-Pulmonary Services/Neurology Start: 04-02-2022 End: 04-02-2022 Patient encounter procedure [facility]-Laboratory, [facility] Procedures Date Procedure Procedure Detail Performing Clinician Start: 03-02-2025 Radionuclide gastric emptying study Dr. Daniel Rob MD Work Phone: Start: 02-13-[address] Daniel call MD Work Phone: Comment on above: Test Ordered: [id number] Cystatin CCystatin C 0.85 mg/L CB Reference Range: 0.60-1.00Performed at: [facility] [id number] Director: Evan Hickey PhD, Phone: [phone] Start: 12-20-[address] Amita Rob MD Work Phone: Start: 12-20-2024 Computed tomography of abdomen and pelvis with contrast Dr. Daniel Rob MD Work Phone: Start: 12-15-2024 Plain X-ray abdomen Dr. Daniel Rob MD Work Phone: Start: 11-13-2024 Total iron binding c apacity measurement Dr. Daniel Rob MD Work Phone: Start: 10-26-2024 Evaluation of diagno stic study results Dr. Daniel Rob MD Work Phone: Start: 09-06-[address] Daniel Rob MD Work Phone: Start: 11-02-2023 Diagnostic radiograp hy of abdomen, decubitus and erect Start: 02-08-2023 Ultrasound of scrotu m with Doppler and color flow imaging Start: 11-17-2022 MRI of brain with contrast Urine culture Plan of Treatment Date Care Activity Detail Author Start: 05-07-2025 Evaluation of diagno stic study results [facility] Start: 02-05-2024 Procedure [facility] Start: 06-18-2023 Influenza vaccination INFLUENZ A (Season Ended) [facility] Start: 10-18-2022 DEPRESSION ASSESSMENT DEPRESSION ASS ESSMENT [facility] Start: 2017 LIPID SCREEN LIPID SCREEN [facility] Start: 2000 HEPATITIS C SCREENING HEPATITIS C SC REENING [facility] Start: 2000 HIV SCREENING HIV SCREENING [facility] Start: 1993 Urine microalbumin profile DTAP,TDAP,TD (5 - Tdap) [facility] Start: 02-17-1983 COVID-19 VACCINE (#1) COVID-19 VACCI NE (#1) [facility] Start: 1982 HEPATITIS B (1 of 3 - 3-dose series) HEPATITIS B (1 of 3 - 3-dose series) [facility] 24 Hour ECG [facility] Serum testosterone measurement [facility] Testosterone measurement [facility] Immunizations Immunization Date Immunization Notes Care Provider Fa luba 08-24-1985 haemophilus influenz ae type b vaccine, HbOC conjugate Hudson Vazquez MD Work Phone: [facility] 03-09-1984 diphtheria, tetanus toxoids and acellular pertussis vaccine Hudson Vazquez MD Work Phone: [facility] 03-09-1984 trivalent poliovirus vaccine, live, oral Hudson Vazquez MD Work Phone: [facility] 12-18-1983 measles, mumps and rubella virus vaccine Hudson Vazquez MD Work Phone: [facility] 02-17-1983 diphtheria, tetanus toxoids and acellular pertussis vaccine Hudson Vazquez MD Work Phone: [facility] 1982 diphtheria, tetanus toxoids and acellular pertussis vaccine Hudson Vazquez MD Work Phone: [facility] 1982 trivalent poliovirus vaccine, live, oral Hudson Vazquez MD Work Phone: [facility] 1982 diphtheria, tetanus toxoids and acellular pertussis vaccine Hudson Vazquez MD Work Phone: [facility] 1982 trivalent poliovirus vaccine, live, oral Hudson Vazquez MD Work Phone: [facility] Payers Date Payer Category Payer Self-pay [id number] 2021 Unknown [id number] 2008 Unknown [id number] 1982 Unknown [id number] 2.16.8 [id number] 1982 Unknown [id number] 2.16.8 [id number] Unknown [id number] Unknown [id number] 2.16.8 [id number] Unknown [id number] 2.16.8 40.1.782280.3.579.2.462 Unknown [id number] 2.16.8 40.1.812942.3.579.2.462 Unknown [id number] 2.16.8 40.1.989540.3.579.2.462 Unknown [id number] 2.16.8 40.1.180089.3.579.2.462 Unknown [id number] 2.16.8 40.1.216624.3.579.2.462 Unknown [id number] 2.16.8 40.1.841674.3.579.2.462 Unknown [id number] 2.16.8 40.1.143654.3.579.2.462 Unknown [id number] 2.16.8 40.1.165904.3.579.2.462 Unknown [id number] 2.16.8 40.1.014485.3.579.2.462 Unknown [id number] 2.16.8 40.1.677521.3.579.2.462 Unknown [id number] 2.16.8 40.1.075143.3.579.2.462 Unknown [id number] 2.16.8 40.1.177738.3.579.2.462 Unknown [id number] 2.16.8 40.1.946834.3.579.2.462 Unknown [id number] 2.16.8 40.1.983555.3.579.2.462 Unknown [id number] 2.16.8 40.1.318697.3.579.2.462 Unknown [id number] 2.16.8 40.1.098205.3.579.2.462 Unknown [id number] 2.16.8 40.1.761555.3.579.2.462 Social History Date Type Detail Facility Start: 11-05-2018 End: 11-05-2018 Tobacco smoking status [facility] Unknown if ever smoked [facility] Start: 1980 Sex Assigned At Male [facility] Start: 01-29-2023 End: 10-04-2024 Tobacco smoking status NVIS Ex-smoker [facility] End: 10-18-2005 History of tobacco use Current smoker [facility] End: 10-18-2005 History of tobacco use Cigarette Smoker [facility] Start: 01-29-2023 Cigarettes smoked current (pack per day) - Reported 1 [facility] Start: 01-29-2023 Tobacco use and exposure Smokeless tobacco non-user [facility] Start: 01-29-2023 Alcohol intake Current non-dr chavez of alcohol (finding) [facility] Start: 01-29-2023 [facility] Start: 1980 Sex Assigned At Not on file [facility] Start: 01-03-2018 None [facility] Start: 01-03-2018 Spouse/ Signif icant Other;With Family [facility] Start: 01-03-2018 Non-smoker [facility] Start: 12-28-2024 End: 01-01-2025 Sex Male (finding) [facility] Sexual Orientation Heterosexual (finding) [facility] Clinical Notes 01-29-2023 to 05-07-2025 Note Date & Type Note Facility 05-07-2025 Evaluation note Diagnosis Onset Date Resolution Palpitations acute May 07, 2 025 10:46am Chest pain chronic May 07 10:46am Nicotine dependence chronic May 07, 2025 10:46am [facility] Work Phone: 1(212) 849-576805-16-2025 Nuclear medicine Diagnostic study note [facility] Imaging Services [address] [place] [address] Gastric Emptying Study - 4 HR MR#: [id number] Acct: [id number] Name: AURELIANO WALSH Rep #: [id number] : 1980 M 44 From: Rashawn Rajput MD PCP: Dr. Daniel Rob MD Status: RE G CLI Study:Gastric Emptying Study - 4 HR Date of E xam: 03/02/25 Exam# [id number] Ordering Dr: Choco Berry i RN NEW GRAD-C PROCEDURE: GASTRIC EMPTYING STUDY - 4 HR 03/02/2025 REASON FOR EXAM: GERD COMPARISON: None TECHNIQUE: The patient ingested a standard meal of 2 eggs, bread and 2 pieces of butter andwater. There was novomiting postprandially. Anterior and posterior planar images of the upper abdomen were obtained for 1 minute immediately following the meal at 1h, 2h and 4h if more than 10% of the activity persisted within the stomach. Regions of interest were drawn, and a geometric mean was used to calculate a [id number]-pnzkn. RADIOPHARMACEUTICAL: Sulfur colloid DOSE 1.2mCi FINDINGS: Percent activity remaining in stomach: 1 hour 80 % (normal 37-90%) 2 hours: 60 % (normal 30-60%) 4 hours: 28 % (normal 0-10%) NM/Gastric Emptying Study - 4 HR IMPRESSION: Delayed gastric emptying. Reading Location: [id number] CC: CHARLENE Berry; Dr. Daniel Rob MD ~ Department Specialist: Signed [facility]03-05-2025 Radiology Diagnostic study note [facility] [address] [place], [place] [address] Abdomen/Pelvis WITH Contrast MR#: [id number] Acct: [id number] Name: AURELIANO WALSH Rep #: [id number] : 1980 M 44 From: Rashawn Rajput MD PCP: Dr. Daniel Rob MD Status: RE G CLI Study:Abdomen/Pelvis WITH Contrast Date of Ex am: 12/20/24 Exam# [id number] Ordering Dr: Stella Solorzano MD PROCEDURE: ABDOMEN/PELVIS WITH CONTRAST REASON FOR EXAM: Left lower quadrant pain. Nausea. Stage 3 kidney disease. TECHNIQUE: Abdomen and pelvis CT with intravenous contrast. IV CONTRAST: 100 cc of Isovue-300. COMPARISON: None. FINDINGS: Lung bases: Clear Liver: Unremarkable. Gallbladder: Unremarkable. Spleen: Unremarkable. Pancreas: Unremarkable. Adrenals: Unremarkable. Kidneys: Unremarkable. Bladder: Unremarkable. Reproductive Organs: Unremarkable. Bowel: Diverticulosis of the descending colon and sigmoid colon. No evidence ofdiverticulitis. Appendix: Normal. Lymph nodes: No suspicious lymph node enlargement. Vasculature: Major vascular structures are unremarkable. Peritoneum / Retroperitoneum: No ascites. No free air. Bones: Unremarkable. CT/Abdomen/Pelvis WITH Contrast IMPRESSION: Colonic diverticulosis. No evidence of diverticulitis. One or more dose reduction techniques were used (e.g., Automated exposure control, adjustment of the mA and/or kV according to patient size, use of iterative reconstruction technique). Reading Location: JAIME CC: Dr. Daniel Rob MD; Dr. Stella Solorzano MD ~ Department Specialist: Signed [facility]03-01-2025 Radiology Diagnostic study note [facility] Services [address] [place], [place] [address] Abd Inc Decub and/or Erect MR#: [id number] Acct: [id number] Name: AURELIANO WALSH Rep #: [id number] : 1980 M 44 From: Sherlyn Caceres MD PCP: Dr. Daniel Rob MD Status: RE G CLI Study:Abd Inc Decub and/or Erect Date of Exam : 12/15/24 Exam# [id number] Ordering Dr: Choco Berry i RN NEW GRADSanta PROCEDURE: ABD INC DECUB AND/OR ERECT REASON FOR EXAM: Pain TECHNIQUE: Single view abdomen. COMPARISON: 11/02/2023 FINDINGS: Bowel gas pattern is normal. No evidence of bowel obstruction. No suspicious calcifications. The bones are unremarkable. RAD/Abd Inc Decub and/or Erect IMPRESSION: Nonspecific bowel gas pattern. Reading Location: [facility] CC: RN NEW GRAD-C Oren Berry; Dr. Daniel Rob MD ~ Department Specialist: Signed [facility]01-09-2025 Evaluation note* Diagnosis Onset Date Resolution Status Admit Date Anxiety disorder chronic October 26, 2024 9:14am Chest pain chronic October 26, 025 9:14am Irritable bowel syndrome chronic October 26, 2024 9:14am Nicotine dependence chronic 2024 9:14am [facility] Work Phone: 1(414) 525-165505-02-2023 Nurse Note* Yisel Grant RN - 02/16/2023 8:48 AM EDT Patient presents for suture removal. The wound is well healed without signs of infection. One suture removed. Dr. Vazquez reviewed Path report which was benign. This Nurse communicated that to the patient. He voiced understanding and had no further questions.Yisel Grant RN [facility] History of Present illness Narrative* Hudson Vazquez MD - 01/29/2023 9:45 AM EDT HISTORY AND PHYSICAL Aureliano Walsh 1980 REFERRING PHYSICIAN: Kaylynn Luis APRN.MALACHI CHIEF COMPLAINT: Consult (Reeval for lipomas) [...] today at the request of Dr. Kaylynn Luis APRN.MALACHI for my opinion and advice regarding Lesion [...] failure, other cardiac issues, denies claudication, NOTES coldfeet, denies peripheral arterial stent. Respiratory: The patient [...] psychiatric medications, NOTES depression, and denies voices, deniessubstance abuse. Endocrine: The patient denies thyroid disorders, [...] C (98.2 F), height 170.2 cm (5' 7), weight 95.2 kg (209 lb 12.8 oz), SpO2 96 %. HEENT: Normal cephalic, ataumatic, pupils are equally round, sclera are anicteric, mucous membranesare moist, oropharynx is clear. Neck has no [...] A letter was sent to Dr. Kaylynn Luis APRN.REHABILITATION PSYCHOLOGIST indicating the above finding for this patient. Return to Clinic: The patient is instructed to follow-up with me 1 week post operatively. Hudson Vazquez III, MD documented in [facility]04-[facility] Nurse Note* Vidhi Jeffery LPN - 01/29/2023 9:26 AM EDT REVIEW OF SYSTEMS: General: The patient NOTES [...] failure, other cardiac issues, denies claudication, NOTES coldfeet, denies peripheral arterial stent. Respiratory: The patient [...] psychiatric medications, NOTES depression, and denies voices, deniessubstance abuse. Endocrine: The patient denies thyroid disorders, [...] PRIOR Vidhi Jeffery LPN documented in [facility]Martin [facility] noteNo assessment information availableWLancaster Municipal [facility] Work Phone: Evaluation note* Diagnosis Lesion of subcutaneous tissue- Primary Unspecified disorder of skin and subcutaneous tissue Scalp cyst Sebaceous cyst documented in this encounter [facility]* Diagnosis Visit for suture removal- Primary Encounter for removal of sutures [facility] Diagnosis Onset Date Resolution Status Admit Date Anxiety disorder chronic April 10:46am Chest pain chronic May 07 10:46am Nicotine dependence chronic May 07, 2025 10:46am [facility] Work Phone: Reason for referral (narrative)No reason for referral information availableWLancaster Municipal Hospital Work Phone: Family History No Family History Records Found Relationship Condition Age at Onset Recorded Date/T yanci sister Asthma Unknown Anxiety Unknown father High blood cholesterol Unknown Alcohol abuse Unknown Hypertension Unknown Asthma Unknown Depression Unknown Relationship Condition Age at Onset Recorded Date/T yanci sister Asthma Unknown Anxiety Unknown father High blood cholesterol Unknown Alcohol abuse Unknown Hypertension Unknown Asthma Unknown Depression Unknown mother Multiple sclerosis Unknown Advance Directives No Advanced Directives Records Found Advance Directive Response Recorded Date/ Time Living Will No November 05 3:42am Power of Patient Financial Advocate No November 05, 2018 3:42am Advance Directive Response Recorded Date/ Time Living Will No November 05 2:42am Power of Patient Financial Advocate No November 05, 2018 2:42am Chief Complaint and Reason for Visit Chief Complaint CP CP Chief Complaint HEADACHES Chief Complaint HEADACHES TESTICULAR PAIN Chief Complaint EORDER Chief Complaint EORDER SEE ORDER REDRAW Chief Complaint Admit Date ABDOMINAL BLOATING September 06, 2024 8:49am CP (SCHINNER) October 26, 2024 9: 14am CHEST PAIN November 15, 2024 9 :42am CHEST PAIN November 17, 2024 8 :51am Pain December 15, 2024 11:33am ABD PAIN *ORAL & IV CONTRASTS* December 10:18am Reason for Visit Admit Date Anxiety disorder October 26, 2024 9: 14am Chest pain October 26, 2024 9: 14am Irritable bowel syndrome October 26 9:14am Nicotine dependence October 26, 2024 9: 14am Chief Complaint Admit Date CHEST PAIN November 15, 2024 9 :42am CHEST PAIN November 17, 2024 8 :51am Pain December 15, 2024 11:33am ABD PAIN *ORAL & IV CONTRASTS* December 10:18am CKD February 13, 2025 10: 48am GERD March 02, 2025 7:14a m Chief Complaint Admit Date CKD February 13, 2025 10: 48am GERD March 02, 2025 7:14a m 6 M FU May 07, 2025 10:4 6am Reason for Visit Admit Date Anxiety disorder May 07, 2025 10:4 6am Chest pain May 07, 2025 10:4 6am Nicotine dependence May 07, 2025 10:4 6am Chief Complaint Admit Date CKD February 13, 2025 10: 48am GERD March 02, 2025 7:14a m 6 M FU May 07, 2025 10:4 6am BRADYCARDIA, CP May 16, 2025 8:43 am BRADYCARDIA, CP May 16, 2025 8:54 am Reason for Visit Admit Date Palpitations May 07, 2025 10:4 6am Chest pain May 07, 2025 10:4 6am Nicotine dependence May 07, 2025 10:4 6am Summary Purpose Additional Source Comments Goals (unrecognized section and content) Goals may be documented in a n alternate sectionGoals may be documented in an alternate sectionGoals may be documented in an alternate sectionGoals may be documented in an alternate sectionGoals may be documented in an alternate sectionGoals may be documented in an alternate sectionGoals may be documented in an alternate sectionGoals may be documented in an alternate sectionGoals may be documented in an alternate sectionGoals may be documented in an alternate sectionGoals may be documented in an alternate sectionGoals may be documented in an alternate sectionGoals may be documented in an alternate sectionGoals may be documented in an alternate sectionGoals may be documented in an alternate sectionGoals may be documented in an alternate sectionGoals may be documented in an alternate section Care Teams (unrecognized sec tion and content) Team Status: Active Member Role Status Dates Dr. Daniel Rob MD Family Provider Active Dr. Daniel Rob MD Primary Care Provider Active Team Status: Inactive Member Role Status Dates Dr. Daniel Rob MD Primary Care Provider, Referr ing Provider Active Dr. Oscar Darling MD Attending Provider Active Team Status: Inactive Member Role Status Dates Dr. Daniel Rob MD Primary Care Pr ovider, Attending Provider, Referring Provider Active Team Status: Inactive Member Role Status Dates Dr. Daniel Rob MD Primary Care Provider, Attend ing Provider Active Compliance Technician Relationship Specialty Start Date End Date Kaylynn Luis, VICE PRESIDENT SUPPLY CHAIN.REHABILITATION PSYCHOLOGIST [address] [place] [address] PCP - General 01/28/23 Team Status: Active Member Role Status Dates Dr. Daniel Rob MD Primary Care Pr ovider, Attending Provider, Referring Provider Active Compliance Technician Relationship Specialty Start Date End Date Kaylynn Luis, VICE PRESIDENT SUPPLY CHAIN.REHABILITATION PSYCHOLOGIST [address] [place], [place] [address] PCP - General 01/28/23 Team Status: Inactive Member Role Status Dates Dr. Daniel Rob MD Primary Care Provider Active Dr. Stella Solorzano MD Attending Provider, Referring Provider Active Team Status: Inactive Member Role Status Dates Dr. Daniel Rob MD Primary Care Provider Active KIKI KHAN Attending Provider Active Team Status: Active Member Role Status Dates Dr. Daniel Rob MD Primary Care Provider Active KIKI KHAN Attending Provider, Referring Provider Active Team Status: Inactive Member Role Status Dates Dr. Daniel Rob MD Primary Care Provider Active KIKI KHAN Attending Provider, Referring Provider Active Team Status: Active Member Role Status Dates Dr. Daniel Rob MD Primary Care Provider Active Team Status: Inactive Member Role Status Dates Dr. Daniel oRb MD Primary Care Provider Active Start: September 06, 2024 End: September 06, 2024 CHARLENE Lauren Attending Provider Active Start : September 06, 2024 End: September 06, 2024 CHARLENE Lauren Referring Provider Active Start : September 06, 2024 End: September 06, 2024 Team Status: Inactive Member Role Status Dates Dr. Daniel Rob MD Primary Care Provider Active Start: September 12, 2024 End: September 12, 2024 Dr. Daniel Rob MD Attending Provider Active Start: September 12, 2024 End: September 12, 2024 Team Status: Inactive Member Role Status Dates Dr. Daniel Rob MD Primary Care Provider Active Start: October 26, 2024 End: October 26, 2024 Dr. Daniel Rob MD Referring Provider Active Start: October 26, 2024 End: October 26, 2024 Dr. Shiv Rajan MD Attending Provider Active Start: October 26, 2024 End: October 26, 2024 Team Status: Inactive Member Role Status Dates Dr. Daniel Rob MD Primary Care Provider Active Start: November 13, 2024 End: November 13, 2024 Oren Berry RN [facility]-C Attending Provider Active Start : November 13, 2024 End: November 13, 2024 Oren Berry , RN [employer] [facility]-C Referring Provider Active Start : November 13, 2024 End: November 13, 2024 Team Status: Inactive Member Role Status Dates Dr. Daniel Rob MD Primary Care Provider Active Start: November 15, 2024 End: November 15, 2024 Dr. Shiv Rajan MD Attending Provider Active Start: November 15, 2024 End: November 15, 2024 Dr. Shiv Rajan MD Referring Provider Active Start: November 15, 2024 End: November 15, 2024 Team Status: Active Member Role Status Dates Dr. Daniel Rob MD Primary Care Provider Active Start: November 15, 2024 Dr. Shiv Rajan MD Attending Provider Active Start: November 15, 2024 Team Status: Inactive Member Role Status Dates Dr. Daniel Rob MD Primary Care Provider Active Start: November 16, 2024 End: November 16, 2024 Oren Berry , RN [employer] [facility]C Attending Provider Active Start : November 16, 2024 End: November 16, 2024 Oren Berry , RN [employer] [facility]-C Referring Provider Active Start : November 16, 2024 End: November 16, 2024 Team Status: Inactive Member Role Status Dates Dr. Daniel Rob MD Primary Care Provider Active Start: November 17, 2024 End: November 17, 2024 Dr. Shiv Rajan MD Attending Provider Active Start: November 17, 2024 End: November 17, 2024 Dr. Shiv Rajan MD Referring Provider Active Start: November 17, 2024 End: November 17, 2024 Team Status: Active Member Role Status Dates Dr. Daniel Rob MD Primary Care Provider Active Start: November 17, 2024 Dr. Shiv Rajan MD Attending Provider Active Start: November 17, 2024 Team Status: Inactive Member Role Status Dates Dr. Daniel Rob MD Primary Care Provider Active Start: December 15, 2024 End: December 15, 2024 Oren Berry RN [employer] [facility]C Attending Provider Active Start : December 15, 2024 End: December 15, 2024 Oren Berry RN [employer] [facility]-C Referring Provider Active Start : December 15, 2024 End: December 15, 2024 Team Status: Active Member Role Status Dates Dr. Daniel Rob MD Primary Care Provider Active Start: December 20, 2024 Dr. Stella Solorzano MD Attending Provider Active Start: December 20, 2024 Dr. Stella Solorzano MD Referring Provider Active Start: December 20, 2024 Team Status: Inactive Member Role Status Dates Dr. Daniel Rob MD Primary Care Provider Active Start: December 20, 2024 End: December 20, 2024 Dr. Stella Solorzano MD Attending Provider Active Start: December 20, 2024 End: December 20, 2024 Dr. Stella Solorzano MD Referring Provider Active Start: December 20, 2024 End: December 20, 2024 Team Status: Inactive Member Role Status Dates Dr. Daniel Rob MD Primary Care Provider Active Start: February 13, 2025 End: February 13, 2025 Dr. Walt Galarza MD Attending Provider Active Start: February 13, 2025 End: February 13, 2025 Dr. Walt Galarza MD Referring Provider Active Start: February 13, 2025 End: February 13, 2025 Team Status: Inactive Member Role Status Dates Dr. Daniel Rob MD Primary Care Provider Active Start: March 02, 2025 End: March 02, 2025 Oren Berry RN [employer] [facility]-C Attending Provider Active Start : March 02, 2025 End: March 02, 2025 Oren Berry RN [employer] [facility]-C Referring Provider Active Start : March 02, 2025 End: March 02, 2025 Team Status: Active Member Role/Relationship Status Dates Dr. Daniel Rob MD Primary Care Provider Active Team Status: Inactive Member Role/Relationship Status Dates Dr. Daniel Rob MD Primary Care Provider Active Start: February 13, 2025 End: February 13, 2025 Dr. Walt Galarza MD Attending Provider Active Start: February 13, 2025 End: February 13, 2025 Dr. Walt Galarza MD Referring Provider Active Start: February 13, 2025 End: February 13, 2025 Team Status: Inactive Member Role/Relationship Status Dates Dr. Daniel Rob MD Primary Care Provider Active Start: March 02, 2025 End: March 02, 2025 rOen Berry NP-C Attending Provider Active Start : March 02, 2025 End: March 02, 2025 Oren Berry NP-C Referring Provider Active Start : March 02, 2025 End: March 02, 2025 Team Status: Inactive Member Role/Relationship Status Dates Dr. Daniel Rob MD Primary Care Provider Active Start: May 07, 2025 End: May 07, 2025 Dr. Daniel Rob MD Referring Provider Active Start: May 07, 2025 End: May 07, 2025 Selena Johnson NP, RN [employer] [facility] Attending Provider Active Start: May 07, 2025 End: May 07, 2025 Team Status: Inactive Member Role/Relationship Status Dates Dr. Daniel Rob MD Primary Care Provider Active Start: May 16, 2025 End: May 16, 2025 Selena Johnson NP, RN [employer] [facility]C Attending Provider Active Start: May 16, 2025 End: May 16, 2025 Selena Johnson NP, RN [employer] [facility]C Referring Provider Active Start: May 16, 2025 End: May 16, 2025 Team Status: Active Member Role/Relationship Status Dates Dr. Daniel Rob MD Primary Care Provider Active Start: May 16, 2025 Dr. Shiv Rajan MD Attending Provider Active Start: May 16, 2025 Selena Johnson NP, RN [employer] [facility]C Referring Provider Active Start: May 16, 2025 Source Comments (unrecognize d section and content) In the event this informatio n is protected by the Federal Confidentiality of Alcohol and Drug Abuse Patient Records regulations: The Federal rules restrict any use of the information to criminally investigate or prosecute any alcohol or drug abuse patient.[facility] the event this information is protected by the Federal Confidentiality of Alcohol and Drug Abuse Patient Records regulations: The Federal rules restrict any use of the information to criminally investigate or prosecute any alcohol or drug abuse patient.[facility] Reason for Visit (unrecogniz ed section and content) Reason Comments Consult Reeval for lipomas (unrecognized sect ion and content) No Status Records FoundNo Status Records FoundNo Status Records FoundNo Status Records FoundNo Status Records Found INFORMATION SOURCE (unrecogn ized section and content) DATE CREATED AUTHOR 03/04/2024 [facility] DATE CREATED AUTHOR AUTHOR'S ORGANIZ ATION 07/16/2024 [facility] [place] DATE CREATED AUTHOR AUTHOR'S ORGANIZ ATION 11/27/2024 [facility] DATE CREATED AUTHOR AUTHOR'S ORGANIZ ATION 02/24/2025 [facility] DATE CREATED AUTHOR AUTHOR'S ORGANIZ ATION 08/24/2025 [facility] FOR RECORDS PERTAINING TO PATIENTS WHO ARE [...] BE BASED ON THE PRIMARY CLINICAL RECORDS. [employer] provides no warranty or guarantee of the accuracy or completeness of information in this document.
--- NOTE | 2025-10-13 08:05 | MRI_ITS ---
EXAM: PELVIS (ROUTINE) 10/13/2025 CLINICAL HISTORY: LEFT HIP PAIN. TECHNIQUE: Procedure Code: MRIPEL Modality: MR Procedure: PELVIS (ROUTINE) Multiplanar and multisequence images were obtained intravenous gadolinium contrast. CONTRAST: VOLUME: mL COMPARISON: CT dated 12/20/2024. FINDINGS: No fracture or dislocation. No significant osteoarthritic changes are identified, including no significant degenerative changes affecting the left hip. Of note, this MRI is not a dedicated left hip MRI. The bone marrow signal is unremarkable. The pelvic contents appear unremarkable. The urinary bladder appears unremarkable. Grossly, the prostate gland appears normal in size. The visualized loops of bowel appear unremarkable. The parapelvic musculature and subcutaneous fat appear unremarkable. MRI/Pelvis (Routine) IMPRESSION: Unremarkable pelvic ultrasound. Reading Location: [id number]
== END | disposition home or self-care (01) ==
LOC: MRI 08:01
PROVIDERS: PCP Family Medicine; Referring Provider Physician Assistant; Visit Provider Physician Assistant
DX: M25.552 Pain in left hip (principal); M76.12 Psoas tendinitis, left hip
CPT/HCPCS: 72195